=== PATIENT | female | born 1960 | race Caucasian/White ===

== ENCOUNTER 2019-05-03 18:49 | Emergency (ER) | payer MEDICAID ==
--- OUTSIDE RECORDS SUMMARY | 2019-05-03 18:52 | XMS REPORT ---
:1960 Author Organization eClinicalWorks Care Team Providers Name Role Phone Silva, Na Provider Role Unavailable Allergies No Known Allergies Problems Problem Type Condition Code Onset Dates Condition Status Problem Depression with anxiety F41.8 Active Problem Familial hypercholesterolemia E78.01 Active Problem Bipolar disorder F31.9 Active Problem Chronic GERD K21.9 Active Problem Basal cell carcinoma (BCC) of skin C44.319 Active of other part of face Problem Chronic obstructive pulmonary J44.9 Active disease Problem Acute bronchitis, unspecified J20.9 Active organism Problem Hypertension I10 Active Problem Low back pain M54.5 Active Problem Chronic viral hepatitis C B18.2 Active Problem Basal cell carcinoma of skin of C44.310 Active unspecified parts of face Problem Hypercholesterolemia E78.00 Active Problem Nicotine dependence F17.200 Active Problem Allergic rhinitis, seasonal J30.2 Active Problem Chronic hepatitis C B18.2 Active Problem Benign essential HTN I10 Active Problem Anxiety F41.9 Active Problem Cryoglobulinemia D89.1 Active Problem COPD (chronic obstructive pulmonary J44.9 Active disease) Problem GERD (gastroesophageal reflux K21.9 Active disease) Problem Chronic back pain M54.9 Active Medications No Known Medications Results No Known Results Summary Purpose eClinicalWorks Submission
--- OUTSIDE RECORDS SUMMARY | 2019-05-03 18:52 | XMS REPORT ---
:1960 Author Organization [facility] Address [address] [place] [address] [address] [place] [address] Care Team Providers Name Role Phone Unavailable Unavailable Unavailable Payers Payer Name Policy Type Policy Number Effective Date Expiration Date Problems This patient has no known problems. Allergies, Adverse Reactions, Alerts This patient has no known allergies or adverse reactions. Medications This patient has no known medications.
--- OUTSIDE RECORDS SUMMARY | 2019-05-03 18:52 | XMS REPORT | Clinical Summary ---
:1960 Author Organization [facility] Address [address] [place] [id number] Care Team Providers Name Role Phone Unavailable Primary Care Provider Unavailable Allergies Not on File Medications Not on file Active Problems Not on file Social History Tobacco Use Types Packs/Day Years Used Date Never Assessed Sex Assigned at Date Recorded Not on file Job Start Date Occupation Industry Not on file Not on file Not on file Travel History Travel Start Travel End No recent travel history available. Last Filed Vital Signs Not on file Plan of Treatment Date Type Specialty Care Team Description 05/08/2019 Office Visit Hepatology Antony Cho MD [address] [facility] [address] [place] [address] Results Not on fileafter 05/02/2018 Insurance Payer Benefit Plan / Group Subscriber ID Type Phone Address [place] [employer] [place] x[place]
--- OUTSIDE RECORDS SUMMARY | 2019-05-03 18:52 | XMS REPORT ---
:1960 Author Organization eClinicalWorks Care Team Providers Name Role Phone Silva, Na Provider Role Unavailable Allergies, Adverse Reactions, Alerts Substance Reaction Event Type Codeine Sulfate Info Not Available Drug Allergy Problems Problem Type Condition Code Onset Dates Condition Status Assessment Nicotine dependence F17.200 Active Assessment Anxiety F41.9 Active Problem COPD (chronic obstructive pulmonary J44.9 Active disease) Assessment Bipolar disorder F31.9 Active Problem Chronic back pain M54.9 Active Assessment Benign essential HTN I10 Active Problem Depression with anxiety F41.8 Active Problem Familial hypercholesterolemia E78.01 Active Problem Bipolar disorder F31.9 Active Problem Chronic GERD K21.9 Active Problem Chronic obstructive pulmonary J44.9 Active disease Problem Basal cell carcinoma (BCC) of skin C44.319 Active of other part of face Assessment Acute bronchitis, unspecified J20.9 Active organism Problem Acute bronchitis, unspecified J20.9 Active organism Assessment COPD (chronic obstructive pulmonary J44.9 Active disease) Problem Hypertension I10 Active Problem Low back [...] F41.9 Active Problem Cryoglobulinemia D89.1 Active Problem GERD (gastroesophageal reflux K21.9 Active disease) Medications Medication Code Code Instructions Start End Status Dosage System Date Date Nasonex [facility] 14374429796 50 MCG/ACT Active 2 sprays Nasally Once a in each day nostril ProAir HFA [facility] 33780358351 108 (90 Base) Active 2 puffs as MCG/ACT needed Inhalation every 6 hrs Lisinopril [facility] 47608442714 20 MG Orally Active 1 tablet Once a day Diflucan ND 40624174545 150 MG Orally Active 1 tablet Xanax ND 64219591430 1 MG Orally Active 1 tablet Twice a day Depakote [facility] 72257842355 250 MG Orally Active as TID directed Lisinopril [facility] 51311848139 20 MG Orally Active 1 tablet Once a day Brovana [facility] 88602627528 15 MCG/2ML Active 2 ml Inhalation Twice a day Promethazine [facility] 29011254275 25 MG Orally Active 1 tablet HCl every 12 hrs as needed Prozac [facility] 70046112752 40 MG Orally Active 1 capsule Once a day Prozac [facility] 09871918345 40 MG Orally Active 1 capsule Once a day Alprazolam [facility] 13656158592 0.5 MG Orally April 24, Active 1 tablet Twice a day 2017 Symbicort [facility] 33347138260 160-4.5 MCG/ACT Active 2 puffs Inhalation Twice a day ProAir HFA [facility] 70269639269 108 (90 Base) Active 2 puffs as MCG/ACT needed Inhalation every 6 hrs Lyrica [facility] 75162441179 100 MG Orally Active 1 capsule Three times a day [place] [facility] 73318812198 10-325 MG Active 1 tablet Orally every 6 as needed hrs Azithromycin [facility] 23685826303 250 MG Orally Active 2 tablets Once a day on the first day, then 1 tablet daily for 4 days [facility] 73142008482 10-325 MG Active 1 tablet Orally every 6 as needed hrs Xanax [facility] 70096077756 1 MG Orally Inactive 1 tablet Twice a day Protonix [facility] 32837096990 40 MG Orally Active 1 tablet Once a day Nasonex [facility] 32749976192 50 MCG/ACT Active 2 sprays Nasally Once a in each day nostril Promethazine [facility] 15129434810 25 MG/ML Active 1 ml as HCl Injection every needed 6 hrs Protonix [facility] 86325534829 40 MG Orally Active 1 tablet Lisinopril [facility] 08386527227 20 MG Orally Active 1 tablet Once a day Diflucan [facility] 12107285214 150 MG Orally Active 1 tablet Brovana [facility] 07234801270 15 MCG/2ML Active 2 ml Inhalation Twice a day Amitiza [facility] 24296851263 24 MCG Orally March Active 1 capsule Twice a day 2017 with food Lyrica [facility] 81467535888 100 MG Orally Active 1 capsule Three times a day ProAir HFA [facility] 41877673577 108 (90 Base) Active 2 puffs as MCG/ACT needed Inhalation every 6 hrs Flonase [facility] 88890826703 50 MCG/ACT Active 1 spray in Nasally Once a each day nostril Results No Known Results Summary Purpose eClinicalWorks Submission
--- OUTSIDE RECORDS SUMMARY | 2019-05-03 18:52 | XMS REPORT ---
[...] Problem Chronic obstructive pulmonary J44.9 Active disease Assessment Anxiety F41.9 Active Problem Acute bronchitis, unspecified J20.9 Active organism [...] Problem Chronic back pain M54.9 Active Medications Medication Code Code Instructions Start End Status Dosage System Date Date Xanax [facility] 25509072260 1 MG Orally Active 1 tablet Twice a day Promethazine HCl [facility] 71213617174 25 MG/ML Active 1 ml as Injection every needed 6 hrs Nasonex ND 54398796365 50 MCG/ACT Active 2 sprays Nasally Once a in each day nostril Diflucan [facility] 98314069264 150 MG Orally Active 1 tablet Brovana [facility] 81454768725 15 MCG/2ML Active 2 ml Inhalation Twice a day Lisinopril ND 61226066003 20 MG Orally Active 1 tablet Once a day Amitiza [facility] 00433858024 24 MCG Orally March Active 1 capsule Twice a day 05, 2018 with food Prozac [facility] 65473044952 40 MG Orally Active 1 capsule Once a day Lisinopril ND 47538525654 20 MG Orally Active 1 tablet Once a day Protonix ND 66172398404 40 MG Orally Active 1 tablet Once a day Flonase ND 16564251823 50 MCG/ACT Active 1 spray in Nasally Once a each day nostril Promethazine HCl ND 75747825673 25 MG Orally Active 1 tablet every 12 hrs as needed ProAir HFA [facility] 43812175252 108 (90 Base) Active 2 puffs as MCG/ACT needed Inhalation every 6 hrs Xanax [facility] 08809924003 1 MG Orally Active 1 tablet Twice a day [place] [facility] 34075087400 10-325 MG Active 1 tablet Orally every 6 as needed hrs Prozac [facility] 60255876425 40 MG Orally Active 1 capsule Once a day Lyrica [facility] 00784718483 100 MG Orally Active 1 capsule Three times a day [facility] 77802609949 10-325 MG Active 1 tablet Orally every 6 as needed hrs Lyrica ND 66080386015 100 MG Orally Active 1 capsule Three times a day Diflucan ND 00246992461 150 MG Orally Active 1 tablet ProAir HFA ND 39286147478 108 (90 Base) Active 2 puffs as MCG/ACT needed Inhalation every 6 hrs Brovana [facility] 47442409125 15 MCG/2ML Active 2 ml Inhalation Twice a day Nasonex ND 03916138022 50 MCG/ACT Active 2 sprays Nasally Once a in each day nostril Protonix ND 83782591882 40 MG Orally Active 1 tablet Results No Known Results Summary Purpose eClinicalWorks Submission
--- OUTSIDE RECORDS SUMMARY | 2019-05-03 18:52 | XMS REPORT ---
[...] back pain M54.9 Active Medications Medication Code System Code Instructions Start Date End Date Status Dosage Lyubov [facility] 86564722605 15 MCG/2ML Active 2 ml Inhalation Twice a day Results No Known Results Summary Purpose eClinicalWorks Submission
--- OUTSIDE RECORDS SUMMARY | 2019-05-03 18:53 | XMS REPORT ---
:1960 Author Organization eClinicalWorks Care Team Providers Name Role Phone Silva, Na Provider Role Unavailable Allergies, Adverse Reactions, Alerts Substance Reaction Event Type Codeine Sulfate Info Not Available Drug Allergy Problems Problem Type Condition Code Onset Dates Condition Status Assessment Chronic hepatitis C B18.2 Active Assessment Nicotine dependence F17.200 Active Problem Chronic back pain M54.9 Active Assessment Anxiety F41.9 Active Problem Depression with anxiety F41.8 Active Assessment Infection of finger L08.9 Active Problem Bipolar disorder F31.9 Active Problem Low back pain M54.5 Active Problem Familial hypercholesterolemia E78.01 Active Problem Acute bronchitis, unspecified J20.9 Active organism Problem Chronic GERD K21.9 Active Problem Allergic rhinitis, seasonal J30.2 Active Problem Basal cell carcinoma (BCC) of skin C44.319 Active of other part of face Problem Infection of finger L08.9 Active Problem Basal cell carcinoma of skin of C44.310 Active unspecified parts of face Problem Hypertension I10 Active Problem Chronic obstructive pulmonary J44.9 Active disease Problem Chronic viral hepatitis C B18.2 Active Problem Nicotine dependence F17.200 Active Problem Cryoglobulinemia D89.1 Active Problem Chronic hepatitis C B18.2 Active Problem Hypercholesterolemia E78.00 Active Problem Anxiety F41.9 Active Problem COPD (chronic obstructive pulmonary J44.9 Active disease) Problem GERD (gastroesophageal reflux K21.9 Active disease) Problem Benign essential HTN I10 Active Medications Medication Code Code Instructions Start End Status Dosage System Date Date Lisinopril [facility] 60939463497 20 MG Orally Active 1 tablet Once a day Lyrica ND 90856884050 100 MG Orally Active 1 capsule Three times a day Fluoxetine HCl [facility] 54524190284 40 MG Active 1 EACH ONCE A DAY ORALLY Amitiza [facility] 05834425978 24 MCG Orally January Active 1 capsule Twice a day 2017 with food ProAir HFA [facility] 65099783062 108 (90 Base) Active 2 puffs as MCG/ACT needed Inhalation every 6 hrs [place] [facility] 31147819086 10-325 MG Active 1 tablet as Orally every 6 needed hrs Brovana [facility] 07292506478 15 MCG/2ML Active 2 ml Inhalation Twice a day Protonix [facility] 58639893394 40 Active 1 TAB(S) ONCE A DAY ORALLY Flonase [facility] 66083982922 50 MCG/ACT Active 1 spray in Nasally Once a each day nostril Alprazolam [facility] 20257658193 0.5 MG Orally Active 1 tablet Twice a day Azithromycin [facility] 05977547511 250 MG Orally Active 2 tablets Once a day on the first day, then 1 tablet daily for 4 days Keflex [facility] 33375017900 500 MG Orally Jul 25, Active 1 capsule every 12 hrs 2017 Prozac [facility] 79980147475 40 MG Orally Active 1 capsule Once a day Depakote [facility] 15862977873 250 MG Orally Active as directed TID Lisinopril [facility] 71654240626 20 MG Orally Active 1 tablet Once a day Protonix [facility] 87505277804 40 MG Orally Active 1 tablet Once a day ProAir HFA [facility] 87069496247 108 (90 Base) Active 2 puffs as MCG/ACT needed Inhalation every 6 hrs Results No Known Results Summary Purpose eClinicalWorks Submission
--- OUTSIDE RECORDS SUMMARY | 2019-05-03 18:53 | XMS REPORT ---
:1960 Author Organization eClinicalWorks Care Team Providers Name Role Phone Silva, Na Provider Role Unavailable Allergies, Adverse Reactions, Alerts Substance Reaction Event Type Codeine Sulfate Info Not Available Drug Allergy Problems Problem Type Condition Code Onset Dates Condition Status Assessment Nicotine dependence F17.200 Active Problem COPD (chronic obstructive pulmonary J44.9 Active disease) Assessment Bipolar disorder F31.9 Active Problem Chronic back pain M54.9 Active Assessment COPD (chronic obstructive pulmonary J44.9 Active disease) Problem Depression with anxiety F41.8 Active Problem Familial hypercholesterolemia E78.01 Active Problem Bipolar disorder F31.9 Active Problem Chronic GERD K21.9 Active Problem Chronic obstructive pulmonary J44.9 Active disease Problem Basal cell carcinoma (BCC) of skin C44.319 Active of other part of face Problem Acute bronchitis, unspecified J20.9 Active organism Assessment Anxiety F41.9 Active Problem Hypertension I10 Active Problem Low back [...] End Status Dosage System Date Date Lisinopril [facility] 35616406403 20 MG Orally Active 1 tablet Once a day Lyrica [facility] 46616490018 100 MG Orally Active 1 capsule Three times a day Alprazolam [facility] 56552173091 0.5 MG Orally Active 1 tablet Twice a day Xanax [facility] 89193095220 1 MG Orally Inactive 1 tablet Twice a day Brovana [facility] 68822387094 15 MCG/2ML Active 2 ml Inhalation Twice a day Lisinopril [facility] 35422875925 20 MG Orally Active 1 tablet Once a day Amitiza [facility] 25564310707 24 MCG Orally January Active 1 capsule Twice a day 2017 with food Flonase [facility] 26416357169 50 MCG/ACT Active 1 spray in Nasally Once a each day nostril Symbicort [facility] 88877244373 160-4.5 MCG/ACT May Inactive 2 puffs Inhalation , Twice a day 2017 Depakote [facility] 36666515099 250 MG Orally Active as directed TID Azithromycin [facility] 82918798442 250 MG Orally Active 2 tablets Once a day on the first day, then 1 tablet daily for 4 days Protonix [facility] 34911661144 40 MG Orally Active 1 tablet Once a day Prozac [facility] 49311366964 40 MG Orally Active 1 capsule Once a day ProAir HFA [facility] 56583292452 108 (90 Base) Active 2 puffs as MCG/ACT needed Inhalation every 6 hrs [place] [facility] 94619060330 10-325 MG Active 1 tablet as Orally every 6 needed hrs ProAir HFA [facility] 94564826333 108 (90 Base) Active 2 puffs as MCG/ACT needed Inhalation every 6 hrs Results No Known Results Summary Purpose eClinicalWorks Submission
--- OUTSIDE RECORDS SUMMARY | 2019-05-03 18:53 | XMS REPORT ---
[...] Start End Status Dosage System Date Date Protonix [facility] 49518398174 40 Active 1 TAB(S) ONCE A DAY ORALLY ProAir HFA [facility] 34916035134 108 (90 Base) Active 2 puffs as MCG/ACT needed Inhalation every 6 hrs Lyrica ND 86340887516 100 MG Orally Active 1 capsule Three times a day [place] [facility] 90042610991 10-325 MG Orally Active 1 tablet as every 6 hrs needed Protonix ND 48274799158 40 MG Orally Active 1 tablet Once a day Flonase ND 71156664293 50 MCG/ACT Active 1 spray in Nasally Once a each day nostril ProAir HFA [facility] 80793744383 108 (90 Base) Active 2 puffs as MCG/ACT needed Inhalation every 6 hrs Prozac [facility] 23860130610 40 MG Orally Active 1 capsule Once a day Azithromycin [facility] 31462834068 250 MG Orally Active 2 tablets Once a day on the first day, then 1 tablet daily for 4 days Lisinopril [facility] 78033773001 20 MG Orally Active 1 tablet Once a day Lisinopril [facility] 28266626855 20 MG Orally Active 1 tablet Once a day Amitiza [facility] 72184481755 24 MCG Orally January 22, Active 1 capsule Twice a day 2017 with food Brovana [facility] 02404255820 15 MCG/2ML Active 2 ml Inhalation Twice a day Depakote [facility] 37679171680 250 MG Orally Active as directed TID Alprazolam [facility] 60514107871 0.5 MG Orally Active 1 tablet Twice a day Results No Known Results Summary Purpose eClinicalWorks Submission
--- OUTSIDE RECORDS SUMMARY | 2019-05-03 18:53 | XMS REPORT ---
[...] Start Date End Date Status Dosage Lyubov [facility] 16137541483 15 MCG/2ML Active 2 ml Inhalation Twice a day Results No Known Results Summary Purpose eClinicalWorks Submission
--- OUTSIDE RECORDS SUMMARY | 2019-05-03 18:53 | XMS REPORT ---
:1960 Author Organization eClinicalWorks Care Team Providers Name Role Phone Silva, Na Provider Role Unavailable Allergies No Known Allergies Problems Problem Type Condition Code Onset Dates Condition Status Problem Bipolar disorder F31.9 Active Problem Low back pain M54.5 Active Problem Familial hypercholesterolemia E78.01 Active Problem Acute bronchitis, unspecified J20.9 Active organism Problem Allergic rhinitis, seasonal J30.2 Active Problem Chronic GERD K21.9 Active Problem [...] disease) Problem Chronic back pain M54.9 Active Problem Benign essential HTN I10 Active Problem Depression with anxiety F41.8 Active Medications No Known Medications Results No Known Results Summary Purpose eClinicalWorks Submission
--- OUTSIDE RECORDS SUMMARY | 2019-05-03 18:53 | XMS REPORT ---
:1960 Author Organization eClinicalWorks Care Team Providers Name Role Phone Silva, Na Provider Role Unavailable Allergies, Adverse Reactions, Alerts Substance Reaction Event Type Codeine Sulfate Info Not Available Drug Allergy Problems Problem Type Condition Code Onset Dates Condition Status Assessment Chronic hepatitis C B18.2 Active Assessment Nicotine dependence F17.200 Active Problem COPD (chronic obstructive pulmonary J44.9 Active disease) Assessment COPD (chronic obstructive pulmonary J44.9 Active disease) Problem Chronic back pain M54.9 Active Assessment Anxiety F41.9 Active Problem Depression with anxiety F41.8 Active Problem Familial hypercholesterolemia E78.01 Active Problem Bipolar disorder F31.9 Active Problem Chronic GERD K21.9 Active Problem Chronic obstructive pulmonary J44.9 Active disease Problem Basal cell carcinoma (BCC) of skin C44.319 Active of other part of face Problem Acute bronchitis, unspecified J20.9 Active organism Assessment Cellulitis of skin L03.90 Active Problem Hypertension I10 Active Problem Low [...] End Status Dosage System Date Date Protonix ND 68056058487 40 MG Orally Active 1 tablet Once a day Prozac [facility] 82703642638 40 MG Orally Active 1 capsule Once a day Fluoxetine HCl ND 97366594277 40 MG Active 1 EACH ONCE A DAY ORALLY Protonix [facility] 47052368227 40 Active 1 TAB(S) ONCE A DAY ORALLY Alprazolam ND 76830701463 0.5 MG Orally Active 1 tablet Twice a day Keflex [facility] 06716171265 500 MG Orally Jul 06, Jul 13, Active 1 capsule every 8 hrs 2017 2017 Azithromycin [facility] 61258643964 250 MG Orally Active 2 tablets Once a day on the first day, then 1 tablet daily for 4 days Lisinopril [facility] 03775023515 20 MG Orally Active 1 tablet Once a day Amitiza [facility] 16258452580 24 MCG Orally January Active 1 capsule Twice a day 2017 with food Flonase [facility] 97136082659 50 MCG/ACT Active 1 spray in Nasally Once a each day nostril [place] [facility] 67458098323 10-325 MG Active 1 tablet as Orally every 6 needed hrs Lisinopril [facility] 73666490818 20 MG Orally Active 1 tablet Once a day Brovana [facility] 46201512596 15 MCG/2ML Active 2 ml Inhalation Twice a day ProAir HFA [facility] 26194867619 108 (90 Base) Active 2 puffs as MCG/ACT needed Inhalation every 6 hrs ProAir HFA [facility] 53205609879 108 (90 Base) Active 2 puffs as MCG/ACT needed Inhalation every 6 hrs Lyrica [facility] 44803305204 100 MG Orally Active 1 capsule Three times a day Depakote [facility] 50110249515 250 MG Orally Active as directed TID Results No Known Results Summary Purpose eClinicalWorks Submission
--- OUTSIDE RECORDS SUMMARY | 2019-05-03 18:54 | XMS REPORT ---
[...] M54.9 Active Assessment Anxiety F41.9 Active Problem Benign essential HTN I10 Active Problem Depression with anxiety F41.8 Active Medications Medication Code System Code Instructions Start End Date Status Dosage Date Lisinopril [facility] 05857103118 20 MG Orally Active 1 tablet Once a day ProAir HFA [facility] 78671190948 108 (90 Base) Active INHALE 2 MCG/ACT PUFFS 4 TIMES A DAY Prozac [facility] 70549891303 40 MG Orally Active 1 capsule Once a day Results No Known Results Summary Purpose eClinicalWorks Submission
--- OUTSIDE RECORDS SUMMARY | 2019-05-03 18:54 | XMS REPORT ---
:1960 Author Organization eClinicalWorks Care Team Providers Name Role Phone Silva, Na Provider Role Unavailable Allergies, Adverse Reactions, Alerts Substance Reaction Event Type Codeine Sulfate Info Not Available Drug Allergy Problems Problem Type Condition Code Onset Dates Condition Status Assessment COPD (chronic obstructive pulmonary J44.9 Active disease) Problem Chronic back pain M54.9 Active Assessment Chronic hepatitis C B18.2 Active Problem Depression with anxiety F41.8 Active Assessment Anxiety F41.9 Active Problem Bipolar disorder F31.9 Active Problem [...] Start End Status Dosage System Date Date Brovana [facility] 31787389260 15 MCG/2ML Active 2 ml Inhalation Twice a day ProAir HFA [facility] 74975511091 108 (90 Base) Active INHALE 2 MCG/ACT PUFFS 4 TIMES A DAY Protonix ND 78495788603 40 MG Orally Active 1 tablet Once a day Amitiza ND 79420017951 24 MCG Orally January Active 1 capsule Twice a day 2017 with food Protonix ND 40061753877 40 Active 1 TAB(S) ONCE A DAY ORALLY Alprazolam ND 17771801691 0.5 MG Orally Active 1 tablet Twice a day Fluoxetine HCl [facility] 01714399896 40 MG Active 1 EACH ONCE A DAY ORALLY Lisinopril [facility] 11490871883 20 MG Orally Active 1 tablet Once a day Prozac [facility] 03960480514 40 MG Orally Active 1 capsule Once a day Wheeler [facility] 81585980794 10-325 MG Active 1 tablet as Orally every 6 needed hrs Lyrica [facility] 40089642783 100 MG Orally Active 1 capsule Three times a day Depakote [facility] 91187536826 250 MG Orally Active as directed TID Flonase [facility] 40204658112 50 MCG/ACT Active 1 spray in Nasally Once a each day nostril Keflex [facility] 25529238934 500 MG Orally Active 1 capsule every 12 hrs [address]ymbicort [facility] 70160510167 160-4.5 MCG/ACT Active 2 puffs Inhalation Twice a day Lisinopril [facility] 68908055740 20 MG Orally Active 1 tablet Once a day Azithromycin [facility] 58443598558 250 MG Orally Active 2 tablets Once a day on the first day, then 1 tablet daily for 4 days Results No Known Results Summary Purpose eClinicalWorks Submission
--- OUTSIDE RECORDS SUMMARY | 2019-05-03 18:54 | XMS REPORT ---
[...] with anxiety F41.8 Active Medications Medication Code Code Instructions Start End Status Dosage System Date Bro [facility] 04512169386 15 MCG/2ML Active 2 ml Inhalation Twice a day Amitiza [facility] 53913187571 24 MCG Orally January Active 1 capsule Twice a day 2017 with food Symbicort [facility] 55605104817 160-4.5 MCG/ACT Active 2 puffs Inhalation Twice a day Keflex [facility] 89861538256 500 MG Orally Jul 25, Active 1 capsule every 12 hrs 2017 Azithromycin [facility] 21659734391 250 MG Orally Active 2 tablets Once a day on the first day, then 1 tablet daily for 4 days Prozac [facility] 51077572772 40 MG Orally Active 1 capsule Once a day [place] [facility] 75089276429 10-325 MG Active 1 tablet as Orally every 6 needed hrs Lyrica [facility] 31189421564 100 MG Orally Active 1 capsule Three times a day Lisinopril [facility] 06080792996 20 MG Orally Active 1 tablet Once a day Protonix [facility] 42600622230 40 Active 1 TAB(S) ONCE A DAY ORALLY Alprazolam [facility] 14092669348 0.5 MG Orally Active 1 tablet Twice a day Protonix [facility] 31415606012 40 MG Orally Active 1 tablet Once a day Fluoxetine HCl [facility] 00739302830 40 MG Active 1 EACH ONCE A DAY ORALLY Lisinopril [facility] 80861911655 20 MG Orally Active 1 tablet Once a day Depakote [facility] 30578211890 250 MG Orally Active as directed TID Flonase [facility] 08356380766 50 MCG/ACT Active 1 spray in Nasally Once a each day nostril ProAir HFA [facility] 10706730029 108 (90 Base) Active INHALE 2 MCG/ACT PUFFS 4 TIMES A DAY Results No Known Results Summary Purpose eClinicalWorks Submission
--- OUTSIDE RECORDS SUMMARY | 2019-05-03 18:54 | XMS REPORT ---
[...] Assessment Benign essential HTN I10 Active Problem Benign essential HTN I10 Active Problem Depression with anxiety F41.8 Active Medications Medication Code System Code Instructions Start Date End Date Status Dosage Lisinopril [facility] 55772984440 20 MG Orally Once Active 1 tablet a day Results No Known Results Summary Purpose eClinicalWorks Submission
[2019-05-03] MEDS ORDERED: NA CHLORIDE 0.9% 1,000 ML ONE (20:20)
[2019-05-03] MEDS ORDERED: FENTANYL CITR 100 MCG/2 ML ONE (20:20)
[2019-05-03] MEDS ORDERED: ONDANSETRON 4 MG/2 ML VIAL ONE (20:20)
[2019-05-03] MEDS ORDERED: FAMOTIDINE 20 MG/2 ML VIAL IV ONE (20:20)
[2019-05-03 20:38] LABS: Absolute Monocytes 0.6 K/uL (0.1-1.3); Absolute Neutrophil 3.6 K/uL (1.8-8.0); Basophils % 0.7 % (0-1.3); Eosinophils % 0.1 % (0-4.4); Hematocrit 39.5 % (36.0-45.0); Lymphocytes % 31.4 % (15.3-44.8); MPV 8.4 fL (7.6-11.3); Monocytes % 9.6 % (3.3-12.3); RBC Red Blood Cell Count 3.89 M/uL (3.86-4.86)
[2019-05-03 20:50] LABS: Albumin 3.3 g/dL (3.4-5.0); Bilirubin Direct 0.3 mg/dL (0-0.2); Bilirubin Total 0.8 mg/dL (0.2-1.0); Magnesium 1.9 mg/dL (1.8-2.4); Potassium 3.8 mmol/L (3.5-5.1); Protein, Total 7.5 g/dL (6.4-8.2)
[2019-05-03] MEDS ORDERED: KETOROLAC 30 MG/ML INJ ONE (21:41)
--- NOTE | 2019-05-03 23:03 | EDPHYS ---
Physician Documentation [facility] Name: Josseline Gallegos Age: 58 yrs Sex: Female : 1960 Arrival Date: 05/03/2019 Time: 18:55 Bed 2 Private MD: TIM Physician Chris Gallegos HPI: 05/03 19:55 This 58 yrs old Female presents to ER via EMS with complaints of cp Nausea/Vomiting. 19:55 The patient presents to the emergency department with nausea, with "dry heaves", cp vomiting, that is continuous, diarrhea, that is intermittent. Onset: The symptoms/episode began/occurred yesterday. 19:55 Possible causes: unknown. Associated signs and symptoms: Pertinent positives: abdominal cp pain, anorexia, Pertinent negatives: constipation, dysuria, fever, GI bleeding. Severity of symptoms: in the emergency department the symptoms are unchanged despite home interventions. Historical: - Allergies: 19:06 Codeine; ph - Home Meds: 19:06 Hydrocodone-Acetaminophen Oral [Active]; lisinopril Oral [Active]; morphine 20 mg Oral ph CERP 1 cap once daily [Active]; - PMHx: 19:06 Chronic pain; Hypertension; ph - PSHx: 19:06 foot surgery; ph - Immunization history:: Adult Immunizations unknown. - Social history:: Smoking status: Patient uses tobacco products, smokes one-half pack cigarettes per day. - Ebola Screening: : No symptoms or risks identified at this time. ROS: 20:05 Constitutional: Positive for poor PO intake, Negative for body aches, chills, fever. cp 20:05 Eyes: Negative for injury, pain, redness, and discharge. cp 20:05 ENT: Negative for drainage from ear(s), ear pain, sore throat, difficulty swallowing, difficulty handling secretions. 20:05 Cardiovascular: Negative for chest pain, edema, palpitations. 20:05 Respiratory: Negative for cough, shortness of breath, wheezing. 20:05 Abdomen/GI: Positive for abdominal pain, nausea, vomiting, and diarrhea, Negative for hematemesis, black/tarry stool, rectal bleeding. 20:05 Back: Negative for pain at rest, pain with movement, radiated pain. 20:05 : Negative for urinary symptoms. 20:05 Skin: Negative for rash. 20:05 Neuro: Negative for altered mental status, headache, weakness. 20:05 All other systems are negative. Exam: 20:10 Constitutional: The patient appears in no acute distress, alert, awake, cp non-diaphoretic, non-toxic, well developed, well nourished. 20:10 Head/Face: Normocephalic, atraumatic. cp 20:10 Eyes: Periorbital structures: appear normal, Conjunctiva: normal, no exudate, no injection, Sclera: no appreciated abnormality, Lids and lashes: appear normal, bilaterally. 20:10 ENT: External ear(s): are unremarkable, Nose: is normal, Mouth: Lips: dry, Oral mucosa: moist, Posterior pharynx: is normal, airway is patent, no erythema, no exudate. 20:10 Chest/axilla: Inspection: normal, Palpation: is normal, no crepitus, no tenderness. 20:10 Cardiovascular: Rate: normal, Rhythm: regular, Heart sounds: murmur, not appreciated, Edema: is not appreciated, JVD: is not appreciated. 20:10 Respiratory: the patient does not display signs of respiratory distress, Respirations: normal, no use of accessory muscles, no retractions, no splinting, no tachypnea, labored breathing, is not present, Breath sounds: are clear throughout, no decreased breath sounds, no stridor, no wheezing. 20:10 Abdomen/GI: Inspection: abdomen appears normal, Bowel sounds: active, all quadrants, Palpation: soft, in all quadrants, moderate abdominal tenderness, in the epigastric area and right upper quadrant, rebound tenderness, is not appreciated, voluntary guarding, is elicited in the epigastric area. 20:10 Back: pain, is absent, ROM is normal. 20:10 Skin: no rash present. Vital Signs: 19:04 BP 160 / 105; Pulse 76; Resp 18; Temp 98.0; Pulse Ox 98% on R/A; Weight 52.16 kg; ph Height 5 ft. 5 in. (165.10 cm); Pain 0/10; 19:35 BP 160 / 106; Pulse 63; Resp 18; Temp 98.4; Pulse Ox 98% on R/A; ak1 20:15 BP 138 / 93; Pulse 69; Resp 17; Temp 98; Pulse Ox 99% ; Pain 6/10; rr5 21:10 BP 140 / 98; Pulse 67; Resp 18; Pulse Ox 100% ; Pain 5/10; rr5 22:07 BP 125 / 85; Pulse 69; Resp 16; Temp 98.1; Pulse Ox 96% on R/A; ak1 23:14 BP 131 / 70; Pulse 66; Resp 17; Temp 98.5; Pulse Ox 99% on R/A; rr5 19:04 Body Mass Index 19.14 (52.16 kg, 165.10 cm) ph MDM: 19:48 Patient medically screened. cp 23:02 Data reviewed: vital signs, nurses notes, lab test result(s), radiologic studies, CT cp scan, ultrasound. 23:02 Counseling: I had a detailed discussion with the patient and/or guardian regarding: the cp historical points, exam findings, and any diagnostic results supporting the discharge/admit diagnosis, lab results, radiology results, to return to the emergency department if symptoms worsen or persist or if there are any questions or concerns that arise at home. Special discussion: Based on the patient's Hx, exam, and Dx evaluation, there is no indication for emergent surgery or inpatient Tx. It is understood by the patient/guardian that if the Sx's persist or worsen they need to return immediately for re-evaluation. ED course: VSS. Pain and nausea markedly improved. Vomiting resolved. Will discharge to home for continued monitoring. 05/03 19:47 Order name: Basic Metabolic Panel; Complete Time: 21:19 cp 05/03 19:47 Order name: CBC with Diff; Complete Time: 21:19 cp 05/03 19:47 Order name: Creatinine for Radiology; Complete Time: 21:19 cp 05/03 19:47 Order name: Hepatic Function; Complete Time: 21:19 cp 05/03 19:47 Order name: Lipase; Complete Time: 21:19 cp 05/03 19:48 Order name: Magnesium; Complete Time: 21:19 cp 05/03 19:47 Order name: IV Saline Lock; Complete Time: 20:03 cp 05/03 19:48 Order name: CT Abd/Pelvis - IV Contrast Only cp 05/03 21:58 Order name: US Abdomen Limited: RUQ/epigastric area; Complete Time: 21:13 cp 05/03 19:47 Order name: Labs collected and sent; Complete Time: 20:03 cp Administered Medications: 20:10 Drug: NS 0.9% 1000 ml Route: IV; Rate: 1 bolus; Site: left antecubital; rr5 21:15 Follow up: Response: No adverse reaction; IV Status: Completed infusion; IV Intake: rr5 1000ml 20:11 Drug: Zofran 4 mg Route: IVP; Site: left antecubital; rr5 21:10 Follow up: Response: No adverse reaction; Marked relief of symptoms rr5 20:13 Drug: Pepcid 20 mg Route: IVP; Site: left antecubital; rr5 21:15 Follow up: Response: No adverse reaction rr5 20:15 Drug: fentaNYL (PF) 25 mcg Route: IVP; Site: left antecubital; rr5 21:15 Follow up: Response: No adverse reaction rr5 21:33 Drug: TORadol 30 mg Route: IVP; Site: left antecubital; rr5 22:30 Follow up: Response: No adverse reaction rr5 Disposition: 05/03/19 23:03 Discharged to Home. Impression: Nausea and vomiting, Diarrhea, unspecified. - Condition is Stable. - Discharge Instructions: Diarrhea, Adult, Nausea and Vomiting, Adult. - Prescriptions for Protonix 40 mg Oral Tablet - take 1 tablet by ORAL route once daily; 30 tablet. Zofran 4 mg Oral Tablet - take 1 tablet by ORAL route every 12 hours As needed; 20 tablet. - Medication Reconciliation Form, Thank You Letter, Antibiotic Education, Prescription Opioid Use form. - Follow up: Private Physician; When: 1 - 2 days; Reason: Recheck today's complaints. - Problem is new. - Symptoms have improved. Addendum: 05/06/2019 07:43 Co-signature as Attending Physician, Chris Gallegos MD I agree with the assessment and c jones plan of care. Signatures: Dispatcher [employer] [facility] Chris Gallegos MD MD cha Hall, Patricia RN RN ph Chris Naidu PA PA cp Roque, Raymond, RN RN rr5 Corrections: (The following items were deleted from the chart) 05/03 21:58 21:56 Fluid Challenge ordered. cp cp 23:15 23:03 05/03/2019 23:03 Discharged to Home. Impression: Nausea and vomiting; Diarrhea, rr5 unspecified. Condition is Stable. Forms are Medication Reconciliation Form, Thank You Letter, Antibiotic Education, Prescription Opioid Use. Follow up: Private Physician; When: 1 - 2 days; Reason: Recheck today's complaints. Problem is new. Symptoms have improved. cp
--- NOTE | 2019-05-03 23:03 | ER ---
Nurse's Notes [facility] Name: Josseline Gallegos Age: 58 yrs Sex: Female : 1960 Arrival Date: 05/03/2019 Time: 18:55 Bed 2 Private MD: Diagnosis: Nausea and vomiting;Diarrhea, unspecified Presentation: 05/03 19:00 Presenting complaint: EMS states: Nausea, vomiting and diarrhea since yesterday, reports that vomit is bright yellow, denies pain, low grade fever for EMS of 100.0, hx of Hep C and "liver issues", took own [place] before leaving home. Transition of care: patient was not received from another setting of care. Onset of symptoms was May 03, 2019. Risk Assessment: Do you want to hurt yourself or someone else? Patient reports no desire to harm self or others. Initial Sepsis Screen: Does the patient meet any 2 criteria? No. Patient's initial sepsis screen is negative. Does the patient have a suspected source of infection? No. Patient's initial sepsis screen is negative. Care prior to arrival: Glucose check: 94. 19:00 Method Of Arrival: EMS: [facility] 19:00 Acuity: TIFFANY 3 ph Historical: - Allergies: 19:06 Codeine; ph - Home Meds: 19:06 Hydrocodone-Acetaminophen Oral [Active]; lisinopril Oral [Active]; morphine 20 mg Oral ph CERP 1 cap once daily [Active]; - PMHx: 19:06 Chronic pain; Hypertension; ph - PSHx: 19:06 foot surgery; ph - Immunization history:: Adult Immunizations unknown. - Social history:: Smoking status: Patient uses tobacco products, smokes one-half pack cigarettes per day. - Ebola Screening: : No symptoms or risks identified at this time. Screenin:34 Abuse screen: Denies threats or abuse. Denies injuries from another. Nutritional ak1 screening: No deficits noted. Tuberculosis screening: No symptoms or risk factors identified. Fall Risk Ambulatory Aid- Crutches/Cane/Walker (15 pts). Gait- Impaired (20 pts.). Assessment: 19:32 General: Appears in no apparent distress. comfortable, Behavior is calm, cooperative. ak1 Pain: Complains of pain in left lateral malleolus and left medial malleolus. Neuro: No deficits noted. Cardiovascular: No deficits noted. Respiratory: Airway is patent Trachea midline Respiratory effort is even, unlabored. GI: Abdomen is flat, non-distended, Bowel sounds present X 4 quads. Abd is soft and non tender X 4 quads. Reports diarrhea, nausea, vomiting. : No signs and/or symptoms were reported regarding the genitourinary system. EENT: No signs and/or symptoms were reported regarding the EENT system. Derm: No signs and/or symptoms reported regarding the dermatologic system. Musculoskeletal: Reports pain in left lateral malleolus and left medial malleolus. 20:40 Reassessment: Patient appears in no apparent distress at this time. Patient is alert, rr5 oriented x 3, equal unlabored respirations, skin warm/dry/pink. asleep on bed comfortably. 21:30 Reassessment: Patient appears in no apparent distress at this time. a little better but rr5 still having abdominal pain. toradol given as stat dose. awaiting for results. Patient states symptoms have improved. 22:20 Reassessment: Patient and/or family updated on plan of care and expected duration. Pain rr5 level reassessed. no complaints made awaiting for review. Patient states feeling better. Patient states symptoms have improved. 22:55 Reassessment: pt given a cup of water for PO challenge per verbal orders from Arias Naidu ak1 VLADISLAV. 22:56 Reassessment: pt has not had or reported any N/V/D. ak1 22:57 Reassessment: pt already drinking bottle water at bedside. ak1 23:13 Reassessment: Patient appears in no apparent distress at this time. Patient is alert, rr5 oriented x 3, equal unlabored respirations, skin warm/dry/pink. discharge instruction given and explained without complaints made. Patient states feeling better. Patient states symptoms have improved. Vital Signs: 19:04 BP 160 / 105; Pulse 76; Resp 18; Temp 98.0; Pulse Ox 98% on R/A; Weight 52.16 kg; ph Height 5 ft. 5 in. (165.10 cm); Pain 0/10; 19:35 BP 160 / 106; Pulse 63; Resp 18; Temp 98.4; Pulse Ox 98% on R/A; ak1 20:15 BP 138 / 93; Pulse 69; Resp 17; Temp 98; Pulse Ox 99% ; Pain 6/10; rr5 21:10 BP 140 / 98; Pulse 67; Resp 18; Pulse Ox 100% ; Pain 5/10; rr5 22:07 BP 125 / 85; Pulse 69; Resp 16; Temp 98.1; Pulse Ox 96% on R/A; ak1 23:14 BP 131 / 70; Pulse 66; Resp 17; Temp 98.5; Pulse Ox 99% on R/A; rr5 19:04 Body Mass Index 19.14 (52.16 kg, 165.10 cm) ph ED Course: 18:55 Patient arrived in ED. ph 19:04 Triage completed. ph 19:06 Arm band placed on Patient placed in an exam room, on a stretcher, on surveillance system monitor, ph on pulse oximetry. 19:22 Ankita Valentin, RN is Primary Nurse. ak1 19:34 Patient has correct armband on for positive identification. Bed in low position. Call ak1 light in reach. Side rails up X2. Pulse ox on. NIBP on. 19:34 Maintain EMS IV. Dressing intact. Site clean \\T\\ dry. Gauge \\T\\ site: 20g left AC. ak 1 19:48 Chris Naidu PA is PHCP. cp 19:48 Chris Gallegos MD is Attending Physician. cp 19:56 Radiology exam delayed due to lab results not completed at this time. (BUN/Creatinine). vm2 20:47 Radiology exam delayed due to lab results not completed at this time. (BUN/Creatinine). vm2 21:24 CT Abd/Pelvis - IV Contrast Only In Process Unspecified. EDMS 22:10 No provider procedures requiring assistance completed. ak1 22:45 Ultrasound completed. Patient tolerated well. Notified PROPERTY PRESERVATION SPECIALIST/VLADISLAV aquino. sg3 22:51 US Abdomen Limited: RUQ/epigastric area In Process Unspecified. EDMS 23:14 IV discontinued, intact, bleeding controlled, No redness/swelling at site. Pressure rr5 dressing applied. Administered Medications: 20:10 Drug: NS 0.9% 1000 ml Route: IV; Rate: 1 bolus; Site: left antecubital; rr5 21:15 Follow up: Response: No adverse reaction; IV Status: Completed infusion; IV Intake: rr5 1000ml 20:11 Drug: Zofran 4 mg Route: IVP; Site: left antecubital; rr5 21:10 Follow up: Response: No adverse reaction; Marked relief of symptoms rr5 20:13 Drug: Pepcid 20 mg Route: IVP; Site: left antecubital; rr5 21:15 Follow up: Response: No adverse reaction rr5 20:15 Drug: fentaNYL (PF) 25 mcg Route: IVP; Site: left antecubital; rr5 21:15 Follow up: Response: No adverse reaction rr5 21:33 Drug: TORadol 30 mg Route: IVP; Site: left antecubital; rr5 22:30 Follow up: Response: No adverse reaction rr5 Intake: 21:15 IV: 1000ml; Total: 1000ml. rr5 Outcome: 23:03 Discharge ordered by MD. cp 23:14 Discharged to home ambulatory, with family. rr5 23:14 Condition: stable 23:14 Discharge instructions given to patient, family, Instructed on discharge instructions, follow up and referral plans. medication usage, Demonstrated understanding of instructions, follow-up care, medications, Prescriptions given X 2. 23:15 Patient left the ED. rr5 Signatures: Dispatcher [employer] EDMS Ankita Valentin RN RN akMargot Benites RN RN Chris Jordan PA PA cp McGu[place], [facility] Ayaka Ospina Yuri Partida RN RN rr5
[2019-05-03 23:33] VITALS: BP 131/70; TEMP 98.5; O2SAT 99
--- NOTE | 2019-05-04 11:46 | RAD REPORT ---
EXAM DESCRIPTION: US - Abdomen Exam Limited - 05/03/2019 10:49 pm CLINICAL HISTORY: ABD PAIN COMPARISON: No comparisonsNo comparisonsAbdomen Pelvis W Contrast dated 05/03/2019 FINDINGS: The gallbladder demonstrates no gallstones. No pericholecystic fluid or gallbladder wall t hickening. The common bile duct is prominent in size measuring 9 mm. The liver demonstrates no findings of intrahepatic biliary dilatation. IMPRESSION: Negative gallbladder findings. Mild dilatation of the common bile duct measuring 9 mm. MRCP may be of value if there is concern for biliary obstruction clinically.
--- NOTE | 2019-05-06 11:58 | RAD REPORT ---
EXAM DESCRIPTION: Abdomen Pelvis W Contrast CLINICAL HISTORY: 58 years Female Abd pain;Nausea / vomiting COMPARISON: None TECHNIQUE: Images were obtained in axial, sagittal, and coronal planes. Intravenous contrast was adm inistered. Arterial and venous phase imaging was performed. This exam was performed according to our departmental dose-optimization program which includes use of Automated Exposure Control, adjustment of the mA and/or kV according to patient size and/or use of i terative reconstruction technique. FINDINGS: Appendix within normal limits. No bowel obstruction, perforation, or inflammation. No abnormality involving the liver, spleen, pancreas, or adrenal glands bilaterally. Mildly contracte d gallbladder. No obstructing renal calcifications bilaterally. No hydronephrosis bilaterally. Unremarkable bladder. Calcification abdominal aorta with no dilatation. Unremarkable portal vein. No adenopathy or abnormal fluid collections seen. No acute osseous abnormality. Marked degenerative change L5-S1. No abnormality lower lungs bilaterally. IMPRESSION: No acute intra-abdominal abnormality. Electronically signed by: Isidra Fernandes MD 05/03/2019 9:35 PM CDT Due to temporary technical issues with the PACS/Fluency reporting system, reports are being signed by the in house radiologist as a courtesy to ensure prompt reporting. The interpreting radiologist is f ully responsible for the content of the report.
== END 2019-05-03 23:15 | disposition home or self-care (01) ==
LOC: ER 18:49
DX: R19.7 Diarrhea, unspecified (principal); I10 Essential (primary) hypertension; F17.210 Nicotine dependence, cigarettes, uncomplicated; Z88.5 Allergy status to narcotic agent
CPT/HCPCS: 36415; 74177; 76705; 80048; 80076; 83690; 83735; 85025; 96361; 96374; 96375; 99284; J2405; J3010; J7030; Q9967

== ENCOUNTER 2019-09-23 09:17 | Emergency (ER) | payer MEDICAID ==
[2019-09-23] MEDS ORDERED: FAMOTIDINE 20 MG/2 ML VIAL IV ONE (09:55)
[2019-09-23] MEDS ORDERED: NA CHLORIDE 0.9% 1,000 ML ONE (09:55)
[2019-09-23] MEDS ORDERED: MORPHINE 2 MG/ML SYR ONE (09:55)
[2019-09-23] MEDS ORDERED: ONDANSETRON 4 MG/2 ML VIAL ONE (09:55)
[2019-09-23 10:13] LABS: Absolute Lymphocytes (CBC) 1.2 K/uL (0.7-4.9); Basophils % 0.7 % (0-1.3); Hematocrit 36.8 % (36.0-45.0); Lymphocytes % 20.3 % (15.3-44.8); MPV 7.8 fL (7.6-11.3); RBC Red Blood Cell Count 3.65 M/uL (3.86-4.86)
[2019-09-23 10:15] LABS: Protime INR 0.96
[2019-09-23 10:33] LABS: ALT/SGPT 54 U/L (12-78); AST/SGOT 60 U/L (15-37); Albumin 3.8 g/dL (3.4-5.0); Alkaline Phosphatase 91 U/L (45-117); BUN Blood Urea Nitrogen 12 mg/dL (7-18); Bicarbonate 27 mmol/L (21-32); Bilirubin Direct 0.3 mg/dL (0-0.2); Bilirubin Total 0.9 mg/dL (0.2-1.0); Glucose Level 102 mg/dL (74-106); Lipase 121 U/L (73-393); Magnesium 2.1 mg/dL (1.8-2.4); NT PRO-BNP 924 pg/mL (<125); Potassium 3.6 mmol/L (3.5-5.1); Protein, Total 7.8 g/dL (6.4-8.2); Sodium Level 137 mmol/L (136-145); Troponin (Emerg Dept Use Only) < 0.02 ng/mL (0.0-0.045)
--- NOTE | 2019-09-23 10:42 | RAD REPORT ---
EXAM DESCRIPTION: US - Abdomen Exam Limited - 09/23/2019 10:31 am CLINICAL HISTORY: ABD PAIN COMPARISON: Abdomen Exam Limited dated 05/03/2019; Abdomen Pelvis W Contrast dated 05/03/2019 FINDINGS: Gallbladder size is normal. No gallstones, wall thickening or pericholecystic fluid. Commo n bile duct is normal with no common duct stone identified. Liver is 16 cm. No focal liver lesion. No nodularity to the capsule. Doppler evaluation shows normal velocity and flow direction of the portal vein. No ascites in the right upper quadrant. IMPRESSION: No gallbladder abnormality seen. No biliary tree abnormality. No focal liver abnormality.
--- NOTE | 2019-09-23 10:56 | RAD REPORT ---
EXAM DESCRIPTION: RAD - Abdomen Acute Series - 09/23/2019 10:44 am CLINICAL HISTORY: Abdominal distention;Abd pain COMPARISON: Chest Pa And Lat (2 Views) dated 02/02/2017; CHEST SINGLE VIEW dated 05/07/2015; CHEST SIN GLE VIEW dated 04/23/2012; CHEST PA AND LAT 2 VIEW dated 01/06/2010 FINDINGS: Lungs are mildly emphysematous but clear. The heart is normal in size. No bowel obstruction is seen. No pathologic calcifications are evident. Lumbosacral degenerative onofre ges are present with a mild dextroscoliosis. IMPRESSION: No acute abnormality is detected.
--- NOTE | 2019-09-23 12:35 | ER ---
Nurse's Notes [facility] Name: Josseline Gallegos Age: 58 yrs Sex: Female : 1960 Arrival Date: 09/23/2019 Time: : Bed 5 Private MD: Diagnosis: Abdominal tenderness;Hepatomegaly, not elsewhere classified;Unspecified cirrhosis of liver-hepatitis c Presentation: 09/23 09:23 Presenting complaint: EMS states: Patient has had nausea and vomiting that started sg yesterday afternoon and worsening today, has not been able to take her home medications due to vomiting. Transition of care: patient was not received from another setting of care. Onset of symptoms was September 23, 2019. Risk Assessment: Do you want to hurt yourself or someone else? Patient reports no desire to harm self or others. Initial Sepsis Screen: Does the patient meet any 2 criteria? No. Patient's initial sepsis screen is negative. Does the patient have a suspected source of infection? No. Patient's initial sepsis screen is negative. Care prior to arrival: None. 09:23 Method Of Arrival: EMS: [facility] sg : Acuity: TIFFANY 3 sg Historical: - Allergies: 09:25 Codeine; sg - Home Meds: 09:26 morphine 20 mg Oral CERP 1 cap once daily [Active]; Hydrocodone-Acetaminophen Oral sg [Active]; lisinopril Oral [Active]; - PMHx: 09:25 Chronic pain; Hypertension; sg - PSHx: 09:25 foot surgery; sg - Immunization history:: Adult Immunizations up to date. - Social history:: Smoking status: Patient/guardian denies using tobacco. - Ebola Screening: : Patient negative for fever greater than or equal to 101.5 degrees Fahrenheit, and additional compatible Ebola Virus Disease symptoms Patient denies exposure to infectious person Patient denies travel to an Ebola-affected area in the 21 days before illness onset No symptoms or risks identified at this time. - Family history:: not pertinent. Screenin:02 Abuse screen: Denies threats or abuse. Denies injuries from another. Nutritional hb screening: No deficits noted. Tuberculosis screening: No symptoms or risk factors identified. Fall Risk None identified. Assessment: 10:02 General: Appears in no apparent distress. uncomfortable, Behavior is cooperative, hb agitated, crying. Pain: Pain currently is 8 out of 10 on a pain scale. Neuro: Level of Consciousness is awake, alert, obeys commands, Oriented to person, place, time, situation. Cardiovascular: Capillary refill < 3 seconds Patient's skin is warm and dry. Respiratory: Airway is patent Respiratory effort is even, unlabored, Respiratory pattern is regular, symmetrical, Breath sounds are clear bilaterally. GI: Abdomen is non-distended, Bowel sounds present X 4 quads. Abdomen is tender to palpation diffusely. : No signs and/or symptoms were reported regarding the genitourinary system. EENT: No signs and/or symptoms were reported regarding the EENT system. Derm: Skin is pink, warm \\T\\ dry. Musculoskeletal: No signs and/or symptoms reported regarding the musculoskeletal system. 11:05 Reassessment: Patient appears in no apparent distress at this time. Patient and/or hb family updated on plan of care and expected duration. Pain level reassessed. Patient is alert, oriented x 3, equal unlabored respirations, skin warm/dry/pink. 13:00 Reassessment: pt requesting to speak with prior to discharge to home. sg 13:14 Reassessment: Patient appears in no apparent distress at this time. pt reports, " im sg not real impressed with my nurses. I need a hydrocodone now, and my doctor says that the doctor here will write for medication to get me covered until my appointment . I take hydrocodones and morphine at home for pain control because of my banged up heel." pt education provided for pain control, notified of pt request, order received and the pt has been medicated, please refer to the EMAR. Vital Signs: 09:24 BP 151 / 89; Pulse 66; Resp 17; Temp 97.5; Pulse Ox 100% on R/A; Weight 49.9 kg (R); sg Height 5 ft. 5 in. (165.10 cm) (R); Pain 8/10; 09:24 Body Mass Index 18.30 (49.90 kg, 165.10 cm) sg ED Course: 09:22 Patient arrived in ED. am2 09:22 Chris Gallegos MD is Attending Physician. [facility] 09:24 Triage completed. sg 09:24 Arm band placed on. sg 09:52 Ciera Blas, RN is Primary Nurse. hb 10:01 Initial lab(s) drawn, by tx, sent to lab. Inserted saline lock: 20 gauge in left dh3 antecubital area, using aseptic technique. Blood collected. 10:02 Patient has correct armband on for positive identification. Bed in low position. Call hb light in reach. Side rails up X 1. 10:32 US Abdomen Limited In Process Unspecified. EDMS 10:46 Abdomen Acute Series XRAY In Process Unspecified. EDMS 11:11 EKG done, by plastics technician. reviewed by Chris Gallegos MD. at1 12:33 Kelly Aleman MD is Referral Physician. anne 13:44 No provider procedures requiring assistance completed. IV discontinued, intact, hb bleeding controlled, No redness/swelling at site. Pressure dressing applied. Administered Medications: 10:01 Drug: Pepcid 20 mg Route: IVP; Site: left antecubital; hb 10:40 Follow up: Response: No adverse reaction hb 10:01 Drug: morphine 2 mg Route: IVP; Site: left antecubital; hb 13:42 Follow up: Response: No adverse reaction hb 10:02 Drug: NS 0.9% 1000 ml Route: IV; Rate: 125 ml/hr; Site: left antecubital; hb 13:41 Follow up: Response: No adverse reaction; IV Status: Completed infusion; IV Intake: hb 475ml 10:02 Drug: Zofran 4 mg Route: IVP; Site: left antecubital; hb 10:40 Follow up: Response: No adverse reaction hb 13:11 Drug: [place] 10 mg-325 mg 1 tabs Route: PO; sg 13:42 Follow up: Response: Medication administered at discharge. hb Intake: 13:41 IV: 475ml; Total: 475ml. hb Outcome: 12:34 Discharge ordered by . anne 13:44 Discharged to home ambulatory. hb 13:44 Condition: stable 13:44 Discharge instructions given to patient, Instructed on discharge instructions, follow up and referral plans. medication usage, Demonstrated understanding of instructions, follow-up care, medications, Prescriptions given X 3. 13:44 Patient left the ED. hb Signatures: Dispatcher [employer] EDMS Eliezer Alfaro RN RN sg Anderson, Corey, MD MD cha Gonzales, Amanda, senior data warehouse developer EKG Tat1 Ciera Blas, RN RN Neema Bower 2 Sruthi Cabrera 3
--- NOTE | 2019-09-23 12:36 | EDPHYS ---
Physician Documentation [facility] Name: Josseline Gallegos Age: 58 yrs Sex: Female : 1960 Arrival Date: 09/23/2019 Time: : Bed 5 Private MD: Chris Pedroza HPI: 09/23 09:57 This 58 yrs old Female presents to ER via EMS with complaints of Nausea, anne Abdominal Pain. 09:57 The patient presents to the emergency department with nausea, vomiting. Onset: The anne symptoms/episode began/occurred 3 day(s) ago. Possible causes: unknown. The symptoms are aggravated by nothing. The symptoms are alleviated by nothing. Severity of symptoms: At their worst the symptoms were mild moderate in the emergency department the symptoms are unchanged. The patient has experienced similar episodes in the past, a few times. Historical: - Allergies: 09:25 Codeine; sg - Home Meds: 09:26 morphine 20 mg Oral CERP 1 cap once daily [Active]; Hydrocodone-Acetaminophen Oral sg [Active]; lisinopril Oral [Active]; - PMHx: 09:25 Chronic pain; Hypertension; sg - PSHx: 09:25 foot surgery; sg - Immunization history:: Adult Immunizations up to date. - Social history:: Smoking status: Patient/guardian denies using tobacco. - Ebola Screening: : Patient negative for fever greater than or equal to 101.5 degrees Fahrenheit, and additional compatible Ebola Virus Disease symptoms Patient denies exposure to infectious person Patient denies travel to an Ebola-affected area in the 21 days before illness onset No symptoms or risks identified at this time. - Family history:: not pertinent. ROS: 09:57 Constitutional: Negative for fever, chills, and weight loss, Eyes: Negative for injury, anne pain, redness, and discharge, ENT: Negative for injury, pain, and discharge, Neck: Negative for injury, pain, and swelling, Cardiovascular: Negative for chest pain, palpitations, and edema, Respiratory: Negative for shortness of breath, cough, wheezing, and pleuritic chest pain, Back: Negative for injury and pain, : Negative for injury, bleeding, discharge, and swelling, MS/Extremity: Negative for injury and deformity, Skin: Negative for injury, rash, and discoloration, Neuro: Negative for headache, weakness, numbness, tingling, and seizure, Psych: Negative for depression, anxiety, suicide ideation, homicidal ideation, and hallucinations, Allergy/Immunology: Negative for hives, rash, and allergies, Endocrine: Negative for neck swelling, polydipsia, polyuria, polyphagia, and marked weight changes, Hematologic/Lymphatic: Negative for swollen nodes, abnormal bleeding, and unusual bruising. 09:57 Abdomen/GI: Positive for nausea, vomiting. Exam: 09:58 Constitutional: This is a well developed, well nourished patient who is awake, alert, anne and in no acute distress. Head/Face: Normocephalic, atraumatic. Eyes: Pupils equal round and reactive to light, extra-ocular motions intact. Lids and lashes normal. Conjunctiva and sclera are non-icteric and not injected. Cornea within normal limits. Periorbital areas with no swelling, redness, or edema. ENT: Nares patent. No nasal discharge, no septal abnormalities noted. Tympanic membranes are normal and external auditory canals are clear. Oropharynx with no redness, swelling, or masses, exudates, or evidence of obstruction, uvula midline. Mucous membranes moist. Neck: Trachea midline, no thyromegaly or masses palpated, and no cervical lymphadenopathy. Supple, full range of motion without nuchal rigidity, or vertebral point tenderness. No Meningismus. Chest/axilla: Normal chest wall appearance and motion. Nontender with no deformity. No lesions are appreciated. Cardiovascular: Regular rate and rhythm with a normal S1 and S2. No gallops, murmurs, or rubs. Normal PMI, no JVD. No pulse deficits. Respiratory: Lungs have equal breath sounds bilaterally, clear to auscultation and percussion. No rales, rhonchi or wheezes noted. No increased work of breathing, no retractions or nasal flaring. Back: No spinal tenderness. No costovertebral tenderness. Full range of motion. Female : Normal external genitalia. Skin: Warm, dry with normal turgor. Normal color with no rashes, no lesions, and no evidence of cellulitis. MS/ Extremity: Pulses equal, no cyanosis. Neurovascular intact. Full, normal range of motion. Neuro: Awake and alert, GCS 15, oriented to person, place, time, and situation. Cranial nerves II-XII grossly intact. Motor strength 5/5 in all extremities. Sensory grossly intact. Cerebellar exam normal. Normal gait. Psych: Awake, alert, with orientation to person, place and time. Behavior, mood, and affect are within normal limits. 09:58 Abdomen/GI: Inspection: abdomen appears normal, Bowel sounds: normal, Palpation: mild abdominal tenderness, in the epigastric area, right upper quadrant and left upper quadrant, Liver: is enlarged, palpable 10 cm(s) below rib margin, Hernia: not appreciated. Vital Signs: 09:24 BP 151 / 89; Pulse 66; Resp 17; Temp 97.5; Pulse Ox 100% on R/A; Weight 49.9 kg (R); sg Height 5 ft. 5 in. (165.10 cm) (R); Pain 8/10; 09:24 Body Mass Index 18.30 (49.90 kg, 165.10 cm) sg MDM: 09:22 Patient medically screened. [facility] 09:58 Data reviewed: vital signs, nurses notes, lab test result(s), EKG, radiologic studies, [facility] plain films, ultrasound. 09/23 09:31 Order name: Basic Metabolic Panel [facility] 09/23 09:31 Order name: CBC with Diff [facility] 09/23 09:31 Order name: LFT's; Complete Time: 12:32 [facility] 09/23 09:31 Order name: Magnesium; Complete Time: 12:32 [facility] 09/23 09:31 Order name: NT PRO-BNP; Complete Time: 12:32 [facility] 09/23 09:31 Order name: PT-INR; Complete Time: 12:32 [facility] 09/23 09:31 Order name: Troponin (emerg Dept Use Only); Complete Time: 12:32 [facility] 09/23 09:31 Order name: Lipase; Complete Time: 12:32 [facility] 09/23 09:31 Order name: Urine Culture [facility] 09/23 09:32 Order name: Basic Metabolic Panel; Complete Time: 12:32 EDMS 09/23 09:45 Order name: AMMONIA; Complete Time: 12:32 [facility] 09/23 13:35 Order name: Urine Dipstick--Ancillary (enter results) 09/23 13:41 Order name: Urine Dipstick-Ancillary EDMS 09/23 09:31 Order name: EKG; Complete Time: 09:33 [facility] 09/23 09:31 Order name: Cardiac monitoring; Complete Time: 10:23 [facility] 09/23 09:31 Order name: EKG - Nurse/Tech; Complete Time: 12:54 [facility] 09/23 09:31 Order name: IV Saline Lock; Complete Time: 10:23 [facility] 09/23 09:31 Order name: Labs collected and sent; Complete Time: 10:23 [facility] 09/23 09:31 Order name: O2 Per Protocol; Complete Time: 10:23 [facility] 09/23 09:31 Order name: O2 Sat Monitoring; Complete Time: 10:23 [facility] 09/23 09:50 Order name: US Abdomen Limited; Complete Time: 12:32 [facility] 09/23 09:50 Order name: Abdomen Acute Series XRAY; Complete Time: 12:32 [facility] Administered Medications: 10:01 Drug: Pepcid 20 mg Route: IVP; Site: left antecubital; hb 10:40 Follow up: Response: No adverse reaction hb 10:01 Drug: morphine 2 mg Route: IVP; Site: left antecubital; hb 13:42 Follow up: Response: No adverse reaction hb 10:02 Drug: NS 0.9% 1000 ml Route: IV; Rate: 125 ml/hr; Site: left antecubital; hb 13:41 Follow up: Response: No adverse reaction; IV Status: Completed infusion; IV Intake: hb 475ml 10:02 Drug: Zofran 4 mg Route: IVP; Site: left antecubital; hb 10:40 Follow up: Response: No adverse reaction hb 13:11 Drug: [place] 10 mg-325 mg 1 tabs Route: PO; sg 13:42 Follow up: Response: Medication administered at discharge. hb Disposition: 09/23/19 12:34 Discharged to Home. Impression: Abdominal tenderness, Hepatomegaly, not elsewhere classified, Unspecified cirrhosis of liver - hepatitis c. - Condition is Stable. - Discharge Instructions: Abdominal Pain, Adult, Nausea and Vomiting, Adult, Abdominal Pain, Adult, [id number], Hepatomegaly, Hepatomegaly, [id number]. - Prescriptions for Bentyl 20 mg Oral Tablet - take 1 tablet by ORAL route every 6 hours As needed; 20 tablet. Pepcid 20 mg Oral Tablet - take 1 tablet by ORAL route every 12 hours for 10 days; 20 tablet. Zofran 4 mg Oral Tablet - take 1 tablet by ORAL route every 12 hours As needed; 20 tablet. - Medication Reconciliation Form, Thank You Letter, Antibiotic Education, Prescription Opioid Use form. - Follow up: Private Physician; When: 2 - 3 days; Reason: Recheck today's complaints, Continuance of care, Re-evaluation by your physician. Follow up: Kelly Aleman MD; When: 2 - 3 days; Reason: Recheck today's complaints, Re-evaluation by your physician. - Problem is new. - Symptoms have improved. Signatures: Dispatcher [employer] EDCT Eliezer Alfaro RN RN Chris Cortez MD MD cha Baxter, Heather, RN RN hb Corrections: (The following items were deleted from the chart) 10:00 09:33 Chest Single View+RAD.RAD.BRZ ordered. [facility] 13:44 12:34 09/23/2019 12:34 Discharged to Home. Impression: Abdominal tenderness; hb Hepatomegaly, not elsewhere classified; Unspecified cirrhosis of liver - hepatitis c. Condition is Stable. Forms are Medication Reconciliation Form, Thank You Letter, Antibiotic Education, Prescription Opioid Use. Follow up: Private Physician; When: 2 - 3 days; Reason: Recheck today's complaints, Continuance of care, Re-evaluation by your physician. Follow up: Kelly Aleman; When: 2 - 3 days; Reason: Recheck today's complaints, Re-evaluation by your physician. Problem is new. Symptoms have improved. anne
[2019-09-23] MEDS ORDERED: HYDROCODONE/APAP 10/325 TAB ONE (13:11)
[2019-09-23 13:40] LABS: Urine Blood TRACE (NEG); Urine Glucose NEGATIVE (NEG); Urine Protein NEGATIVE (NEG)
[2019-09-23 14:13] VITALS: BP 151/89; TEMP 97.5; O2SAT 100
--- NOTE | 2019-09-23 14:32 | EKG ---
Test Date: 2019-09-23 Test Time: 11:01:53 Model Technician: SHAMA MEASUREMENT RESULTS: Intervals: Rate: 61 MI: 98 QRSD: 80 QT: 460 QTc: 463 Taylor: P: 69 MI: 98 QRS: 82 T: 71 INTERPRETIVE STATEMENTS: Sinus rhythm with short MI Otherwise normal ECG Compared to ECG 02/02/2017 13:03:46 Short MI interval now present Electronically Signed On 09-23-19 14:31:42 SPRAY DYER by Krishna Hernandez
--- OUTSIDE RECORDS SUMMARY | 2019-09-29 20:51 | XMS REPORT ---
[...] End Status Dosage System Date Date Xanax [facility] 23221606721 1 MG Orally Active 1 tablet Twice a day Promethazine HCl [facility] 85494371338 25 MG/ML Active 1 ml as Injection every needed 6 hrs Nasonex ND 23564846495 50 MCG/ACT Active 2 sprays Nasally Once a in each day nostril Diflucan [facility] 88331160085 150 MG Orally Active 1 tablet Brovana [facility] 33107700172 15 MCG/2ML Active 2 ml Inhalation Twice a day Lisinopril ND 93779320949 20 MG Orally Active 1 tablet Once a day Amitiza [facility] 11625175190 24 MCG Orally March Active 1 capsule Twice a day 05, 2018 with food Prozac [facility] 74694298461 40 MG Orally Active 1 capsule Once a day Lisinopril ND 53328972084 20 MG Orally Active 1 tablet Once a day Protonix ND 39514542217 40 MG Orally Active 1 tablet Once a day Flonase ND 35530430523 50 MCG/ACT Active 1 spray in Nasally Once a each day nostril Promethazine HCl ND 10158317215 25 MG Orally Active 1 tablet every 12 hrs as needed ProAir HFA [facility] 09037250724 108 (90 Base) Active 2 puffs as MCG/ACT needed Inhalation every 6 hrs Xanax [facility] 37852813443 1 MG Orally Active 1 tablet Twice a day [place] [facility] 70461403841 10-325 MG Active 1 tablet Orally every 6 as needed hrs Prozac [facility] 64636908036 40 MG Orally Active 1 capsule Once a day Lyrica [facility] 34889712524 100 MG Orally Active 1 capsule Three times a day [facility] 99176243298 10-325 MG Active 1 tablet Orally every 6 as needed hrs Lyrica ND 86694227831 100 MG Orally Active 1 capsule Three times a day Diflucan ND 93433624869 150 MG Orally Active 1 tablet ProAir HFA ND 37586891752 108 (90 Base) Active 2 puffs as MCG/ACT needed Inhalation every 6 hrs Brovana [facility] 54135541222 15 MCG/2ML Active 2 ml Inhalation Twice a day Nasonex ND 03714740998 50 MCG/ACT Active 2 sprays Nasally Once a in each day nostril Protonix ND 00677715864 40 MG Orally Active 1 tablet Results No Known Results Summary Purpose eClinicalWorks Submission
--- OUTSIDE RECORDS SUMMARY | 2019-09-29 20:51 | XMS REPORT ---
[...] Start Date End Date Status Dosage Lyubov [facility] 75860487853 15 MCG/2ML Active 2 ml Inhalation Twice a day Results No Known Results Summary Purpose eClinicalWorks Submission
--- OUTSIDE RECORDS SUMMARY | 2019-09-29 20:51 | XMS REPORT ---
[...] End Status Dosage System Date Date Nasonex [facility] 73972042736 50 MCG/ACT Active 2 sprays Nasally Once a in each day nostril ProAir HFA [facility] 14527026810 108 (90 Base) Active 2 puffs as MCG/ACT needed Inhalation every 6 hrs Lisinopril [facility] 18615708558 20 MG Orally Active 1 tablet Once a day Diflucan ND 62115245319 150 MG Orally Active 1 tablet Xanax ND 24429498972 1 MG Orally Active 1 tablet Twice a day Depakote [facility] 81327851644 250 MG Orally Active as TID directed Lisinopril [facility] 75374388410 20 MG Orally Active 1 tablet Once a day Brovana [facility] 79631555711 15 MCG/2ML Active 2 ml Inhalation Twice a day Promethazine [facility] 82096090283 25 MG Orally Active 1 tablet HCl every 12 hrs as needed Prozac [facility] 08257170944 40 MG Orally Active 1 capsule Once a day Prozac [facility] 84975069090 40 MG Orally Active 1 capsule Once a day Alprazolam [facility] 10919528949 0.5 MG Orally April 24, Active 1 tablet Twice a day 2017 Symbicort [facility] 59240514643 160-4.5 MCG/ACT Active 2 puffs Inhalation Twice a day ProAir HFA [facility] 77035573183 108 (90 Base) Active 2 puffs as MCG/ACT needed Inhalation every 6 hrs Lyrica [facility] 35236772972 100 MG Orally Active 1 capsule Three times a day [place] [facility] 63299083684 10-325 MG Active 1 tablet Orally every 6 as needed hrs Azithromycin [facility] 35766965105 250 MG Orally Active 2 tablets Once a day on the first day, then 1 tablet daily for 4 days [facility] [place] 52110694270 10-325 MG Active 1 tablet Orally every 6 as needed hrs Xanax [facility] 59079041722 1 MG Orally Inactive 1 tablet Twice a day Protonix [facility] 19117653167 40 MG Orally Active 1 tablet Once a day Nasonex [facility] 86010640180 50 MCG/ACT Active 2 sprays Nasally Once a in each day nostril Promethazine [facility] 51768481834 25 MG/ML Active 1 ml as HCl Injection every needed 6 hrs Protonix [facility] 33216706531 40 MG Orally Active 1 tablet Lisinopril [facility] 88365850456 20 MG Orally Active 1 tablet Once a day Diflucan [facility] 49414644459 150 MG Orally Active 1 tablet Brovana [facility] 44363987005 15 MCG/2ML Active 2 ml Inhalation Twice a day Amitiza [facility] 10519372686 24 MCG Orally March Active 1 capsule Twice a day 2017 with food Lyrica [facility] 26056963293 100 MG Orally Active 1 capsule Three times a day ProAir HFA [facility] 56512792964 108 (90 Base) Active 2 puffs as MCG/ACT needed Inhalation every 6 hrs Flonase [facility] 24155386345 50 MCG/ACT Active 1 spray in Nasally Once a each day nostril Results No Known Results Summary Purpose eClinicalWorks Submission
--- OUTSIDE RECORDS SUMMARY | 2019-09-29 20:51 | XMS REPORT ---
:1960 [facility] Address [address] [place] [address] [address] [place] [address] Care Team Providers Name Role Phone Unavailable Unavailable Unavailable Payers Payer Name Policy Type Policy Number Effective Date Expiration Date Problems This patient has no known problems. Allergies, Adverse Reactions, Alerts This patient has no known allergies or adverse reactions. Medications This patient has no known medications. Results Test Description Test Time Test Comments Text Results Atomic Results Result Comments IONIZED CALCIUM WB ADULT 2019-08-26 14:08:00 Test Item Value Reference Range Comments CALCIUM, IONIZED WB ADULT (test code=ICAWB) 1.14 mmol/L 1.12-1.32
--- OUTSIDE RECORDS SUMMARY | 2019-09-29 20:52 | XMS REPORT ---
[...] Start End Status Dosage System Date Bro [facility] [id number] 15 MCG/2ML Active 2 ml Inhalation Twice a day Amitiza [facility] 34681930336 24 MCG Orally January Active 1 capsule Twice a day 2017 with food Symbicort [facility] 12817307275 160-4.5 MCG/ACT Active 2 puffs Inhalation Twice a day Keflex [facility] 69091596790 500 MG Orally Jul 25, Active 1 capsule every 12 hrs 2017 Azithromycin [facility] 77017609506 250 MG Orally Active 2 tablets Once a day on the first day, then 1 tablet daily for 4 days Prozac [facility] 97374942042 40 MG Orally Active 1 capsule Once a day [place] [facility] 28724058953 10-325 MG Active 1 tablet as Orally every 6 needed hrs Lyrica [facility] 43368760967 100 MG Orally Active 1 capsule Three times a day Lisinopril [facility] 13105074503 20 MG Orally Active 1 tablet Once a day Protonix [facility] 29459308805 40 Active 1 TAB(S) ONCE A DAY ORALLY Alprazolam [facility] 66317990881 0.5 MG Orally Active 1 tablet Twice a day Protonix [facility] 91697766865 40 MG Orally Active 1 tablet Once a day Fluoxetine HCl [facility] 25563439775 40 MG Active 1 EACH ONCE A DAY ORALLY Lisinopril [facility] 11068162671 20 MG Orally Active 1 tablet Once a day Depakote [facility] 88398587162 250 MG Orally Active as directed TID Flonase [facility] 76992306640 50 MCG/ACT Active 1 spray in Nasally Once a each day nostril ProAir HFA [facility] 26498989791 108 (90 Base) Active INHALE 2 MCG/ACT PUFFS 4 TIMES A DAY Results No Known Results Summary Purpose eClinicalWorks Submission
--- OUTSIDE RECORDS SUMMARY | 2019-09-29 20:52 | XMS REPORT ---
[...] System Date Date Lisinopril [facility] 41963438028 20 MG Orally Active 1 tablet Once a day Lyrica ND 95294347470 100 MG Orally Active 1 capsule Three times a day Fluoxetine HCl [facility] 15973849704 40 MG Active 1 EACH ONCE A DAY ORALLY Amitiza [facility] 83408795576 24 MCG Orally January Active 1 capsule Twice a day 2017 with food ProAir HFA [facility] 46575806126 108 (90 Base) Active 2 puffs as MCG/ACT needed Inhalation every 6 hrs [place] [facility] 93387964660 10-325 MG Active 1 tablet as Orally every 6 needed hrs Brovana [facility] 09023469878 15 MCG/2ML Active 2 ml Inhalation Twice a day Protonix [facility] 57057091916 40 Active 1 TAB(S) ONCE A DAY ORALLY Flonase [facility] 73681136583 50 MCG/ACT Active 1 spray in Nasally Once a each day nostril Alprazolam [facility] 67263491726 0.5 MG Orally Active 1 tablet Twice a day Azithromycin [facility] 97773362680 250 MG Orally Active 2 tablets Once a day on the first day, then 1 tablet daily for 4 days Keflex [facility] 44732863525 500 MG Orally Jul 25, Active 1 capsule every 12 hrs 2017 Prozac [facility] 17110847983 40 MG Orally Active 1 capsule Once a day Depakote [facility] 44438327670 250 MG Orally Active as directed TID Lisinopril [facility] 20939016902 20 MG Orally Active 1 tablet Once a day Protonix [facility] 13740375224 40 MG Orally Active 1 tablet Once a day ProAir HFA [facility] 43371534869 108 (90 Base) Active 2 puffs as MCG/ACT needed Inhalation every 6 hrs Results No Known Results Summary Purpose eClinicalWorks Submission
--- OUTSIDE RECORDS SUMMARY | 2019-09-29 20:52 | XMS REPORT ---
[...] Status Dosage System Date Date Protonix ND 23651244202 40 MG Orally Active 1 tablet Once a day Prozac [facility] 93772186103 40 MG Orally Active 1 capsule Once a day Fluoxetine HCl ND 02702510797 40 MG Active 1 EACH ONCE A DAY ORALLY Protonix [facility] 59126897392 40 Active 1 TAB(S) ONCE A DAY ORALLY Alprazolam ND 03597969133 0.5 MG Orally Active 1 tablet Twice a day Keflex [facility] 13109708569 500 MG Orally Jul 06, Jul 13, Active 1 capsule every 8 hrs 2017 2017 Azithromycin [facility] 06052974481 250 MG Orally Active 2 tablets Once a day on the first day, then 1 tablet daily for 4 days Lisinopril [facility] 41137564518 20 MG Orally Active 1 tablet Once a day Amitiza [facility] 36380713867 24 MCG Orally January Active 1 capsule Twice a day 2017 with food Flonase [facility] 49583968006 50 MCG/ACT Active 1 spray in Nasally Once a each day nostril [place] [facility] 37997800378 10-325 MG Active 1 tablet as Orally every 6 needed hrs Lisinopril [facility] 96238672562 20 MG Orally Active 1 tablet Once a day Brovana [facility] 77193582471 15 MCG/2ML Active 2 ml Inhalation Twice a day ProAir HFA [facility] 10089339038 108 (90 Base) Active 2 puffs as MCG/ACT needed Inhalation every 6 hrs ProAir HFA [facility] 30371515774 108 (90 Base) Active 2 puffs as MCG/ACT needed Inhalation every 6 hrs Lyrica [facility] 65288237690 100 MG Orally Active 1 capsule Three times a day Depakote [facility] 11146094239 250 MG Orally Active as directed TID Results No Known Results Summary Purpose eClinicalWorks Submission
--- OUTSIDE RECORDS SUMMARY | 2019-09-29 20:52 | XMS REPORT ---
[...] End Status Dosage System Date Date Protonix [facility] 47927045247 40 Active 1 TAB(S) ONCE A DAY ORALLY ProAir HFA [facility] 94750601181 108 (90 Base) Active 2 puffs as MCG/ACT needed Inhalation every 6 hrs Lyrica ND 92643416077 100 MG Orally Active 1 capsule Three times a day [place] [facility] 76014796811 10-325 MG Orally Active 1 tablet as every 6 hrs needed Protonix ND 54152754780 40 MG Orally Active 1 tablet Once a day Flonase ND 23899920987 50 MCG/ACT Active 1 spray in Nasally Once a each day nostril ProAir HFA [facility] 96377542134 108 (90 Base) Active 2 puffs as MCG/ACT needed Inhalation every 6 hrs Prozac [facility] 66671518103 40 MG Orally Active 1 capsule Once a day Azithromycin [facility] 77159008351 250 MG Orally Active 2 tablets Once a day on the first day, then 1 tablet daily for 4 days Lisinopril [facility] 01985821432 20 MG Orally Active 1 tablet Once a day Lisinopril [facility] 51932094778 20 MG Orally Active 1 tablet Once a day Amitiza [facility] 94001838887 24 MCG Orally January 22, Active 1 capsule Twice a day 2017 with food Brovana [facility] 77918582687 15 MCG/2ML Active 2 ml Inhalation Twice a day Depakote [facility] 61650044422 250 MG Orally Active as directed TID Alprazolam [facility] 28430285616 0.5 MG Orally Active 1 tablet Twice a day Results No Known Results Summary Purpose eClinicalWorks Submission
--- OUTSIDE RECORDS SUMMARY | 2019-09-29 20:52 | XMS REPORT ---
[...] Start Date End Date Status Dosage Lyubov [facility] 18002001820 15 MCG/2ML Active 2 ml Inhalation Twice a day Results No Known Results Summary Purpose eClinicalWorks Submission
--- OUTSIDE RECORDS SUMMARY | 2019-09-29 20:52 | XMS REPORT ---
[...] End Status Dosage System Date Date Lisinopril [facility] 73904016008 20 MG Orally Active 1 tablet Once a day Lyrica [facility] 59636138210 100 MG Orally Active 1 capsule Three times a day Alprazolam [facility] 46254252658 0.5 MG Orally Active 1 tablet Twice a day Xanax [facility] 59741752414 1 MG Orally Inactive 1 tablet Twice a day Brovana [facility] 44597154563 15 MCG/2ML Active 2 ml Inhalation Twice a day Lisinopril [facility] 78205444613 20 MG Orally Active 1 tablet Once a day Amitiza [facility] 33602378752 24 MCG Orally January Active 1 capsule Twice a day 2017 with food Flonase [facility] 41512104545 50 MCG/ACT Active 1 spray in Nasally Once a each day nostril Symbicort [facility] 87556966845 160-4.5 MCG/ACT May Inactive 2 puffs Inhalation , Twice a day [address] [facility] 38569768623 250 MG Orally Active as directed TID Azithromycin [facility] 46214657073 250 MG Orally Active 2 tablets Once a day on the first day, then 1 tablet daily for [address] [facility] 86029724920 40 MG Orally Active 1 tablet Once a day Prozac [facility] 31935782447 40 MG Orally Active 1 capsule Once a day ProAir HFA [facility] 53196959788 108 (90 Base) Active 2 puffs as MCG/ACT needed Inhalation every 6 hrs [place] [facility] 41239904823 10-325 MG Active 1 tablet as Orally every 6 needed hrs ProAir HFA [facility] 51325952676 108 (90 Base) Active 2 puffs as MCG/ACT needed Inhalation every 6 hrs Results No Known Results Summary Purpose eClinicalWorks Submission
--- OUTSIDE RECORDS SUMMARY | 2019-09-29 20:52 | XMS REPORT ---
[...] Start Date End Date Status Dosage Lisinopril [facility] 67323055600 20 MG Orally Once Active 1 tablet a day Results No Known Results Summary Purpose eClinicalWorks Submission
--- OUTSIDE RECORDS SUMMARY | 2019-09-29 20:53 | XMS REPORT | Summary of Care ---
:1960 Author Organization [facility] Address [address] [place] [address] Care Team Providers Name Role Phone Yaniv Stuart MD Unavailable Room, s Ortho Cast Unavailable Unavailable Adonis Bosch MD Primary Care Provider Reason for Visit Reason Comments Procedure Encounter Details Date Type Department Care Team Description 06/14/2019 Telephone [facility] Keisha Nielsen MD Procedure Specialties - [address], [address] [place], [place] [address] [place] [phone] Allergies Active Allergy Reactions Severity Noted Date Comments Codeine Nausea and/or Vomiting 11/19/2013 Budesonide-Formoterol Other - See comments 06/14/2019 "counter acts with other medications" Acetaminophen Other - See comments 11/19/2013 Due to hepatitis documented as of this encounter (statuses as of 06/14/2019) Medications Medication Sig Dispensed Refills Start Date End Date Status esomeprazole Take 1 Cap by 60 Cap 5 01/21/2014 Active (NEXIUM) 40 mg mouth daily with capsule breakfast. FLUoxetine (PROZAC) Take 20 mg by 0 05/28/2014 Active 20 mg capsule mouth daily. PROAIR HFA 90 Inhale 2 Puffs 4 3 12/05/2014 Active mcg/actuation (four) times inhaler daily. BROVANA 15 mcg/2 mL 2 mL 2 (two) 2 11/07/2014 Active nebulizer solution times daily. NASONEX 50 Use 1 [place] in 3 01/09/2015 Active mcg/actuation nasal each nostril spray daily. ALPRAZolam (XANAX) 1 0 09/13/2016 Active mg tablet mupirocin (BACTROBAN ROYCE AA Q 12 H 0 07/04/2016 Active OINT) 2 % ointment pantoprazole TK 1 T PO QD 3 06/29/2016 Active (PROTONIX) 40 mg EC tablet RIBASPHERE 200 mg 0 08/11/2016 Active tablet HYDROcodone-acetamin Take 1-2 tablets 50 tablet 0 02/07/2017 Active ophen 5-325 mg by mouth every 4 tablet (four) hours as needed for Pain unrelieved by non-narcotic analgesics. methocarbamol 500 mg Take 1 tablet by 60 tablet 0 02/07/2017 Active tablet mouth 4 (four) times daily. morpHINE E.R. 15 mg Take 1 tablet by 30 tablet 0 09/18/2017 Active SR tablet mouth every 12 (twelve) hours. HYDROcodone-acetamin 0 08/30/2017 Active ophen 10-325 mg tablet cephALEXin 500 mg Take 1 capsule by 40 capsule 0 10/16/2017 Active capsule mouth 4 (four) times daily. alendronate 70 mg Take 1 tablet by 12 tablet 28 05/01/2018 04/23/2025 Active tablet mouth weekly for 365 doses. gabapentin 600 mg Take 1 tablet by 60 tablet 0 06/14/2019 Active tabletIndications: mouth 3 (three) Chronic pain times daily. syndrome traMADol 50 mg Take 2 tablets by 50 tablet 0 06/14/2019 Active tabletIndications: mouth every 6 Chronic pain (six) hours as syndrome needed for Pain (scale 4-6) or Pain (scale 7-10). proMETHazine 25 mg TK 1 T PO Q 6 H 30 tablet 0 06/14/2019 Active tabletIndications: PRN Motion sickness, sequela lisinopril 10 mg Take 2 tablets by 90 tablet 1 06/14/2019 Active tabletIndications: mouth daily. HCV (hepatitis C virus), Essential hypertension albuterol (PROAIR Inhale 2 Puffs 8.5 g 3 06/14/2019 Active HFA) 90 every 6 (six) mcg/actuation hours as needed inhalerIndications: for Wheezing or Chronic obstructive Shortness of pulmonary disease, Breath. unspecified COPD type ipratropium 0.02 % Inhale 2.5 mL 1 Each 11 06/14/2019 Active nebulizer every 4 (four) solutionIndications: hours as needed Chronic obstructive for Wheezing or pulmonary disease, Shortness of unspecified COPD Breath. type albuterol 2.5 mg /3 Inhale 3 mL every 1 Box 06/14/2019 Active mL (0.083 %) 4 (four) hours as nebulizer needed for solutionIndications: Wheezing or Chronic obstructive Shortness of pulmonary disease, Breath. unspecified COPD type documented as of this encounter (statuses as of 06/14/2019) Active Problems Problem Noted Date Essential hypertension 06/14/2019 Cryoglobulinemia 01/21/2014 Esophageal reflux 01/21/2014 HCV (hepatitis C virus) 11/19/2013 documented as of this encounter (statuses as of 06/14/2019) Social History Tobacco Use Types Packs/Day Years Used Date Current Every Day Smoker Cigarettes 1 20 Smokeless Tobacco: Never Used Alcohol Use Drinks/Week oz/Week Comments Not Asked Sex Assigned at Date Recorded Not on file Job Start Date Occupation Industry Not on file Not on file Not on file Travel History Travel Start Travel End No recent travel history available. documented as of this encounter Last Filed Vital Signs Not on filedocumented in this encounter Plan of Treatment Date Type Specialty Care Team Description 06/18/2019 Office Visit Family Medicine Atif Cummings MD [address] [place] [address] [place] [phone] 07/23/2019 Office Visit Family Medicine Adonis Bosch MD [address] [place] [address] [address] [phone] Health Maintenance Due Date Last Done Comments HEPATITIS C (HCV) SCREEN 1960 PNEUMOCOCCAL 0-64 YEARS COMBINED SERIES (1 of 1 - 1964 PPSV23) DTaP,Tdap,and Td Vaccines (1 - Tdap) 1977 PAP SMEAR 1979 MAMMOGRAM 1998 COLONOSCOPY 2008 Zoster Recombinant Vaccine (SHINGRIX) (1 of 2) 2008 LUNG CANCER SCREEN: Recommended for age 55-80 with 30 + 2013 pack year history INFLUENZA VACCINE 07/21/2019 documented as of this encounter Implants Implanted Type Area [employer] Worker Device Shelf Model / Identifier Expiration Serial / Date Lot Screw, Fixos Headless Compression 7.0x80mm [place] #[id number] - S0 SCREW Left: [place] 02/07/2018 [id number] / Implanted: Qty: 1 on 02/07/2017 by Yaniv Stuart MD at [facility] [place] AT [facility] 0 / 2 20 17 6 JAN 17 Screw Fixos Headless Comp Short Thread 7.0x75mm [place] #[id number] - Sl2 S 3 SCREW Left: [place] 09/04/2018 [id number] / Implanted: Qty: 1 on 09/06/2017 by Yaniv Stuart MD at [facility] [place] AT [facility] L2 S 3 / NA Screw Fixos Headless Comp Short Thread 7.0x70mm [place] #[id number] - Sl2 S 3 SCREW Left: [place] 09/04/2018 [id number] / Implanted: Qty: 1 on 09/06/2017 by Yaniv Stuart MD at [facility] [place] AT [facility] L2 S 3 / NA Screw, Fixos Headless Compression 7.0x75mm [place] #[id number] - S0 Left: [place] 02/07/2018 [id number] / Implanted: Qty: 1 on 02/07/2017 by Yaniv Stuart MD at [facility] [place] AT [facility] 0 / 2 20 17 6 JAN 17 Tri-Cortial Block Left: Community Tissue 10/20/2020 N/A / Implanted: Qty: 1 on 02/07/2017 by Yaniv Stuart MD at [facility] [place] AT [facility] [phone] / [id number] Crushed Bone Chips Left: Community [employer] 03/24/2021 1233-12 / Implanted: Qty: 1 on 02/07/2017 by Yaniv Stuart MD at [facility] [place] AT [facility] [id number] / [id number] Bone Graft Substitute Foam 5ml Bioactive Compression Resistant Vitoss Bbtrauma [place] #7911-4845 - Sn/A Left: [place] 02/14/2019 [id number] / Implanted: Qty: 1 on 09/06/2017 by Yaniv Stuart MD at [facility] N/A / [id number] documented as of this encounter Results Not on filedocumented in this encounter Insurance Payer Benefit Plan / Subscriber ID Effective Phone Address Type Group Dates SHARMAINE SCHMID xxxxxxxxx 2011-[facility] [address] Medicaid [place] [id number] MANAGED MEDICAID [place] [facility] PAYOR [facility] PLAN Effective for [place], all dates [place] documented as of this encounter
--- OUTSIDE RECORDS SUMMARY | 2019-09-29 20:53 | XMS REPORT ---
[...] Start End Date Status Dosage Date Lisinopril [facility] 89661927091 20 MG Orally Active 1 tablet Once a day ProAir HFA [facility] 33589430520 108 (90 Base) Active INHALE 2 MCG/ACT PUFFS 4 TIMES A DAY Prozac [facility] 58471114059 40 MG Orally Active 1 capsule Once a day Results No Known Results Summary Purpose eClinicalWorks Submission
--- OUTSIDE RECORDS SUMMARY | 2019-09-29 20:53 | XMS REPORT | Summary of Care ---
:1960 Author Organization [facility] Address [address] [place] [address] Care Team Providers Name Role Phone Yaniv Stuart MD Unavailable Room, s Ortho Cast Unavailable Unavailable Adonis Bosch MD Primary Care Provider Encounter Details Date Type Department Care Team Description 06/14/2019 Orders Only [facility] Doctor Unassigned, No [address] [facility] [place] [address] [address] [place] [address] Allergies Active Allergy Reactions Severity Noted Date Comments Codeine Nausea and/or Vomiting 11/19/2013 Acetaminophen Other - See comments 11/19/2013 Due to hepatitis documented as of this encounter (statuses as of 06/14/2019) Medications Medication Sig Dispensed Refills Start Date End Date Status lisinopril Take 5 mg by 0 Active (PRINIVIL,ZESTRIL) mouth daily. 10 mg tabletIndications: HCV (hepatitis C virus) esomeprazole Take 1 Cap by 60 Cap [...] solution times daily. NASONEX 50 Use 1 [place] in 3 01/09/2015 Active mcg/actuation nasal each nostril spray daily. ALPRAZolam (XANAX) 1 0 09/13/2016 Active mg tablet lisinopril 0 09/12/2016 Active (PRINIVIL,ZESTRIL) 20 mg tablet mupirocin (BACTROBAN ROYCE AA Q 12 H 0 07/04/2016 Active OINT) 2 % ointment pantoprazole TK 1 T PO QD 3 06/29/2016 Active (PROTONIX) 40 mg EC tablet proMETHazine TK 1 T PO Q 6 H 0 07/08/2016 Active (PHENERGAN) 25 mg PRN tablet RIBASPHERE 200 mg 0 08/11/2016 Active tablet HYDROcodone-acetamin Take 1-2 tablets 50 tablet 0 02/07/2017 Active ophen 5-325 mg by mouth every 4 tablet (four) hours as needed for Pain unrelieved by non-narcotic analgesics. methocarbamol 500 mg Take 1 tablet by 60 tablet 0 02/07/2017 Active tablet mouth 4 (four) times daily. gabapentin 600 mg Take 1 tablet by 60 tablet 0 09/18/2017 Active tablet mouth 3 (three) times daily. traMADOL 50 mg Take 2 tablets by 50 tablet 0 09/18/2017 Active tablet mouth every 6 (six) hours as needed for Pain (scale 4-6) or Pain (scale 7-10). morpHINE E.R. 15 mg Take 1 tablet [...] Active tablet mouth weekly for 365 doses. documented as of this encounter (statuses as of 06/14/2019) Active Problems Problem Noted Date Cryoglobulinemia 01/21/2014 Esophageal reflux 01/21/2014 HCV (hepatitis [...] Team Description 06/18/2019 Office Visit Family Medicine Aitf Cummings MD [address] [place] [address] [place] [phone] Health Maintenance Due Date Last Done Comments [...] of this encounter Implants Implanted Type Area Records Management Associate Device Shelf Model / Identifier Expiration Serial / Date Lot Screw, Fixos Headless Compression 7.0x80mm [place] #[id number] - S0 SCREW Left: [place] 02/07/2018 [id number] / Implanted: Qty: 1 on 02/07/2017 by Yaniv Stuart MD at [facility] [place] AT [facility] 0 / 2 20 17 6 JAN 17 Screw Fixos Headless Comp Short Thread 7.0x75mm [place] #[id number] - Sl2 S 3 SCREW Left: [place] 09/04/2018 [id number] / Implanted: Qty: 1 on 09/06/2017 by Yaniv Stuart MD at [facility] [place] AT [facility] L2 S 3 / NA Screw Fixos Headless Comp Short Thread 7.0x70mm [place] #[id number] - Sl2 S 3 SCREW Left: [place] 09/04/2018 [id number] / Implanted: Qty: 1 on 09/06/2017 by Yaniv Stuart MD at [facility] [place] AT [facility] L2 S 3 / NA Screw, Fixos Headless Compression 7.0x75mm [place] #[id number] - S0 Left: [place] 02/07/2018 [id number] / Implanted: Qty: 1 on 02/07/2017 by Yaniv Stuart MD at [facility] [place] AT [facility] Foot 0 / 2 20 17 6 FEB 03 Tri-Cortial Block Left: Community Tissue 10/20/2020 N/A / Implanted: Qty: 1 on 02/07/2017 by Yaniv Stuart MD at [facility] [place] [facility] Foot [facility] [id number] / [id number] Crushed Bone Chips Left: [facility] Tissue 03/24/2021 1233-12 / Implanted: Qty: 1 on 02/07/2017 by Yaniv Stuart MD at [facility] SPECIAL[facility] [id number] / [id number] Bone Graft Substitute Foam 5ml Bioactive Compression Resistant Vitoss Bbtrauma [place] #0245-2673 - Sn/A Left: [place] 02/14/2019 [id number] / Implanted: Qty: 1 on 09/06/2017 by Yaniv Stuart MD at [facility] [place] AT [facility] Ankle N/A / [id number] documented as of this encounter Procedures Procedure Name Priority Date/Time Associated Diagnosis Comments ASSIGNMENT OF BENEFITS Routine 06/14/2019 11:15 AM CDT documented in this encounter Results Not on filedocumented in this encounter Insurance Payer Benefit Plan / Subscriber ID Effective Phone Address Type Group Dates SHARMANIE SCHMID xxxxxxxxx 2011-[place] [id number] [place] MED[place] [facility] PAY[place] [facility]-[place]J PLAN Effective for [place], all dates [place] documented as of this encounter
--- OUTSIDE RECORDS SUMMARY | 2019-09-29 20:53 | XMS REPORT | Summary of Care ---
:1960 Author Organization [facility] Address [address] [place] [address] Care Team Providers Name Role Phone Yaniv Stuart MD Unavailable Room, Vls Ortho Cast Unavailable Unavailable Adonis Bosch MD Primary Care Provider Reason for Visit Reason Comments Authorization Requesting PA Encounter Details Date Type Department Care Team Description 06/14/2019 Telephone [facility] Pediatric Adonis Bosch, Authorization and Adult Primary (Requesting PA) Care- [address] [facility] , [facility] [address] [place] [address] [place] [phone] [address] [phone] Allergies Active Allergy Reactions Severity Noted Date [...] solution times daily. NASONEX 50 Use 1 [place] in 3 01/09/2015 Active mcg/actuation nasal each [...] /3 Inhale 3 mL every 1 Box 11 06/14/2019 Active mL (0.083 %) 4 (four) [...] Office Visit Family Medicine Atif Cummings MD [address] [place] [address] [place] [address] [phone] 07/23/2019 Office Visit Family Medicine Adonis Bosch MD [address] [place] [address] [address] [phone] Health Maintenance Due Date Last Done Comments [...] of this encounter Implants Implanted Type Area Disaster Response Director Device Shelf Model / Identifier Expiration Serial / Date Lot Screw, Fixos Headless Compression 7.0x80mm Snehal #[id number] - S0 SCREW Left: Snehal 02/07/2018 [id number] / Implanted: Qty: 1 on 02/07/2017 by Yaniv Stuart MD at [facility] AT [facility] 0 / 2 20 17 6 FEB 03 Screw Fixos Headless Comp Short Thread 7.0x75mm Snehal #[id number] - Sl2 S 3 SCREW Left: Snehal 09/04/2018 [id number] / Implanted: Qty: 1 on 09/06/2017 by Yaniv Stuart MD at [facility] [place] AT [facility] L2 S 3 / NA Screw Fixos Headless Comp Short Thread 7.0x70mm Snehal #[id number] - Sl2 S 3 SCREW Left: [place] 09/04/2018 [id number] / Implanted: Qty: 1 on 09/06/2017 by Yaniv Stuart MD at [facility] [place] AT [facility] L2 S 3 / NA Screw, Fixos Headless Compression 7.0x75mm [place] #[id number] - S0 Left: Snehal 02/07/2018 [id number] / Implanted: Qty: 1 on 02/07/2017 by Yaniv Stuart MD at [facility] [place] AT [facility] 0 / 2 20 17 FEB 03 Tri-Cortial Block Left: Community Tissue 10/20/2020 N/A / Implanted: Qty: 1 on 02/07/2017 by Yaniv Stuart MD at [facility] [place] AT [facility] [id number] / [id number] Crushed Bone Chips Left: [facility] Tissue 03/24/2021 1233-12 / Implanted: Qty: 1 on 02/07/2017 by Yaniv Stuart MD at [facility] [place] AT [facility] [id number] / [id number] Bone Graft Substitute Foam 5ml Bioactive Compression Resistant Vitoss Bbtrauma [place] # - Sn/A Left: Snehal 02/14/2019 / Implanted: Qty: 1 on 09/06/2017 by Yaniv Stuart MD at [facility] AT [facility] N/A / [id number] documented as of this encounter Results Not on filedocumented in this encounter Insurance Payer Benefit Plan / Subscriber ID Effective Phone Address Type Group Dates SHARMAINE SCHMID xxxxxxxxx 2011-Prese [address] [place] [id number] [place] PA[place]OR [facility]-[place] PLAN Effective for [place], all dates [place] documented as of this encounter
--- OUTSIDE RECORDS SUMMARY | 2019-09-29 20:53 | XMS REPORT | Summary of Care ---
:1960 Author Organization [facility] Address [address] [place] [address] Care Team Providers Name Role Phone Yaniv Stuart MD Unavailable Room, Vls Ortho Cast Unavailable Unavailable Adonis Bosch MD Primary Care Provider Reason for Visit Reason Comments Authorization Rejected medication due to pt getting morphine from Dr. Ellis Encounter Details Date Type Department Care Team Description 06/14/2019 Telephone [facility] Pediatric Adonis Bosch, Authorization (Rejected and Adult Primary MD medication due to pt Care- [address] getting morphine from [address] [place] [address] , [place] [address] Dr[address] Ellis) [address] [place] [address] [place], [place] [phone] [address] [phone] Allergies Active Allergy Reactions Severity Noted Date [...] solution times daily. NASONEX 50 Use 1 [place] in 3 01/09/2015 Active mcg/actuation nasal each [...] 0.02 % Inhale 2.5 mL 1 Each 06/14/2019 Active nebulizer every 4 (four) solutionIndications: [...] Office Visit Family Medicine Atif Cummings MD [address] [place] [address] [place] [phone] 07/23/2019 Office Visit Family Medicine Adonis Bosch MD [address] [place] [address] [address] [place] [address] [phone] Health Maintenance Due Date Last Done Comments HEPATITIS C (HCV) SCREEN 1960 PNEUMOCOCCAL 0-64 YEARS COMBINED SERIES (1 of - 1964 PPSV23) DTaP,Tdap,and Td Vaccines (1 - Tdap) 1977 PAP SMEAR 1979 MAMMOGRAM 1998 COLONOSCOPY 2008 Zoster Recombinant Vaccine (SHINGRIX) (1 of 2) 2008 LUNG CANCER SCREEN: Recommended for age 55-80 with 30 + 2013 pack year history INFLUENZA VACCINE 07/21/2019 documented as of this encounter Implants Implanted Type Area Regulatory Services Consultant Device Shelf Model / Identifier Expiration Serial / Date Lot Screw, Fixos Headless Compression 7.0x80mm Snehal #[id number] - S0 SCREW Left: [place] 02/07/2018 [id number] / Implanted: Qty: 1 on 02/07/2017 by Yaniv Stuart MD at [facility] AT [facility] 0 / 2 20 17 6 FEB 03 Screw Fixos Headless Comp Short Thread 7.0x75mm [place] #400192 - Sl2 S 3 SCREW Left: [place] 09/04/2018 [id number] / Implanted: Qty: 1 on 09/06/2017 by Yaniv Stuart MD at [facility] [place] AT [facility] L2 S 3 / NA Screw Fixos Headless Comp Short Thread 7.0x70mm Snehal #921249 - Sl2 S 3 SCREW Left: Snehal 09/04/2018 [id number] / Implanted: Qty: 1 on 09/06/2017 by Yaniv Stuart MD at [facility] L2 S 3 / NA Screw, Fixos Headless Compression 7.0x75mm [place] #[id number] - S0 Left: Snehal 02/07/2018 [id number] / Implanted: Qty: 1 on 02/07/2017 by Yaniv Stuart MD at [facility] [place] AT [facility] / 20 17 FEB 03 Tri-Cortial Block Left: Community Tissue 10/20/2020 N/A / Implanted: Qty: 1 on 02/07/2017 by Yaniv Stuart MD at [facility] [place] AT [facility] [id number] / [id number] Crushed Bone Chips Left: [facility] Tissue 03/24/2021 1233-12 / Implanted: Qty: 1 on 02/07/2017 by Yaniv Stuart MD at [facility] [place] AT [facility] [place] [facility] [id number] / [id number] Bone Graft Substitute Foam 5ml Bioactive Compression Resistant Vitoss Bbtrauma Snehal #7604-3025 - Sn/A Left: Snehal 02/14/2019 / Implanted: Qty: 1 on 09/06/2017 by Yaniv Stuart MD at [facility] AT [facility] Ankle N/A / [id number] documented as of this encounter Results Not on filedocumented in this encounter Insurance Payer Benefit Plan / Subscriber ID Effective Phone Address Type Group Dates SHARMAINE SCHMID xxxxxxxxx 2011-Mariela [address] Medicaid [place] [id number] MANAGED MEDICAID [place] [facility] PAYOR [facility] PLAN Effective for [place], all dates [place] documented as of this encounter
--- OUTSIDE RECORDS SUMMARY | 2019-09-29 20:53 | XMS REPORT ---
[...] End Status Dosage System Date Date Brovana [facility] 19989359618 15 MCG/2ML Active 2 ml Inhalation Twice a day ProAir HFA [facility] 35618986593 108 (90 Base) Active INHALE 2 MCG/ACT PUFFS 4 TIMES A DAY Protonix ND 41272678709 40 MG Orally Active 1 tablet Once a day Amitiza ND 44954999278 24 MCG Orally January Active 1 capsule Twice a day 2017 with food Protonix ND 59362516952 40 Active 1 TAB(S) ONCE A DAY ORALLY Alprazolam ND 84954929223 0.5 MG Orally Active 1 tablet Twice a day Fluoxetine HCl [facility] 51692957717 40 MG Active 1 EACH ONCE A DAY ORALLY Lisinopril [facility] 55276131027 20 MG Orally Active 1 tablet Once a day Prozac [facility] 36589140836 40 MG Orally Active 1 capsule Once a day [place] [facility] 51248729043 10-325 MG Active 1 tablet as Orally every 6 needed hrs Lyrica [facility] 66259685840 100 MG Orally Active 1 capsule Three times a day Depakote [facility] 08845964044 250 MG Orally Active as directed TID Flonase [facility] 39276685582 50 MCG/ACT Active 1 spray in Nasally Once a each day nostril Keflex [facility] 49171060644 500 MG Orally Active 1 capsule every 12 hrs Symbicort [facility] 80350702805 160-4.5 MCG/ACT Active 2 puffs Inhalation Twice a day Lisinopril [facility] 13498362255 20 MG Orally Active 1 tablet Once a day Azithromycin [facility] 44150077291 250 MG Orally Active 2 tablets Once a day on the first day, then 1 tablet daily for 4 days Results No Known Results Summary Purpose eClinicalWorks Submission
--- OUTSIDE RECORDS SUMMARY | 2019-09-29 20:54 | XMS REPORT | Summary of Care ---
:1960 Author Organization [facility] Address [address] [place] [address] Care Team Providers Name Role Phone Yaniv Stuart MD Unavailable Room, Vls Ortho Cast Unavailable Unavailable Adonis Bosch MD Primary Care Provider Reason for Visit Reason Comments Authorization Requesting PA Encounter Details Date Type Department Care Team Description 06/14/2019 Telephone [facility] Pediatric Adonis Bosch, Authorization and Adult Primary (Requesting PA) Care- [address] 146 [facility] , [facility] [address] [place] [address] [place], [place] [phone] [address] [phone] Allergies Active Allergy Reactions Severity Noted Date [...] solution times daily. NASONEX 50 Use 1 [place] in 3 01/09/2015 Active mcg/actuation nasal each [...] Office Visit Family Medicine Atif Cummings MD [address] [place] [address] [place] [address] [phone] 07/23/2019 Office Visit Family Medicine Adonis Bosch MD [address] [place] [address] [address] [phone] Health Maintenance Due Date Last Done Comments [...] of this encounter Implants Implanted Type Area Retail Furniture Sales Device Shelf Model / Identifier Expiration Serial / Date Lot Screw, Fixos Headless Compression 7.0x80mm Snehal #[id number] - S0 SCREW Left: Snehal 02/07/2018 [id number] / Implanted: Qty: 1 on 02/07/2017 by Yaniv Stuart MD at [facility] AT [facility] 0 / 2 20 17 6 FEB 03 Screw Fixos Headless Comp Short Thread 7.0x75mm Snehal #488330 - Sl2 S 3 SCREW Left: [place] 09/04/2018 [id number] / Implanted: Qty: 1 on 09/06/2017 by Yaniv Stuart MD at [facility] [place] AT [facility] L2 S 3 / NA Screw Fixos Headless Comp Short Thread 7.0x70mm Snehal #[id number] - Sl2 S 3 SCREW Left: [place] 09/04/2018 [id number] / Implanted: Qty: 1 on 09/06/2017 by Yaniv Stuart MD at [facility] [place] AT [facility] L2 S 3 / NA Screw, Fixos Headless Compression 7.0x75mm [place] #[id number] - S0 Left: Snehal 02/07/2018 [id number] / Implanted: Qty: 1 on 02/07/2017 by Yaniv Stuart MD at [facility] [place] AT [facility] 0 / 2 20 17 FEB 03 Tri-Cortial Block Left: Community Tissue 10/20/2020 N/A / Implanted: Qty: 1 on 02/07/2017 by Yaniv Stuart MD at [facility] [place] AT [facility] [id number] / [id number] Crushed Bone Chips Left: [facility] Tissue 03/24/2021 1233-12 / Implanted: Qty: 1 on 02/07/2017 by Yaniv Stuart MD at [facility] [place] AT [facility] [id number] / [id number] Bone Graft Substitute Foam 5ml Bioactive Compression Resistant Vitoss Bbtrauma [place] # - Sn/A Left: Snehal 02/14/2019 / Implanted: Qty: 1 on 09/06/2017 by Yaniv Stuart MD at [facility] AT [facility] N/A / [id number] documented as of this encounter Results Not on filedocumented in this encounter Insurance Payer Benefit Plan / Subscriber ID Effective Phone Address Type Group Dates SHARMAINE SCHMID xxxxxxxxx 2011-Pre[place] [address] [place] [id number] [place]ID [place] PA[place] [facility] [place]-[place] PLAN Effective for [place], all dates [place] documented as of this encounter
--- OUTSIDE RECORDS SUMMARY | 2019-09-29 20:54 | XMS REPORT | Summary of Care ---
:1960 Author Organization [facility] Address [address] [place] [address] Care Team Providers Name Role Phone Yaniv Stuart MD Unavailable Room, Vls Ortho Cast Unavailable Unavailable Adonis Bosch MD Primary Care Provider Reason for Visit Reason Comments Authorization Approval Encounter Details Date Type Department Care Team Description 06/17/2019 Telephone [facility] Pediatric Adonis Bosch, Authorization (Approval) and Adult Primary MD Care- [address] [place] [address] , [facility] [address] [place], [place] [address] [place] [address] [phone] [address] [phone] Allergies Active Allergy Reactions Severity Noted Date Comments Codeine Nausea and/or Vomiting 11/19/2013 Budesonide-Formoterol Other - See comments 06/14/2019 "counter acts with other medications" Acetaminophen Other - See comments 11/19/2013 Due to hepatitis documented as of this encounter (statuses as of 06/17/2019) Medications Medication Sig Dispensed Refills Start Date [...] solution times daily. NASONEX 50 Use 1 [place] in 3 01/09/2015 Active mcg/actuation nasal each [...] 3 (three) Chronic pain times daily. syndrome proMETHazine 25 mg TK 1 T PO Q 6 H 30 tablet 0 06/14/2019 Active tabletIndications: PRN Motion sickness, sequela albuterol (PROAIR Inhale 2 Puffs 8.5 g [...] of pulmonary disease, Breath. unspecified COPD type lisinopril-hydrochlo Take 1 tablet by 90 tablet 1 06/15/2019 Active rothiazide mouth daily. 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 Esophageal reflux 01/21/2014 HCV (hepatitis C virus) 11/19/2013 documented as of this encounter (statuses as of 06/17/2019) Social History Tobacco Use Types Packs/Day Years [...] Treatment Date Type Specialty Care Team Description 06/24/2019 Appointment Radiology Adonis Bosch MD [address] [place] [address] Dr Gamez [address] [place] [address] [phone] 06/27/2019 Ancillary Visit Physical Therapy Zaid Yeager MD [address] [place] [phone] Ariana Mendosa, PT [address] [place] [address] 07/23/2019 Office Visit Family Medicine Adonis Bosch MD [address] [place] [address] Dr Gamez [address] [place] [address] Health Maintenance Due Date Last Done Comments HEPATITIS C (HCV) SCREEN 1960 PNEUMOCOCCAL 0-64 YEARS COMBINED 1964 SERIES (1 of 1 - PPSV23) DTaP,Tdap,and Td Vaccines (1 - 1977 Tdap) PAP SMEAR 1979 MAMMOGRAM 1998 COLONOSCOPY 2008 LUNG CANCER SCREEN: Recommended 2013 for age 55-80 with 30 + pack year history INFLUENZA VACCINE 07/21/2019 Zoster Recombinant Vaccine 06/15/2020 Postponed from 2008 (SHINGRIX) (1 of 2) (Insurance / Financial) documented as of this encounter Implants Implanted Type Area Flask Handler Device Shelf Model / Identifier Expiration Serial / Date Lot Screw, Fixos Headless Compression 7.0x80mm [place] #[id number] - S0 SCREW Left: [place] 02/07/2018 [id number] / Implanted: Qty: 1 on 02/07/2017 by Yaniv Stuart MD at [facility] 20 17 6 FEB 03 Screw Fixos Headless Comp Short Thread 7.0x75mm [place] #057744 - Sl2 S 3 SCREW Left: Snehal 09/04/2018 [id number] / Implanted: Qty: 1 on 09/06/2017 by Yaniv Stuart MD at [facility] L2 S 3 / NA Screw Fixos Headless Comp Short Thread 7.0x70mm Snehal #032699 - Sl2 S 3 SCREW Left: [place] 09/04/2018 [id number] / Implanted: Qty: 1 on 09/06/2017 by Yaniv Stuart MD at [facility] L2 S 3 / NA Screw, Fixos Headless Compression 7.0x75mm [place] #798384 - S0 Left: [place] 02/07/2018 [id number] / Implanted: Qty: 1 on 02/07/2017 by Yaniv Stuart MD at [facility] 20 17 6 MAR 17 Tri-Cortial Block Left: Community Tissue 10/20/2020 N/A / Implanted: Qty: 1 on 02/07/2017 by Yaniv Stuart MD at [facility] AT [facility] [employer] [id number] / [id number] Crushed Bone Chips Left: Community Tissue 03/24/2021 1233-12 / Implanted: Qty: 1 on 02/07/2017 by Yaniv Stuart MD at [facility] AT [facility] [employer] [id number] / [id number] Bone Graft Substitute Foam 5ml Bioactive Compression Resistant Vitoss Bbtrauma Snehal #7346-8032 - Sn/A Left: Snehal 02/14/2019 [id number] / Implanted: Qty: 1 on 09/06/2017 by Yaniv Stuart MD at [facility] AT [facility] Ankle N/A / [id number] documented as of this encounter Results Not on filedocumented in this encounter Insurance Payer Benefit Plan / Subscriber ID Effective Phone Address Type Group Dates SHARMAINE SCHMID xxxxxxxxx 2011-Mariela [address] Medicaid [facility] [id number] MANAGED MEDICAID [place], [place] [facility] PAY[place] [facility] PLAN Effective for [place], all dates [place] documented as of this encounter
--- OUTSIDE RECORDS SUMMARY | 2019-09-29 20:54 | XMS REPORT | Summary of Care ---
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 Adonis [address] [place] [address] Dr [address]z [address] [place] [address] (Routine) Status Reason Specialty Diagnoses / Procedures Referred By Contact Referred To Contact Closed Endoscopy Diagnoses Encounter for screening colonoscopy Adonis Bosch, Procedures COLONOSCOPY,SCREENING Preferred Location: Y[facility] LOVE [address] [place] [address] Dr [address] [place] [id number] MRI/CAT Scan (Routine) Status Reason Specialty Diagnoses / Referred By Referred To Procedures Contact Contact Pending Review Diagnostic Diagnoses Encounter for screening for lung cancer Hiro, Radiology Procedures CT LUNG CANCER SCREENING MD Adonis [address] [place] [address] Dr [address] [place] [phone] Radiology Services (Routine) Status Reason Specialty Diagnoses / Referred By Referred To Procedures Contact Contact New Request Diagnostic Diagnoses Breast cancer screening by mammogram Hiro Radiology Procedures BI SCREENING MAMMOGRAM BILATERAL MD Adonis [address] [place] [address] Dr [address] [place], [place] [phone] (Routine) Status Reason Specialty Diagnoses / Referred By Referred To Procedures Contact Contact Closed Physical Therapy Diagnoses Chronic pain syndrome Adonis Bosch Adc Physical Procedures CONSULT/REFERRAL PHYSICAL THERAPY MD Therapy [address] [place] [address] [place], [place] [address] [address] [place], [place] Phone: [phone] Phone: Reason for Visit Reason Comments Establish Care Forms Handicap sticker VACCINES requesting Tetanus vaccine Medication Problem wants refill for Xanax Ear Pain requesting Mupirocin ointment Encounter Details Date Type Department Care Team Description 06/14/2019 Office Visit [facility] Pediatric Adonis Bosch, HCV ( hepatitis C virus) (Primary Dx); and Adult Primary MD Chronic hepatitis C with hepatic coma; [facility]- [address] Encounter for medical examination to establish care; [address] [place] [address] , [address] Essential hypertension; [address] [place] [address] Chronic pain syndrome; [place], [place] [phone] Motion sickness, sequela; [phone] Need for pneumococcal vaccination; [phone] Need for Tdap vaccination; Pap smear for cervical cancer screening; Breast cancer screening by mammogram; Encounter for screening for lung cancer; Encounter for screening colonoscopy; Chronic obstructive pulmonary disease, unspecified COPD type Allergies Active Allergy Reactions Severity Noted Date Comments Codeine Nausea and/or Vomiting 11/19/2013 Budesonide-Formoterol Other - See comments 06/14/2019 "counter acts with other medications" Acetaminophen Other - See comments 11/19/2013 Due to hepatitis documented as of this encounter (statuses as of 06/19/2019) Medications Medication Sig Dispensed Refills Start Date End Date Status esomeprazole Take 1 Cap by 60 Cap 5 01/21/2014 Active (NEXIUM) 40 mg mouth daily capsule with breakfast. FLUoxetine (PROZAC) Take 20 mg by 0 05/28/2014 Active 20 mg capsule mouth daily. PROAIR HFA 90 Inhale 2 Puffs 3 12/05/2014 Active mcg/actuation 4 (four) times inhaler daily. BROVANA 15 mcg/2 mL 2 mL 2 (two) 2 11/07/2014 Active nebulizer solution times daily. NASONEX 50 Use 1 [place] in 3 01/09/2015 Active mcg/actuation nasal each nostril spray daily. ALPRAZolam (XANAX) 0 09/13/2016 Active 1 mg tablet mupirocin ROYCE AA Q 12 H 0 07/04/2016 Active (BACTROBAN OINT) 2 % ointment pantoprazole TK 1 T PO QD 3 06/29/2016 Active (PROTONIX) 40 mg EC tablet RIBASPHERE 200 mg 0 08/11/2016 Active tablet HYDROcodone-acetami Take 1-2 50 tablet 0 02/07/2017 Active nophen 5-325 mg tablets by tablet mouth every 4 (four) hours as needed for Pain unrelieved by non-narcotic analgesics. methocarbamol 500 Take 1 tablet 60 tablet 0 02/07/2017 Active mg tablet by mouth 4 (four) times daily. morpHINE E.R. 15 mg Take 1 tablet 30 tablet 0 09/18/2017 Active SR tablet by mouth every 12 (twelve) hours. HYDROcodone-acetami 0 08/30/2017 Active nophen 10-325 mg tablet cephALEXin 500 mg Take 1 capsule 40 capsule 0 10/16/2017 Active capsule by mouth 4 (four) times daily. alendronate 70 mg Take 1 tablet 12 tablet 28 05/01/2018 Active tablet by mouth weekly 5 for 365 doses. gabapentin 600 mg Take 1 tablet 60 tablet 0 06/14/2019 Active tabletIndications: by mouth 3 Chronic pain (three) times syndrome daily. proMETHazine 25 mg TK 1 T PO [...] 11 06/14/2019 Active nebulizer every 4 (four) solutionIndications hours as needed : Chronic for Wheezing or obstructive Shortness of pulmonary disease, Breath. unspecified COPD type albuterol 2.5 mg /3 Inhale 3 mL 1 Box 11 06/14/2019 Active mL (0.083 %) every 4 (four) nebulizer hours as needed solutionIndications for Wheezing or : Chronic Shortness of obstructive Breath. pulmonary disease, unspecified COPD type lisinopril-hydrochl Take 1 tablet 90 tablet 1 06/15/2019 Active orothiazide by mouth daily. (ZESTORETIC) 10-12.5 mg per tabletIndications: Essential hypertension lisinopril Take 20 mg by 0 Discontinued (PRINIVIL,ZESTRIL) mouth daily. 9 10 mg tabletIndications: HCV (hepatitis C virus) lisinopril 0 09/12/2016 Discontinued (PRINIVIL,ZESTRIL) 9 20 mg tablet proMETHazine TK 1 T PO Q 6 H 0 07/08/2016 Discontinued (PHENERGAN) 25 mg PRN 9 tablet gabapentin 600 mg Take 1 tablet 60 tablet 0 09/18/2017 Discontinued tablet by mouth 3 9 (three) times daily. traMADOL 50 mg Take 2 tablets 50 tablet 0 09/18/2017 Discontinued tablet by mouth every 9 6 (six) hours as needed for Pain (scale 4-6) or Pain (scale 7-10). traMADol 50 mg Take 2 tablets 50 tablet 0 06/14/2019 Discontinued tabletIndications: by mouth every 9 Chronic pain 6 (six) hours syndrome as needed for Pain (scale 4-6) or Pain (scale 7-10). lisinopril 10 mg Take 2 tablets 90 tablet 1 06/14/2019 Discontinued tabletIndications: by mouth daily. 9 Essential hypertension documented as of this encounter (statuses as of 06/19/2019) Active Problems Problem Noted Date Pap smear for cervical cancer screening 06/15/2019 Chronic pain syndrome 06/15/2019 Motion sickness, sequela 06/15/2019 Need for Tdap vaccination 06/15/2019 Encounter for screening colonoscopy 06/15/2019 Chronic obstructive pulmonary disease, unspecified COPD type 06/15/2019 Essential hypertension 06/14/2019 Cryoglobulinemia 01/21/2014 Esophageal reflux 01/21/2014 HCV (hepatitis C virus) 11/19/2013 documented as of this encounter (statuses as of 06/19/2019) Social History Tobacco Use Types Packs/Day Years [...] of this encounter Last Filed Vital Signs Vital Sign Reading Time Taken Comments Blood Pressure 151/96 06/14/2019 11:44 AM CDT Pulse 78 06/14/2019 11:35 AM CDT Temperature 36.4 C (97.5 F) 06/14/2019 11:35 AM CDT Respiratory Rate 18 06/14/2019 11:35 AM CDT Oxygen Saturation 98% 06/14/2019 11:35 AM CDT Inhaled Oxygen Concentration - - Weight 49 kg (108 lb) 06/14/2019 11:35 AM CDT Height - - Body Mass Index 17.97 06/18/2018 10:57 AM CDT documented in this encounter Progress Notes Adonis Bosch MD - 06/14/2019 11:00 AM CDT Family Medicine Pediatric and Adult Primary Care New Patient Office Visit Visit date: 06/14/2019 Chief complaint: Establish Care; Forms (Handicap sticker); VACCINES (requesting Tetanus vaccine ); Medication Problem (wants refill for Xanax); and Ear Pain ( requesting Mupirocin ointment ) HPI: Josseline Gallegos is a 58 year old female w/ PMHx Anxiety, COPD, Hepatitis C, Hypertension and Weight loss who presented to the clinic for establishment of care. Patient reports hx chronic pain syndrome due to low back and ankle pain. She wears a surgical boot and notes that the ankle surgerywas complicated by wound infection. Patient notes hx fractured left heel s/p fall in 2016 followed by 2 operations, followed by noted complications and delay wound healing. She has been on opiates since that surgery, prescribed by Dr. Sanford Hall at the time. She currently sees a private pain provider whom she will not share contact information at this time". Patient reports hx hepatitis C diagnosis in the early 1980s with source of infections determined to be probable IV drug abuse. Her Hep C Infection was confirmed around March 2019 (4.2 million IU/mL) at the time, though she has never been treated. Her other medical hx are as follows: - 04/09/2019: Albumin 3.7, bilirubin 0.7, direct 0.2, alkaline phosphatase 97, AST 51, ALT 31, HCV RNA 4,280,000 IU/mL, - 01/01/2019: Creatinine 0.57, alkaline phosphatase 142, AST 235, ALT 140, WBC 5.3, hemoglobin 12.2, platelets 219,000 - 06/18/2018 ([facility]): WBCs 6.5, hemoglobin 13.3, platelets 185,000, - 11/19/2013 ([facility]): HCV 3,500,000 IU/mL, genotype 1a, genotype 1a, ALVARO (-), AMA 3.9, anti-actin 9, Alpha I antitrypsin 149, ceruloplasmin 26, ferritin 224, HFE gene mutations (-), cryoglobulins (+), IgG 1,160 LIVER DISEASE COMPLICATIONS: -She does not have hx prior ascites, jaundice, encephalopathy, or varices. - Denies abdominal pain, rash, or pruritus. LIVER DISEASE RISK FACTORS: Alcohol: Heavy for 6 months in 1985, then less than one drink per day until 2015 when she quit. Injection dru to about 1985 Tattoos: Unregulated from age 14 No current alcohol, injection drugs use PRIOR INVESTIGATIONS: CT scan and MRI at [facility] on 03 May 2019 results not available EGD (about 2013): Report not available Colonoscopy (about 2013): Report not available VACCINATION STATUS (11/19/2013): Anti-HAV (+), anti-HBs (+), anti-HBc (?) CURRENT SYMPTOMS OF LIVER DISEASE: - Reports chronic left ankle swelling and joint pain - Denies F/C/N/V chest pain or SOB. PAST MEDICAL HISTORY: No past medical history on file. PAST SURGICAL HISTORY: Past Surgical History: Procedure Laterality Date ALLOGRAFT APPLICATION Left 02/07/2017 Surgeon: Yaniv Stuart MD; Location: [facility] ANKLE HARDWARE REMOVAL Left 09/06/2017 Surgeon: Yaniv Stuart MD; Location: [facility] EXOSTECTOMY Left 02/07/2017 Surgeon: Yaniv Stuart MD; Location: [facility] LOWER EXTREMITY TENDON EXPLORATION Left 02/07/2017 Surgeon: Yaniv Stuart MD; Location: [facility] SUBTALAR ARTHRODESIS Left 02/07/2017 Surgeon: Yaniv Stuart MD; Location: [facility] SUBTALAR ARTHRODESIS Left 09/06/2017 Surgeon: Yaniv Stuart MD; Location: [facility] FAMILY HISTORY: No family history on file. SOCIAL HISTORY: Social History Socioeconomic History Marital status: Single Spouse name: Not on file Number of children: Not on file Years of education: Not on file Highest education level: Not on file Occupational History Not on file Social Needs Financial resource strain: Not on file Food insecurity: Worry: Not on file Inability: Not on file Transportation needs: Medical: Not on file Non-medical: Not on file Tobacco Use Smoking status: Current Every Day Smoker Packs/day: 1.00 Years: 20.00 Pack years: 20.00 Types: Cigarettes Smokeless tobacco: Never Used Substance and Sexual Activity Alcohol use: Not on file Drug use: Not on file Sexual activity: Not on file Lifestyle Physical activity: Days per week: Not on file Minutes per session: Not on file Stress: Not on file Relationships Social connections: Talks on phone: Not on file Gets together: Not on file Attends scientology service: Not on file Active member of club or organization: Not on file Attends meetings of clubs or organizations: Not on file Relationship status: Not on file Intimate partner violence: Fear of current or ex partner: Not on file Emotionally abused: Not on file Physically abused: Not on file Forced sexual activity: Not on file Other Topics Concern Not on file Social History Narrative Not on file REVIEW OF SYSTEMS: Constitutional: weight loss Eyes: negative Ears: negative Nose/Sinuses: negative Mouth/Throat: negative Cardiovascular: negative Respiratory: Hx COPD Gastrointestinal: Per HPI Genitourinary: negative Musculoskeletal: Per HPI Integumentary: negative Neuro: negative Psych: negative Endocrine: negative Hem/Lymph: negative Allergy/Immunology: codeine MEDICATION HISTORY: Outpatient Medications Marked as Taking for the 06/14/19 encounter (Office Visit ) with Adonis Bosch MD Medication Sig Dispense Refill albuterol (PROAIR HFA) 90 mcg/actuation inhaler Inhale 2 Puffs every 6 (six ) hours as needed forWheezing or Shortness of Breath. 8.5 g 3 albuterol 2.5 mg /3 mL (0.083 %) nebulizer solution Inhale 3 mL every 4 ( four) hours as needed for Wheezing or Shortness of Breath. 1 Box 11 gabapentin 600 mg tablet Take 1 tablet by mouth 3 (three) times daily. 60 tablet 0 ipratropium 0.02 % nebulizer solution Inhale 2.5 mL every 4 (four) hours as needed for Wheezing or Shortness of Breath. 1 Each 11 lisinopril 10 mg tablet Take 2 tablets by mouth daily. 90 tablet 1 proMETHazine 25 mg tablet TK 1 T PO Q 6 H PRN 30 tablet 0 traMADol 50 mg tablet Take 2 tablets by mouth every 6 (six) hours as needed for Pain (scale 4-6)or Pain (scale 7-10). 50 tablet 0 HYDROcodone-acetaminophen 10-325 mg tablet morpHINE E.R. 15 mg SR tablet Take 1 tablet by mouth every 12 (twelve) hours. (Patient taking differently: Take 30 mg by mouth daily.) 30 tablet 0 methocarbamol 500 mg tablet Take 1 tablet by mouth 4 (four) times daily. 60 tablet 0 ALPRAZolam (XANAX) 1 mg tablet pantoprazole (PROTONIX) 40 mg EC tablet TK 1 T PO QD 3 BROVANA 15 mcg/2 mL nebulizer solution 2 mL 2 (two) times daily. 2 PROAIR HFA 90 mcg/actuation inhaler Inhale 2 Puffs 4 (four) times daily. 3 FLUoxetine (PROZAC) 20 mg capsule Take 20 mg by mouth daily. PHYSICAL EXAM: Blood pressure (!) 151/96, pulse 78, temperature 36.4 C (97.5 F), temperature source Temporal Artery, resp. rate 18, weight 108 lb (49 kg), SpO2 98 %. Appearance: comfortable, no distress Eye: normal external eye, corneas clear, conjunctiva and sclera normal and pupils equal, round, reactive to light Ear: normal TM's bilaterally, normal auditory canals and external ears non- tender Nose: nares normal, septum midline, mucosa pink and moist with no drainage or sinus tenderness Oropharynx: moist mucus membranes, no erythema or tonsillar enlargement Neck: neck supple with no rigidity Cardiovascular: regular rate and rhythm, no murmur Respiratory: clear to auscultation and percussion, bilaterally Abdomen: soft, non-tender, non-distended, no liver, spleen or abnormal masses palpated Musculoskeletal: no clubbing, cyanosis or edema, chronic LLE swelling s/p complicated surgery, peripheral pulses 2+ in all extremities Neurologic: normal gait and station Psychiatric: alert, oriented, with appropriate affect Skin: skin color, texture and turgor are normal; no bruising, rashes or lesions noted Labs: Reviewed and discussed with patient ASSESSMENT/PLAN: Josseline Gallegos is a 58 year old female who presents to clinic today for: establishment of care. Hx HCV (hepatitis C virus) - Viral load noted, discussed with patient. Need for initiation of therapy. Patient wants to feel ready and make sure she will not use any illegal substance /drugs, she wants to discuss treatment further here in [place], however, she was previously seen in [place] - Alkaline phosphatates & AST/ALT trending down - 04/09/2019: Albumin 3.7, bilirubin 0.7, direct 0.2, alkaline phosphatase 97, AST 51, ALT 31, HCV RNA 4,280,000 IU/mL, - 01/01/2019: Creatinine 0.57, alkaline phosphatase 142, AST 235, ALT 140, WBC 5.3, hemoglobin 12.2, platelets 219,000 - 06/18/2018 ([facility]): WBCs 6.5, hemoglobin 13.3, platelets 185,000, - 11/19/2013 ([facility]): HCV 3,500,000 IU/mL, genotype 1a, ALVARO (-), AMA 3.9, anti- actin 9, Alpha I antitrypsin 149, ceruloplasmin 26, ferritin 224, HFE gene mutations (-), cryoglobulins (+), IgG 1,160 - No hx prior ascites, jaundice, encephalopathy, or varices. - No abdominal pain, rash, or pruritus - Hx Alcohol: Heavy for 6 months in 1985, then less than one drink per day until 2016 when she quit. - Hx IV drug use: 1975 to about 1985 -Tattoos: Unregulated from age 14 - No current alcohol, IV drugs use - Drug screen panel ordered today - Hx Ribasphere therapy in 2016 - Need to sign treatment commitment & consent, should patient choose to initiated therapy here in [place] Essential hypertension - BP elevated, need for medication compliance and lifestyle modification - Need to keep home BP log discussed - Lisinopril D/C. Start Zestoretic 1 tap PO qDay, may adjust dosage while monitoring patient's home BP log - Labs: FREE T4, TSH, A1C, IRON, LIPID PANEL, MAGNESIUM, PHOSPHORUS, UA Chronic pain syndrome - F/U with pain management - On Hydrocodone/acetaminophengabapentin & morphine managed by private pain provider (patient deferred on sharing provider's information). - CONSULT/REFERRAL: PT & Pain Medicine with [facility] - Document for permanent disables sticker/ ID Placard/License Plate completed Chronic obstructive pulmonary disease, unspecified COPD type - Stale. Encouraged to quit smoking, patient defers on patch today - Continue PROAIR HFA - Started on home ipratropium 0.02 % nebulizer solution/albuterol 2.5 mg /3 mL ( 0.083 %) nebulizer treatment Motion sickness, sequela - Stable. Continue on proMETHazine Health Maintenance / Preventive Care - Vaccination ordered and administered today: vaccinations: Prevnar 13, TDAP - Screening tests ordered today: PAP SMEAR, CT lung, Colonoscopy, Bilateral Mammogram FaceToFace I [facility] patient Josseline [facility]leg[facility] for: Establishment of Care I certify, based on my findings, that the following services are medically necessary: Chcf: No Physical therapy: Yes Occupational therapy: Yes Speech language pathology: No Certified Home Health Aid: No Agency renal social worker: Yes My clinical findings support the need for the above services as follows: As noted above in HPI and Assessment/plan I certify my clinical findings/ diagnoses support that this patient is homebound per CMS guidelines due to: physical condition and examination I certify that this patient is under the care of the [facility] and that I had a [id number] encounter that meets the physician's [id number] requirements with this patient as noted above. Adonis Bosch MD 06/15/2019 Preventive Care: Medication reconciliation, patient education and anticipatory guidance completed. All questions and concerns addressed. >50% of visit was for counseling and coordination of care with patient as documented under plans above. Total visit time 30 Minutes. Patient instructed to call or return to clinic as needed if these symptoms worsen or fail to improveas anticipated. Plan of care discussed with patient and patient verbalized understanding. Side effects of medicationprescribed discussed and patient instructed to call clinic back if any should occur Follow-up: 1 week Future Appointments Provider Department Dept Phone Center 06/18/2019 2:30 PM Atif Cummings MD [facility] Family Medicine - [place] [phone] [facility] 07/23/2019 10:15 AM Adonis Bosch MD [facility] Pediatric and Adult Primary [facility]- [place] [phone] [facility] Adonis Bosch MD, MPH Clinical Accordion Makerchief hospital administrator [facility] Pediatric [facility] Adult Primary [facility] [address] [place] [address] [address] [place] [address] Office: documented in this encounter Plan of Treatment Date Type Specialty Care Team Description 06/24/2019 Appointment Radiology Adonis Bosch MD [address] [place] [address] Dr [address] [place] [address] [phone] 06/27/2019 Ancillary Visit Physical Therapy Zaid Yeager MD [address] [place] [address] [phone] Ariana Mendosa, PT [address] [place] [address] 07/23/2019 Office Visit Family Medicine Adonis Bosch MD [address] [place] [address] Dr [address] [place] [address] [phone] Name Type Priority Associated Diagnoses Order Schedule CONVENTIONAL PAP LAB Routine Pap smear for Ordered: SMEAR cervical cancer 06/14/2019 screening BI SCREENING IMAGING Routine Breast cancer Expected: MAMMOGRAM BILATERAL screening by 06/14/2019, mammogram Expires: 08/15/2020 CT LUNG CANCER IMAGING Routine Encounter for Expected: SCREENING screening for lung 06/14/2019, cancer Expires: 06/14/2020 COLONOSCOPY,SCREENING PROCEDURES Routine Encounter for Ordered: Preferred Location: screening 06/14/2019 [place] colonoscopy FREE T4 LAB Routine Essential Ordered: hypertension 06/14/2019 GLYCOSYLATED LAB Routine Essential Ordered: HEMOGLOBIN (A1C) hypertension 06/14/2019 IRON LAB Routine Essential Ordered: hypertension 06/14/2019 LIPID PANEL LAB Routine Essential Ordered: (14933)(TOTAL hypertension 06/14/2019 CHOLESTEROL, TRIGLYCERIDES, HDL) MAGNESIUM LAB Routine Essential Ordered: hypertension 06/14/2019 PHOSPHORUS LAB Routine Essential Ordered: hypertension 06/14/2019 THYROID STIMULATING LAB Routine Essential Ordered: HORMONE hypertension 06/14/2019 URINALYSIS LAB Routine Essential Ordered: hypertension 06/14/2019 ADC / LCC - DRUG LAB Routine HCV (hepatitis C Ordered: SCREEN TRIAGE virus) 06/14/2019 HCV BY PCR LAB Routine HCV (hepatitis C Ordered: virus) 06/15/2019 PNEUMOCOCCAL VACCINE, IMMUNIZATION/INJECT Routine Need for Expected: 23-VALENT (PNEUMOVAX) ION pneumococcal 06/19/2019, vaccination Expires: 12/19/2019 TDAP VACCINE, >11 IMMUNIZATION/INJECT Routine Need for Tdap Expected: YRS, IM ION vaccination 06/19/2019, Expires: 12/19/2019 Health Maintenance Due Date Last Done Comments [...] of this encounter Implants Implanted Type Area Warehouse Assistant Device Shelf Model / Identifier Expiration Serial / Date Lot Screw, Fixos Headless Compression 7.0x80mm [employer] #[id number] - S0 SCREW Left: Snehal 02/07/2018 [id number] / Implanted: Qty: 1 on 02/07/2017 by Yaniv Stuart MD at [facility] PRUE AT [facility] 0 / 2 20 17 6 JAN 17 Screw Fixos Headless Comp Short Thread 7.0x75mm [employer] #[id number] - Sl2 S 3 SCREW Left: Snehal 09/04/2018 [id number] / Implanted: Qty: 1 on 09/06/2017 by Yaniv Sutart MD at [facility]UE AT [facility] L2 S 3 / NA Screw Fixos Headless Comp Short Thread 7.0x70mm Snehal #[id number] - Sl2 S 3 SCREW Left: [employer] 09/04/2018 [id number] / Implanted: Qty: 1 on 09/06/2017 by Yaniv Stuart MD at [facility] AT [facility] L2 S 3 / NA Screw, Fixos Headless Compression 7.0x75mm [employer] #[id number] - S0 Left: [employer] 02/07/2018 [id number] / Implanted: Qty: 1 on 02/07/2017 by Yaniv Stuart MD at [facility] AT [facility] 0 / 2 20 17 6 JAN 17 Tri-Cortial Block Left: Community Tissue 10/20/2020 N/A / Implanted: Qty: 1 on 02/07/2017 by Yaniv Stuart MD at [facility] AT [facility] [id number] / [id number] Crushed Bone Chips Left: Community [employer] 03/24/2021 [id number] / Implanted: Qty: 1 on 02/07/2017 by Yaniv Stuart MD at [facility] AT [facility] [id number] / [id number] Bone Graft Substitute Foam 5ml Bioactive Compression Resistant Vitoss Bbtrauma Snehal #[id number] - Sn/A Left: [employer] 02/14/2019 [id number] / Implanted: Qty: 1 on 09/06/2017 by Yaniv Stuart MD at [facility] [place] AT [facility] Ankle N/A / [id number] documented as of this encounter Results Not on filedocumented in this encounter Visit Diagnoses Diagnosis HCV (hepatitis C virus) - Primary Unspecified viral hepatitis C without hepatic coma Chronic hepatitis C with hepatic coma Encounter for medical examination to establish care Essential hypertension Unspecified essential hypertension Chronic pain syndrome Motion sickness, sequela Need for pneumococcal vaccination Need for prophylactic vaccination against streptococcus pneumoniae ( pneumococcus) Need for Tdap vaccination Need for prophylactic vaccination with combined sbdzeextlk-jybqtby-mkxkomyuc ( DTP) vaccine Pap smear for cervical cancer screening Screening for malignant neoplasm of the cervix Breast cancer screening by mammogram Encounter for screening for lung cancer Encounter for screening colonoscopy Special screening for malignant neoplasms, colon Chronic obstructive pulmonary disease, unspecified COPD type documented in this encounter Insurance Payer Benefit Plan / Subscriber ID Effective Phone Address Type Group Dates SHARMAINE SCHMID xxxxxxxxx 2011-[address] [place] [id number] MANAGED MEDICAID [place], [place] [address] [facility] [address] (Home[address] [place] (Work) [id number] documented as of this encounter
--- OUTSIDE RECORDS SUMMARY | 2019-09-29 20:55 | XMS REPORT | Summary of Care ---
:1960 Author Organization [facility] Address [address] [place] [address] Care Team Providers Name Role Phone Yaniv Stuart MD Unavailable Room, Vls Ortho Cast Unavailable Unavailable Adonis Bosch MD Primary Care Provider Reason for Referral Radiology Services (Routine) Status Reason Specialty Diagnoses / Referred By Referred To Procedures Contact Contact New Request Diagnostic Diagnoses Breast cancer screening Hiro, Radiology Procedures BI ULTRASOUND BREAST COMPLETE BILATERAL MD Adonis [address] [place] [address] Dr Gamez [address] [place] [address] Reason for Visit Reason Comments Screening Encounter Details Date Type Department Care Team Description 06/20/2019 Telephone [facility] Pediatric and Adonis Bosch MD Screening Adult Primary Care- [address] [place] [address] Dr Crawford Franco [address] [place] [address] , [place] [address] [address] [place] [phone] Allergies Active Allergy Reactions Severity Noted Date Comments Codeine Nausea and/or Vomiting 11/19/2013 Budesonide-Formoterol Other - See comments 06/14/2019 "counter acts with other medications" Acetaminophen Other - See comments 11/19/2013 Due to hepatitis documented as of this encounter (statuses as of 06/24/2019) Medications Medication Sig Dispensed Refills Start Date [...] solution times daily. NASONEX 50 Use 1 [place] in 3 01/09/2015 Active mcg/actuation nasal each [...] as of this encounter (statuses as of 06/24/2019) Active Problems Problem Noted Date Pap smear for cervical cancer screening 06/15/2019 Chronic pain syndrome 06/15/2019 Motion sickness, sequela 06/15/2019 Need for Tdap vaccination 06/15/2019 Encounter for screening colonoscopy 06/15/2019 Chronic obstructive pulmonary disease, unspecified COPD type 06/15/2019 Essential hypertension 06/14/2019 Cryoglobulinemia 01/21/2014 Esophageal reflux 01/21/2014 HCV (hepatitis C virus) 11/19/2013 documented as of this encounter (statuses as of 06/24/2019) Social History Tobacco Use Types Packs/Day Years [...] Description 06/24/2019 Appointment Radiology Adonis Bosch MD [address] [place] [address] [phone] 06/27/2019 Ancillary Visit Physical Therapy Zaid Yeager MD [address] [place] [phone] Ariana Mendosa, PT [address] [place] [address] 07/23/2019 Office Visit Family Medicine Adonis Bosch MD [address] [place] [address] [place] [address] [phone] Name Type Priority Associated Diagnoses Order Schedule BI ULTRASOUND BREAST IMAGING Routine Breast cancer screening Expected: 03/2019, COMPLETE BILATERAL Expires: 08/24/2020 Health Maintenance Due Date Last Done Comments [...] of this encounter Implants Implanted Type Area Correspondence Review Clerk Device Shelf Model / Identifier Expiration Serial / Date Lot Screw, Fixos Headless Compression 7.0x80mm Snehal #[id number] - S0 SCREW Left: Snehal 02/07/2018 [id number] / Implanted: Qty: 1 on 02/07/2017 by Yaniv Stuart MD at [facility] [place] AT [facility] 0 / 2 20 17 6 MAR 17 Screw Fixos Headless Comp Short Thread 7.0x75mm Snehal #[id number] - Sl2 S 3 SCREW Left: Snehal 09/04/2018 [id number] / Implanted: Qty: 1 on 09/06/2017 by Yaniv Stuart MD at [facility] [place] AT [facility] L2 S 3 / NA Screw Fixos Headless Comp Short Thread 7.0x70mm Snehal #[id number] - Sl2 S 3 SCREW Left: [place] 09/04/2018 [id number] / Implanted: Qty: 1 on 09/06/2017 by Yaniv Stuart MD at [facility] [place] AT [facility] L2 S 3 / NA Screw, Fixos Headless Compression 7.0x75mm [place] #[id number] - S0 Left: Snehal 02/07/2018 [id number] / Implanted: Qty: 1 on 02/07/2017 by Yaniv Stuart MD at [facility] [place] AT [facility] 0 / 2 20 17 6 FEB 03 Tri-Cortial Block Left: Community Tissue 10/20/2020 N/A / Implanted: Qty: 1 on 02/07/2017 by Yaniv Stuart MD at [facility] AT [facility] [id number] / [id number] Crushed Bone Chips Left: [facility] Tissue 03/24/2021 1233-12 / Implanted: Qty: 1 on 02/07/2017 by Yaniv Stuart MD at [facility] SPECIALTY [facility] [id number] / [id number] Bone Graft Substitute Foam 5ml Bioactive Compression Resistant Vitoss Bbtrauma [place] #[id number] - Sn/A Left: Snehal 02/14/2019 [id number] / Implanted: Qty: 1 on 09/06/2017 by Yaniv Stuart MD at [facility] AT [facility] Ankle N/A / [id number] documented as of this encounter Results Not on filedocumented in this encounter Visit Diagnoses Diagnosis Breast cancer screening - Primary Breast screening, unspecified documented in this encounter Insurance Payer Benefit Plan / Subscriber ID Effective Phone Address Type Group Dates SHARMAINE SCHMID xxxxxxxxx 2013-e [address] Medicaid [place] [id number] MANAGED MEDICAID [place], [place] [facility] Effective for [place], all dates [place] documented as of this encounter
--- OUTSIDE RECORDS SUMMARY | 2019-09-29 20:55 | XMS REPORT | Summary of Care ---
:1960 Author Organization [facility] Address [address] [place] [address] Care Team Providers Name Role Phone Yaniv Stuart MD Unavailable Room, s Ortho Cast Unavailable Unavailable Adonis Bosch MD Primary Care Provider Reason for Referral (Routine) Status Reason Specialty Diagnoses / Referred By Referred To Procedures Contact Contact New Request Obstetrics & Diagnoses Pap smear for cervical cancer screening [facility] Gynecology Procedures CONSULT/REFERRAL DISABILITY INSURANCE HEARING OFFICER MD Adonis [address] [place] [address] Dr Gamez [address] [place] [address] (Routine) Status Reason Specialty Diagnoses / Procedures Referred By Contact Referred To Contact Closed Endoscopy Diagnoses Encounter for screening colonoscopy Adonis Bosch, Procedures COLONOSCOPY,SCREENING Preferred Location: [facility] [address] [place] [address] Dr Gamez [address] [place] [phone] MRI/CAT Scan (Routine) Status Reason Specialty Diagnoses / Referred By Referred To Procedures Contact Contact Pending Review Diagnostic Diagnoses Encounter for screening for lung cancer Hiro, Radiology Procedures CT LUNG CANCER SCREENING MD Adonis [address] [place] [address] Dr Gamez [address] [place] [address] Radiology Services (Routine) Status Reason Specialty Diagnoses / Referred By Referred To Procedures Contact Contact New Request Diagnostic Diagnoses Breast cancer screening by mammogram Hiro Radiology Procedures BI SCREENING MAMMOGRAM BILATERAL MD Adonis [address] [place] [address] Dr [address] [place], [place] 562875 (Routine) Status Reason Specialty Diagnoses / Referred By Referred To Procedures Contact Contact Closed Physical Therapy Diagnoses Chronic pain syndrome Adonis Bosch Adc Physical Procedures CONSULT/REFERRAL PHYSICAL THERAPY MD Therapy [address] [place] [address] Office Building Franco [address] [place] [address] [address] [place] Phone: [phone] Phone: Reason for Visit Reason Comments Establish Care Forms Handicap sticker VACCINES requesting Tetanus vaccine Medication Problem wants refill for Xanax Ear Pain requesting Mupirocin ointment Encounter Details Date Type Department Care Team Description 06/14/2019 Office Visit [facility] Pediatric Adonis Bosch, HCV ( hepatitis C virus) (Primary Dx); and Adult Primary MD Chronic hepatitis C with hepatic coma; [facility]- [address] Encounter for medical examination to establish care; [address] [place] [address] , Franco 205 Essential hypertension; [address] [place] [address] Chronic pain syndrome; [place], [place] [phone] Motion sickness, sequela; [phone] Need for pneumococcal vaccination; [phone] Need for Tdap vaccination; Pap smear for [...] solution times daily. NASONEX 50 Use 1 [place] in 3 01/09/2015 Active mcg/actuation nasal each [...] HCV 3,500,000 IU/mL, genotype 1a, genotype 1a, ALAVRO (-), AMA 3.9, anti-actin 9, Alpha I [...] PRIOR INVESTIGATIONS: CT scan and MRI at [facility] on 03 May 2019 results not available [...] Left 02/07/2017 Surgeon: Yaniv Stuart MD; Location: [place] Location ANKLE HARDWARE REMOVAL Left 09/06/2017 Surgeon: Yaniv Stuart MD; Location: [place] [facility] Location EXOSTECTOMY Left 02/07/2017 Surgeon: Yaniv Stuart MD; Location: [place] [facility] LOWER EXTREMITY TENDON EXPLORATION Left 02/07/2017 Surgeon: Yaniv Stuart MD; Location: [place] [facility] SUBTALAR ARTHRODESIS Left 02/07/2017 Surgeon: Yaniv Stuart MD; Location: [place] [facility] SUBTALAR ARTHRODESIS Left 09/06/2017 Surgeon: Yaniv Stuart MD; Location: [facility] FAMILY HISTORY: No family history on file. [...] file Gets together: Not on file Attends church service: Not on file Active member of [...] wants to discuss treatment further here in [place], however, she was previously seen in [place] - Alkaline phosphatates & AST/ALT trending down [...] patient choose to initiated therapy here in [place] Essential hypertension - BP elevated, need for [...] I saw patient Josseline Gallegos [facility] for: Establishment of Care I certify, based on my findings, that the following services are medically necessary: Senior Care: No Physical therapy: Yes Occupational therapy: Yes Speech language pathology: No Certified Home Health Aid: No Agency social research assistant: Yes My clinical findings support the need for the above services as follows: As noted above in HPI and Assessment/plan I certify my clinical findings/ diagnoses support that this patient is homebound per CMS guidelines due to: physical condition and examination I certify that this patient is under the care of the [facility] and that I had a cjhl-dy-bhps encounter that meets the physician's rvhd-ko-dtia requirements with this patient as noted above. [...] Center 06/18/2019 2:30 PM Atif Cummings MD [facility] Family Medicine - [place] [phone] [facility] 07/23/2019 10:15 AM Adonis Bosch MD [facility] Pediatric and Adult Primary Care- [place] [phone] [facility] Adonis Bosch MD, MPH Clinical Amortization Clerkcover operator [facility] Pediatric and Adult Primary Care [address] [place] [address] [address] [place] [address] Office: documented in this encounter Plan of Treatment Date Type Specialty Care Team Description 06/24/2019 Appointment Radiology Adonis Bosch MD [address] [place] [address] Dr Gamez [address] [place] [address] [phone] 06/27/2019 Ancillary Visit Physical Therapy Zaid Yeager MD [address] [place] [phone] Ariana Mendosa, PT [address] [place] [address] 07/23/2019 Office Visit Family Medicine Adonis Bosch MD [address] [place] [address] Dr Gamez [address] [place] [address] [phone] Name Type Priority Associated Diagnoses Order Schedule CONVENTIONAL PAP LAB Routine Pap smear for Ordered: SMEAR cervical cancer 06/14/2019 screening BI SCREENING IMAGING Routine Breast cancer Expected: MAMMOGRAM BILATERAL screening by 06/14/2019, mammogram Expires: 08/15/2020 CT LUNG CANCER IMAGING Routine Encounter for Expected: SCREENING screening for lung 06/14/2019, cancer Expires: 06/14/2020 COLONOSCOPY,SCREENING PROCEDURES Routine Encounter for Ordered: Preferred Location: screening 06/14/2019 [place] colonoscopy FREE T4 LAB Routine Essential Ordered: hypertension 06/14/2019 GLYCOSYLATED LAB Routine Essential Ordered: HEMOGLOBIN (A1C) hypertension 06/14/2019 IRON LAB Routine Essential Ordered: hypertension 06/14/2019 LIPID PANEL LAB Routine Essential Ordered: (21363)(TOTAL hypertension 06/14/2019 CHOLESTEROL, TRIGLYCERIDES, HDL) MAGNESIUM LAB [...] of this encounter Implants Implanted Type Area Paper Pattern Folder Device Shelf Model / Identifier Expiration Serial / Date Lot Screw, Fixos Headless Compression 7.0x80mm [place] #[id number] - S0 SCREW Left: Snehal 02/07/2018 [id number] / Implanted: Qty: 1 on 02/07/2017 by Yaniv Stuart MD at [facility] [place] AT [facility] 0 / 2 20 17 6 JAN 17 Screw Fixos Headless Comp Short Thread 7.0x75mm [place] #[id number] - Sl2 S 3 SCREW Left: Snehal 09/04/2018 [id number] / Implanted: Qty: 1 on 09/06/2017 by Yaniv Stuart MD at [facility] [place] AT [facility] L2 S 3 / NA Screw Fixos Headless Comp Short Thread 7.0x70mm Snehal #[id number] - Sl2 S 3 SCREW Left: [place] 09/04/2018 [id number] / Implanted: Qty: 1 on 09/06/2017 by Yaniv Stuart MD at [facility] [place] AT [facility] L2 S 3 / NA Screw, Fixos Headless Compression 7.0x75mm [place] #[id number] - S0 Left: [place] 02/07/2018 [id number] / Implanted: Qty: 1 on 02/07/2017 by Yaniv Stuart MD at [facility] [place] AT [facility] 0 / 2 20 17 6 JAN 17 Tri-Cortial Block Left: Community Tissue 10/20/2020 N/A / Implanted: Qty: 1 on 02/07/2017 by Yaniv Stuart MD at [facility] SPECIALTY [facility] AT [facility] [id number] / [id number] Crushed Bone Chips Left: Community Tissue 03/24/2021 1233-12 / Implanted: Qty: 1 on 02/07/2017 by Yaniv Stuart MD at [facility] [place] AT [facility] [id number] / [id number] Bone Graft Substitute Foam 5ml Bioactive Compression Resistant Vitoss Bbtrauma [place] #7175-5776 - Sn/A Left: [place] 02/14/2019 [id number] / Implanted: Qty: 1 on 09/06/2017 by Yaniv Stuart MD at [facility] [place] AT [facility] Ankle N/A / [id number] documented as of this encounter Results Not [...] vaccination Need for prophylactic vaccination with combined lkvcbdxnbr-zgfoybd-qmhwwqzrc ( DTP) vaccine Pap smear for cervical [...] [address] [place] [id number] MA[place]ED MEDICAID [place] [address] [facility] [address] [place] (Work) [id number] documented as of this encounter
--- OUTSIDE RECORDS SUMMARY | 2019-09-29 20:55 | XMS REPORT | Summary of Care ---
:1960 Author Organization [facility] Address [address] [place] [address] Care Team Providers Name Role Phone Yaniv Stuart MD Unavailable Room, Vls Ortho Cast Unavailable Unavailable Adonis Bosch MD Primary Care Provider Reason for Referral Radiology Services (Routine) Status Reason Specialty Diagnoses / Referred By Referred To Procedures Contact Contact New Request Diagnostic Diagnoses Breast cancer screening Hiro, Radiology Procedures BI ULTRASOUND BREAST COMPLETE BILATERAL MD Adonis [address] [place] [address] Dr Gamez [address] [place] [address] Reason for Visit Reason Comments Screening Encounter Details Date Type Department Care Team Description 06/20/2019 Telephone [facility] Pediatric and Adonis Bosch MD Screening Adult Primary Care- [address] [place] [address] Dr Crawford Franco [address] [place] [address] , [place] [address] 205 [place] [phone] Allergies Active Allergy Reactions Severity Noted Date [...] solution times daily. NASONEX 50 Use 1 [place] in 3 01/09/2015 Active mcg/actuation nasal each [...] 06/24/2019 Appointment Radiology Adonis Bosch MD [address] [place] [address] [phone] 06/27/2019 Ancillary Visit Physical Therapy Zaid Yeager MD [address] [place] [phone] Ariana Mendosa, PT [address] [place] [address] 07/23/2019 Office Visit Family Medicine Adonis Bosch MD [address] [place] [address] [place] [address] [phone] Name Type Priority Associated Diagnoses Order Schedule [...] of this encounter Implants Implanted Type Area Automatic Mounter Device Shelf Model / Identifier Expiration Serial / Date Lot Screw, Fixos Headless Compression 7.0x80mm Snehal #[id number] - S0 SCREW Left: Snehal 02/07/2018 [id number] / Implanted: Qty: 1 on 02/07/2017 by Yaniv Stuart MD at [facility] [place] AT [facility] 0 / 2 20 17 6 MAR 17 Screw Fixos Headless Comp Short Thread 7.0x75mm Snehal #[id number] - Sl2 S 3 SCREW Left: Snehal 09/04/2018 [id number] / Implanted: Qty: 1 on 09/06/2017 by Yaniv Stuart MD at [facility] [place] AT [facility] L2 S 3 / NA Screw Fixos Headless Comp Short Thread 7.0x70mm Snehal #[id number] - Sl2 S 3 SCREW Left: [place] 09/04/2018 [id number] / Implanted: Qty: 1 on 09/06/2017 by Yaniv Stuart MD at [facility] [place] AT [facility] L2 S 3 / NA Screw, Fixos Headless Compression 7.0x75mm [place] #078331 - S0 Left: Snehal 02/07/2018 [id number] / Implanted: Qty: 1 on 02/07/2017 by Yaniv Stuart MD at [facility] [place] AT [facility] 0 / 2 20 17 6 FEB 03 Tri-Cortial Block Left: Community Tissue 10/20/2020 N/A / Implanted: Qty: 1 on 02/07/2017 by Yaniv Stuart MD at [facility] AT [facility] [id number] / [id number] Crushed Bone Chips Left: [facility] Tissue 03/24/2021 1233-12 / Implanted: Qty: 1 on 02/07/2017 by Yaniv Stuart MD at [facility] [id number] / [id number] Bone Graft Substitute Foam 5ml Bioactive Compression Resistant Vitoss Bbtrauma [place] #5615-9301 - Sn/A Left: Snehal 02/14/2019 [id number] / Implanted: Qty: 1 on 09/06/2017 by Yaniv Stuart MD at [facility] AT [facility] Ankle N/A / [id number] documented as of this encounter Results Not on filedocumented in this encounter Visit Diagnoses Diagnosis Breast cancer screening - Primary Breast screening, unspecified documented in this encounter Insurance Payer Benefit Plan / Subscriber ID Effective Phone Address Type Group Dates SHARMAINE SCHMID xxxxxxxxx 2013-e [address] Medicaid HEALTHCARE [place] [facility] [id number] MANAGED MEDICAID [place], [place] [facility] Effective for [place], all dates [place] documented as of this encounter
--- OUTSIDE RECORDS SUMMARY | 2019-09-29 20:56 | XMS REPORT | Summary of Care ---
:1960 Author Organization [facility] Address [address] [place] [id number] Care Team Providers Name Role Phone Yaniv Stuart MD Unavailable Room, [facility] Unavailable Unavailable Adonis Bosch MD Primary Care Provider Reason for Referral (Routine) Status Reason Specialty Diagnoses / Referred By Referred To Procedures Contact Contact New Request Insurance Psychiatry Diagnoses Anxiety and depression Hiro, Romel Procedures CONSULT/REFERRAL PSYCHOLOGY MD Adonis [address] [place] [address] [address] (Routine) Status Reason Specialty Diagnoses / Referred By Referred To Procedures Contact Contact Authorized Physical Therapy Diagnoses Pain and swelling of ankle, left Karolina Bosch Physical Procedures CONSULT/REFERRAL PHYSICAL THERAPY [place] PHYSICAL THERAPY EVALUATION LOW COMPLEX 20 MINS [place] PHYSICAL THERAPY EVALUATION MOD COMPLEX 30 MINS [place] PHYSICAL THERAPY EVALUATION HIGH COMPLEX 45 MINS MD Adonis Therapy [address] [place] [address] [address] [address] Phone: [place], [place] [phone] Fax: Reason for Visit Reason Comments Follow-up Foot Pain Ankle Pain Encounter Details Date Type Department Care Team Description 07/31/2019 Office Visit [facility] Pediatric Adonis Bosch, Pain and swelling of ankle, left (Primary Dx); and Adult Primary MD Anxiety and depression; Care- [address] Gallego for hepatitis B vaccination; [address] [place] [address] , [address] Encounter for screening colonoscopy; [address] [place] [address] Need for Tdap vaccination; [place], [place] [phone] Need for pneumococcal vaccination [id number] [phone] Allergies Active Allergy Reactions Severity Noted Date Comments Codeine Nausea and/or Vomiting 11/19/2013 Budesonide-Formoterol Other - See comments 06/14/2019 "counter acts with other medications" Acetaminophen Other - See comments 11/19/2013 Due to hepatitis documented as of this encounter (statuses as of 08/04/2019) Medications Medication Sig Dispensed Refills Start Date [...] solution times daily. NASONEX 50 Use 1 [place] in 3 01/09/2015 Active mcg/actuation nasal each [...] as of this encounter (statuses as of 08/04/2019) Active Problems Problem Noted Date Pain and swelling of ankle, left 07/31/2019 Anxiety and depression 07/31/2019 Need for hepatitis B vaccination 07/31/2019 Pap smear for cervical cancer screening 06/15/2019 Chronic pain syndrome 06/15/2019 Motion sickness, sequela 06/15/2019 Need for Tdap vaccination 06/15/2019 Encounter for screening colonoscopy 06/15/2019 Chronic obstructive pulmonary disease, unspecified COPD type 06/15/2019 Essential hypertension 06/14/2019 Cryoglobulinemia 01/21/2014 Esophageal reflux 01/21/2014 HCV (hepatitis C virus) 11/19/2013 documented as of this encounter (statuses as of 08/04/2019) Immunizations Name Administration Dates Next Due HEP B, Adult Dosage 07/31/2019 Pneumococcal Polysaccharide, PPSV23 (PNEUMOVAX) 07/31/2019 Tdap 07/31/2019 documented as of this encounter Social History Tobacco Use Types Packs/Day Years [...] Sign Reading Time Taken Comments Blood Pressure 141/90 07/31/2019 10:19 AM CDT Pulse 64 07/31/2019 10:19 AM CDT Temperature 36.2 C (97.2 F) 07/31/2019 10:19 AM CDT Respiratory Rate 18 07/31/2019 10:19 AM CDT Oxygen Saturation 97% 07/31/2019 10:19 AM CDT Inhaled Oxygen Concentration - - Weight 50.4 kg (111 lb 1.6 oz) 07/31/2019 10:19 AM CDT Height - - Body Mass Index 18.49 06/18/2018 10:57 AM CDT documented in this encounter Patient Instructions Patient InstructionsAdonis Bosch MD - 07/31/2019 9:15 AM CDT Managing Chronic Pain Being in pain can be exhausting. You may find you have trouble working, sleeping , or just doing day-to-day tasks. But you can learn to manage pain, feel better , and regain control of your life. Understanding chronic pain Chronic pain is a serious medical problem. It is defined as pain that lasts longer than 3 months. Chronic pain includes pain that you feel regularly, even if it comes and goes. The pain may be from an ongoing injury or health problem. Or it may be because of a chronic pain syndrome, such as fibromyalgia. Sometimes pain persists when no cause can be found. Pain should be treated You have a right to have your pain treated. Untreated chronic pain can affect your overall health. It can lead to depression, anxiety, anger, and personality changes. It can also disrupt work, sleep, relationships, and other aspects of normal life. It may not be possible to relieve all of your pain. But it can be reduced to a level you can cope with. Your role in treatment Your healthcare provider will work closely with you on a plan to manage your pain. But its up to you to put this plan into action. Control of chronic pain is done mainly through self-management. This means that you take an active role in your care. Getting support from family and friends is important too. Planning your treatment Your healthcare provider will first look for a cause of your pain that can be treated. He or she will also assess your pain level. This may be done by asking you to rate your pain on a scale from 1 (low pain) to 10 (severe pain). Your provider will also ask you to describe the pain. For example, is your pain sharp or dull? Is it constant or does it come and go? You may be asked to keep a pain log. This is a diary in which you track your pain. It may help identify things that tend to make your pain worse. You and your healthcare provider can make a plan to help prevent and cope with pain on a daily basis. In some cases, you may be referred to a special pain program or clinic. Your treatment plan may include: Medicines Complementary therapies Mind and body therapies Other medical treatments Getting physical activity Medicines Medicine will most likely be a part of your treatment plan. Your provider will evaluate which are the best medicines for your pain. You may use over-the- counter or prescription medicines. You may need to take more than one medicine. It may take some time to find the best medicine or combination of medicines for your pain. Take all medicines as directed. Pain medicines can be used in many ways. You may take medicines: Every day to help stay ahead of the pain so that it doesnt flare up At times when pain is worse than usual Before activities that tend to trigger pain To decrease sensitivity to pain Medicines for chronic pain include: Nonsteroidal anti-inflammatory medicines (NSAIDs) for pain from swelling and inflammation. Your provider may prescribe a type of NSAID called a LAINEZ inhibitor. Acetaminophen Anticonvulsants to treat nerve pain called neuropathy Antidepressants to treat neuropathy Muscle relaxants for muscle spasms Topical medicines. These are put on the skin. Opioids, or narcotics, to treat severe pain. These very strong medicines can help ease certain kinds of pain. They most often are used for short periods of time. Your provider will monitor your carevery closely if you take opioids. Complementary therapies These are treatments that can be used along with medical care to help relieve pain. Look for a licensed practitioner with experience treating chronic pain. Talk with your healthcare provider about using complementary therapies such as: Massage Acupuncture and acupressure Chiropractic Vitamins or herbal supplements Mind/body therapies The brain and the body are both part of the pain response. The brain reads the pain signals from thebody. This means that your mind has some control over how pain signals are processed. Mind/body therapies may help change how your brain reads pain signals. They may be learned with the help of a trained therapist or in a class. They include: Deep breathing Distraction Visualization Meditation Biofeedback Other medical treatments If other treatments dont work for you, one of these procedures or devices may help: Nerve blocks to numb nerves in a painful area Trigger point injections for painful muscles Steroid injections for joint pain Transcutaneous electrical nerve stimulation (TENS) to block pain signals to the brain Spinal stimulation to block spinal pain Implanted spinal pump that contains pain medicine Ablation using heat, cold, or chemicals to destroy painful nerves Getting physical activity Being physically active has many benefits. It can improve your ability to cope with pain. It may also help improve your mood, sleep, and overall health. Your healthcare provider can help you plan an exercise program thats right for your needs. This may include: Stretching and fecvb-vf-zlfepe exercises Low-impact exercise such as walking, biking, swimming, and other water exercise Strength training using light weights Walking up the stairs instead of taking the elevator Riding a bike instead of driving Parking your car farther from your destination You may need to not do high-impact activities. These involve jumping, running, or sudden starts, stops, or changes of direction. If you havent exercised in a long time or you have physical limitations, your healthcare provider may refer you to a physical therapist. He or she can teach you stretchesand exercises that fit your condition and fitness level. Being active and healthy A healthier lifestyle makes it easier to cope with pain and function better. Follow these tips: Choose a balance of healthy foods and drinks. Limit alcohol and caffeine. Go to bed at about the same time each day. Dont let pain keep you from others. Spend time with friends and family. Keep your mind active. Read books or take classes. If youre not working, volunteer or join a club or social group. Getting support A support group lets you talk with others who also have chronic pain. Chronic pain support groups can help you feel less isolated. They can also give you tips for coping with pain. To find a local support group, contact your nearest hospital or pain clinic. You may also want to try counseling. Counseling can help you learn coping skills and methods such asvisualization. It can also help with mood problems. When choosing a counselor, look for someone who has worked with people who have chronic pain. See your provider for regular visits and let him or her know how well treatments are working for you. Also reach out to family and friends for help and support. For more support and information, contact these groups: [place] [employer], www.aapainmanage.org [place] [employer], www.painmed.org [place] [employer], www.theacpa.org National Pain Foundation, www.thenationalpainfoundation.org Date Last Reviewed: 10/20/201719995968-1364 [employer]. [address] [place] [address]. All rights reserved. This information is not intended as a substitute for professional medical care. Always follow your healthcare professional's instructions. documented in this encounter Progress Notes Adonis Bosch MD - 07/31/2019 9:15 AM CDT Family Medicine Pediatric and Adult Primary Care New Patient Office Visit Visit date: 07/31/2019 Chief complaint: Follow-up; Foot Pain; and Ankle Pain HPI: Josseline Gallegos is a 58 year old female w/ PMHx Anxiety, COPD, Hepatitis C, Hypertension and Weight loss who presents to clinic for follow-up. Today, patient is very over-whelmed. She reports left ankle/foot pain and swelling. Symptoms are chronic but flares up at sometimes. Patient reportspain 8/10 on the scale. She has chronic pain syndrome. She has hx low back and left ankle pain. Patient continues to wear her surgical boot on affected left ankle. Patient reports that she is restarting alendronate and will get another left ankle surgery to be performed by Dr. Taylor at [facility]. Patient reports that Dr. Aragon, also manages her bone density. Patient restarts that her previous surgery on the left ankle surgery complicated by wound infection.She fractured the left heel after fall in 2016, which needed 2 operations, with followed complications and delayed wound healing. She has hx hepatitis C diagnosed in the early with source of infections determined to be probable IV drug abuse. Her Hep C Infection was confirmed around March 2019 (4.2 million IU/mL) at the time,though she has never been treated. Patient reports she sees Jose De Jesus in [place] and have a follow-up appointment scheduled. Her other medical hx are as follows: - 04/09/2019: Albumin 3.7, bilirubin 0.7, direct 0.2, alkaline phosphatase 97, AST 51, ALT 31, HCV RNA 4,280,000 IU/mL, - 01/01/2019: Creatinine 0.57, alkaline phosphatase 142, AST 235, ALT 140, WBC 5.3, hemoglobin 12.2, platelets 219,000 - 06/18/2018 ([facility]): WBCs 6.5, hemoglobin 13.3, platelets 185,000, - 11/19/2013 ([facility]): HCV 3,500,000 IU/mL, genotype 1a, genotype 1a, ALVARO (-), AMA 3.9, anti-actin 9, Alpha I antitrypsin 149, ceruloplasmin 26, ferritin 224, HFE gene mutations (-), cryoglobulins (+), IgG 1,160 LIVER DISEASE COMPLICATIONS: - She does not have hx prior ascites, jaundice, encephalopathy, or varices. - Denies abdominal pain, rash, or pruritus. LIVER DISEASE RISK FACTORS: - Alcohol: Heavy for 6 months in 1985, then less than one drink per day until 2015 when she quit. - Injection dru to about 1985 - Tattoos: Unregulated from age 14 - No current alcohol, injection drugs use PRIOR INVESTIGATIONS: - CT scan and MRI at on 03 May 2019 results not available - EGD (about 2013): Report not available - Colonoscopy (about 2013): Report not available VACCINATION STATUS (11/19/2013): - Anti-HAV (+), anti-HBs (+), anti-HBc (?) CURRENT SYMPTOMS/ CONCERNS - Chronic left ankle swelling and joint pain - Denies F/C/N/V chest pain or SOB. PAST MEDICAL HISTORY: No past medical history on file. PAST SURGICAL HISTORY: Past Surgical History: Procedure Laterality Date ALLOGRAFT APPLICATION Left 02/07/2017 Surgeon: Yaniv Stuart MD; Location: [place] [facility] ANKLE HARDWARE REMOVAL Left 09/06/2017 Surgeon: Yaniv Stuart MD; Location: [place] OR Location EXOSTECTOMY Left 02/07/2017 Surgeon: Yaniv Stuart MD; Location: [place] [facility] LOWER EXTREMITY TENDON EXPLORATION Left 02/07/2017 Surgeon: Yaniv Stuart MD; Location: [place] [facility] Location SUBTALAR ARTHRODESIS Left 02/07/2017 Surgeon: Yaniv Stuart MD; Location: [place] [facility] SUBTALAR ARTHRODESIS Left 09/06/2017 Surgeon: Yaniv Stuart MD; Location: [place] [facility] FAMILY HISTORY: No family history on [...] file Gets together: Not on file Attends mu-ism service: Not on file Active member of [...] COPD Gastrointestinal: Per HPI Genitourinary: negative Musculoskeletal: Left ankle pain and swelling Integumentary: negative Neuro: negative Psych: negative Endocrine: negative Hem/Lymph: negative Allergy/Immunology: codeine MEDICATION HISTORY: Outpatient Medications Marked as Taking for the 07/31/19 encounter (Office Visit ) with Adonis Bosch [...] or Shortness of Breath. 1 Each 11 alendronate 70 mg tablet Take 1 tablet by mouth weekly for 365 doses. 12 tablet 28 cephALEXin 500 mg capsule Take 1 capsule by mouth 4 (four) times daily. 40 capsule 0 HYDROcodone-acetaminophen 5-325 mg tablet Take 1-2 tablets by mouth every 4 (four) hours as needed for Pain unrelieved by non-narcotic analgesics. 50 tablet 0 mupirocin (BACTROBAN OINT) 2 % ointment ROYCE AA Q 12 H 0 NASONEX 50 mcg/actuation nasal spray Use 1 [place] in each nostril daily. 3 PHYSICAL EXAM: Blood pressure (!) 141/90, pulse 64, temperature 36.2 C (97.2 F), temperature source Oral, resp.rate 18, weight 50.4 kg (111 lb 1.6 oz), SpO2 97 % . Appearance: comfortable, no distress Eye: normal external [...] liver, spleen or abnormal masses palpated Musculoskeletal: Chronic LLE swelling s/p complicated surgery, peripheral pulses 2+ in all extremities Neurologic: normal gait and station Psychiatric: alert, oriented, with appropriate affect Skin: skin color, texture and turgor are normal; no bruising, rashes or lesions noted Labs: Reviewed and discussed with patient ASSESSMENT/PLAN: Josseline Gallegos is a 58 year old female who presents to clinic today for: Chronic pain syndrome - Complicated by chronic low back pain; left ankle/foot paid, swelling and pain - F/U with pain management - On Hydrocodone/acetaminophengabapentin & morphine managed by private pain provider (patient deferred on sharing provider's information). - Patient to follow-up with private pain medicine provider (patient's preference ) - Referral: Physcical Therapy Anxiety and Depression - On Prozac and Xanax. Patient is non compliance with medication- - Referral: Psychology, external Hx HCV (hepatitis C virus) - Unchanged. Patient reports she will follow-up with Dr. Cho, External Provider - Patient wants to complete reconstructive foot surgery before considering Hep C treatment - Viral load noted, discussed with patient. Need for initiation of therapy. Patient wants to feel ready and make sure she will not use any illegal substance /drugs, she wants to discuss treatment further here in [place], however, she was previously seen in [place] - Alkaline phosphatates & AST/ALT trending down - 04/09/2019: Albumin 3.7, bilirubin 0.7, direct 0.2, alkaline phosphatase 97, AST 51, ALT 31, HCV RNA 4,280,000 IU/mL, - 01/01/2019: Creatinine 0.57, alkaline phosphatase 142, AST 235, ALT 140, WBC 5.3, hemoglobin 12.2, platelets 219,000 - 06/18/2018 ([facility]): WBCs 6.5, hemoglobin 13.3, platelets 185,000, - 11/19/2013 ([facility]): HCV 3,500,000 IU/mL, genotype [...] patient choose to initiated therapy here in [place] Essential hypertension - BP elevated, BP 141/90 - Encouraged need for lifestyle modification and medication compliance - Encouraged to keep home BP log discussed - Continue Zestoretic 1 tap PO qDay, may adjust dosage while monitoring patient' s home BP log - Labs pending: FREE T4, TSH, A1C, IRON, LIPID PANEL, MAGNESIUM, PHOSPHORUS, UA Health Maintenance / Preventive Care - Vaccination ordered and pending: vaccinations: Prevnar 13, TDAP, Hep B - Screening tests ordered today: Pap Smear, Low dose CT lung, Colonoscopy, Bilateral Mammogram Follow-up: 3 months Preventive Care: Medication reconciliation, patient education and anticipatory guidance completed. All questions and concerns addressed. >50% of visit was for counseling and coordination of care with patient as documented under plans above. Total visit time 50 Minutes. Adonis Bosch MD 07/31/2019 11:23 AM documented in this encounter Plan of Treatment Date Type Specialty Care Team Description 08/12/2019 Ancillary Visit Physical Therapy Zaid Yeager MD [facility] [place] [phone] Ariana Mendosa, PT [address] [place] [address] 10/30/2019 Office Visit Family Medicine Adonis Bosch MD [address] [place] [address] Dr Gamez [address] [place] [address] [id number] Health Maintenance Due Date Last Done Comments HEPATITIS C (HCV) SCREEN 1958 PAP SMEAR 1979 MAMMOGRAM 1998 COLONOSCOPY 2008 LUNG CANCER SCREEN: Recommended 2013 for age 55-80 with 30 + pack year history INFLUENZA VACCINE (#1) 2019 Zoster Recombinant Vaccine 06/15/2020 Postponed from 2008 (SHINGRIX) (1 of 2) (Insurance / Financial) DTaP,Tdap,and Td Vaccines (2 - 07/31/2029 07/31/2019 Td) PNEUMOCOCCAL 0-64 YEARS COMBINED Completed 07/31/2019 SERIES documented as of this encounter Implants Implanted Type Area Wastewater Treatment Plant Chemist Device Shelf Model / Identifier Expiration Serial / Date Lot Screw, Fixos Headless Compression 7.0x80mm Snehal #[id number] - S0 SCREW Left: [employer] 02/07/2018 [id number] / Implanted: Qty: 1 on 02/07/2017 by Yaniv Stuart MD at [facility] FEB 03 Screw Fixos Headless Comp Short Thread 7.0x75mm [employer] #[id number] - Sl2 S 3 SCREW Left: [employer] 09/04/2018 [id number] / Implanted: Qty: 1 on 09/06/2017 by Yaniv Stuart MD at [facility] L2 S 3 / NA Screw Fixos Headless Comp Short Thread 7.0x70mm [employer] #[id number] - Sl2 S 3 SCREW Left: [employer] 09/04/2018 [id number] / Implanted: Qty: 1 on 09/06/2017 by Yaniv Stuart MD at [facility] L2 S 3 / NA Screw, Fixos Headless Compression 7.0x75mm [employer] #[id number] - S0 Left: [employer] 02/07/2018 [id number] / Implanted: Qty: 1 on 02/07/2017 by Yaniv Stuart MD at [facility] 17 6 JAN 17 Tri-Cortial Block Left: [facility] Tissue 10/20/2020 N/A / Implanted: Qty: 1 on 02/07/2017 by Yaniv Stuart MD at [facility] Services [id number] / [id number] Crushed Bone Chips Left: [facility] Tissue 03/24/2021 1233-12 / Implanted: Qty: 1 on 02/07/2017 by Yaniv Stuart MD at [facility] Foot Services [id number] / [id number] Bone Graft Substitute Foam 5ml Bioactive Compression Resistant Vitoss Bbtrauma Snehal #[id number] - Sn/A Left: [employer] 02/14/[id number] / Implanted: Qty: 1 on 09/06/2017 by Yaniv Stuart MD at [facility] Ankle N/A / [id number] documented as of this encounter Procedures Procedure Name Priority Date/Time Associated Diagnosis Comments TDAP VACCINE, >11 YRS, Routine 07/31/2019 11:28 AM Need for Tdap IM CDT vaccination PNEUMOCOCCAL VACCINE, Routine 07/31/2019 11:28 AM Need for pneumococcal 23-VALENT (PNEUMOVAX) CDT vaccination HEPATITIS B Routine 07/31/2019 11:25 AM Need for hepatitis B VACCINE,ADULT,IM CDT vaccination documented in this encounter Results Not on filedocumented in this encounter Visit Diagnoses Diagnosis Pain and swelling of ankle, left - Primary Anxiety and depression Dysthymic disorder Need for hepatitis B vaccination Need for prophylactic vaccination and inoculation against viral hepatitis Encounter for screening colonoscopy Special screening for malignant neoplasms, colon Need for Tdap vaccination Need for prophylactic vaccination with combined dcrnyhgmmt-dviqasd-srusbxdzy ( DTP) vaccine Need for pneumococcal vaccination Need for prophylactic vaccination against streptococcus pneumoniae ( pneumococcus) documented in this encounter Insurance Payer Benefit Plan / Subscriber ID Effective Phone Address Type Group Dates SHARMAINE SCHMID xxxxxxxxx 2013-[address] [place] [address] MANAGED [place]ICA[place], [place] [phone] [address] [facility] [address] ([address] (Work) [id number] documented as of this encounter
--- OUTSIDE RECORDS SUMMARY | 2019-09-29 20:56 | XMS REPORT | Summary of Care ---
:1960 Author Organization [facility] Address [address] [place] [id number] Care Team Providers Name Role Phone Yaniv Stuart MD Unavailable Room, [facility] Unavailable Unavailable Adonis Bosch MD Primary Care Provider Reason for Referral (Routine) Status Reason Specialty Diagnoses / Referred By Referred To Procedures Contact Contact New Request Insurance Psychiatry Diagnoses Anxiety and depression Hiro, Romel Procedures CONSULT/REFERRAL PSYCHOLOGY MD Adonis [address] [place] [address] [address] (Routine) Status Reason Specialty Diagnoses / Referred By Referred To Procedures Contact Contact Authorized Physical Therapy Diagnoses Pain and swelling of ankle, left Karolina Bosch Physical Procedures CONSULT/REFERRAL PHYSICAL THERAPY MO PHYSICAL THERAPY EVALUATION LOW COMPLEX 20 MINS MO PHYSICAL THERAPY EVALUATION MOD COMPLEX 30 MINS MO PHYSICAL THERAPY EVALUATION HIGH COMPLEX 45 MINS MD Adonis Therapy [address] [place] [address] [address] [address] Phone: [place], [place] [phone] Fax: Reason for Visit Reason Comments Follow-up Foot Pain Ankle Pain Encounter Details Date Type Department Care Team Description 07/31/2019 Office Visit [facility] Adonis Bosch, Pain and swelling of ankle, left (Primary Dx); and Adult Primary MD Anxiety and depression; Care- [address] Gallego for hepatitis B vaccination; [address] [place] [address] , [address] Encounter for screening colonoscopy; [address] [place] [address] Need for Tdap vaccination; [place], [place] [phone] Need for pneumococcal vaccination [id number] [phone] Allergies Active Allergy Reactions Severity Noted Date [...] solution times daily. NASONEX 50 Use 1 [place] in 3 01/09/2015 Active mcg/actuation nasal each [...] your needs. This may include: Stretching and qkdyc-us-piwccy exercises Low-impact exercise such as walking, biking, [...] more support and information, contact these groups: [employer] [employer], www.aapainmanage.org [employer] [employer], www.painmed.org [employer] [employer], www.theacpa.org National Pain Foundation, www.thenationalpainfoundation.org Date Last Reviewed: 10/20/201719997899-1495 [employer]. [address] [place] [address]. All rights reserved. This information is not [...] reports she sees Jose De Jesus in [place] and have a follow-up appointment scheduled. Her other medical hx are as follows: - 04/09/2019: Albumin 3.7, bilirubin 0.7, direct 0.2, alkaline phosphatase 97, AST 51, ALT 31, HCV RNA 4,280,000 IU/mL, - 01/01/2019: Creatinine 0.57, alkaline phosphatase 142, AST 235, ALT 140, WBC 5.3, hemoglobin 12.2, platelets 219,000 - 06/18/2018 ([facility]): WBCs 6.5, hemoglobin 13.3, platelets 185,000, - 11/19/2013 ([facility]): HCV 3,500,000 IU/mL, genotype 1a, genotype 1a, [...] INVESTIGATIONS: - CT scan and MRI at [facility] on 03 May 2019 results not available [...] Left 02/07/2017 Surgeon: Yaniv Stuart MD; Location: [place] [facility] ANKLE HARDWARE REMOVAL Left 09/06/2017 Surgeon: Yaniv Stuart MD; Location: [place] Location EXOSTECTOMY Left 02/07/2017 Surgeon: Yaniv Stuart MD; Location: [place] [facility] LOWER EXTREMITY TENDON EXPLORATION Left 02/07/2017 Surgeon: Yaniv Stuart MD; Location: [place] Location SUBTALAR ARTHRODESIS Left 02/07/2017 Surgeon: Yaniv Stuart MD; Location: [place] [facility] SUBTALAR ARTHRODESIS Left 09/06/2017 Surgeon: Yaniv Stuart MD; Location: [place] [facility] FAMILY HISTORY: No family history [...] file Gets together: Not on file Attends congregation service: Not on file Active member of [...] NASONEX 50 mcg/actuation nasal spray Use 1 [place] in each nostril daily. 3 PHYSICAL EXAM: [...] wants to discuss treatment further here in [place], however, she was previously seen in [place] - Alkaline phosphatates & AST/ALT trending down - 04/09/2019: Albumin 3.7, bilirubin 0.7, direct 0.2, alkaline phosphatase 97, AST 51, ALT 31, HCV RNA 4,280,000 IU/mL, - 01/01/2019: Creatinine 0.57, alkaline phosphatase 142, AST 235, ALT 140, WBC 5.3, hemoglobin 12.2, platelets 219,000 - 06/18/2018 ([facility]): WBCs 6.5, hemoglobin 13.3, platelets 185,000, - 11/19/2013 ([facility]): HCV 3,500,000 IU/mL, genotype 1a, ALVARO (-), [...] patient choose to initiated therapy here in [place] Essential hypertension - BP elevated, BP 141/90 [...] Ancillary Visit Physical Therapy Zaid Yeager MD [facility] [place] [phone] Ariana Mendosa, PT [address] [place] [address] 10/30/2019 Office Visit Family Medicine Adonis Bosch MD [address] [place] [address] Dr Gamez [address] [place] [phone] Health Maintenance Due Date Last Done Comments [...] of this encounter Implants Implanted Type Area Coverer Device Shelf Model / Identifier Expiration Serial / Date Lot Screw, Fixos Headless Compression 7.0x80mm Snehal #[id number] - S0 SCREW Left: Snehal 02/07/2018 [id number] / Implanted: Qty: 1 on 02/07/2017 by Yaniv Stuart MD at [facility] FEB 03 Screw Fixos Headless Comp Short Thread 7.0x75mm Franklin #[id number] - Sl2 S 3 SCREW Left: Franklin 09/04/2018 [id number] / Implanted: Qty: 1 on 09/06/2017 by Yaniv Stuart MD at [facility] L2 S 3 / NA Screw Fixos Headless Comp Short Thread 7.0x70mm Snehal #[id number] - Sl2 S 3 SCREW Left: Franklin 09/04/2018 [id number] / Implanted: Qty: 1 on 09/06/2017 by Yaniv Stuart MD at [facility] L2 S 3 / NA Screw, Fixos Headless Compression 7.0x75mm Franklin #[id number] - S0 Left: Franklin 02/07/2018 [id number] / Implanted: Qty: 1 on 02/07/2017 by Yaniv Stuart MD at [facility] 17 6 JAN 17 Tri-Cortial Block Left: [facility] Tissue 10/20/2020 N/A / Implanted: Qty: 1 on 02/07/2017 by Yaniv Stuart MD at [facility] Services [id number] / [id number] Crushed Bone Chips Left: [facility] Tissue 03/24/2021 [id number] / Implanted: Qty: 1 on 02/07/2017 by Yaniv Stuart MD at [facility] [employer] [id number] / [id number] Bone Graft Substitute Foam 5ml Bioactive Compression Resistant Vitoss Bbtrauma Snehal #[id number] - Sn/A Left: Franklin 02/14/[id number] / Implanted: Qty: 1 on 09/06/2017 by Yaniv Stuart MD at [facility] Ankle N/A / [id number] documented as of this encounter Procedures Procedure [...] vaccination Need for prophylactic vaccination with combined kogvpkmzaw-kzmkocr-zvkrcswtt ( DTP) vaccine Need for pneumococcal vaccination Need for prophylactic vaccination against streptococcus pneumoniae ( pneumococcus) documented in this encounter Insurance Payer Benefit Plan / Subscriber ID Effective Phone Address Type Group Dates SHARMAINE SCHMID xxxxxxxxx 2013-[address] Medicaid [facility] [place] [facility] [place] [id number] MANAGED MEDICAID [place], [place] [phone] [address] [facility] [address] (Home) [address] (Work) [id number] documented as of this encounter
== END 2019-09-23 13:44 | disposition home or self-care (01) ==
LOC: ER 09:17
DX: K74.60 Unspecified cirrhosis of liver (principal); B19.20 Unspecified viral hepatitis C without hepatic coma; R16.0 Hepatomegaly, not elsewhere classified; R10.819 Abdominal tenderness, unspecified site; I10 Essential (primary) hypertension; G89.29 Other chronic pain; Z88.5 Allergy status to narcotic agent
CPT/HCPCS: 96361; 93005; 87088; 85025; 80048; 36415; 82140; 83735; 85610; 80076; 81003; 84484; 83690; 83880; 74022; 76705; 96375; 96374; 99284; J2270; J7030; J2405; 87086

== ENCOUNTER 2021-05-29 18:44 | Emergency (ER) | payer MEDICAID ==
--- OUTSIDE RECORDS SUMMARY | 2021-05-29 19:20 | XMS REPORT | Continuity of Care Document ---
:1960 Author Organization [facility] t Address 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 I have insuffici ent informati on to diagnosis cirrhosis low albumin and increased AST: ALT ratio may indicate cirrhosis . I requested her CT and MRI scans from [facility] and sent her for Fibroscan . Irrespect carlyn of her degree of fibrosis, cryoglobu linemia is a potential ly life-thre atening complicat ion of HCV infection , and an indicatio n for treatment . We will check the necessary tests for her insurance , and seek approval for antiviral therapy. Age Age Disease Active Last [facility] related related -19 [facility] - osteoporos osteoporos 00:00: t & Plan: Medical is is 00 She has Center osteoporo sis demonstra maikol on DEXA scan, thought to be a contribut ing factor to her nonhealin g fracture. Dr. Aragon wishes to use abalopara tide (Tymlos) to treat osteoporo sis I see no contraind ication to this medicatio n. Smoking Smoking Disease Active Last [facility] greater greater 05-08 Assessmen Donnajoe - than 40 than 40 00:00: t & Plan: Medic al pack years pack years She has C enter smoked for most of her life. She is currently using the nicotine patch to wean herself from cigarette s. I encourage d her to continue. Simple Simple Disease Active Last [facility] chronic chronic 05-08 Assessmen Donnajoe - bronchitis bronchitis 00:00: t & Plan: Medical 00 She has Center chronic bronchiti s with constant sputum productio n. I advised her to find a primary care provider who can monitor pulmonary function. I encourage d her to put smoking as stated above. Immunity Immunity Disease Active [facility] testing testing 00:00: t & Plan: Medic al 00 CDC Center recommend s that all patients with chronic liver disease, regardles s of etiology, should be immunized to prevent hepatitis A and hepatitis B if they are not already immune. This should be done in addition to other age-appro priate vaccines. Testing in 2012 olivia lassiter anti-HAV (+), anti-HBs (+). No further hepatitis vaccinati on is required. She should see a primary care provider for other age-appro priate vaccines. 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 I ordered rheumatoi d factor to confirm. Opiate use Opiate use Disease Active Last [facility] 05-08 [facility] - 00:00: t & Plan: Medical 00 She has Center taken opiates and opioids since a heel fracture in 2016 these are prescribe d by a pain medicatio n physician , and will be evident on her drug screen. 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 I gave her contact informati on for Dr. Jessica Malone. Allergic Allergic Problem Active [facility] rhinitis, rhinitis, [facility] - seasonal seasonal Memori a l Outpati ent Clinics Cryoglobul Cryoglobul Problem Active [facility] inemia inemia [facility] Infection Infection Problem Active [facility] of finger of finger [facility] - [facility] Nicotine Nicotine Problem Active [facility] dependence dependence Donna k[facility] - [facility] Anxiety Anxiety Problem Active [facility] COPD COPD Problem Active [facility] (chronic (chronic [facility] - obstructiv obstructiv Me moria e e l pulmonary pulmonary Outp ati disease) disease) ent Clinics Bipolar Bipolar Problem Active [facility] disorder disorder [facility] Chronic Chronic Problem Active [facility] back pain back pain [facility] - [facility] Benign Benign Problem Active [facility] essential essential [facility] - HTN HTN [facility] Depression Depression Problem Active [facility] with with [facility] - anxiety anxiety [facility] ent Clinics Familial Familial Problem Active [facility] hyperchole hyperchole Donna kes - sterolemia sterolemia Me moria l Outpati ent Clinics GERD GERD Problem Active [facility] (gastroeso (gastroeso Donna kes - phageal phageal Memoria reflux reflux l disease) disease) Outpat i ent Clinics Basal cell Basal cell Problem Active [facility] carcinoma carcinoma Luke s - (BCC) of (BCC) of Memori a skin of skin of l other part other part Ou tpati of face of face ent Clinics Acute Acute Problem Active [facility] bronchitis bronchitis Donna kes - , , Memoria unspecifie unspecifie l d organism d organism Ou tpati ent Clinics Low back Low back Problem Active [facility] pain pain [facility] Chronic Chronic Problem Active [facility] hepatitis hepatitis Luke [facility] - C C [facility] l Outpati ent Clinics Basal cell Basal cell Problem Active [facility] carcinoma carcinoma Luke s - of skin of of skin of Me moria unspecifie unspecifie l d parts of d parts of Ou tpati face face ent Clinics Hyperchole Hyperchole Problem Active [facility] sterolemia sterolemia [facility] Clin[facility] Allergies, Adverse Reactions, Alerts Allergy Allergy Status Severity Reaction(s) Onset Inactive Treating Comm ents Source Name Type Date Date Clinician Acetamin Propensi Active Other (See 2012-[address] [facility] ophen ty to Comments) hepatitis Luke s - adverse 00:00: Medical reaction 00 Center s Codeine Propensi Active Other (See 2012-[address] [facility] ty to Comments), [facility]ukes - adverse Nausea And 00:00: Medic al reaction Vomiting 00 Center s Codeine Adverse Active Info Not [facility] Sulfate Reaction Available [facility] Clin[facility] Social History Social Habit Start Date Stop Date Quantity Comments Source History of 1973-12-08 Current every day [facility] - tobacco use 00:00:00 smoker [facility] r Sex Assigned [facility] Tobacco use and 2019-05-08 2019-05-08 Never used [facility] - exposure 00:00:00 00:00:00 [facility] Alcohol intake 2019-05-08 2019-05-08 Current [facility] es - 00:00:00 00:00:00 non-drinker of [facility] nter alcohol (finding) Smoking Status Start Date Stop Date Source Current every day smoker 2019-05-08 00:00:00 [facility] Medications Ordered Filled Start Stop Current Ordering Indication Dosage Frequency Signature Comments Components Source Medication Medication Date Date Medication? Clinician (SIG) Name Name ALPRAZolam Yes .5mg [id number] Take 0.[address] [facility] (XANAX) 0.5 6-19 [id number] mg by L ukes - MG tablet 14:19: 3D mouth 3 Medic al 26 (three) Center times daily. esomeprazol Yes Take by [facility] e magnesium 6-19 mouth. [facility] - (NEXIUM 14:16: Medical ORAL) 20 Center HYDROcodone Yes 1{tbl} QD Take [address] -acetaminop 6-17 tablet by Vitaliy fang - hen (NORCO 00:00: mouth Medica l 10-325) 00 every Center 10-325 mg morning . per tablet lisinopril 2019-0 Yes 20mg QD Take [address] (PRINIVIL,Z 6-17 by mouth Luke s - ESTRIL) 20 00:00: daily . Medi juan josé MG tablet 00 [place] pantoprazol Yes TK [address] [facility] e 6-16 ONCE D [facility] - (PROTONIX) 00:00: Medical 40 MG 00 [place] tablet morphine Yes 30mg QD Take [address] [facility] (MSIR) 30 5-22 by mouth [facility]ukes - MG tablet 00:00: every Medical 00 morning . [place] Amitiza Amitiza Yes Na Silva [address] [facility] 3-05 with food [facility] - 00:00: Memoria 00 l [facility] ent Clinics methocarbam Yes 500mg Take [address] ol 3-21 mg by [facility] - (ROBAXIN) 00:00: mouth as Medi juan josé 500 MG 00 needed . [place] tablet promethazin Yes TK [address] [facility] e 8-19 Q 6 H PRN [facility]ukes - (PHENERGAN) 00:00: Medica l 25 MG [place] tablet albuterol Yes INHALE [address] [facility] HFA (PROAIR 1-16 PUFFS 4 [facility] - HFA) 90 00:00: TIMES A Medical mcg/actuati DAY [place] on inhaler arformotero 2013-11 Yes [address] [facility] l (BROVANA) 2-19 [facility]ukes - 15 mcg/2 mL 00:00: Medica l nebulizer 00 [place] solution Prozac Prozac Yes Na Silva [address] [facility] - [facility] l [facility] Clinics ProAir HFA ProAir HFA Yes Na Silva INHALE [address] [facility] PUFFS 4 [facility]ukes - TIMES A Memoria DAY l Outpati ent Clinics Lisinopril Lisinopril Yes Na Silva [address] Clin[facility] Brovana Brovana Yes Na Silva [address] [facility] Protonix Protonix Yes Na Silva [address] [facility] Protonix Protonix Yes Na Silva 1 TAB(S) [facility] ONCE A DAY [facility]ukes - ORALLY Memoria l [facility] ent Clinics Alprazolam Alprazolam Yes Na Silva [address] [facility] Fluoxetine Fluoxetine Yes Na Silva [address] [facility] HCl HCl ONCE A DAY [facility] - ORALLY Mem[facility] l Outpati ent Clinics [place] Yes Na Silva [address] [facility] as needed [facility] - [facility] ent [facility]ics Lyrica Lyrica Yes Na Silva [address] [facility] Depakote Depakote Yes Na Silva as [facility] directed [facility] Flonase Flonase Yes Na Silva [address] [facility] each [facility] - nostril Memoria l Outpati ent Clinics Keflex Keflex Yes Na Silva [address] [facility] Symbicort Symbicort Yes Na Silva [address] Clin[facility] Azithromyci Azithromyci Yes Na Silva [address] n n on the [facility]ukes - first day, Memoria then 1 l tablet Outpati daily for ent 4 days Clinics Procedures This patient has no known procedures. Plan of Care Planned Activity Planned Date Details Comments Source Future Scheduled 2020-07-21 INFLUENZA VACCINE (#1) [facility] - Test 00:00:00 [code = INFLUENZA Medical Ce nter VACCINE (#1)] Future Scheduled [address] [facility] s - Test 00:00:00 (procedure) [code = Medical Center 09887293] Future Scheduled [address] [facility] Vitaliy es - Test 00:00:00 malignant [facility] cervix (procedure) [code = 456984654] Future Scheduled [address] [facility] - Test 00:00:00 0-64 YRS (1 of 1 - Medical C enter PPSV23) [code = PNEUMOCOCCAL VACCINE 0-64 YRS (1 of 1 - PPSV23)] Future Scheduled [address] [facility] Vitaliy es - Test 00:00:00 malignant neoplasm of [facility] Center breast (procedure) [code = 080043139] Future Scheduled [address] [facility] Vitaliy es - Test 00:00:00 malignant neoplasm of [facility] Center colon (procedure) [code = 556308174] Encounters Start End Encounter Admission Attending Care Care Encounter Source Date/Time Date/Time Type Type Clinicians Facility Department ID 2021-05-28 2021-05-[address] [facility] [id number] 00:00:00 00:00:00 Adonis Crawford [id number] [place] [id number] Professio [id number] [address] 2021-05-25 2021-05-25 [facility] [id number] 16:24:03 23:59:00 Encounter Adonis Crawford [id number] [place] [id number] [place] [id number] [facility] 2021-05-21 2021-05-[address] [facility] [id number] 00:00:00 00:00:00 Adonis Crawford [id number] [place] [id number] Professio [id number] [address] 2021-05-19 2021-05-[address] [facility] [id number] 09:56:31 11:19:54 Visit Adonis Crawford [id number] [place] [id number] Professio [id number] [address] 2019-01-21 2019-01-21 [facility] [id number] [facility] 10:00:00 10:00:00 [facility] Medicine Medicine Outpati ent Clinics 2018-12-07 2018-12-07 [facility] [id number] 16:34:00 16:34:00 t [employer] [facility] Medicine Medicine Outpati ent Clinics 2018-11-07 2018-11-07 [facility] [id number] 14:42:00 14:42:00 [employer] [facility] Medicine l Medicine Outpati ent Clinics 2018-08-24 2018-08-24 [facility] [id number] [facility] 10:00:00 10:00:[address] Luke s - Drive [facility] Medicine l Medicine Outpati ent Clinics 2018-08-20 2018-08-20 [facility] [id number] 15:53:00 15:53:[address] Luke s - Drive [facility] Medicine l Medicine Outpati ent Clinics 2018-08-15 2018-08-15 [facility] [id number] [address] 11:06:00 11:06:[address] Luke s - Drive [facility] Medicine Outpati ent Clinics 2018-07-25 2018-07-25 [facility] [id number] 09:45:00 09:45:[address] Luke s - Drive [facility] Medicine Medicine Outpati ent Clinics 2018-07-06 2018-07-06 [facility] [id number] [address] 16:36:00 16:36:[address] Luke s - Drive [facility] Medicine Outpati ent Clinics 2018-07-06 2018-07-06 [facility] [id number] 09:15:00 09:15:[address] Luke s - Drive [facility] Medicine l Medicine Outpati ent Clinics 2018-06-26 2018-06-26 [facility] [id number] 10:00:00 10:00:[address] Luke s - Drive [facility] l Medicine Outpati ent Clinics 2018-06-20 2018-06-20 [facility] [id number] 16:35:00 16:35:[address] Luke s - Drive [facility] Medicine Medicine Outpati ent Clinics 2018-05-29 2018-05-29 [facility] [id number] 11:13:00 11:13:[address] Luke s - Drive [facility] l Medicine Outpati ent Clinics 2018-05-24 2018-05-24 [facility] [id number] 10:00:00 10:00:[address] Luke s - Drive [facility] l Medicine Outpati ent Clinics 2018-05-03 2018-05-03 [facility] [id number] 14:04:00 14:04:00 t [employer] [facility] Medicine Outpati ent Clinics 2018-04-30 2018-04-30 [facility] [id number] 08:37:00 08:37:00 t [employer] [facility] Medicine Outpati ent Clinics 2018-04-24 2018-04-24 [facility] [id number] 09:15:00 09:15:00 t [place] [employer] [facility] Medicine Outpati ent Clinics 2018-04-11 2018-04-11 [facility] [id number] 16:26:00 16:26:00 t [employer] [facility] Medicine Outpati ent Clinics 2018-03-26 2018-03-26 [facility] [id number] 10:30:00 10:30:00 [employer] [facility] ent Clinics Results Test Description Test Time Test Comments Results Result Comments Source IONIZED CALCIUM WB ADULT 2021-04-16 07:05:00 Test Item Value Reference Range Interpretation Comme nts CALCIUM, IONIZED WB ADULT 1.20 mmol/L 1.12-1.[address] DRAWN AND PERFORMED AT (test code = ICAWB) BEDSIDE 04/14/2021 AT 1452 BY SB/MC IONIZED CALCIUM WB [id number] 09:26:00 Test Item Value Reference Range Interpretation Comments CALCIUM, IONIZED WB 1.28 mmol/L 1.12-1.32 test lashell wn and ADULT (test code = performed at bedside ICAWB) 03/05/2020 at 1 3:17pm by pl/mc IONIZED CALCIUM WB [id number] 14:08:00 Test Item Value Reference Range Interpretation Comments CALCIUM, IONIZED WB ADULT (test 1.14 mmol/L 1.12-1.32 code = ICAWB)
[2021-05-29 19:26] LABS: Urine Blood Negative (Negative); Urine Glucose Negative (Negative); Urine Protein Negative (Negative); Urine Specific Gravity 1.015 (1.005-1.030)
[2021-05-29 19:50] LABS: Barbiturates NEGATIVE (NEGATIVE); Benzodiazepines NEGATIVE (NEGATIVE); Cocaine NEGATIVE (NEGATIVE); METHAMPHETAM NEGATIVE (NEGATIVE); Methadone NEGATIVE (NEGATIVE); Opiates POSITIVE (NEGATIVE); Phencyclidine NEGATIVE (NEGATIVE); THC Cannibis POSITIVE (NEGATIVE)
[2021-05-29 20:22] LABS: Absolute Lymphocytes (CBC) 2.2 K/uL (0.7-4.9); Basophils % 1.1 % (0-1.3); Hematocrit 27.9 % (36.0-45.0); Lymphocytes % 29.4 % (15.3-44.8); MPV 8.2 fL (7.6-11.3)
[2021-05-29] MEDS ORDERED: ONDANSETRON 4 MG/2 ML VIAL ONE (20:26)
[2021-05-29] MEDS ORDERED: FAMOTIDINE 20 MG/2 ML VIAL IV ONE (20:26)
[2021-05-29] MEDS ORDERED: NA CHLORIDE 0.9% 1,000 ML ONE (20:26)
[2021-05-29] MEDS ORDERED: MORPHINE 4 MG/ML SYR ONE (20:26)
[2021-05-29 20:29] LABS: Albumin 2.6 g/dL (3.4-5.0); Bilirubin Direct 0.4 mg/dL (0-0.2); Bilirubin Total 0.7 mg/dL (0.2-1.0); Protein, Total 7.4 g/dL (6.4-8.2)
--- NOTE | 2021-05-29 20:46 | RAD REPORT ---
EXAM DESCRIPTION: CT - Abdomen Pelvis W Contrast - 05/29/2021 8:27 pm CLINICAL HISTORY: ABD PAIN COMPARISON: Abdomen Pelvis W Contrast dated 05/03/2019 TECHNIQUE: Biphasic, helical CT imaging of the abdomen and pelvis was performed following 100 ml non -ionic IV contrast. No oral contrast administered. All CT scans are performed using dose optimization technique as appropriate and may include automated exposure control or mA/KV adjustment according to patient size. FINDINGS: No suspicious findings in the lung bases. The liver, spleen, and pancreas show no suspicious findings. Gallbladder size is normal. Gallstones c an be occult on CT imaging. Biliary tree is enlarged at 8 mm and increased compared to prior imaging. There is slight dilatation of the central intrahepatic biliary radicles. Duct stones can be occult. No pancreatic or duodenal mass identifiable. No hydronephrosis or obstructing calculus. There is heterogeneous renal parenchymal attenuation with numerous areas of diminished enhancement. No solid mass lesion. No bladder abnormalities. No adrenal abnormalities. No uterine or ovarian abnormality suspected. No dilated bowel loops or bowel wall thickening. Appendix is normal. Moderately large stool volume pr esent in the colon. No free air or pneumatosis. Minimal amount of free fluid is seen. No hernia, mas s or bulky lymphadenopathy. No suspicious bony findings. Advanced disc and bony degenerative changes are present at the lumbosacr al junction. IMPRESSION: Moderate severity bilateral pyelonephritis pattern. No abscess or other emergent complic ation. Intrahepatic and extrahepatic biliary tree dilatation compared to 2019 imaging. No underlying mass id entifiable. Duct stones can be occult. 6
--- NOTE | 2021-05-29 21:49 | ER ---
Nurse's Notes [facility] Name: Josseline Gallegos Age: 60 yrs Sex: Female : 1960 Arrival Date: 05/29/2021 Time: 18:51 Bed 6 Private MD: Diagnosis: Pyelonephritis;Upper abdominal pain, unspecified-Chronic Presentation: 05/29 18:52 Chief complaint: EMS states: Pain to the umbilical area x 1 month. Coronavirus screen: jl Client denies travel out of the [place] in the last 14 days. At this time, the client does not indicate any symptoms associated with coronavirus-19. Ebola Screen: No symptoms or risks identified at this time. Initial Sepsis Screen: Does the patient meet any 2 criteria? No. Patient's initial sepsis screen is negative. Does the patient have a suspected source of infection? No. Patient's initial sepsis screen is negative. Risk Assessment: Do you want to hurt yourself or someone else? Patient reports no desire to harm self or others. Onset of symptoms was April 29, 2021. Care prior to arrival: None. 18:52 Method Of Arrival: EMS: [facility] 18:52 Acuity: TIFFANY 3 jl7 Historical: - Allergies: 18:55 Codeine; jl7 - PMHx: 18:55 Chronic pain; Hypertension; jl7 - Immunization history:: Adult Immunizations unknown. - Social history:: Smoking status: Patient reports the use of cigarette tobacco products, smokes one-half pack cigarettes per day. Screenin:15 Abuse screen: Denies threats or abuse. Denies injuries from another. Nutritional lp1 screening: No deficits noted. Tuberculosis screening: No symptoms or risk factors identified. Fall Risk None identified. Assessment: 20:00 General: Appears uncomfortable, Behavior is appropriate for age. Pain: Complains of lp1 pain in abdomen Pain currently is 9 out of 10 on a pain scale. Quality of pain is described as pressure, sharp. Neuro: Level of Consciousness is awake, alert, obeys commands, Oriented to person, place, time, situation. Cardiovascular: Patient's skin is warm and dry. Respiratory: Respiratory effort is even, unlabored. GI: Abdomen is non-distended, Bowel sounds present X 4 quads. Abdomen is tender to palpation in umbilical area, right lower quadrant and left lower quadrant Reports lower abdominal pain, nausea, Patient currently denies vomiting. : No signs and/or symptoms were reported regarding the genitourinary system. EENT: No signs and/or symptoms were reported regarding the EENT system. Derm: Skin is intact, Skin is dry, Skin is normal, Bruising that is dark purple, on right bicep. Musculoskeletal: Circulation, motion, and sensation intact. 20:45 Reassessment: Patient appears in no apparent distress at this time. Patient and/or jb4 family updated on plan of care and expected duration. Pain level reassessed. Patient is alert, oriented x 3, equal unlabored respirations, skin warm/dry/pink. 22:06 Reassessment: Patient appears in no apparent distress at this time. Patient is alert, lp1 oriented x 3, equal unlabored respirations, skin warm/dry/pink. Patient reports readiness for discharge Patient states feeling better. Patient states symptoms have improved. Vital Signs: 18:52 BP 130 / 87; Pulse 83; Resp 17; Temp 98.5; Pulse Ox 98% on R/A; jl7 19:00 BP 112 / 71; Pulse 85; Resp 16; Pulse Ox 99% on R/A; jb4 20:45 BP 130 / 88; Pulse 70; Resp 16; Pulse Ox 99% on R/A; jb4 ED Course: 18:51 Patient arrived in ED. jl7 18:55 Triage completed. jl7 18:55 Arm band placed on right wrist. jl7 19:03 Benji Brunson MD is Attending Physician. 7 19:45 Ruthann Wise RN is Primary Nurse. lp1 20:00 Inserted saline lock: 22 gauge in left antecubital area, using aseptic technique. Blood lp1 collected. 20:15 Patient has correct armband on for positive identification. Bed in low position. Call lp1 light in reach. Pulse ox on. NIBP on. 20:27 CT Abd/Pelvis - IV Contrast Only In Process Unspecified. EDMS 20:40 Report given to CHUCKY Ramirez. lp1 21:47 Hossein Weiner MD is Referral Physician. 7 21:47 Jani Antunez MD is Referral Physician. 7 22:06 No provider procedures requiring assistance completed. IV discontinued, No lp1 redness/swelling at site. Pressure dressing applied. Administered Medications: 20:14 Drug: NS 0.9% 1000 ml Route: IV; Rate: 1000 ml; Site: left antecubital; lp1 22:07 Follow up: IV Status: IV converted to saline lock; IV Intake: 500ml lp1 20:14 Drug: morphine 4 mg Route: IVP; Site: left antecubital; lp1 22:04 Follow up: Response: No adverse reaction; Marked relief of symptoms; Pain is decreased; jb4 RASS: Alert and Calm (0) 20:14 Drug: Zofran (Ondansetron) 4 mg Route: IVP; Site: left antecubital; lp1 22:04 Follow up: Response: No adverse reaction jb4 20:14 Drug: Pepcid (famotidine) 20 mg Route: IVP; Site: left antecubital; lp1 22:04 Follow up: Response: No adverse reaction jb4 21:55 Drug: Rocephin (cefTRIAXone) 1 grams {Note: Administered by CHUCKY Beavers.} Route: IV; jb4 Rate: per protocol; Site: right antecubital; 21:58 Follow up: Response: No adverse reaction; IV Status: Completed infusion; IV Intake: [id number] Intake: 21:58 IV: 10ml; Total: 10ml. jb4 22:07 IV: 500ml; Total: 510ml. lp1 Outcome: 21:48 Discharge ordered by . 7 22:06 Discharged to home ambulatory, with friend. lp1 22:06 Condition: good 22:06 Discharge instructions given to patient, Instructed on discharge instructions, follow up and referral plans. medication usage, Demonstrated understanding of instructions, follow-up care, medications, Prescriptions given X 3. 22:11 Patient left the ED. jb4 Signatures: Dispatcher [employer] EDMS Ruthann Wise RN RN lp1 Yeison Bledsoe RN RN jb4 Renay Carrion RN RN jl7 Benji Brunson MD MD 7 Corrections: (The following items were deleted from the chart) 22:07 22:06 Reassessment: Patient appears in no apparent distress at this time. Patient is lp1 alert, oriented x 3, equal unlabored respirations, skin warm/dry/pink. Patient states feeling better. Patient states symptoms have improved. lp1
--- NOTE | 2021-05-29 21:49 | EDPHYS ---
Physician Documentation [facility] Name: Josseline Gallegos Age: 60 yrs Sex: Female : 1960 Arrival Date: 05/29/2021 Time: 18:51 Bed 6 Private MD: ED Physician Benji Brunson HPI: 05/29 20:14 This 60 yrs old Female presents to ER via EMS with complaints of Abdominal mh7 Pain. 20:14 The patient presents with abdominal pain in the upper abdomen. Onset: The mh7 symptoms/episode began/occurred 3 week(s) ago, and became worse 5 day(s) ago. The symptoms do not radiate. 20:15 Associated signs and symptoms: Pertinent positives: nausea and vomiting, Pertinent mh7 negatives: anorexia, blood in stools, chest pain, constipation, diarrhea, dysuria, fever, headache, hematuria, palpitations, shortness of breath, vaginal discharge, vomiting blood. The symptoms are described as intermittent, vague, waxing/waning. Modifying factors: The symptoms are alleviated by nothing, the symptoms are aggravated by food. Severity of pain: At its worst the pain was moderate 5 day(s) ago, in the emergency department the pain is unchanged. Historical: - Allergies: 18:55 Codeine; jl7 - PMHx: 18:55 Chronic pain; Hypertension; jl7 - Immunization history:: Adult Immunizations unknown. - Social history:: Smoking status: Patient reports the use of cigarette tobacco products, smokes one-half pack cigarettes per day. ROS: 20:15 Constitutional: Negative for fever, chills, and weight loss, Eyes: Negative for injury, mh7 pain, redness, and discharge, ENT: Negative for injury, pain, and discharge, Neck: Negative for injury, pain, and swelling, Cardiovascular: Negative for chest pain, palpitations, and edema, Respiratory: Negative for shortness of breath, cough, wheezing, and pleuritic chest pain, Back: Negative for injury and pain, : Negative for injury, bleeding, discharge, and swelling, MS/Extremity: Negative for injury and deformity, Skin: Negative for injury, rash, and discoloration, Neuro: Negative for headache, weakness, numbness, tingling, and seizure, Psych: Negative for depression, anxiety, suicide ideation, homicidal ideation, and hallucinations, Allergy/Immunology: Negative for hives, rash, and allergies, Endocrine: Negative for neck swelling, polydipsia, polyuria, polyphagia, and marked weight changes, Hematologic/Lymphatic: Negative for swollen nodes, abnormal bleeding, and unusual bruising. Exam: 20:15 Constitutional: This is a well developed, well nourished patient who is awake, alert, mh7 and in no acute distress. Head/Face: Normocephalic, atraumatic. Eyes: Pupils equal round and reactive to light, extra-ocular motions intact. Lids and lashes normal. Conjunctiva and sclera are non-icteric and not injected. Cornea within normal limits. Periorbital areas with no swelling, redness, or edema. Neck: Trachea midline, no thyromegaly or masses palpated, and no cervical lymphadenopathy. Supple, full range of motion without nuchal rigidity, or vertebral point tenderness. No Meningismus. Chest/axilla: Normal chest wall appearance and motion. Nontender with no deformity. No lesions are appreciated. Cardiovascular: Regular rate and rhythm with a normal S1 and S2. No gallops, murmurs, or rubs. Normal PMI, no JVD. No pulse deficits. Respiratory: Lungs have equal breath sounds bilaterally, clear to auscultation and percussion. No rales, rhonchi or wheezes noted. No increased work of breathing, no retractions or nasal flaring. 20:15 Back: No spinal tenderness. No costovertebral tenderness. Full range of motion. Skin: Warm, dry with normal turgor. Normal color with no rashes, no lesions, and no evidence of cellulitis. MS/ Extremity: Pulses equal, no cyanosis. Neurovascular intact. Full, normal range of motion. Neuro: Awake and alert, GCS 15, oriented to person, place, time, and situation. Cranial nerves II-XII grossly intact. Motor strength 5/5 in all extremities. Sensory grossly intact. Cerebellar exam normal. Normal gait. Psych: Awake, alert, with orientation to person, place and time. Behavior, mood, and affect are within normal limits. 20:15 Abdomen/GI: Inspection: scar(s), are noted in the umbilical area, Bowel sounds: normal, in all quadrants, Palpation: moderate abdominal tenderness, in the epigastric area and umbilical area, mass, is not appreciated, rebound tenderness, is not appreciated, voluntary guarding, is not appreciated, involuntary guarding, is not appreciated, no appreciated organomegaly, Rectal exam: the exam is deferred, because of patient request, Indicators: McBurney's point is not tender, Arroyo's sign is negative, Rovsing's sign is negative, Obturator sign is negative, Psoas sign is negative, Liver: no appreciated palpable abnormalities, Hernia: not appreciated. Vital Signs: 18:52 BP 130 / 87; Pulse 83; Resp 17; Temp 98.5; Pulse Ox 98% on R/A; jl7 19:00 BP 112 / 71; Pulse 85; Resp 16; Pulse Ox 99% on R/A; jb4 20:45 BP 130 / 88; Pulse 70; Resp 16; Pulse Ox 99% on R/A; jb4 MDM: 21:44 Differential diagnosis: bowel obstruction, Cholelithiasis, diverticulitis, gastritis, 7 gastroesophageal reflux disease, non-specific abd pain, pancreatitis, Peptic Ulcer Disease, Pyelonephritis, Ureterolithiasis, urinary tract infection. Data reviewed: vital signs, nurses notes, lab test result(s), CBC, electrolytes, urinalysis, radiologic studies, CT scan. Counseling: I had a detailed discussion with the patient and/or guardian regarding: the historical points, exam findings, and any diagnostic results supporting the discharge/admit diagnosis, lab results, radiology results. 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 Response to treatment: the patient's symptoms have resolved after treatment, the patient's blood pressure is in an acceptable range, mental status has returned to baseline, the patient no longer shows bradycardia, the patient is not short of breath, the patient is not tachycardic, the patient's pain is gone, the patient's temperature has normalized. ED course: Well appearing, NAD, VSS. Discussed test results with patient she is aware of chronic issues with liver and ducts. No flank pain or tenderness. She requests to be discharged from the ED at this time. She will follow up with her doctors.. 21:48 Patient medically screened. [facility] 05/29 19:25 Order name: Basic Metabolic Panel; Complete Time: 21:02 [facility] 05/29 19:25 Order name: CBC with Diff; Complete Time: 21:02 [facility] 05/29 19:25 Order name: Hepatic Function; Complete Time: 21:02 [facility] 05/29 19:25 Order name: Lipase; Complete Time: 21:02 [facility] 05/29 19:25 Order name: UDS; Complete Time: 21:02 [facility] 05/29 19:26 Order name: Urine Dipstick-Ancillary EDMT 05/29 19:25 Order name: IV Saline Lock; Complete Time: 20:14 [facility] 05/29 19:26 Order name: Urine Culture [facility] 05/29 19:26 Order name: CT Abd/Pelvis - IV Contrast Only; Complete Time: 21:02 [facility] 05/29 19:25 Order name: Labs collected and sent; Complete Time: 20:14 [facility] 05/29 19:25 Order name: Urine Dipstick-Ancillary (obtain specimen); Complete Time: 20:14 [facility] Administered Medications: 20:14 Drug: NS 0.9% 1000 ml Route: IV; Rate: 1000 ml; Site: left antecubital; lp1 22:07 Follow up: IV Status: IV converted to saline lock; IV Intake: 500ml lp1 20:14 Drug: morphine 4 mg Route: IVP; Site: left antecubital; lp1 22:04 Follow up: Response: No adverse reaction; Marked relief of symptoms; Pain is decreased; jb4 RASS: Alert and Calm (0) 20:14 Drug: Zofran (Ondansetron) 4 mg Route: IVP; Site: left antecubital; lp1 22:04 Follow up: Response: No adverse reaction jb4 20:14 Drug: Pepcid (famotidine) 20 mg Route: IVP; Site: left antecubital; lp1 22:04 Follow up: Response: No adverse reaction jb4 21:55 Drug: Rocephin (cefTRIAXone) 1 grams {Note: Administered by CHUCKY Beavers.} Route: IV; jb4 Rate: per protocol; Site: right antecubital; 21:58 Follow up: Response: No adverse reaction; IV Status: Completed infusion; IV Intake: [id number] Disposition Summary: 05/29/21 21:48 Discharge Ordered Location: Home [facility] Problem: an ongoing problem [facility] Symptoms: have improved [facility] Condition: Stable [facility] Diagnosis - Pyelonephritis [facility] - Upper abdominal pain, unspecified - Chronic(05/29/21 21:52) [facility] Followup: [facility] - With: Private Physician - When: 1 - 2 days - Reason: If symptoms return, Worsening of condition, Recheck today's complaints, Continuance of care, Re-evaluation by your physician Followup: [facility] - With: Hossein Weiner MD - When: 1 - 2 days - Reason: Worsening of condition, Recheck today's complaints Followup: [facility] - With: Jani Antunez MD - When: 1 - 2 days - Reason: Worsening of condition, Recheck today's complaints Discharge Instructions: - Discharge Summary Sheet [facility] - Cannabis Use Disorder [facility] - Pyelonephritis, Adult, [id number] [facility] - Abdominal Pain, Adult, [id number] [facility] Forms: - Medication Reconciliation Form [facility] - Thank You Letter [facility] - Antibiotic Education [facility] - Prescription Opioid Use [facility] Prescriptions: - dicyclomine 20 mg Oral tablet - take 1 tablet by ORAL route 4 times per day As needed; 20 tablet; Refills: 0, [facility] Product Selection Permitted - ondansetron 4 mg Oral tablet,disintegrating - place 1 tablet by TRANSLINGUAL route every 8 hours As needed; 6 tablet; [facility] Refills: 0, Product Selection Permitted - Cipro 500 mg Oral Tablet - take 1 tablet by ORAL route every 12 hours for 7 days; 14 tablet; Refills: 0, [facility] Product Selection Permitted Signatures: Dispatcher [employer] EDMT Ruthann Wise RN RN lp1 Yeison Bledsoe RN RN jb4 Renay Carrion RN RN jl7 Benji Brunson MD MD 7 Corrections: (The following items were deleted from the chart) 21:52 21:48 Upper abdominal pain, unspecified [place] [id number] 22:01 19:25 EKG - Nurse/Tech ordered. [facility] jb4
[2021-05-29] MEDS ORDERED: CEFTRIAXONE/SWI 1gm 0 GM/0 ML SYR ONE (22:16)
[2021-05-29] MEDS ORDERED: CEFTRIAXONE/SWI 1gm 1 GM/10 ML SYR ONE (22:17)
[2021-05-29 22:19] VITALS: TEMP 98.5
[2021-05-29 22:20] VITALS: O2SAT 99
[2021-05-29 22:21] VITALS: BP 130/88
== END 2021-05-29 22:11 | disposition home or self-care (01) ==
LOC: ER 18:44
DX: N12 Tubulo-interstitial nephritis, not specified as acute or chronic (principal); I10 Essential (primary) hypertension; F17.210 Nicotine dependence, cigarettes, uncomplicated; Z88.5 Allergy status to narcotic agent
CPT/HCPCS: 87088; 85025; 87086; 80048; 36415; 82565; 80076; 87077; 87186; 81003; 83690; 80307; 74177; 99284; Q9967; J0696; J7030; J2405

== ENCOUNTER 2022-12-08 13:41 | Emergency (ER) | payer OTHER ==
--- OUTSIDE RECORDS SUMMARY | 2022-12-08 13:49 | XMS REPORT | Continuity of Care Document ---
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 noon and 1 capsule in the evening. nicotine 2021-0 Yes [id number] 2mg Apply 1 [facility] nivers polacrilex - Each as ity of 2 mg gum 00:00: directed [place] 00 as needed Medical (Smoking Branch Cessation) . ipratropium 2021-0 Yes [id number] .5mg Inhale 2.5 [facility] 0.02 % 9- mL every 6 ity of nebulizer 00:00: (six) [place] solution 00 hours as Medical needed for Branch Wheezing or Shortness of Breath. doxepin 25 2021-0 Yes [id number] 25mg Take 1 [facility] nivers mg capsule - capsule by ity of 00:00: mouth at [place] 00 bedtime. Medical Branch FLUoxetine 2021-0 Yes [id number] 20mg Take 1 [facility] nivers 20 mg 9- capsule by ity of capsule 00:00: mouth in [place] 00 the Medical morning. Branch Diclofenac 2021-0 Yes [id number] Apply to [facility] Sodium 9- area(s) 4 ity of (VOLTAREN) 00:00: (four) [place] 1 % gel 00 times Medical daily. Branch Apply 4 g QID on affected areas Lidocaine 5 2021-0 Yes [id number] Apply to [facility] % cream 9- area(s) 2 ity of 00:00: (two) [place] 00 times Medical daily as Branch needed for Pain (scale 4-6). Apply 5g to affected areas BID PRN gabapentin 2021-0 Yes [id number] 100mg Take 1 [facility] 100 mg 9- capsule by ity of capsule 00:00: mouth in [place] 00 the Medical morning Branch and 1 capsule at noon and 1 capsule in the evening. nicotine 2021-0 Yes [id number] 2mg Apply 1 [facility] polacrilex 9- Each as ity of 2 mg gum 00:00: directed [place] 00 as needed Medical (Smoking Branch Cessation) . ipratropium Yes [id number] .5mg Inhale 2.5 [facility] 0.02 % 9-01 mL every 6 ity of nebulizer 00:00: (six) [place] solution 00 hours as Medical needed for Branch Wheezing or Shortness of Breath. doxepin 25 Yes [id number] 25mg Take 1 [facility] nivers mg capsule 07-21 capsule by ity of 00:00: mouth at [place] 00 bedtime. Medical Branch FLUoxetine Yes [id number] 20mg Take 1 [facility] nivers 20 mg 07-21 capsule by ity of capsule 00:00: mouth in [place] 00 the Medical morning. Branch Diclofenac Yes [id number] Apply to [facility] Sodium 07-21 area(s) 4 ity of (VOLTAREN) 00:00: (four) [place] 1 % gel 00 times Medical daily. Branch Apply 4 g QID on affected areas Lidocaine 5 Yes [id number] Apply to [facility] % cream 07-21 area(s) 2 ity of 00:00: (two) [place] 00 times Medical daily as Branch needed for Pain (scale 4-6). Apply 5g to affected areas BID PRN gabapentin Yes [id number] 100mg Take 1 [facility] 100 mg 07-21 capsule by ity of capsule 00:00: mouth in [place] 00 the Medical morning Branch and 1 capsule at noon and 1 capsule in the evening. nicotine Yes [id number] 2mg Apply 1 [facility] tete polacrilex 07-21 Each as ity of 2 mg gum 00:00: directed [place] 00 as needed Medical (Smoking Branch Cessation) . ipratropium Yes [id number] .5mg Inhale 2.5 [facility] 0.02 % 9- mL every 6 ity of nebulizer 00:00: (six) [place] solution 00 hours as Medical needed for Branch Wheezing or Shortness of Breath. doxepin 25 Yes [id number] 25mg Take 1 [facility] nivers mg capsule 07-21 capsule by ity of 00:00: mouth at [place] [address] bedtime. Medical Branch FLUoxetine Yes [id number] 20mg Take 1 [facility] nivers 20 mg 9- capsule by ity of capsule 00:00: mouth in [place] the Medical morning. Branch Diclofenac 2021-0 Yes [id number] Apply to [facility] Sodium 9-01 area(s) 4 ity of (VOLTAREN) 00:00: (four) [place] 1 % gel 00 times Medical daily. Branch Apply 4 g QID on affected areas Lidocaine 5 2021-0 Yes [id number] Apply to [facility] % cream 9- area(s) 2 ity of 00:00: (two) [place] 00 times Medical daily as Branch needed for Pain (scale 4-6). Apply 5g to affected areas BID PRN gabapentin 2021-0 Yes [id number] 100mg Take 1 [facility] 100 mg 9- capsule by ity of capsule 00:00: mouth in [place] 00 the Medical morning Branch and 1 capsule at noon and 1 capsule in the evening. nicotine 0 Yes [id number] 2mg Apply 1 [facility] tete polacrilex - Each as ity of 2 mg gum 00:00: directed [place] 00 as needed Medical (Smoking Branch Cessation) . ipratropium 0 Yes [id number] .5mg Inhale 2.5 [facility] 0.02 % 9- mL every 6 ity of nebulizer 00:00: (six) [place] solution 00 hours as Medical needed for Branch Wheezing or Shortness of Breath. doxepin 25 2021-0 Yes [id number] 25mg Take 1 [facility] nivers mg capsule 9- capsule by ity of 00:00: mouth at [place] [address] bedtime. Medical Branch FLUoxetine 2021-0 Yes [id number] 20mg Take 1 [facility] nivers 20 mg 9- capsule by ity of capsule 00:00: mouth in [place] the Medical morning. Branch Diclofenac 2021-0 Yes [id number] Apply to [facility] Sodium 9-01 area(s) 4 ity of (VOLTAREN) 00:00: (four) [place] 1 % gel 00 times Medical daily. Branch Apply 4 g QID on affected areas Lidocaine 5 2021-0 Yes [id number] Apply to [facility] % cream 9-01 area(s) 2 ity of 00:00: (two) [place] 00 times Medical daily as Branch needed for Pain (scale 4-6). Apply 5g to affected areas BID PRN gabapentin 2021-0 Yes [id number] 100mg Take 1 [facility] 100 mg 9- capsule by ity of capsule 00:00: mouth in [place] 00 the Medical morning Branch and 1 capsule at noon and 1 capsule in the evening. nicotine Yes [id number] 2mg Apply 1 [facility] tete polacrilex 9- Each as ity of 2 mg gum 00:00: directed [place] 00 as needed Medical (Smoking Branch Cessation) . ipratropium Yes [id number] .5mg Inhale 2.5 [facility] 0.02 % 9-01 mL every 6 ity of nebulizer 00:00: (six) [place] solution 00 hours as Medical needed for Branch Wheezing or Shortness of Breath. doxepin 25 Yes [id number] 25mg Take 1 [facility] nivers mg capsule 9- capsule by ity of 00:00: mouth at [place] 00 bedtime. Medical Branch FLUoxetine Yes [id number] 20mg Take 1 [facility] nivers 20 mg 9- capsule by ity of capsule 00:00: mouth in [place] 00 the Medical morning. Branch Lidocaine 5 Yes [id number] Apply to [facility] % cream 07-21 area(s) 2 ity of 00:00: (two) [place] 00 times Medical daily as Branch needed for Pain (scale 4-6). Apply 5g to affected areas BID PRN nicotine Yes [id number] 2mg Apply 1 [facility] tete polacrilex 07-21 Each as ity of 2 mg gum 00:00: directed [place] 00 as needed Medical (Smoking Branch Cessation) . ipratropium Yes [id number] .5mg Inhale 2.5 [facility] 0.02 % 9-01 mL every 6 ity of nebulizer 00:00: (six) [place] solution 00 hours as Medical needed for Branch Wheezing or Shortness of Breath. doxepin 25 0 Yes [id number] 25mg Take 1 [facility] n[facility] mg capsule 9- capsule by ity of 00:00: mouth at [place] 00 bedtime. Medical Branch FLUoxetine Yes [id number] 20mg Take 1 [facility] nivers 20 mg 9- capsule by ity of capsule 00:00: mouth in [place] 00 the Medical morning. Branch Lidocaine 5 Yes [id number] Apply to [facility] % cream 9 area(s) 2 ity of 00:00: (two) [place] 00 times Medical daily as Branch needed for Pain (scale 4-6). Apply 5g to affected areas BID PRN nicotine 2021-0 Yes [id number] 2mg Apply 1 [facility] tete polacrilex 9-01 Each as ity of 2 mg gum 00:00: directed [place] 00 as needed Medical (Smoking Branch Cessation) . ipratropium 0 Yes [id number] .5mg Inhale 2.5 [facility] 0.02 % 9-01 mL every 6 ity of nebulizer 00:00: (six) [place] solution 00 hours as Medical needed for Branch Wheezing or Shortness of Breath. doxepin 25 2021-0 Yes [id number] 25mg Take 1 [facility] nivers mg capsule - capsule by ity of 00:00: mouth at [place] 00 bedtime. Medical Branch FLUoxetine Yes [id number] 20mg Take 1 [facility] nivers 20 mg - capsule by ity of capsule 00:00: mouth in [place] 00 the Medical morning. Branch Lidocaine 5 Yes [id number] Apply to [facility] % cream 07-21 area(s) 2 ity of 00:00: (two) [place] 00 times Medical daily as Branch needed for Pain (scale 4-6). Apply 5g to affected areas BID PRN nicotine 0 Yes [id number] 2mg Apply 1 [facility] tete polacrilex 07-21 Each as ity of 2 mg gum 00:00: directed [place] 00 as needed Medical (Smoking Branch Cessation) . ipratropium 0 Yes [id number] .5mg Inhale 2.5 [facility] 0.02 % 9-01 mL every 6 ity of nebulizer 00:00: (six) [place] solution 00 hours as Medical needed for Branch Wheezing or Shortness of Breath. doxepin 25 2021-0 Yes [id number] 25mg Take 1 [facility] nivers mg capsule - capsule by ity of 00:00: mouth at [place] 00 bedtime. Medical Branch FLUoxetine 2021-0 Yes [id number] 20mg Take 1 [facility] nivers 20 mg 9- capsule by ity of capsule 00:00: mouth in [place] 00 the Medical morning. Branch Lidocaine 5 2021- Yes [id number] Apply to [facility] % cream 07-21 area(s) 2 ity of 00:00: (two) [place] 00 times Medical daily as Branch needed for Pain (scale 4-6). Apply 5g to affected areas BID PRN nicotine 0 Yes [id number] 2mg Apply 1 Un tete polacrilex 07-21 Each as ity of 2 mg gum 00:00: directed [place] 00 as needed Medical (Smoking Branch Cessation) . ipratropium Yes [id number] .5mg Inhale 2.5 [facility] 0.02 % 07-21 mL every 6 ity of nebulizer 00:00: (six) [place] solution 00 hours as Medical needed for Branch Wheezing or Shortness of Breath. doxepin 25 0 Yes [id number] 25mg Take 1 [facility] nivers mg capsule 07-21 capsule by ity of 00:00: mouth at [place] 00 bedtime. Medical Branch FLUoxetine Yes [id number] 20mg Take 1 [facility] nivers 20 mg 07-21 capsule by ity of capsule 00:00: mouth in [place] 00 the Medical morning. Branch Lidocaine 5 Yes [id number] Apply to [facility] % cream 07-21 area(s) 2 ity of 00:00: (two) [place] 00 times Medical daily as Branch needed for Pain (scale 4-6). Apply 5g to affected areas BID PRN nicotine Yes [id number] 2mg Apply 1 Un tete polacrilex 07-21 Each as ity of 2 mg gum 00:00: directed [place] 00 as needed Medical (Smoking Branch Cessation) . ipratropium Yes [id number] .5mg Inhale 2.5 [facility] 0.02 % 07-21 mL every 6 ity of nebulizer 00:00: (six) [place] solution 00 hours as Medical needed for Branch Wheezing or Shortness of Breath. doxepin 25 0 Yes [id number] 25mg Take 1 [facility] nivers mg capsule 07-21 capsule by ity of 00:00: mouth at [place] 00 bedtime. Medical Branch FLUoxetine 0 Yes [id number] 20mg Take 1 [facility] nivers 20 mg 07-21 capsule by ity of capsule 00:00: mouth in [place] 00 the Medical morning. Branch Diclofenac 2021-0 2021- No [id number] Apply to [facility] Sodium 07-21 10-13 area(s) 4 ity of (VOLTAREN) 00:00: 00:00 (four) [place] 1 % gel 00 :00 times Medical daily. Branch Apply 4 g QID on affected areas gabapentin 2021- No [id number] 100mg Take 1 [facility] 100 mg 07-21 capsule by ity of capsule 00:00: 00:00 mouth in [place] 00 :00 the Medical morning Branch and 1 capsule at noon and 1 capsule in the evening. Diclofenac 2021- No [id number] Apply to [facility] Sodium 07-21 area(s) 4 ity of (VOLTAREN) 00:00: 00:00 (four) [place] 1 % gel 00 :00 times Medical daily. Branch Apply 4 g QID on affected areas gabapentin 2021- No [id number] 100mg Take 1 [facility] 100 mg 07-21 capsule by ity of capsule 00:00: 00:00 mouth in [place] 00 :00 the Medical morning Branch and 1 capsule at noon and 1 capsule in the evening. Diclofenac 2021- No [id number] Apply to [facility] Sodium 07-21 area(s) 4 ity of (VOLTAREN) 00:00: 00:00 (four) [place] 1 % gel 00 :00 times Medical daily. Branch Apply 4 g QID on affected areas gabapentin 2021- No [id number] 100mg Take 1 [facility] 100 mg 07-21 capsule by ity of capsule 00:00: 00:00 mouth in [place] 00 :00 the Medical morning Branch and 1 capsule at noon and 1 capsule in the evening. albuterol Yes [id number] INHALE 2 [facility] (PROAIR 8-22 PUFFS BY ity of HFA) 90 00:00: MOUTH 4 [place] mcg/actuati 00 TIMES Medical on inhaler DAILY Branch albuterol 0 Yes [id number] INHALE 2 [facility] (PROAIR 8-22 PUFFS BY ity of HFA) 90 00:00: MOUTH 4 [place] mcg/actuati 00 TIMES Medical on inhaler DAILY Branch albuterol 0 Yes [id number] INHALE 2 [facility] (PROAIR 8-22 PUFFS BY ity of HFA) 90 00:00: MOUTH 4 [place] mcg/actuati 00 TIMES Medical on inhaler DAILY Branch albuterol Yes [id number] INHALE 2 [facility] (PROAIR 8-22 PUFFS BY ity of HFA) 90 00:00: MOUTH 4 [place] mcg/actuati 00 TIMES Medical on inhaler DAILY Branch albuterol Yes [id number] INHALE 2 [facility] (PROAIR 8-22 PUFFS BY ity of HFA) 90 00:00: MOUTH 4 [place] mcg/actuati 00 TIMES Medical on inhaler DAILY Branch albuterol Yes [id number] INHALE 2 [facility] (PROAIR 8-22 PUFFS BY ity of HFA) 90 00:00: MOUTH 4 [place] mcg/actuati 00 TIMES Medical on inhaler DAILY Branch albuterol Yes [id number] INHALE 2 [facility] (PROAIR 8-22 PUFFS BY ity of HFA) 90 00:00: MOUTH 4 [place] mcg/actuati 00 TIMES Medical on inhaler DAILY Branch albuterol 2021- No [id number] INHALE 2 [facility] (PROAIR 8-22 10-13 PUFFS BY ity of HFA) 90 00:00: 00:00 MOUTH 4 [place] mcg/actuati 00 :00 TIMES Medical on inhaler DAILY Branch albuterol 2021- No [id number] INHALE 2 [facility] (PROAIR 8-22 10-13 PUFFS BY ity of HFA) 90 00:00: 00:00 MOUTH 4 [place] mcg/actuati 00 :00 TIMES Medical on inhaler DAILY Branch albuterol 0 2021- No [id number] INHALE 2 [facility] (PROAIR 8-22 10-13 PUFFS BY ity of HFA) 90 00:00: 00:00 MOUTH 4 [place] mcg/actuati 00 :00 TIMES Medical on inhaler DAILY Branch arformotero Yes [id number] 2 mL 2 [facility] L (BROVANA) 4-19 (two) ity of 15 mcg/2 mL 00:00: times [place] nebulizer 00 daily. Medical solution Branch glecaprevir Yes [id number] 3{tbl} Take 3 [facility] -pibrentasv 4-19 tablets by it y of ir 00:00: mouth [place] (MAVYRET) 00 daily. Medical 100-40 mg Branch doxepin 25 2022-0 Yes [id number] 25mg Take 1 Un tete mg capsule 4-19 capsule by ity of 00:00: mouth at [place] 00 bedtime. Medical Branch levothyroxi 2021-0 Yes [id number] 50ug Take 1 [facility] ne 50 mcg 4-19 tablet by ity o f tablet 00:00: mouth [place] 00 every Medical morning. Branch arformotero 2021-0 Yes [id number] 2 mL 2 [facility] L (BROVANA) 4-19 (two) ity of 15 mcg/2 mL 00:00: times [place] nebulizer 00 daily. Medical solution Branch glecaprevir 0 Yes [id number] 3{tbl} Take 3 [facility] -pibrentasv 4-19 tablets by it y of ir 00:00: mouth [place] (MAVYRET) 00 daily. Medical 100-40 mg Branch doxepin 25 0 Yes [id number] 25mg Take 1 Un tete mg capsule 4-19 capsule by ity of 00:00: mouth at [place] 00 bedtime. Medical Branch levothyroxi 0 Yes [id number] 50ug Take 1 [facility] ne 50 mcg 4-19 tablet by ity o f tablet 00:00: mouth [place] 00 every Medical morning. Branch arformotero 2021-0 Yes [id number] 2 mL 2 [facility] L (BROVANA) 4-19 (two) ity of 15 mcg/2 mL 00:00: times [place] nebulizer 00 daily. Medical solution Branch glecaprevir 2021-0 Yes [id number] 3{tbl} Take 3 [facility] -pibrentasv 4-19 tablets by it y of ir 00:00: mouth [place] (MAVYRET) 00 daily. Medical 100-40 mg Branch levothyroxi 2021-0 Yes [id number] 50ug Take 1 [facility] ne 50 mcg 4-19 tablet by ity o f tablet 00:00: mouth [place] 00 every Medical morning. Branch arformotero 2021-0 Yes [id number] 2 mL 2 [facility] L (BROVANA) 4-19 (two) ity of 15 mcg/2 mL 00:00: times [place] nebulizer 00 daily. Medical solution Branch glecaprevir 2021-0 Yes [id number] 3{tbl} Take 3 [facility] -pibrentasv 4-19 tablets by it y of ir 00:00: mouth [place] (MAVYRET) 00 daily. Medical 100-40 mg Branch levothyroxi 2021-0 Yes [id number] 50ug Take 1 [facility] ne 50 mcg 4-19 tablet by ity o f tablet 00:00: mouth [place] 00 every Medical morning. Branch arformotero 2021-0 Yes [id number] 2 mL 2 [facility] L (BROVANA) 4-19 (two) ity of 15 mcg/2 mL 00:00: times [place] nebulizer 00 daily. Medical solution Branch glecaprevir 2021-0 Yes [id number] 3{tbl} Take 3 [facility] -pibrentasv 4-19 tablets by it y of ir 00:00: mouth [place] (MAVYRET) 00 daily. Medical 100-40 mg Branch levothyroxi 2021-0 Yes [id number] 50ug Take 1 [facility] ne 50 mcg 4-19 tablet by ity o f tablet 00:00: mouth [place] 00 every Medical morning. Branch arformotero 2021-0 Yes [id number] 2 mL 2 [facility] L (BROVANA) 4-19 (two) ity of 15 mcg/2 mL 00:00: times [place] nebulizer 00 daily. Medical solution Branch glecaprevir 2021-0 Yes [id number] 3{tbl} Take 3 [facility] -pibrentasv 4-19 tablets by it y of ir 00:00: mouth [place] (MAVYRET) 00 daily. Medical 100-40 mg Branch levothyroxi 2021-0 Yes [id number] 50ug Take 1 [facility] ne 50 mcg 4-19 tablet by ity o f tablet 00:00: mouth [place] 00 every Medical morning. Branch arformotero 2021-0 Yes [id number] 2 mL 2 [facility] L (BROVANA) 4-19 (two) ity of 15 mcg/2 mL 00:00: times [place] nebulizer 00 daily. Medical solution Branch glecaprevir 2-0 Yes [id number] 3{tbl} Take 3 [facility] -pibrentasv 4-19 tablets by it y of ir 00:00: mouth [place] (MAVYRET) 00 daily. Medical 100-40 mg Branch levothyroxi 2-0 Yes [id number] 50ug Take 1 [facility] ne 50 mcg 4-19 tablet by ity o f tablet 00:00: mouth [place] 00 every Medical morning. Branch arformotero 2021-0 Yes [id number] 2 mL 2 [facility] L (BROVANA) 4-19 (two) ity of 15 mcg/2 mL 00:00: times [place] nebulizer 00 daily. Medical solution Branch glecaprevir 2021-0 Yes [id number] 3{tbl} Take 3 [facility] -pibrentasv 4-19 tablets by it y of ir 00:00: mouth [place] (MAVYRET) 00 daily. Medical 100-40 mg Branch levothyroxi 2021-0 Yes [id number] 50ug Take 1 [facility] ne 50 mcg 4-19 tablet by ity o f tablet 00:00: mouth [place] 00 every Medical morning. Branch arformotero 2021-0 Yes [id number] 2 mL 2 [facility] L (BROVANA) 4-19 (two) ity of 15 mcg/2 mL 00:00: times [place] nebulizer 00 daily. Medical solution Branch glecaprevir 2021-0 Yes [id number] 3{tbl} Take 3 [facility] -pibrentasv 4-19 tablets by it y of ir 00:00: mouth [place] (MAVYRET) 00 daily. Medical 100-40 mg Branch levothyroxi 2021-0 Yes [id number] 50ug Take 1 [facility] ne 50 mcg 4-19 tablet by ity o f tablet 00:00: mouth [place] 00 every Medical morning. Branch arformotero 2021-0 Yes [id number] 2 mL 2 [facility] L (BROVANA) 4-19 (two) ity of 15 mcg/2 mL 00:00: times [place] nebulizer 00 daily. Medical solution Branch levothyroxi 2021-0 Yes [id number] 50ug Take 1 [facility] ne 50 mcg 4-19 tablet by ity o f tablet 00:00: mouth [place] 00 every Medical morning. Branch arformotero 2021-0 Yes [id number] 2 mL 2 [facility] L (BROVANA) 4-19 (two) ity of 15 mcg/2 mL 00:00: times [place] nebulizer 00 daily. Medical solution Branch levothyroxi 2021-0 Yes [id number] 50ug Take 1 [facility] ne 50 mcg 4-19 tablet by ity o f tablet 00:00: mouth [place] 00 every Medical morning. Branch arformotero Yes [id number] 2 mL 2 [facility] L (BROVANA) 4-19 (two) ity of 15 mcg/2 mL 00:00: times [place] nebulizer 00 daily. Medical solution Branch levothyroxi Yes [id number] 50ug Take 1 [facility] ne 50 mcg 4-19 tablet by ity o f tablet 00:00: mouth [place] 00 every Medical morning. Branch arformotero Yes [id number] 2 mL 2 [facility] L (BROVANA) 4-19 (two) ity of 15 mcg/2 mL 00:00: times [place] nebulizer 00 daily. Medical solution Branch levothyroxi Yes [id number] 50ug Take 1 [facility] ne 50 mcg 4-19 tablet by ity o f tablet 00:00: mouth [place] 00 every Medical morning. Branch arformotero Yes [id number] 2 mL 2 [facility] L (BROVANA) 4-19 (two) ity of 15 mcg/2 mL 00:00: times [place] nebulizer 00 daily. Medical solution Branch levothyroxi Yes [id number] 50ug Take 1 [facility] ne 50 mcg 4-19 tablet by ity o f tablet 00:00: mouth [place] 00 every Medical morning. Branch glecaprevir 2021- No [id number] 3{tbl} Take 3 [facility] -pibrentasv 4-19 10-13 tablets by i ty of ir 00:00: 00:00 mouth [place] (MAVYRET) 00 :00 daily. Medical 100-40 mg Branch glecaprevir 2021- No [id number] 3{tbl} Take 3 [facility] -pibrentasv 4-19 10-13 tablets by i ty of ir 00:00: 00:00 mouth [place] (MAVYRET) 00 :00 daily. Medical 100-40 mg Branch glecaprevir 2021- No [id number] 3{tbl} Take 3 [facility] -pibrentasv 4-19 10-13 tablets by i ty of ir 00:00: 00:00 mouth [place] (MAVYRET) 00 :00 daily. Medical 100-40 mg Branch pantoprazol Yes [id number] 40mg Take 1 [facility] e 40 mg EC 1-14 tablet by ity of tablet 00:00: mouth [place] 00 daily Medical before Branch breakfast. TK 1 T PO QD ferrous 2021-0 Yes [id number] 325mg Take 1 [facility] vers sulfate 1-14 tablet by ity of (IRON) 325 00:00: mouth 2 [place] mg (65 mg 00 (two) Medical iron) times Branch tablet daily. proMETHazin 2021-0 Yes [id number] 12.5mg Take 1 [facility] e 12.5 mg 1-14 tablet by ity o f tablet 00:00: mouth [place] 00 every 6 Medical (six) Branch hours as needed for Nausea and Vomiting (N/V). pantoprazol 2021-0 Yes [id number] 40mg Take 1 [facility] e 40 mg EC 1-14 tablet by ity of tablet 00:00: mouth [place] 00 daily Medical before Branch breakfast. TK 1 T PO QD ferrous 2021-0 Yes [id number] 325mg Take 1 [facility] vers sulfate 1-14 tablet by ity of (IRON) 325 00:00: mouth 2 [place] mg (65 mg 00 (two) Medical iron) times Branch tablet daily. proMETHazin 2021-0 Yes [id number] 12.5mg Take 1 [facility] e 12.5 mg 1-14 tablet by ity o f tablet 00:00: mouth [place] 00 every 6 Medical (six) Branch hours as needed for Nausea and Vomiting (N/V). pantoprazol 2021-0 Yes [id number] 40mg Take 1 [facility] e 40 mg EC 1-14 tablet by ity of tablet 00:00: mouth [place] 00 daily Medical before Branch breakfast. TK 1 T PO QD ferrous 2021-0 Yes [id number] 325mg Take 1 [facility] vers sulfate 1-14 tablet by ity of (IRON) 325 00:00: mouth 2 [place] mg (65 mg 00 (two) Medical iron) times Branch tablet daily. proMETHazin 2021-0 Yes [id number] 12.5mg Take 1 [facility] e 12.5 mg 1-14 tablet by ity o f tablet 00:00: mouth [place] 00 every 6 Medical (six) Branch hours as needed for Nausea and Vomiting (N/V). pantoprazol 2021-0 Yes [id number] 40mg Take 1 [facility] e 40 mg EC 1-14 tablet by ity of tablet 00:00: mouth [place] 00 daily Medical before Branch breakfast. TK 1 T PO QD ferrous 2021-0 Yes [id number] 325mg Take 1 [facility] vers sulfate 1-14 tablet by ity of (IRON) 325 00:00: mouth 2 [place] mg (65 mg 00 (two) Medical iron) times Branch tablet daily. proMETHazin 2021-0 Yes [id number] 12.5mg Take 1 [facility] e 12.5 mg 1-14 tablet by ity o f tablet 00:00: mouth [place] 00 every 6 Medical (six) Branch hours as needed for Nausea and Vomiting (N/V). pantoprazol 2021-0 Yes [id number] 40mg Take 1 [facility] e 40 mg EC 1-14 tablet by ity of tablet 00:00: mouth [place] 00 daily Medical before Branch breakfast. TK 1 T PO QD ferrous 2021-0 Yes [id number] 325mg Take 1 [facility] vers sulfate 1-14 tablet by ity of (IRON) 325 00:00: mouth 2 [place] mg (65 mg 00 (two) Medical iron) times Branch tablet daily. proMETHazin 2021-0 Yes [id number] 12.5mg Take 1 [facility] e 12.5 mg 1-14 tablet by ity o f tablet 00:00: mouth [place] 00 every 6 Medical (six) Branch hours as needed for Nausea and Vomiting (N/V). pantoprazol 2021-0 Yes [id number] 40mg Take 1 [facility] e 40 mg EC 1-14 tablet by ity of tablet 00:00: mouth [place] 00 daily Medical before Branch breakfast. TK 1 T PO QD ferrous 2021-0 Yes [id number] 325mg Take 1 [facility] vers sulfate 1-14 tablet by ity of (IRON) 325 00:00: mouth 2 [place] mg (65 mg 00 (two) Medical iron) times Branch tablet daily. proMETHazin 2021-0 Yes [id number] 12.5mg Take 1 [facility] e 12.5 mg 1-14 tablet by ity o f tablet 00:00: mouth [place] 00 every 6 Medical (six) Branch hours as needed for Nausea and Vomiting (N/V). pantoprazol 2021-0 Yes [id number] 40mg Take 1 [facility] e 40 mg EC 1-14 tablet by ity of tablet 00:00: mouth [place] 00 daily Medical before Branch breakfast. TK 1 T PO QD ferrous 2021-0 Yes [id number] 325mg Take 1 [facility] vers sulfate 1-14 tablet by ity of (IRON) 325 00:00: mouth 2 [place] mg (65 mg 00 (two) Medical iron) times Branch tablet daily. proMETHazin 2021-0 Yes [id number] 12.5mg Take 1 [facility] e 12.5 mg 1-14 tablet by ity o f tablet 00:00: mouth [place] 00 every 6 Medical (six) Branch hours as needed for Nausea and Vomiting (N/V). pantoprazol 2021-0 Yes [id number] 40mg Take 1 [facility] e 40 mg EC 1-14 tablet by ity of tablet 00:00: mouth [place] 00 daily Medical before Branch breakfast. TK 1 T PO QD ferrous 2021-0 Yes [id number] 325mg Take 1 [facility] vers sulfate 1-14 tablet by ity of (IRON) 325 00:00: mouth 2 [place] mg (65 mg 00 (two) Medical iron) times Branch tablet daily. proMETHazin 2021-0 Yes [id number] 12.5mg Take 1 [facility] e 12.5 mg 1-14 tablet by ity o f tablet 00:00: mouth [place] 00 every 6 Medical (six) Branch hours as needed for Nausea and Vomiting (N/V). pantoprazol 2021-0 Yes [id number] 40mg Take 1 [facility] e 40 mg EC 1-14 tablet by ity of tablet 00:00: mouth [place] 00 daily Medical before Branch breakfast. TK 1 T PO QD ferrous 2021-0 Yes [id number] 325mg Take 1 [facility] vers sulfate 1-14 tablet by ity of (IRON) 325 00:00: [place] mg (65 mg 00 (two) Medical iron) times Branch tablet daily. proMETHazin 2021-0 Yes [id number] 12.5mg Take 1 [facility] e 12.5 mg 1-14 tablet by ity o f tablet 00:00: mouth [place] 00 every 6 Medical (six) Branch hours as needed for Nausea and Vomiting (N/V). pantoprazol 2021-0 Yes [id number] 40mg Take 1 [facility] e 40 mg EC 1-14 tablet by ity of tablet 00:00: mouth [place] 00 daily Medical before Branch breakfast. TK 1 T PO QD ferrous 2021-0 Yes [id number] 325mg Take 1 [facility] vers sulfate 1-14 tablet by ity of (IRON) 325 00:00: mouth [place] mg (65 mg 00 (two) Medical iron) times Branch tablet daily. proMETHazin 2021-0 Yes [id number] 12.5mg Take 1 [facility] e 12.5 mg 1-14 tablet by ity o f tablet 00:00: mouth [place] 00 every 6 Medical (six) Branch hours as needed for Nausea and Vomiting (N/V). pantoprazol 2021-0 Yes [id number] 40mg Take 1 [facility] e 40 mg EC 1-14 tablet by ity of tablet 00:00: mouth [place] 00 daily Medical before Branch breakfast. TK 1 T PO QD ferrous 2021-0 Yes [id number] 325mg Take 1 [facility] vers sulfate 1-14 tablet by ity of (IRON) 325 00:00: mouth [place] mg (65 mg 00 (two) Medical iron) times Branch tablet daily. proMETHazin 2021-0 Yes [id number] 12.5mg Take 1 [facility] e 12.5 mg 1-14 tablet by ity o f tablet 00:00: mouth [place] 00 every 6 Medical (six) Branch hours as needed for Nausea and Vomiting (N/V). pantoprazol 2021-0 Yes [id number] 40mg Take 1 [facility] e 40 mg EC 1-14 tablet by ity of tablet 00:00: mouth [place] 00 daily Medical before Branch breakfast. TK 1 T PO QD ferrous 2021-0 Yes [id number] 325mg Take 1 [facility] vers sulfate 1-14 tablet by it[facility] of (IRON) 325 00:00: mouth [place] mg (65 mg 00 (two) Medical iron) times Branch tablet daily. proMETHazin 2021-0 Yes [id number] 12.5mg Take 1 [facility] e 12.5 mg 1-14 tablet by ity o f tablet 00:00: mouth [place] 00 every 6 Medical (six) Branch hours as needed for Nausea and Vomiting (N/V). pantoprazol 2021-0 Yes [id number] 40mg Take 1 [facility] e 40 mg EC 1-14 tablet by ity of tablet 00:00: mouth [place] 00 daily Medical before Branch breakfast. TK 1 T PO QD ferrous 2021-0 Yes [id number] 325mg Take 1 [facility] vers sulfate 1-14 tablet by [facility] of (IRON) 325 00:00: mouth [place] mg (65 mg 00 (two) Medical iron) times Branch tablet daily. proMETHazin Yes [id number] 12.5mg Take 1 [facility] e 12.5 mg 1-14 tablet by ity o f tablet 00:00: mouth [place] 00 every 6 Medical (six) Branch hours as needed for Nausea and Vomiting (N/V). pantoprazol Yes [id number] 40mg Take 1 [facility] e 40 mg EC 1-14 tablet by ity of tablet 00:00: mouth [place] 00 daily Medical before Branch breakfast. TK 1 T PO QD ferrous Yes [id number] 325mg Take 1 [facility] vers sulfate 1-14 tablet by it[facility] of (IRON) 325 00:00: mouth [place] mg (65 mg 00 (two) Medical iron) times Branch tablet daily. proMETHazin Yes [id number] 12.5mg Take 1 [facility] e 12.5 mg 1-14 tablet by ity o f tablet 00:00: mouth [place] 00 every 6 Medical (six) Branch hours as needed for Nausea and Vomiting (N/V). ondansetron Yes [id number] 4mg Take 1 [facility] 4 mg 8-24 tablet by ity of disintegrat 00:00: mouth [place] ing tablet 00 every 4 Medica l (four) Branch hours as needed for Nausea and Vomiting (N/V). Melatonin 5 Yes [id number] 5mg Take 1 [facility] mg tablet 8-24 tablet by ity o f 00:00: mouth at [place] 00 bedtime as Medical needed for Branch Insomnia. lisinopriL Yes [id number] 5mg Take 1 [facility] nivers 5 mg tablet 8-24 tablet by ity of 00:00: mouth [place] 00 daily. Medical Branch ondansetron Yes [id number] 4mg Take 1 [facility] 4 mg 8-24 tablet by ity of disintegrat 00:00: mouth [place] ing tablet 00 every 4 Medica l (four) Branch hours as needed for Nausea and Vomiting (N/V). Melatonin 5 Yes [id number] 5mg Take 1 [facility] nivers mg tablet 8-24 tablet by ity o f 00:00: mouth at [place] 00 bedtime as Medical needed for Branch Insomnia. lisinopriL Yes [id number] 5mg Take 1 [facility] nivers 5 mg tablet 8-24 tablet by ity of 00:00: mouth [place] 00 daily. Medical Branch ondansetron Yes [id number] 4mg Take 1 [facility] 4 mg 8-24 tablet by ity of disintegrat 00:00: mouth [place] ing tablet 00 every 4 Medica l (four) Branch hours as needed for Nausea and Vomiting (N/V). Melatonin 5 0 Yes [id number] 5mg Take 1 [facility] nivers mg tablet 8-24 tablet by ity o f 00:00: mouth at [place] 00 bedtime as Medical needed for Branch Insomnia. lisinopriL Yes [id number] 5mg Take 1 [facility] nivers 5 mg tablet 8-24 tablet by ity of 00:00: mouth [place] 00 daily. Medical Branch ondansetron Yes [id number] 4mg Take 1 [facility] 4 mg 8-24 tablet by ity of disintegrat 00:00: mouth [place] ing tablet 00 every 4 Medica l (four) Branch hours as needed for Nausea and Vomiting (N/V). Melatonin 5 0 Yes [id number] 5mg Take 1 [facility] nivers mg tablet 8-24 tablet by ity o f 00:00: mouth at [place] 00 bedtime as Medical needed for Branch Insomnia. lisinopriL Yes [id number] 5mg Take 1 [facility] nivers 5 mg tablet 8-24 tablet by ity of 00:00: mouth [place] 00 daily. Medical Branch ondansetron Yes [id number] 4mg Take 1 [facility] 4 mg 8-24 tablet by ity of disintegrat 00:00: mouth [place] ing tablet 00 every 4 Medica l (four) Branch hours as needed for Nausea and Vomiting (N/V). Melatonin 5 2020-0 Yes [id number] 5mg Take 1 [facility] n[facility] mg tablet 8-24 tablet by ity o f 00:00: mouth at [place] 00 bedtime as Medical needed for Branch Insomnia. lisinopriL Yes [id number] 5mg Take 1 [facility] nivers 5 mg tablet 8-24 tablet by ity of 00:00: mouth [place] 00 daily. Medical Branch ondansetron Yes [id number] 4mg Take 1 [facility] 4 mg 8-24 tablet by ity of disintegrat 00:00: mouth [place] ing tablet 00 every 4 Medica l (four) Branch hours as needed for Nausea and Vomiting (N/V). Melatonin 5 Yes [id number] 5mg Take 1 [facility] mg tablet 8-24 tablet by ity o f 00:00: mouth at [place] 00 bedtime as Medical needed for Branch Insomnia. lisinopriL Yes [id number] 5mg Take 1 [facility] n[facility] 5 mg tablet 8-24 tablet by ity of 00:00: mouth [place] 00 daily. Medical Branch ondansetron Yes [id number] 4mg Take 1 [facility] 4 mg 8-24 tablet by ity of disintegrat 00:00: mouth [place] ing tablet 00 every 4 Medica l (four) Branch hours as needed for Nausea and Vomiting (N/V). Melatonin 5 Yes [id number] 5mg Take 1 [facility] n[facility] mg tablet 8-24 tablet by ity o f 00:00: mouth at [place] 00 bedtime as Medical needed for Branch Insomnia. lisinopriL Yes [id number] 5mg Take 1 [facility] n[facility] 5 mg tablet 8-24 tablet by ity of 00:00: mouth [place] 00 daily. Medical Branch ondansetron Yes [id number] 4mg Take 1 [facility] 4 mg 8-24 tablet by ity of disintegrat 00:00: mouth [place] ing tablet 00 every 4 Medica l (four) Branch hours as needed for Nausea and Vomiting (N/V). Melatonin 5 Yes [id number] 5mg Take 1 [facility] n[facility] mg tablet 8-24 tablet by ity o f 00:00: mouth at [place] 00 bedtime as Medical needed for Branch Insomnia. lisinopriL Yes [id number] 5mg Take 1 [facility] n[facility] 5 mg tablet 8-24 tablet by ity of 00:00: mouth [place] 00 daily. Medical Branch ondansetron Yes [id number] 4mg Take 1 [facility] 4 mg 8-24 tablet by ity of disintegrat 00:00: mouth [place] ing tablet 00 every 4 Medica l (four) Branch hours as needed for Nausea and Vomiting (N/V). Melatonin 5 Yes [id number] 5mg Take 1 [facility] n[facility] mg tablet 8-24 tablet by ity o f 00:00: mouth at [place] 00 bedtime as Medical needed for Branch Insomnia. lisinopriL 2020-0 Yes [id number] 5mg Take 1 [facility] n[facility] 5 mg tablet 8-24 tablet by ity of 00:00: mouth [place] 00 daily. Medical Branch ondansetron 2020-0 Yes [id number] 4mg Take 1 [facility] 4 mg 8-24 tablet by ity of disintegrat 00:00: mouth [place] ing tablet 00 every 4 Medica l (four) Branch hours as needed for Nausea and Vomiting (N/V). Melatonin 5 2020-0 Yes [id number] 5mg Take 1 [facility] n[facility] mg tablet 8-24 tablet by ity o f 00:00: mouth at [place] 00 bedtime as Medical needed for Branch Insomnia. lisinopriL 0 Yes [id number] 5mg Take 1 [facility] n[facility] 5 mg tablet 8-24 tablet by ity of 00:00: mouth [place] 00 daily. Medical Branch ondansetron Yes [id number] 4mg Take 1 [facility] 4 mg 8-24 tablet by ity of disintegrat 00:00: mouth [place] ing tablet 00 every 4 Medica l (four) Branch hours as needed for Nausea and Vomiting (N/V). Melatonin 5 2020-0 Yes [id number] 5mg Take 1 [facility] mg tablet 8-24 tablet by ity o f 00:00: mouth at [place] 00 bedtime as Medical needed for Branch Insomnia. lisinopriL Yes [id number] 5mg Take 1 [facility] n[facility] 5 mg tablet 8-24 tablet by ity of 00:00: mouth [place] 00 daily. Medical Branch ondansetron Yes [id number] 4mg Take 1 [facility] 4 mg 8-24 tablet by ity of disintegrat 00:00: mouth [place] ing tablet 00 every 4 Medica l (four) Branch hours as needed for Nausea and Vomiting (N/V). Melatonin 5 2020-0 Yes [id number] 5mg Take 1 [facility] mg tablet 8-24 tablet by ity o f 00:00: mouth at [place] 00 bedtime as Medical needed for Branch Insomnia. lisinopriL 2020-0 Yes [id number] 5mg Take 1 [facility] 5 mg tablet 8-24 tablet by ity of 00:00: mouth [place] 00 daily. Medical Branch ondansetron Yes [id number] 4mg Take 1 [facility] 4 mg 8-24 tablet by ity of disintegrat 00:00: mouth [place] ing tablet 00 every 4 Medica l (four) Branch hours as needed for Nausea and Vomiting (N/V). Melatonin 5 2020-0 Yes [id number] 5mg Take 1 [facility] n[facility] mg tablet 8-24 tablet by ity o f 00:00: mouth at [place] 00 bedtime as Medical needed for Branch Insomnia. lisinopriL Yes [id number] 5mg Take 1 [facility] n[facility] 5 mg tablet 8-24 tablet by ity of 00:00: mouth [place] 00 daily. Medical Branch ondansetron Yes [id number] 4mg Take 1 [facility] 4 mg 8-24 tablet by ity of disintegrat 00:00: mouth [place] ing tablet 00 every 4 Medica l (four) Branch hours as needed for Nausea and Vomiting (N/V). Melatonin 5 Yes [id number] 5mg Take 1 [facility] n[facility] mg tablet 8-24 tablet by ity o f 00:00: mouth at [place] 00 bedtime as Medical needed for Branch Insomnia. lisinopriL 2020-0 Yes [id number] 5mg Take 1 [facility] n[facility] 5 mg tablet 8-24 tablet by ity of 00:00: mouth [place] 00 daily. Medical Branch docusate Yes [id number] 250mg Take 1 [facility] nivers sodium 250 6-30 capsule by ity of mg capsule 00:00: mouth [place] 00 daily. Medical Branch docusate 0 Yes [id number] 250mg Take 1 [facility] nivers sodium 250 6-30 capsule by ity of mg capsule 00:00: mouth [place] 00 daily. Medical Branch docusate 0 Yes [id number] 250mg Take 1 [facility] nivers sodium 250 6-30 capsule by ity of mg capsule 00:00: mouth [place] 00 daily. Medical Branch docusate 0 Yes [id number] 250mg Take 1 [facility] nivers sodium 250 6-30 capsule by ity of mg capsule 00:00: mouth [place] 00 daily. Medical Branch docusate Yes [id number] 250mg Take 1 [facility] nivers sodium 250 6-30 capsule by ity of mg capsule 00:00: mouth [place] 00 daily. Medical Branch docusate Yes [id number] 250mg Take 1 [facility] nivers sodium 250 6-30 capsule by ity of mg capsule 00:00: mouth [place] 00 daily. Medical Branch docusate 0 Yes [id number] 250mg Take 1 [facility] nivers sodium 250 6-30 capsule by ity of mg capsule 00:00: mouth [place] 00 daily. Medical Branch docusate 0 Yes [id number] 250mg Take 1 [facility] nivers sodium 250 6-30 capsule by ity of mg capsule 00:00: mouth [place] 00 daily. Medical Branch docusate Yes [id number] 250mg Take 1 [facility] nivers sodium 250 6-30 capsule by ity of mg capsule 00:00: mouth [place] 00 daily. Medical Branch docusate Yes [id number] 250mg Take 1 U nivers sodium 250 6-30 capsule by ity of mg capsule 00:00: mouth [place] 00 daily. Medical Branch docusate Yes [id number] 250mg Take 1 [facility] nivers sodium 250 6-30 capsule by ity of mg capsule 00:00: mouth [place] 00 daily. Medical Branch docusate Yes [id number] 250mg Take 1 [facility] nivers sodium 250 6-30 capsule by ity of mg capsule 00:00: mouth [place] 00 daily. Medical Branch docusate Yes [id number] 250mg Take 1 [facility] nivers sodium 250 6-30 capsule by ity of mg capsule 00:00: mouth [place] 00 daily. Medical Branch docusate Yes [id number] 250mg Take 1 [facility] nivers sodium 250 6-30 capsule by ity of mg capsule 00:00: mouth [place] 00 daily. Medical Branch albuterol Yes [id number] INHALE 2 [facility] (PROAIR 6-16 PUFFS BY ity of HFA) 90 00:00: MOUTH 4 [place] mcg/actuati 00 TIMES Medical on inhaler DAILY Branch FLUoxetine 2020-0 Yes [id number] 20mg Take 1 U nivers 20 mg 6-16 capsule by ity of capsule 00:00: mouth [place] 00 daily. Medical Branch Miscellaneo 2020-0 Yes [id number] J40: Un tete Medical 6-16 Brochitis ity of Supply Kit 00:00: - Dispense [place] 00 # 1 Medical Rafat Branch Respironic s (okay for alternativ e brand) for nebulizer treatment albuterol Yes [id number] INHALE 2 [facility] (PROAIR 6-16 PUFFS BY ity of HFA) 90 00:00: MOUTH 4 [place] mcg/actuati 00 TIMES Medical on inhaler DAILY Branch FLUoxetine Yes [id number] 20mg Take 1 U nivers 20 mg 6-16 capsule by ity of capsule 00:00: mouth [place] 00 daily. Medical Branch Miscellaneo Yes [id number] [facility] Kit 00:00: - Dispense [place] 00 # 1 Medical Rafat Branch Respironic s (okay for alternativ e brand) for nebulizer treatment Miscellaneo Yes [id number] J40: [facility] 6[facility]16 [place] ity of Supply Kit 00:00: - Dispense [place] 00 # 1 Medical Rafat Branch Respironic s (okay for alternativ e brand) for nebulizer treatment Miscellaneo Yes [id number] J40: [facility] 6-16 [place] ity of Supply Kit 00:00: - Dispense [place] 00 # 1 Medical Rafat Branch Respironic s (okay for alternativ e brand) for nebulizer treatment Miscellaneo Yes [id number] [facility] it[facility] Supply Kit 00:00: - Dispense [place] 00 # 1 Medical Rafat Branch Respironic s (okay for alternativ e brand) for nebulizer treatment Miscellaneo Yes [id number] J[facility] [place] Supply Kit 00:00: - Dispense [place] 00 # 1 Medical Rafat Branch Respironic s (okay for alternativ e brand) for nebulizer treatment Miscellaneo Yes [id number] J[facility] [place] [facility] Supply Kit 00:00: - Dispense [place] 00 # 1 Medical Rafat Branch Respironic s (okay for alternativ e brand) for nebulizer treatment Miscellaneo 2020-0 Yes [id number] J40: [facility] -16 [place] ity of Supply Kit 00:00: - Dispense [place] 00 # 1 Medical Rafat Branch Respironic s (okay for alternativ e brand) for nebulizer treatment Miscellaneo 2020-0 Yes [id number] [facility] it[facility] Supply Kit 00:00: - Dispense [place] 00 # 1 Medical Rafat Branch Respironic s (okay for alternativ e brand) for nebulizer treatment Miscellaneo 2020- Yes [id number] J40: [facility] Brochitis ity of Supply Kit 00:00: - Dispense [place] 00 # 1 Medical Rafat Branch Respironic s (okay for alternativ e brand) for nebulizer treatment Miscellaneo 2020- Yes [id number] J40: [facility] ity of Supply Kit 00:00: - Dispense [place] 00 # 1 Medical Rafat Branch Respironic s (okay for alternativ e brand) for nebulizer treatment Miscellaneo 2020- Yes [id number] J40: [facility] [place] ity of Supply Kit 00:00: - Dispense [place] 00 # 1 Medical Rafat Branch Respironic s (okay for alternativ e brand) for nebulizer treatment Miscellaneo 2020-0 Yes [id number] J40: [facility] 05-05 [place] ity of Supply Kit 00:00: - Dispense [place] 00 # 1 Medical Rafat Branch Respironic s (okay for alternativ e brand) for nebulizer treatment Miscellaneo 2020- Yes [id number] J40: [facility] 16 Bro[place]itis ity of Supply Kit 00:00: - Dispense [place] 00 # 1 Medical Rafat Branch Respironic s (okay for alternativ e brand) for nebulizer treatment nicotine 21 2020-0 Yes [id number] 1{patch Apply 1 [facility] mg/24 hr 1-09 } Patch to ity of patch 00:00: area(s) [place] 00 every 24 Medical ([facility] Branch ur) hours. Apply 21mg patch qDay x 6wks; then apply 14mg pacth qDay x 2wks; then apply 7mg patch qDay x 2 wks. Stop cigarette on set quit date. nicotine 14 2020-0 Yes [id number] 1{patch Apply 1 [facility] mg/24 hr 1-09 } Patch to ity of patch 00:00: area(s) [place] 00 every 24 Medical ([facility] Branch ur) hours. Apply 21mg patch qDay x 6wks; then apply 14mg pacth qDay x 2wks; then apply 7mg patch qDay x 2 wks. Stop cigarette on set quit date. nicotine 7 2019-0 Yes [id number] 1{patch Apply 1 [facility] mg/24 hr 1-09 } Patch to ity of patch 00:00: area(s) [place] 00 every 24 Medical ([facility] Branch ur) hours. Apply 21mg patch qDay x 6wks; then apply 14mg pacth qDay x 2wks; then apply 7mg patch qDay x 2 wks. Stop cigarette on set quit date. nicotine 21 2019-0 Yes [id number] 1{patch Apply 1 [facility] mg/24 hr 1-09 } Patch to ity of patch 00:00: area(s) [place] 00 every 24 Medical ([facility] Branch ur) hours. Apply 21mg patch qDay x 6wks; then apply 14mg pacth qDay x 2wks; then apply 7mg patch qDay x 2 wks. Stop cigarette on set quit date. nicotine 14 2019-0 Yes [id number] 1{patch Apply 1 [facility] mg/24 hr 1-09 } Patch to ity of patch 00:00: area(s) [place] 00 every 24 Medical ([facility] Branch ur) hours. Apply 21mg patch qDay x 6wks; then apply 14mg pacth qDay x 2wks; then apply 7mg patch qDay x 2 wks. Stop cigarette on set quit date. nicotine 7 2019-0 Yes [id number] 1{patch Apply 1 [facility] mg/24 hr 1-09 } Patch to ity of patch 00:00: area(s) [place] 00 every 24 Medical ([facility] Branch ur) hours. Apply 21mg patch qDay x 6wks; then apply 14mg pacth qDay x 2wks; then apply 7mg patch qDay x 2 wks. Stop cigarette on set quit date. nicotine 21 2020-0 Yes [id number] 1{patch Apply 1 [facility] mg/24 hr 1-09 } Patch to ity of patch 00:00: area(s) [place] 00 every 24 Medical ([facility] Branch ur) hours. Apply 21mg patch qDay x 6wks; then apply 14mg pacth qDay x 2wks; then apply 7mg patch qDay x 2 wks. Stop cigarette on set quit date. nicotine 14 2019-0 Yes [id number] 1{patch Apply 1 [facility] mg/24 hr 1-09 } Patch to ity of patch 00:00: area(s) [place] 00 every 24 Medical ([facility] Branch ur) hours. Apply 21mg patch qDay x 6wks; then apply 14mg pacth qDay x 2wks; then apply 7mg patch qDay x 2 wks. Stop cigarette on set quit date. nicotine 7 2019-0 Yes [id number] 1{patch Apply 1 [facility] mg/24 hr 1-09 } Patch to ity of patch 00:00: area(s) [place] 00 every 24 Medical ([facility] Branch ur) hours. Apply 21mg patch qDay x 6wks; then apply 14mg pacth qDay x 2wks; then apply 7mg patch qDay x 2 wks. Stop cigarette on set quit date. nicotine 21 2019-0 Yes [id number] 1{patch Apply 1 [facility] mg/24 hr 1-09 } Patch to ity of patch 00:00: area(s) [place] 00 every 24 Medical ([facility] Branch ur) hours. Apply 21mg patch qDay x 6wks; then apply 14mg pacth qDay x 2wks; then apply 7mg patch qDay x 2 wks. Stop cigarette on set quit date. nicotine 14 2019-0 Yes [id number] 1{patch Apply 1 [facility] mg/24 hr 1-09 } Patch to ity of patch 00:00: area(s) [place] 00 every 24 Medical ([facility] Branch ur) hours. Apply 21mg patch qDay x 6wks; then apply 14mg pacth qDay x 2wks; then apply 7mg patch qDay x 2 wks. Stop cigarette on set quit date. nicotine 7 2020-0 Yes [id number] 1{patch Apply 1 [facility] mg/24 hr 1-09 } Patch to ity of patch 00:00: area(s) [place] 00 every 24 Medical ([facility] ur) hours. Apply 21mg patch qDay x 6wks; then apply 14mg pacth qDay x 2wks; then apply 7mg patch qDay x 2 wks. Stop cigarette on set quit date. nicotine 21 2020-0 Yes [id number] 1{patch Apply 1 [facility] mg/24 hr 1-09 } Patch to ity of patch 00:00: area(s) [place] 00 every 24 Medical ([facility] ur) hours. Apply 21mg patch qDay x 6wks; then apply 14mg pacth qDay x 2wks; then apply 7mg patch qDay x 2 wks. Stop cigarette on set quit date. nicotine 14 2019-0 Yes [id number] 1{patch Apply 1 [facility] mg/24 hr 1-09 } Patch to ity of patch 00:00: area(s) [place] 00 every 24 Medical ([facility] ur) hours. Apply 21mg patch qDay x 6wks; then apply 14mg pacth qDay x 2wks; then apply 7mg patch qDay x 2 wks. Stop cigarette on set quit date. nicotine 7 2020-0 Yes [id number] 1{patch Apply 1 [facility] mg/24 hr 1-09 } Patch to ity of patch 00:00: area(s) [place] 00 every 24 Medical ([facility] ur) hours. Apply 21mg patch qDay x 6wks; then apply 14mg pacth qDay x 2wks; then apply 7mg patch qDay x 2 wks. Stop cigarette on set quit date. nicotine 21 2020-0 Yes [id number] 1{patch Apply 1 [facility] mg/24 hr 1-09 } Patch to ity of patch 00:00: area(s) [place] 00 every 24 Medical ([facility] ur) hours. Apply 21mg patch qDay x 6wks; then apply 14mg pacth qDay x 2wks; then apply 7mg patch qDay x 2 wks. Stop cigarette on set quit date. nicotine 14 2020-0 Yes [id number] 1{patch Apply 1 [facility] mg/24 hr 1-09 } Patch to ity of patch 00:00: area(s) [place] 00 every 24 Medical ([facility] ur) hours. Apply 21mg patch qDay x 6wks; then apply 14mg pacth qDay x 2wks; then apply 7mg patch qDay x 2 wks. Stop cigarette on set quit date. nicotine 7 2020-0 Yes [id number] 1{patch Apply 1 [facility] mg/24 hr 1-09 } Patch to ity of patch 00:00: area(s) [place] 00 every 24 Medical ([facility]) hours. Apply 21mg patch qDay x 6wks; then apply 14mg pacth qDay x 2wks; then apply 7mg patch qDay x 2 wks. Stop cigarette on set quit date. nicotine 21 2020-0 Yes [id number] 1{patch Apply 1 [facility] mg/24 hr 1-09 } Patch to ity of patch 00:00: area(s) [place] 00 every 24 Medical ([facility]) hours. Apply 21mg patch qDay x 6wks; then apply 14mg pacth qDay x 2wks; then apply 7mg patch qDay x 2 wks. Stop cigarette on set quit date. nicotine 14 2019-0 Yes [id number] 1{patch Apply 1 [facility] mg/24 hr 1-09 } Patch to ity of patch 00:00: area(s) [place] 00 every 24 Medical ([facility]) hours. Apply 21mg patch qDay x 6wks; then apply 14mg pacth qDay x 2wks; then apply 7mg patch qDay x 2 wks. Stop cigarette on set quit date. nicotine 7 2020-0 Yes [id number] 1{patch Apply 1 [facility] mg/24 hr 1-09 } Patch to ity of patch 00:00: area(s) [place] 00 every 24 Medical ([facility] ur) hours. Apply 21mg patch qDay x 6wks; then apply 14mg pacth qDay x 2wks; then apply 7mg patch qDay x 2 wks. Stop cigarette on set quit date. nicotine 21 2020-0 Yes [id number] 1{patch Apply 1 [facility] mg/24 hr 1-09 } Patch to ity of patch 00:00: area(s) [place] 00 every 24 Medical ([facility] Branch ur) hours. Apply 21mg patch qDay x 6wks; then apply 14mg pacth qDay x 2wks; then apply 7mg patch qDay x 2 wks. Stop cigarette on set quit date. nicotine 14 2019-0 Yes [id number] 1{patch Apply 1 [facility] mg/24 hr 1-09 } Patch to ity of patch 00:00: area(s) [place] 00 every 24 Medical ([facility] Branch ur) hours. Apply 21mg patch qDay x 6wks; then apply 14mg pacth qDay x 2wks; then apply 7mg patch qDay x 2 wks. Stop cigarette on set quit date. nicotine 7 2019-0 Yes [id number] 1{patch Apply 1 [facility] mg/24 hr 1-09 } Patch to ity of patch 00:00: area() [place] 00 every 24 Medical ([facility] Branch ur) hours. Apply 21mg patch qDay x 6wks; then apply 14mg pacth qDay x 2wks; then apply 7mg patch qDay x 2 wks. Stop cigarette on set quit date. nicotine 21 2019-0 Yes [id number] 1{patch Apply 1 [facility] mg/24 hr 1-09 } Patch to ity of patch 00:00: area(s) [place] 00 every 24 Medical ([facility] Branch ur) hours. Apply 21mg patch qDay x 6wks; then apply 14mg pacth qDay x 2wks; then apply 7mg patch qDay x 2 wks. Stop cigarette on set quit date. nicotine 14 2019-0 Yes [id number] 1{patch Apply 1 [facility] mg/24 hr 1-09 } Patch to ity of patch 00:00: area(s) [place] 00 every 24 Medical ([facility] Branch ur) hours. Apply 21mg patch qDay x 6wks; then apply 14mg pacth qDay x 2wks; then apply 7mg patch qDay x 2 wks. Stop cigarette on set quit date. nicotine 7 2019-0 Yes [id number] 1{patch Apply 1 [facility] mg/24 hr 1-09 } Patch to ity of patch 00:00: area(s) [place] 00 every 24 Medical ([facility] Branch ur) hours. Apply 21mg patch qDay x 6wks; then apply 14mg pacth qDay x 2wks; then apply 7mg patch qDay x 2 wks. Stop cigarette on set quit date. nicotine 21 2019-0 Yes [id number] 1{patch Apply 1 [facility] mg/24 hr 1-09 } Patch to ity of patch 00:00: area(s) [place] 00 every 24 Medical ([facility] Branch ur) hours. Apply 21mg patch qDay x 6wks; then apply 14mg pacth qDay x 2wks; then apply 7mg patch qDay x 2 wks. Stop cigarette on set quit date. nicotine 14 2019-0 Yes [id number] 1{patch Apply 1 [facility] mg/24 hr 1-09 } Patch to ity of patch 00:00: area() [place] 00 every 24 Medical ([facility] ur) hours. Apply 21mg patch qDay x 6wks; then apply 14mg pacth qDay x 2wks; then apply 7mg patch qDay x 2 wks. Stop cigarette on set quit date. nicotine 7 2019- Yes [id number] 1{patch Apply 1 [facility] mg/24 hr 1-09 } Patch to ity of patch 00:00: area() [place] 00 every 24 Medical ([facility] ur) hours. Apply 21mg patch qDay x 6wks; then apply 14mg pacth qDay x 2wks; then apply 7mg patch qDay x 2 wks. Stop cigarette on set quit date. nicotine 21 2019- Yes [id number] 1{patch Apply 1 [facility] mg/24 hr 1-09 } Patch to ity of patch 00:00: area(s) [place] 00 every 24 Medical ([facility] ur) hours. Apply 21mg patch qDay x 6wks; then apply 14mg pacth qDay x 2wks; then apply 7mg patch qDay x 2 wks. Stop cigarette on set quit date. nicotine 14 2019- Yes [id number] 1{patch Apply 1 [facility] mg/24 hr 1-09 } Patch to ity of patch 00:00: area() [place] 00 every 24 Medical ([facility] ur) hours. Apply 21mg patch qDay x 6wks; then apply 14mg pacth qDay x 2wks; then apply 7mg patch qDay x 2 wks. Stop cigarette on set quit date. nicotine 7 2020-0 Yes [id number] 1{patch Apply 1 [facility] mg/24 hr 1-09 } Patch to ity of patch 00:00: area(s) [place] 00 every 24 Medical ([facility] ur) hours. Apply 21mg patch qDay x 6wks; then apply 14mg pacth qDay x 2wks; then apply 7mg patch qDay x 2 wks. Stop cigarette on set quit date. nicotine 21 2019-0 Yes [id number] 1{patch Apply 1 [facility] mg/24 hr 1-09 } Patch to ity of patch 00:00: area(s) [place] 00 every 24 Medical ([facility] ur) hours. Apply 21mg patch qDay x 6wks; then apply 14mg pacth qDay x 2wks; then apply 7mg patch qDay x 2 wks. Stop cigarette on set quit date. nicotine 14 2019-0 Yes [id number] 1{patch Apply 1 [facility] mg/24 hr 1-09 } Patch to ity of patch 00:00: area(s) [place] 00 every 24 Medical ([facility] ur) hours. Apply 21mg patch qDay x 6wks; then apply 14mg pacth qDay x 2wks; then apply 7mg patch qDay x 2 wks. Stop cigarette on set quit date. nicotine 7 2019-0 Yes [id number] 1{patch Apply 1 [facility] mg/24 hr 1-09 } Patch to ity of patch 00:00: area(s) [place] 00 every 24 Medical ([facility] ur) hours. Apply 21mg patch qDay x 6wks; then apply 14mg pacth qDay x 2wks; then apply 7mg patch qDay x 2 wks. Stop cigarette on set quit date. nicotine 21 2020-0 Yes [id number] 1{patch Apply 1 [facility] mg/24 hr 1-09 } Patch to ity of patch 00:00: area(s) [place] 00 every 24 Medical ([facility] ur) hours. Apply 21mg patch qDay x 6wks; then apply 14mg pacth qDay x 2wks; then apply 7mg patch qDay x 2 wks. Stop cigarette on set quit date. nicotine 14 2019-0 Yes [id number] 1{patch Apply 1 [facility] mg/24 hr 1-09 } Patch to ity of patch 00:00: area(s) [place] 00 every 24 Medical ([facility] ur) hours. Apply 21mg patch qDay x 6wks; then apply 14mg pacth qDay x 2wks; then apply 7mg patch qDay x 2 wks. Stop cigarette on set quit date. nicotine 7 2019-0 Yes [id number] 1{patch Apply 1 [facility] mg/24 hr 1-09 } Patch to ity of patch 00:00: area(s) [place] 00 every 24 Medical ([facility] ur) hours. Apply 21mg patch qDay x 6wks; then apply 14mg pacth qDay x 2wks; then apply 7mg patch qDay x 2 wks. Stop cigarette on set quit date. nicotine 21 2019- Yes [id number] 1{patch Apply 1 [facility] mg/24 hr 1-09 } Patch to ity of patch 00:00: area(s) [place] 00 every 24 Medical ([facility] ur) hours. Apply 21mg patch qDay x 6wks; then apply 14mg pacth qDay x 2wks; then apply 7mg patch qDay x 2 wks. Stop cigarette on set quit date. nicotine 14 2019- Yes [id number] 1{patch Apply 1 [facility] mg/24 hr 1-09 } Patch to ity of patch 00:00: area(s) [place] 00 every 24 Medical ([facility] ur) hours. Apply 21mg patch qDay x 6wks; then apply 14mg pacth qDay x 2wks; then apply 7mg patch qDay x 2 wks. Stop cigarette on set quit date. nicotine 7 2019-0 Yes [id number] 1{patch Apply 1 [facility] mg/24 hr 1-09 } Patch to ity of patch 00:00: area(s) [place] 00 every 24 Medical ([facility] ur) hours. Apply 21mg patch qDay x 6wks; then apply 14mg pacth qDay x 2wks; then apply 7mg patch qDay x 2 wks. Stop cigarette on set quit date. ALPRAZolam 2019-0 Yes .5mg [id number] Take 0.[address] [facility] (XANAX) 0.5 6-19 [id number] mg by L ukes MG tablet 14:19: 3D mouth 3 Medic al 26 (three) Center times daily. esomeprazol Yes Take by [facility] magnesium 6-19 [facility] (NEXIUM 14:16: Medical ORAL) 20 Center HYDROcodone Yes 1{tbl} QD Take [address] -acetaminop 6-17 tablet by Vitaliy annalisa hen (NORCO 00:00: mouth Medica l 10-325) 00 every Center 10-325 mg morning . per tablet lisinopril Yes 20mg QD Take [address] (PRINIVIL,Z 6-17 by mouth [facility] ESTRIL) 20 00:00: daily . Medi juan josé MG tablet 00 Center pantoprazol Yes TK [address] [facility] e 6-16 ONCE D [facility] (PROTONIX) 00:00: Medical 40 MG 00 Center tablet morphine Yes 30mg QD Take [address] [facility] (MSIR) 30 5-22 by mouth [facility] MG tablet 00:00: every Medical 00 morning . Felch Amitiza Amitiza Yes Na Silva 1 capsule Common 3-05 with food [facility] 00:00: - [facility] 00 [facility] morpHINE 2016-11 Yes 15mg Take 1 Univers E.R. 15 mg 0-30 tablet by ity of SR tablet 00:00: mouth [place] 00 every 12 Medical (twelve) Branch hours. morpHINE 2016-11 Yes 15mg Take 1 Univers E.R. 15 mg 0-30 tablet by ity of SR tablet 00:00: mouth [place] 00 every 12 Medical (twelve) Branch hours. morpHINE 2016-11 Yes 15mg Take 1 Univers E.R. 15 mg 0-30 tablet by ity of SR tablet 00:00: mouth [place] 00 every 12 Medical (twelve) Branch hours. morpHINE 2016-11 Yes 15mg Take 1 [facility] E.R. 15 mg 0-30 tablet by ity of SR tablet 00:00: mouth [place] 00 every 12 Medical (twelve) Branch hours. morpHINE 2016-11 Yes 15mg Take 1 Univers E.R. 15 mg 0-30 tablet by ity of SR tablet 00:00: mouth [place] 00 every 12 Medical (twelve) Branch hours. morpHINE 2016-11 Yes 15mg Take 1 [facility] E.R. 15 mg 0-30 tablet by ity of SR tablet 00:00: mouth [place] 00 every 12 Medical (twelve) Branch hours. morpHINE 2016- Yes 15mg Take 1 [facility] E.R. 15 mg 0-30 tablet by ity of SR tablet 00:00: mouth [place] 00 every 12 Medical (twelve) Branch hours. morpHINE 2016- Yes 15mg Take 1 Univers E.R. 15 mg 0-30 tablet by ity of SR tablet 00:00: mouth [place] 00 every 12 Medical (twelve) Branch hours. morpHINE 2016- Yes 15mg Take 1 Univers E.R. 15 mg 0-30 tablet by ity of SR tablet 00:00: mouth [place] 00 every 12 Medical (twelve) Branch hours. morpHINE 2016- Yes 15mg Take 1 Univers E.R. 15 mg 0-30 tablet by ity of SR tablet 00:00: mouth [place] 00 every 12 Medical (twelve) Branch hours. morpHINE 2016-11 Yes 15mg Take 1 Univers E.R. 15 mg 0-30 tablet by ity of SR tablet 00:00: mouth [place] 00 every 12 Medical (twelve) Branch hours. morpHINE 2016-11 Yes 15mg Take 1 Univers E.R. 15 mg 0-30 tablet by ity of SR tablet 00:00: mouth [place] 00 every 12 Medical (twelve) Branch hours. morpHINE 2016-11 Yes 15mg Take 1 [facility] E.R. 15 mg 0-30 tablet by ity of SR tablet 00:00: mouth [place] 00 every 12 Medical (twelve) Branch hours. morpHINE 2016-11 Yes 15mg Take 1 [facility] E.R. 15 mg 0-30 tablet by ity of SR tablet 00:00: mouth [place] 00 every 12 Medical (twelve) Branch hours. HYDROcodone 2016-11 Yes Univer s -acetaminop 0-11 ity of hen 10-325 00:00: [place] mg tablet 00 Medical Branch HYDROcodone 2016-11 Yes Univer s -acetaminop 0-11 ity of hen 10-325 00:00: [place] mg tablet 00 Medical Branch HYDROcodone 2016- Yes Univer s -acetaminop 0-11 ity of hen 10-325 00:00: [place] mg tablet 00 Medical Branch HYDROcodone 2016- Yes Univer s -acetaminop 0-11 ity of hen 10-325 00:00: [place] mg tablet 00 Medical Branch HYDROcodone 2016- Yes Univer s -acetaminop 0-11 ity of hen 10-325 00:00: [place] mg tablet 00 [facility] HYDROcodone 2016- Yes Univer s -acetaminop 0-11 ity of hen 10-325 00:00: [place] mg tablet 00 [facility] HYDROcodone 2016-11 Yes Univer s -acetaminop 0-11 ity of hen 10-325 00:00: [place] mg tablet 00 [facility] HYDROcodone 2016-11 Yes Univer s -acetaminop 0-11 ity of hen 10-325 00:00: [place] mg tablet [facility] HYDROcodone 2016-11 Yes Univer s -acetaminop 0-11 ity of hen 10-325 00:00: [place] mg tablet 00 [facility] HYDROcodone 2016-11 Yes Univer s -acetaminop 0-11 ity of hen 10-325 00:00: [place] mg tablet [facility] HYDROcodone 2016-11 Yes Univer s -acetaminop 0-11 ity of hen 10-325 00:00: [place] mg tablet [facility] HYDROcodone 2016-11 Yes Univer s -acetaminop 0-11 ity of hen 10-325 00:00: [place] mg tablet [facility] HYDROcodone 2016-11 Yes Univer s -acetaminop 0-11 ity of hen 10-325 00:00: [place] mg tablet 00 [facility] HYDROcodone 2016-11 Yes Univer s -acetaminop 0-11 ity of hen 10-325 00:00: [place] mg tablet [facility] methocarbam Yes 500mg Take 1 Uni vers ol 500 mg 3-21 tablet by ity o f tablet 00:00: mouth 4 () Medical times Branch daily. methocarbam 2016-0 Yes 500mg Take 1 Uni vers ol 500 mg 3-21 tablet by ity o f tablet 00:00: mouth 4 () Medical times Branch daily. methocarbam 2016-0 Yes 500mg Take 1 Uni vers ol 500 mg 3-21 tablet by ity o f tablet 00:00: mouth 4 () Medical times Branch daily. methocarbam 2017-0 Yes 500mg Take 1 Uni vers ol 500 mg 3-21 tablet by ity o f tablet 00:00: mouth 4 () Medical times Branch daily. methocarbam 2016-0 Yes 500mg Take 1 Uni vers ol 500 mg 3-21 tablet by ity o f tablet 00:00: mouth ([facility]) Medical times Branch daily. methocarbam 2017-0 Yes 500mg Take 1 Uni vers ol 500 mg 3-21 tablet by ity o f tablet 00:00: mouth ([facility]) Medical times Branch daily. methocarbam 2017-0 Yes 500mg Take 1 Uni vers ol 500 mg 3-21 tablet by ity o f tablet 00:00: mouth ([facility]) Medical times Branch daily. methocarbam 2016-0 Yes 500mg Take 1 Uni vers ol 500 mg 3-21 tablet by ity o f tablet 00:00: mouth ([facility]) Medical times Branch daily. methocarbam 2016-0 Yes 500mg Take 1 Uni vers ol 500 mg 3-21 tablet by ity o f tablet 00:00: mouth ([facility]) Medical times Branch daily. methocarbam 2016-0 Yes 500mg Take 1 Uni vers ol 500 mg 3-21 tablet by ity o f tablet 00:00: mouth ([facility]) Medical times Branch daily. methocarbam 2016-0 Yes 500mg Take 1 Uni vers ol 500 mg 3-21 tablet by ity o f tablet 00:00: mouth ([facility]) Medical times Branch daily. methocarbam 2016-0 Yes 500mg Take 1 Uni vers ol 500 mg 3-21 tablet by ity o f tablet 00:00: mouth ([facility]) Medical times Branch daily. methocarbam 2016-0 Yes 500mg Take 1 Uni vers ol 500 mg 3-21 tablet by ity o f tablet 00:00: mouth ([facility]) Medical times Branch daily. methocarbam 2016-0 Yes 500mg Take 1 Uni vers ol 500 mg 3-21 tablet by ity o f tablet 00:00: mouth ([facility]) Medical times Branch daily. methocarbam 2016-0 Yes 500mg Take [address] ol 3-21 mg by [facility] (ROBAXIN) 00:00: mouth as Medi juan josé 500 MG 00 needed . Center tablet promethazin Yes TK [address] [facility] e 8-19 Q 6 H PRN [facility] (PHENERGAN) 00:00: Medica l 25 MG 00 Center tablet albuterol Yes INHALE [address] [facility] HFA (PROAIR 1-16 PUFFS 4 [facility] HFA) 90 00:00: TIMES A Medical mcg/actuati 00 DAY Center on inhaler arformotero 2014 Yes [address] [facility] (BROVANA) 2-19 [facility] 15 mcg/2 mL 00:00: Medica l nebulizer 00 Center solution Protonix Protonix Yes Na Silva 1 tablet Common [facility] Protonix Protonix Yes Na Silva 1 TAB(S) Common ONCE A DAY [facility] OR[facility] Alprazolam Alprazolam Yes Na Silva 1 tablet Common [facility] Fluoxetine Fluoxetine Yes Na Silva 1 EACH Common HCl HCl ONCE A DAY [facility] ORALLY [facility] [place] Yes Na Silva 1 tablet Common as needed [facility] Lyrica Lyrica Yes Na Silva 1 capsule Com [facility] Depakote Depakote Yes Na Silva as Comm on directed [facility] Flonase Flonase Yes Na Islva 1 spray in Common each [facility] nostril [facility] Keflex Keflex Yes Na Silva 1 capsule Com [facility] Symbicort Symbicort Yes Na Silva 2 puffs [facility] Azithromyci Azithromyci Yes Na Silva 2 tablets Common n n on [facility] first day, - [facility] daily for Medical 4 days Center Prozac Prozac Yes Na Silva 1 capsule Com [facility] ProAir HFA ProAir HFA Yes Na Silva INHALE 2 Common PUFFS 4 Spirit TIMES A - CHI DAY [facility] Lisinopril Lisinopril Yes Na Silva 1 tablet Common [facility] Brovana Brovana Yes Na Silva 2 ml Common [facility] Immunizations Ordered Filled Immunization Date Status Comments Sour e Immunization Name Name SARS-COV-2 COVID-19 2021-02-26 Completed Unive rsity of PFIZER VACCINE 00:00:00 [facility] SARS-COV-2 COVID-19 2021-02-26 Completed Unive rsity of PFIZER VACCINE 00:00:00 [facility] SARS-COV-2 COVID-19 2021-02-26 Completed Unive rsity of PFIZER VACCINE 00:00:00 [facility] SARS-COV-2 COVID-19 2021-02-26 Completed Unive rsity of PFIZER VACCINE 00:00:00 [facility] SARS-COV-2 COVID-19 2021-02-26 Completed Unive rsity of PFIZER VACCINE 00:00:00 [facility] SARS-COV-2 COVID-19 2021-02-26 Completed Unive rsity of PFIZER VACCINE 00:00:00 [facility] SARS-COV-2 COVID-19 2021-02-26 Completed Unive rsity of PFIZER VACCINE 00:00:00 [facility] SARS-COV-2 COVID-19 2021-02-26 Completed Unive rsity of PFIZER VACCINE 00:00:00 [facility] SARS-COV-2 COVID-19 2021-02-26 Completed Unive rsity of PFIZER VACCINE 00:00:00 [facility] SARS-COV-2 COVID-19 2021-02-26 Completed Unive rsity of PFIZER VACCINE 00:00:00 [facility] SARS-COV-2 COVID-19 2021-02-26 Completed Unive rsity of PFIZER VACCINE 00:00:00 [facility] SARS-COV-2 COVID-19 2021-02-26 Completed Unive rsity of PFIZER VACCINE 00:00:00 [facility] SARS-COV-2 COVID-19 2021-02-26 Completed Unive rsity of PFIZER VACCINE 00:00:00 [facility] SARS-COV-2 COVID-19 2021-02-26 Completed Unive rsity of PFIZER VACCINE 00:00:00 [facility] SARS-COV-2 COVID-19 2021-02-05 Completed Unive rsity of PFIZER VACCINE 00:00:00 [facility] SARS-COV-2 COVID-19 2021-02-05 Completed Unive rsity of PFIZER VACCINE 00:00:00 [facility] SARS-COV-2 COVID-19 2021-02-05 Completed Unive rsity of PFIZER VACCINE 00:00:00 [facility] SARS-COV-2 COVID-19 2021-02-05 Completed Unive rsity of PFIZER VACCINE 00:00:00 [facility] SARS-COV-2 COVID-19 2021-02-05 Completed Unive rsity of PFIZER VACCINE 00:00:00 [facility] SARS-COV-2 COVID-19 2021-02-05 Completed Unive rsity of PFIZER VACCINE 00:00:00 [facility] SARS-COV-2 COVID-19 2021-02-05 Completed Unive rsity of PFIZER VACCINE 00:00:00 [facility] SARS-COV-2 COVID-19 2021-02-05 Completed Unive rsity of PFIZER VACCINE 00:00:00 [facility] SARS-COV-2 COVID-19 2021-02-05 Completed Unive rsity of PFIZER VACCINE 00:00:00 [facility] SARS-COV-2 COVID-19 2021-02-05 Completed Unive rsity of PFIZER VACCINE 00:00:00 [facility] SARS-COV-2 COVID-19 2021-02-05 Completed Unive rsity of PFIZER VACCINE 00:00:00 [facility] SARS-COV-2 COVID-19 2021-02-05 Completed Unive rsity of PFIZER VACCINE 00:00:00 [facility] SARS-COV-2 COVID-19 2021-02-05 Completed Unive rsity of PFIZER VACCINE 00:00:00 [facility] SARS-COV-2 COVID-19 2021-02-05 Completed Unive rsity of PFIZER VACCINE 00:00:00 [facility] Influenza Virus 2019-12-20 Completed Universit y of Vaccine Quad .5 mL 00:00:00 [place] [facility] IM 6+ MO Branch Influenza Virus 2019-12-20 Completed Universit y of Vaccine Quad .5 mL 00:00:00 [place] [facility] IM 6+ MO Branch Influenza Virus 2019-12-20 Completed Universit y of Vaccine Quad .5 mL 00:00:00 [place] [facility] IM 6+ MO Branch Influenza Virus 2019-12-20 Completed Universit y of Vaccine Quad .5 mL 00:00:00 [place] [facility] IM 6+ MO Branch Influenza Virus 2019-12-20 Completed Universit y of Vaccine Quad .5 mL 00:00:00 [place] [facility] IM 6+ MO Branch Influenza Virus 2019-12-20 Completed Universit y of Vaccine Quad .5 mL 00:00:00 [place] [facility] IM 6+ MO Branch Influenza Virus 2019-12-20 Completed Universit y of Vaccine Quad .5 mL 00:00:00 [place] [facility] IM 6+ MO Branch Influenza Virus 2019-12-20 Completed Universit y of Vaccine Quad .5 mL 00:00:00 [place] [facility] IM 6+ MO Branch Influenza Virus 2019-12-20 Completed Universit y of Vaccine Quad .5 mL 00:00:00 [place] [facility] IM 6+ MO Branch Influenza Virus 2019-12-20 Completed Universit y of Vaccine Quad .5 mL 00:00:00 [place] [facility] IM 6+ MO Branch Influenza Virus 2019-12-20 Completed Universit y of Vaccine Quad .5 mL 00:00:00 [place] [facility] IM 6+ MO Branch Influenza Virus 2019-12-20 Completed Universit y of Vaccine Quad .5 mL 00:00:00 [place] [facility] IM 6+ MO Branch Influenza Virus 2019-12-20 Completed Universit y of Vaccine Quad .5 mL 00:00:00 [place] [facility] IM 6+ MO Branch Influenza Virus 2019-12-20 Completed Universit y of Vaccine Quad .5 mL 00:00:00 [place] [facility] 6+ MO Branch HEP B, Adult Dosage 2019-07-31 Completed Unive rsity of 00:00:00 [facility] TDAP 2019-07-31 Completed University of 00:00:00 [facility] Pneumococcal 2019-07-31 Completed University o f Polysaccharide, 00:00:00 [place] Med ical PPSV23 (PNEUMOVAX) Branch HEP B, Adult Dosage 2019-07-31 Completed Unive rsity of 00:00:00 [facility] TDAP 2019-07-31 Completed University of 00:00:00 [facility] Pneumococcal 2019-07-31 Completed University o f Polysaccharide, 00:00:00 [place] Med ical PPSV23 (PNEUMOVAX) Branch HEP B, Adult Dosage 2019-07-31 Completed Unive rsity of 00:00:00 [facility] TDAP 2019-07-31 Completed University of 00:00:00 [facility] Pneumococcal 2019-07-31 Completed University o f Polysaccharide, 00:00:00 [place] Med ical PPSV23 (PNEUMOVAX) Branch HEP B, Adult Dosage 2019-07-31 Completed Unive rsity of 00:00:00 [facility] TDAP 2019-07-31 Completed University of 00:00:00 [facility] Pneumococcal 2019-07-31 Completed University o f Polysaccharide, 00:00:00 [place] Med ical PPSV23 (PNEUMOVAX) Branch HEP B, Adult Dosage 2019-07-31 Completed Unive rsity of 00:00:00 [facility] TDAP 2019-07-31 Completed University of 00:00:00 [facility] Pneumococcal 2019-07-31 Completed University o f Polysaccharide, 00:00:00 [place] Med ical PPSV23 (PNEUMOVAX) Branch HEP B, Adult Dosage 2019-07-31 Completed Unive rsity of 00:00:00 [facility] TDAP 2019-07-31 Completed University of 00:00:00 [facility] Pneumococcal 2019-07-31 Completed University o f Polysaccharide, 00:00:00 [place] Med ical PPSV23 (PNEUMOVAX) Branch HEP B, Adult Dosage 2019-07-31 Completed Unive rsity of 00:00:00 [facility] TDAP 2019-07-31 Completed University of 00:00:00 [facility] Pneumococcal 2019-07-31 Completed University o f Polysaccharide, 00:00:00 [place] Med ical PPSV23 (PNEUMOVAX) Branch HEP B, Adult Dosage 2019-07-31 Completed Unive rsity of 00:00:00 [facility] TDAP 2019-07-31 Completed University of 00:00:00 [facility] Pneumococcal 2019-07-31 Completed University o f Polysaccharide, 00:00:00 [place] Med ical PPSV23 (PNEUMOVAX) Branch HEP B, Adult Dosage 2019-07-31 Completed Unive rsity of 00:00:00 [facility] TDAP 2019-07-31 Completed University of 00:00:00 [facility] Pneumococcal 2019-07-31 Completed University o f Polysaccharide, 00:00:00 [place] Med ical PPSV23 (PNEUMOVAX) Branch HEP B, Adult Dosage 2019-07-31 Completed Unive rsity of 00:00:00 [facility] TDAP 2019-07-31 Completed University of 00:00:00 [facility] Pneumococcal 2019-07-31 Completed University o f Polysaccharide, 00:00:00 [place] Med ical PPSV23 (PNEUMOVAX) Branch HEP B, Adult Dosage 2019-07-31 Completed Unive rsity of 00:00:00 [facility] TDAP 2019-07-31 Completed University of 00:00:00 [facility] Pneumococcal 2019-07-31 Completed University o f Polysaccharide, 00:00:00 [place] Med ical PPSV23 (PNEUMOVAX) Branch HEP B, Adult Dosage 2019-07-31 Completed Unive rsity of 00:00:00 [facility] Branch TDAP 2019-07-31 Completed University of 00:00:00 [facility] Pneumococcal 2019-07-31 Completed University o f Polysaccharide, 00:00:00 [place] Med ical PPSV23 (PNEUMOVAX) Branch HEP B, Adult Dosage 2019-07-31 Completed Unive rsity of 00:00:00 [facility] TDAP 2019-07-31 Completed University of 00:00:00 [facility] Pneumococcal 2019-07-31 Completed University o f Polysaccharide, 00:00:00 [place] Med ical PPSV23 (PNEUMOVAX) Branch HEP B, Adult Dosage 2019-07-31 Completed [facility] [place] [facility] University [facility] 00:00:00 [facility] Pneumococcal 2019-07-31 Completed University o f Polysaccharide, 00:00:00 [place] Med ical PPSV23 (PNEUMOVAX) Branch Vital Signs Vital Name Observation Time Observation Value Comments Source Systolic blood 2022-09-01 18:30:00 130 mm[Hg] Univer sity of pressure [facility] Diastolic blood 2022-09-01 18:30:00 79 mm[Hg] Unive rsity of pressure [facility] Heart rate 2022-09-01 18:30:00 65 /min General acute hospital Body temperature 2022-09-01 18:30:00 36.44 Jodi [facility] 2022-09-01 18:30:00 18 /min [facility] Body height 2022-09-01 18:30:00 165.1 cm General acute hospital Body weight 2022-09-01 18:30:00 50.259 kg General acute hospital BMI 2022-09-01 18:30:00 18.44 kg/m2 General acute hospital Oxygen saturation in 2022-09-01 18:30:00 98 /min [facility] Arterial blood by [facility] Pulse oximetry Branch Procedures Procedure Date / Time Performed Performing Clinician Sourc e DEXA AXIAL (HIP AND 2022-09-14 17:06:20 Erika Bosch [facility] SPINE) [facility] XR LUMBAR SPINE 3 VW 2022-08-16 21:00:05 Erika Bosch [facility] Encounters Start End Encounter Admission Attending Care Care Encounter Source Date/Time Date/Time Type Type Clinicians Facility Department ID 2021-09-20 Emergency [facility] [id number] Univers 04:59:14 yan [facility] 2022-12-20 2022-12-20 [id number] Univers 13:20:00 13:20:00 ERIKA heredia [facility] 2022-11-30 2022-11-30 [facility] [id number] Univers 00:00:00 00:00:00 Erika GARCIA [id number] i [facility] [id number] [facility] [id number] Tn dical NAL [address] [place] [address] 2022-09-14 2022-09-14 Outpatient R [facility] [id number] [id number] Univers 11:45:39 23:59:00 ERIKA heredia [facility] 2022-09-14 2022-09-14 [facility] 1.2.840.114 [id number] Univers 11:30:00 23:59:00 Encounter Erika GARCIA 350.1.13.10 yan [facility] 4.2.7.2.686 [facility] [place] [phone] [address] 2022-09-08 2022-09-08 Outpatient R [facility] [id number] Univers 00:00:00 00:00:00 ERIKA heredia [facility] 2022-09-01 2022-09-01 Outpatient R [facility] 1042 [id number] Univers 13:00:00 14:29:02 ERIKA heredia [facility] 2022-09-01 2022-09-01 [facility] 1.2.840.114 [id number] Univers 13:00:00 14:29:02 Visit Erika TEERYAN 350.1.13.10 i ty [place] [phone] Tn dical NAL 044 [facility] 2022-08-30 2022-08-30 Telemedici [facility] 1.2.840.114 [id number] Univers 13:00:00 13:20:00 ne Visit Erika GARCIA 350.1.13.10 it[place] [id number] Tn dical NAL 044 [facility] 2022-08-30 2022-08-30 Outpatient R [facility] 1042 [id number] Univers 13:00:00 13:00:00 ERIKA yan [facility] 2022-08-23 2022-08-23 Outpatient R [facility] [id number] Univers 13:45:00 13:45:00 NATALIE heredia [facility] 2022-08-18 2022-08-18 Outpatient R [facility] 1041 [id number] Univers 14:00:00 14:00:00 ERIKA alec [facility] 2022-08-18 2022-08-18 [facility] 1.2.840.114 [id number] Univers 00:00:00 00:00:00 Erika TEERYAN 350.1.13.10 i ty [place] [id number] Tn dical NAL 231 [facility] 2022-08-16 2022-08-16 Outpatient R [facility] [id number] [id number] Univers 15:45:44 23:59:00 ERIKA yan [facility] 2022-08-16 2022-08-16 [facility] 1.2.840.114 [id number] Univers 15:45:44 23:59:00 Encounter Erika GARCIA 350.1.13.10 [place] [id number] [facility] [address] 2022-08-16 2022-08-16 Outpatient R [facility] [id number] Univers 14:30:00 15:38:22 NATALIE heredia [facility] 2022-08-16 2022-08-16 Ancillary Ariana Mendosa [facility] 1 .2.840.114 [id number] Univers 14:30:00 15:38:22 Visit Natalie Peacock Sukh GARCIA 350.1.13.10 ity [place] [phone] [facility] 179 [facility] 2022-08-05 2022-08-05 Telephone [facility] 1.2.840.114 [id number] Univers 00:00:00 00:00:00 Erika GARCIA 350.1.13.10 i ty [place] [id number] [facility] 044 [facility] 2022-08-04 2022-08-04 Outpatient R [facility] [id number] Univers 13:00:00 13:00:00 NATALIEANNEL heredia [facility] 2022-08-04 2022-08-04 Outpatient R [facility] [id number] Univers 13:00:00 13:00:00 NATALIE alec [facility] 2022-07-28 2022-07-28 Outpatient R [facility] 1041 [id number] Univers 00:00:00 00:00:00 ERIKA yan [facility] 2022-07-28 2022-07-28 Telephone [facility] 1.2.840.114 [id number] Univers 00:00:00 00:00:00 Erika GARCIA 350.1.13.10 i ty [place] [id number] [facility] 231 [facility] 2022-07-27 2022-07-27 Outpatient R [facility] 1041 [id number] Univers 14:40:00 14:40:00 ERIKA smithalec [facility] 2022-07-27 2022-07-27 [facility] 1041 [id number] Univers 14:40:00 14:40:00 ERIKA heredia [facility] 2022-07-21 2022-07-21 Office [facility] 1.2.840.114 [id number] Univers 16:00:00 17:30:54 Visit Erika GARCIA 350.1.13.10 i ty [place] [id number] Tn dical NAL 044 [facility] 2022-07-21 2022-07-21 Outpatient R [facility] [id number] Univers 16:00:00 17:30:54 ERIKA heredia [facility] 2022-07-21 2022-07-21 Outpatient R [facility] 104 [id number] Univers 16:00:00 16:00:00 ERIKA heredia [facility] 2022-07-21 2022-07-21 Orders Doctor WOOD 1.2.840.114 [id number] Univers 00:00:00 00:00:00 Only Unassigned, DANN 350.1.13.10 ity of [place] [facility] 4.2.7.2.686 Navid [place] [id number] [address] 2022-07-19 2022-07-19 Outpatient R [facility] [id number] [id number] Univers 09:00:00 09:00:00 ERIKA heredia [facility] 2022-07-11 2022-07-11 Refill [facility] 1.2.840.114 [id number] Univers 00:00:00 00:00:00 Erika GARCIA 350.1.13.10 i ty [place] [id number] Tn dical NAL [address] [place] [address] 2022-07-07 2022-07-07 Outpatient R [facility] 1040 [id number] Univers 10:40:00 10:40:00 ERIKA heredia [facility] 2022-06-06 2022-06-17 Outpatient SAMARITAN 2.16.840.1. 483 [id number] 13:00:00 22:00:00 Encounter SARAH [id number] [facility] [id number] 2022-06-06 2022-06-17 Outpatient 3 ISMAEL HOBBS O [id number] 56- Taoism 08:00:00 17:00:00 YOMNA [id number] Hospi leanne celaya ([facility]) 2022-05-25 2022-05-25 Outpatient R [facility] 1040 [id number] Univers 08:20:00 08:20:00 [facility] 2022-04-20 2022-04-20 Office [facility] 1.2.840.114 [id number] Univers 10:40:00 12:03:20 Visit Erika GARCIA 350.1.13.10 i ty [place] [id number] Tn dical NAL 044 [facility] 2022-04-20 2022-04-20 Outpatient R [facility] [id number] [id number] Univers 10:40:00 12:03:20 [facility] 2022-04-20 2022-04-20 Outpatient R [facility] [id number] Univers 10:40:00 10:40:00 [facility] 2022-04-11 2022-04-11 Telephone [facility] 1.2.840.114 [id number] Univers 00:00:00 00:00:00 Erika GARCIA 350.1.13.10 i ty [place] [id number] Tn dical NAL 231 [facility] 2022-04-05 2022-04-05 Outpatient R [facility] 1039 [id number] Univers 09:20:00 09:20:00 [facility] 2022-04-05 2022-04-05 Outpatient R [facility] 1039 [id number] Univers 09:20:00 09:20:00 ERIKA [facility] 2022-03-28 2022-03-28 Outpatient FOG_Monla_Y AOSM AOSM 582 [id number] Maegan 00:00:00 00:00:00 Joey [id number] Orthop e dic Sports Medicin e 2022-03-18 2022-03-18 Telephone Richard [facility] 1.2.840.114 [id number] Univers 00:00:00 00:00:00 CipherApps 350.1.13.10 it y of [place] [id number] [address] ([facility]) 2022-03-17 2022-03-17 Telephone [facility] 1.2.840.114 [id number] Univers 00:00:00 00:00:00 Erika GARCIA 350.1.13.10 i ty of [place] [id number] Tn dical NAL 231 [facility] 2022-03-10 2022-03-10 [facility] 1.2.840.114 [id number] Univers 00:00:00 00:00:00 CipherApps 350.1.13.10 it y of [place] [phone] [address] ([facility]) 2022-03-08 2022-03-08 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 Administrator 2, Adc Lab [facility] 1.2.840.114 [id number] Univers 15:45:00 16:00:00 Visit Erika Bosch 350.1.13.10 ity of [place] [id number] Tn dical NAL 353 [facility] 2022-03-08 2022-03-08 Outpatient R GORAN [facility] [id number] [id number] Univers 15:45:00 15:45:00 ERIKA heredia [facility] 2022-03-08 2022-03-08 Office Goran [facility] 1.2.840.114 [id number] Univers 13:40:00 15:34:28 Visit Erika GARCIA 350.1.13.10 i ty of [place] [id number] Tn dical NAL 044 [facility] 2022-03-08 2022-03-08 Outpatient R GORAN, [facility] 1039 [id number] Univers 13:40:00 15:34:28 ERIKA ity [facility] 2022-03-08 2022-03-08 Outpatient R GORAN, [facility] [id number] [id number] Univers 13:40:00 15:34:28 ERIKA ity [facility] 2022-03-02 2022-03-02 Outpatient R RADIOLOGY [facility] [id number] Univers 14:59:25 23:59:00 ity of [facility] 2022-03-02 2022-03-02 Outpatient R RADIOLOGY [facility] [id number] Univers 14:59:25 23:59:00 ity [facility] 2022-03-02 2022-03-02 Hospital Radiology [facility] 1..840.114 [id number] Univers 14:59:25 23:59:00 Encounter JOSE 350.1.13.10 ity mar[place] [facility] 4.2.7.2.686 [facility] [place] [id number] [facility] [address] 2022-02-16 2022-02-16 Emergency X [facility] [id number] Univers 19:41:00 20:18:00 LUDMILA ity [facility] 2022-02-16 2022-02-16 Emergency X [facility] [id number] Univers 19:41:00 20:18:00 LUDMILA ity [facility] 2022-02-16 2022-02-16 Emergency [facility] 1.2.085.019 [id number] Univers 19:41:00 20:18:00 Ludmila R JOSE 350.1.13.10 i ty of [place] 4.2.7.2.686 [facility] [place] [phone] [facility] [address] 2022-02-09 2022-02-09 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 Administrator 2, Adc Lab [facility] 1.2.840.114 [id number] Univers 10:45:00 11:00:00 Visit Erika Bosch 350.1.13.10 it[place] of [place] [id number] Tn dical NAL 353 [facility] 2022-02-09 2022-02-09 Outpatient R [facility] [id number] [id number] Univers 10:45:00 10:45:00 ERIKA italec [facility] 2022-02-08 2022-02-08 Outpatient R [facility] [id number] [id number] Univers 15:00:00 15:00:00 ERIKA alec [facility] 2022-02-08 2022-02-08 Outpatient R [facility] [id number] Univers 13:15:00 13:15:00 ity [facility] 2022-01-28 2022-01-28 Telephone [facility] 1.2.840.114 [id number] Univers 00:00:00 00:00:00 Erika GARCIA 350.1.13.10 i ty of [place] [id number] Tn dical [facility] 044 [facility] 2021-12-23 2021-12-23 Telephone [facility] 1.2.840.114 [id number] Univers 00:00:00 00:00:00 Erika GARCIA 350.1.13.10 i ty [place] [id number] Tn dical [facility] 044 [facility] 2021-12-23 2021-12-23 Telephone [facility] 1.2.840.114 [id number] Univers 00:00:00 00:00:00 Erika GARCIA 350.1.13.10 i ty [place] [id number] [facility] 044 [facility] 2021-12-23 2021-12-23 Orders Doctor WOOD 1.2.840.114 [id number] Univers 00:00:00 00:00:00 Only Unassigned, DANN 350.1.13.10 ity of [place] [facility] 4.2.7.2.686 [place] [id number] [address] 2021-12-21 2021-12-21 [facility] 1.2.840.114 9 [id number] Univers 00:00:00 00:00:00 Erika GARCIA 350.1.13.10 i ty of [place] [id number] Tn dical NAL 044 [facility] 2021-12-06 2021-12-20 Outpatient 3 ISMAEL HOBBS [facility] [id number] 56- Taoism 08:00:00 08:53:00 YOMNA [id number] Hospi ta l ([facility] nt) 2021-12-15 2021-12-15 Telephone [facility] 1.2.840.114 [id number] Univers 00:00:00 00:00:00 Erika GARCIA 350.1.13.10 i ty of [place] [id number] Tn dical NAL 231 [facility] 2021-12-03 2021-12-03 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 Administrator Bill, Adc Lab Main [facility] 1.2.8 40.114 [id number] Univers 17:00:00 17:15:00 Visit Erika Bsoch 350.1.13.10 ity [facility] [place].2.[place] [id number] Tn dical NAL 353 [facility] 2021-12-03 2021-12-03 Outpatient R GORAN [facility] [id number] [id number] Univers 17:00:00 17:00:00 ERIKA heredia [facility] 2021-12-03 2021-12-03 Office [facility] 1.2.840.114 [id number] Univers 15:20:00 16:40:07 Visit Erika GARCIA 350.1.13.10 i ty [place] [id number] Tn dical NAL 044 [facility] 2021-12-03 2021-12-03 [facility] 1037 [id number] Univers 15:20:00 16:40:07 ERIKA heredia [facility] 2021-12-03 2021-12-03 Outpatient [facility] 1037 [id number] Univers 15:20:00 16:40:07 ERIKA yan [facility] 2021-12-03 2021-12-03 Laboratory Only, Adc Pob2 Test [facility] 1.2 .840.114 [id number] Univers 15:45:00 15:47:10 Only Lee Bruce 350.1.13 .10 ity of [place] [id number] Tn dical NAL 225 [facility] 2021-12-03 2021-12-03 Outpatient [facility] 1037 [id number] Univers 15:20:00 15:20:00 ERIKA heredia [facility] 2021-12-03 2021-12-03 Orders Doctor WOOD 1.2.840.114 [id number] Univers 00:00:00 00:00:00 Only Unassigned, DANN 350.1.13.10 ity of [place] [facility] 4.2.7.2.686 [place] [id number] [address] 2021-10-13 2021-10-13 Orders Doctor NINA 1.2.840.114 [id number] Univers 00:00:00 00:00:00 Only Unassigned, DANN 350.1.13.10 ity of [place] [facility]OSP[facility] 4.2.7.2.686 [place] [id number] [address] 2021-08-26 2021-08-26 Outpatient R GORAN [facility] 1035 [id number] Univers 14:00:00 14:00:00 ERIKA heredia [facility] 2021-08-26 2021-08-26 [facility] 1.2.840.114 [id number] Univers 00:00:00 00:00:00 Erika Garcia 350.1.13.10 i ty of [place] [id number] Tn dical nal 044 [facility] 2021-08-19 2021-08-19 Outpatient [facility] 1033 [id number] Univers 14:40:00 14:40:00 ERIKA heredia [facility] 2021-08-13 2021-08-13 Telephone [facility] 1.2.840.114 [id number] Univers 00:00:00 00:00:00 Erika Garcia 350.1.13.10 i ty of [place] [phone] [address] 2021-08-12 2021-08-12 Outpatient R [facility] [id number] [facility] 10:20:00 10:20:00 ERIKA heredia [facility] 2021-08-10 2021-08-10 Orders Doctor NINA 1.2.840.[id number] [place] [address] 00:00:00 00:00:00 Only Unassigned, DANN 350.1.13.10 ity of [place] [facility] 4.2.7.2.686 [place] [id number] [address] 2021-07-15 2021-07-15 [facility] 1.2.840.114 [id number] Univers 00:00:00 00:00:00 , Lisa L Menjivar 350.1.13.10 ity of [place] [phone] [address] 2021-07-15 2021-07-15 Telephone [facility] 1.2.840.114 [id number] Univers 00:00:00 00:00:00 , Lisa L Menjivar 350.1.13.10 ity of [place]2.[place] [id number] [address] 2021-07-13 2021-07-13 Office [facility] 1.2.840.114 [id number] [facility] 09:25:54 11:28:58 Visit Erika Garcia 350.1.13.10 i ty of [place] 4[place].2.[place] [phone] [address] 2021-07-13 2021-07-13 Outpatient [facility] 1034 [id number] Univers 09:00:00 09:00:00 ERIKA luisalec [facility] 2021-07-13 2021-07-13 Orders Doctor NINA 1.2.840.114 [id number] Univers 00:00:00 00:00:00 Only Unassigned, DANN 350.1.13.10 ity of [place] [facility]OSPITAL 4.2.7.2.686 [place] [id number] [address] 2021-07-13 2021-07-13 Orders Doctor NINA 1.2.840.114 [id number] Univers 00:00:00 00:00:00 Only Unassigned, DANN 350.1.13.10 ity of [place] [facility]OSP[facility] 4.2.7.2.686 [place] [id number] [address] 2021-06-29 2021-06-29 Outpatient R [facility] 1034 [id number] Univers 08:40:00 08:40:00 ERIKA yan [facility] 2021-06-25 2021-06-25 Telephone [facility] 1.2.840.114 [id number] Univers 00:00:00 00:00:00 Erika Garcia 350.1.13.10 i ty of [place] [phone] [address] 2021-06-24 2021-06-24 Outpatient R [facility] 1034 [id number] Univers 13:20:00 13:20:00 ERIKA yan [facility] 2021-06-24 2021-06-24 Refill [facility] 1.2.840.114 [id number] Univers 00:00:00 00:00:00 Erika Garcia 350.1.13.10 i ty of [place] 4[place].2.[place] [phone] [address] 2021-06-09 2021-06-09 Telephone [facility] 1.2.840.114 8 [id number] Univers 00:00:00 00:00:00 Erika Garcia 350.1.13.10 i ty [place].2.[place] [phone] Tn dical nal 044 [facility] 2021-06-07 2021-06-07 [facility] 1.2.840.114 [id number] Univers 00:00:00 00:00:00 Erika Garcia 350.1.13.10 i ty of [place].2.[place] [phone] Tn dical nal 231 [facility] 2021-05-28 2021-05-28 [facility] 1.2.840.114 8 [id number] 00:00:00 00:00:00 Erika Garcia 350.1.13.10 [place] 4.2.7.2.686 Professio [id number] [address] 2021-05-28 2021-05-28 [facility] 1.2.840.114 8 [id number] Univers 00:00:00 00:00:00 Erika Garcia 350.1.13.10 i ty of [place].2.[place] [id number] Tn dical [facility] 044 [facility] 2021-05-25 2021-05-25 [facility] 1.2.840.114 [id number] 16:24:03 23:59:00 Encounter Erika Garcia 350.1.13.10 [place] 4.2.7.2.686 [place] [phone] [facility] 2021-05-25 2021-05-25 [facility] 1.2.840.114 [id number] [facility] 16:24:03 23:59:00 Encounter Erika Garcia 350.1.13.10 ity of [place].2.[place] [phone] [address] 2021-05-25 2021-05-25 Outpatient [facility] 1033 [id number] [facility] 00:00:00 00:00:00 ERIKA heredia of [facility] 2021-05-21 2021-05-21 [facility] 1.2.840.114 [id number] 00:00:00 00:00:00 Erika Garcia 350.1.13.10 [place] 4.2.7.2.686 Professio [id number] [address] 2021-05-21 2021-05-21 [facility] 1.2.840.114 [id number] Univers 00:00:00 00:00:00 Erika Garcia 350.1.13.10 i ty [place] [id number] [address] 2021-05-19 2021-05-19 Emergency [facility] 1.2.902.636 [id number] Univers 11:51:00 13:44:00 Marcellus Garcia 350.1.13.10 i ty of [place] 4[place].2.[place] [id number] [address] 2021-05-19 2021-05-19 Office [facility] 1.2.840.114 [id number] 09:56:31 11:19:54 Visit Erika Garcia 350.1.13.10 [place] 4.2.7.2.686 Professio [id number] [address] 2021-05-19 2021-05-19 Office [facility] 1.2.840.114 [id number] [facility] 09:56:31 11:19:54 Visit Erika Garcia 350.1.13.10 i ty of [place] 4[place].2.[place] [phone] [address] 2021-05-19 2021-05-19 Outpatient [facility] 1033 [id number] Univers 09:40:00 09:40:00 ERIKA heredia of [facility] 2021-05-19 2021-05-19 Orders Doctor NINA 1.2.840.114 [id number] Univers 00:00:00 00:00:00 Only Unassigned, DANN 350.1.13.10 ity of [place] [facility] 4.2.7.2.686 [place] [phone] [address] 2021-05-12 2021-05-12 Telephone [facility] 1.2.840.114 [id number] Univers 00:00:00 00:00:00 Erika Garcia 350.1.13.10 [place] [phone] [address] 2021-05-05 2021-05-05 Telemedici [facility] 1.2.840.114 [id number] Univers 08:19:37 08:53:37 ne Visit Erika Garcia 350.1.13.10 it[place] of [place] [id number] [address] 2021-05-05 2021-05-05 Outpatient R [facility] 1033 [id number] Univers 08:00:00 08:00:00 ERIKA ity [facility] 2021-05-05 2021-05-05 Telephone [facility] 1.2.840.114 [id number] Univers 00:00:00 00:00:00 Erika Garcia 350.1.13.10 i ty of [place] [id number] [address] 2021-05-05 2021-05-05 Orders Doctor NINA 1.2.840.114 [id number] Univers 00:00:00 00:00:00 Only Unassigned, DANN 350.1.13.10 ity of [place] [facility] 4.2.7.2.686 Navid [place] [id number] [address] 2021-05-05 2021-05-05 Telephone [facility] 1.2.840.114 [id number] Univers 00:00:00 00:00:00 Erika Garcia 350.1.13.10 i [place] [phone] [address] 2021-05-05 2021-05-05 Telephone [facility] 1.2.840.114 [id number] Univers 00:00:00 00:00:00 Erika Garcia 350.1.13.10 [place] 4[place] [phone] [address] 2021-05-04 2021-05-04 Refill [facility] 1.2.840.114 [id number] Univers 00:00:00 00:00:00 Erika Garcia 350.1.13.10 [place] 4[place] [phone] [address] 2021-04-28 2021-04-28 Telephone [facility] 1.2.840.114 [id number] Univers 00:00:00 00:00:00 Erika Garcia 350.1.13.10 [place] 4[place]2.[place] [phone] [address] 2021-04-26 2021-04-26 [facility] 1.2.840.114 [id number] Univers 00:00:00 00:00:00 Outreach Ruthann Garcia 350.1.13.10 [place] [phone] [address] 2021-04-15 2021-04-15 Outpatient 3 MAHESH NADIR [facility] [id number] 56- Taoism 08:00:00 08:00:00 YOMNA [id number] Hospi ta l ([facility]) 2021-04-15 2021-04-15 [facility] 1.2.840.114 [id number] Univers 00:00:00 00:00:00 Outreach Ruthann Celaya [facility] 350.1.13.10 i ty of [place] 4.2.7.2.686 [place] Profess[place] [phone] [address] One 2021-04-13 2021-04-13 [facility] 1033 [id number] Univers 16:20:00 16:20:00 ERIKA heredia [facility] 2021-04-13 2021-04-13 [facility]ici [facility] 1.2.840.114 [id number] [facility] 08:42:48 09:57:03 ne Visit Erika [place] 350.1.13.10 it[place] 4[place]2.[place] [phone] [address] 2021-04-13 2021-04-13 [facility] 1033 [id number] [facility] 09:40:00 09:40:00 ERIKA heredia [facility] 2021-04-09 2021-04-09 [facility] 1.2.840.114 [id number] [facility] 00:00:00 00:00:00 Erika Garcia 350.1.13.10 [place] 4[place]2.[place] [phone] [facility] [address] [facility] 2021-04-02 2021-04-02 [facility] 1032 [id number] Univers 15:20:00 15:20:00 ERIKA heredia [facility] 2021-03-05 2021-03-05 [facility] 1.2.840.114 8 [id number] Univers 00:00:00 00:00:00 Erika Garcia 350.1.13.10 [place] 4[place]2.[place] [phone] [address] [address] 2021-02-26 2021-02-26 Outpatient R [facility] [id number] Univers 10:30:00 10:30:00 MANJINDER smithalec [facility] 2021-02-25 2021-02-25 [facility] 1.2.840.114 [id number] Univers 00:00:00 00:00:00 Outreach Ruthann Garcia 350.1.13.10 [place] [phone] [address] 2021-02-25 2021-02-25 Orders Doctor NINA 1.2.840.114 [id number] Univers 00:00:00 00:00:00 Only Unassigned, DANN 350.1.13.10 ity of [place] [facility] 4.2.7.2.686 Navid as [phone] [address] 2021-02-22 2021-02-22 Telephone [facility] 1.2.840.114 [id number] Univers 00:00:00 00:00:00 Erika Garcia 350.1.13.10 [place] [phone] [address] 2021-02-10 2021-02-10 [facility] [id number] Univers 16:20:00 16:20:00 ERIKA [facility] 2021-02-10 2021-02-10 Telephone [facility] 1.2.840.114 [id number] Univers 00:00:00 00:00:00 Erika Garcia 350.1.13.10 i [place] [phone] [address] 2021-02-10 2021-02-10 Telephone [facility] 1.2.840.114 [id number] Univers 00:00:00 00:00:00 Erika Garcia 350.1.13.10 [place] [phone] [address] 2021-02-05 2021-02-05 Outpatient R [facility] [id number] Univers 10:30:00 10:30:00 MANJINDER [facility] 2021-02-02 2021-02-02 Refill [facility] 1.2.840.114 [id number] Univers 00:00:00 00:00:00 Erika Garcia 350.1.13.10 [place] [phone] [address] 2021-01-29 2021-01-29 Patient [facility] 1.2.840.114 [id number] Univers 00:00:00 00:00:00 Outreach Ruthann Celaya Jose 350.1.13.10 [place] [phone] [address] 2021-01-25 2021-01-25 Refill [facility] 1.2.840.114 [id number] Univers 00:00:00 00:00:00 Erika Garcia 350.1.13.10 i [place] [phone] [address] 2021-01-06 2021-01-06 Refill [facility] 1.2.840.114 [id number] Univers 00:00:00 00:00:00 Erika Garcia 350.1.13.10 [place] [phone] [address] 2021-01-01 2021-01-01 [facility] 1.2.840.114 [id number] Univers 08:52:36 12:07:33 ne Visit Erika Garcia 350.1.13.10 it[place] [phone] [address] 2021-01-01 2021-01-01 Outpatient R [facility] [id number] Univers 10:40:00 10:40:00 ERIKA heredia of [facility] 2021-01-01 2021-01-01 Telephone [facility] 1.2.840.114 [id number] Univers 00:00:00 00:00:00 Erika Garcia 350.1.13.10 [place] [phone] [address] 2020-12-09 2020-12-09 [facility] 1.2.840.114 8 [id number] Univers 00:00:00 00:00:00 Erika Garcia 350.1.13.10 [place] [phone] [address] 2020-12-04 2020-12-04 [facility] 1.2.840.114 8 [id number] Univers 00:00:00 00:00:00 Erika Garcia 350.1.13.10 [place] [phone] [address] 2020-12-02 2020-12-02 Telephone [facility] 1.2.840.114 [id number] Univers 00:00:00 00:00:00 Erika Garcia 350.1.13.10 i [place] [phone] [address] 2020-11-18 2020-11-18 [facility]phone [facility] 1.2.840.114 8 [id number] Univers 00:00:00 00:00:00 Erika Garcia 350.1.13.10 i [place] [phone] [address] 2020-11-17 2020-11-17 Orders Doctor NINA 1.2.840.114 [id number] Univers 00:00:00 00:00:00 Only Unassigned, DANN 350.1.13.10 ity of [place] [facility] 4.2.7.2.686 Navid as [phone] [address] 2020-11-04 2020-11-04 Telephone [facility] 1.2.235.565 [id number] Univers 00:00:00 00:00:00 Ruthann Garcia 350.1.13.10 i [place] [phone] [address] 2020-10-23 2020-10-23 [facility] 1.2.840.114 [id number] Univers 00:00:00 00:00:00 Outreach Ruthann Sukh Garcia 350.1.13.10 it[place] of [place] [phone] [address] 2020-10-23 2020-10-23 [facility]phone [facility] 1.2.996.109 [id number] Univers 00:00:00 00:00:00 Ruthann Celaya [place] 350.1.13.10 i ty [place] [phone] [address] 2020-10-07 2020-10-07 [facility]phone [facility] 1.2.840.114 [id number] Univers 00:00:00 00:00:00 Erika Garcia 350.1.13.10 i [place] [phone] [address] 2020-10-06 2020-10-06 Orders Doctor NINA 1.2.840.114 [id number] Univers 00:00:00 00:00:00 Only Unassigned, DANN 350.1.13.10 ity of [place] [facility] 4.2.7.2.686 Navid as [phone] [address] 2020-10-05 2020-10-05 [facility]ill [facility] 1.2.840.114 [id number] Univers 00:00:00 00:00:00 Erika Garcia 350.1.13.10 i [place] [phone] [address] 2020-10-01 2020-10-01 Outpatient R [facility] [id number] Univers 13:20:00 13:20:00 ERIKA heredia of [facility] 2020-10-01 2020-10-01 Telemedici [facility] 1.2.840.114 [id number] Univers 12:59:33 13:19:33 ne Visit Erika Garcia 350.1.13.10 it[place] of [place] [phone] Tn dicil nal [address] [place] [address] 2020-09-22 2020-09-22 Outpatient [facility] [id number] Univers 13:40:00 13:40:00 ERIKA heredia [facility] 2020-09-18 2020-09-18 Patient [facility] 1.2.840.114 [id number] Univers 00:00:00 00:00:00 Outreach Ruthann [facility] 350.1.13.10 i ty of [place] 4.2.7.2.686 Navid as Professio [phone] [address] Office [address] 2020-09-16 2020-09-16 Telephone [facility] 1..840.114 7 [id number] Univers 00:00:00 00:00:00 Erika Garcia 350.1.13.10 [place] [phone] Tn dicil nal [address] [place] [address] 2020-09-07 2020-09-07 Outpatient 3 ISMAEL HOBBS [facility] [id number] 56- Taoism 09:00:00 09:00:00 YOMNA [id number] Hospi ta l ([facility] nt) 2020-09-03 2020-09-03 Outpatient 3 MAHESH NADIR [facility] [id number] 56- Taoism 09:00:00 09:00:00 YOMNA [id number] Hospi ta l ([facility] nt) 2020-09-03 2020-09-03 Refill [facility] 1..840.114 [id number] Univers 00:00:00 00:00:00 Erika Garcia 350.1.13.10 [place] [phone] Tn dic[address] 2020-08-04 2020-08-04 Refill [facility] 1..840.114 [id number] Univers 00:00:00 00:00:00 Erika Garcia 350.1.13.10 i [place] [phone] Tn maddie[address] 2020-07-16 2020-07-16 [facility] [id number] Univers 11:20:00 11:20:00 ERIKA heredia [facility] 2020-07-06 2020-07-06 Outpatient R [facility] [id number] Univers 11:15:00 11:15:00 ERIKA heredia [facility] 2020-07-06 2020-07-06 Telephone [facility] 1.2.840.114 [id number] Univers 00:00:00 00:00:00 Erika Garcia 350.1.13.10 i [place] [phone] [address] 2020-07-02 2020-07-02 Outpatient R [facility] [id number] Univers 11:20:00 11:20:00 ERIKA alec [facility] 2020-07-01 2020-07-01 Refill [facility] 1.2.840.114 [id number] Univers 00:00:00 00:00:00 Erika Garcia 350.1.13.10 [place] ty [place] [phone] [address] 2020-06-26 2020-06-26 Telephone [facility] 1.2.840.114 [id number] Univers 00:00:00 00:00:00 Erika Garcia 350.1.13.10 [place] [phone] [address] 2020-06-26 2020-06-26 [facility] 1.2.840.114 [id number] Univers 00:00:00 00:00:00 Outreach [facility] 350.1.13.10 i ty of [place] 4.2.7.2.686 [place]id [place] Professio [phone] [address] 2020-06-23 2020-06-23 Patient Abel [facility] 1.2.840.114 [id number] Univers 00:00:00 00:00:00 Outreach [facility] 350.1.13.10 i ty of [place] 4.2.7.2.686 Navid [place] Professio [phone] [address] 2020-06-22 2020-06-22 Outpatient R [facility] [id number] Univers 10:00:00 10:00:00 ERIKA yan [facility] 2020-06-22 2020-06-22 Telemedici [facility] 1.2.840.114 [id number] Univers 08:27:32 08:42:32 ne Visit Erika Jose 350.1.13.10 it[place] [phone] [address] 2020-06-09 2020-06-09 Outpatient R [facility] [id number] Univers 14:20:00 14:20:00 ERIKA alec [facility] 2020-05-27 2020-05-27 Telephone [facility] 1.2.840.114 [id number] Univers 00:00:00 00:00:00 Erika Jose 350.1.13.10 [place] [phone] [address] 2020-03-31 2020-03-31 Office [facility] 1.2.840.114 [id number] Univers 13:08:07 14:07:31 Visit Erika Garcia 350.1.13.10 [place] [phone] [address] 2020-03-31 2020-03-31 Outpatient R [facility] [id number] Univers 12:40:00 12:40:00 ERIKA heredia [facility] 2020-03-10 2020-03-26 Telemedici [facility] 1.2.840.114 [id number] [facility] 07:20:18 09:38:55 ne Visit Erika Garcia 350.1.13.10 it[place] [phone] [address] 2020-02-14 2020-03-[facility] 1.2.840.114 [id number] [facility] 07:23:59 09:37:34 ne Visit Erika Garcia 350.1.13.10 [place] [phone] [address] 2020-03-24 2020-03-24 Outpatient R [facility] [id number] Univers 13:40:00 13:40:00 ERIKA heredia [facility] 2020-03-24 2020-03-24 [facility] 1.2.840.114 [id number] [facility] 12:49:47 13:09:47 ne Visit Erika Garcia 350.1.13.10 it[place] [phone] [address] 2020-03-19 2020-03-19 Telephone [facility] 1.2.840.114 [id number] Univers 00:00:00 00:00:00 Erika Garcia 350.1.13.10 i [place] [phone] [address] 2020-03-10 2020-03-10 Outpatient R [facility] [id number] Univers 10:00:00 10:00:00 ERIKA heredia [facility] 2020-03-05 2020-03-05 Outpatient 3 ISMAEL HOBBS SEAO [id number] 56- Taoism 08:00:00 08:00:00 YOMNA [id number] Hospi ta l ([facility] nt) 2020-02-14 2020-02-14 Outpatient R [facility] [id number] Univers 10:00:00 10:00:00 ERIKA smithalec [facility] 2020-01-28 2020-01-28 Telephone [facility] 1.2.840.114 [id number] Univers 00:00:00 00:00:00 Erika Garica 350.1.13.10 [place] [phone] [address] 2020-01-23 2020-01-23 [facility]phone [facility] 1.2.840.114 [id number] Univers 00:00:00 00:00:00 Erika Garcia 350.1.13.10 i [place] [phone] [address] 2020-01-20 2020-01-20 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 Administrator 2, Adc Lab [facility] 1.2.840.114 [id number] Univers 16:03:52 16:18:52 Visit Erika Bosch 350.1.13.10 [place]y [place] [phone] [address] 2020-01-20 2020-01-20 Outpatient R [facility] [id number] Univers 16:00:00 16:00:00 ERIKA heredia [facility] 2020-01-17 2020-01-17 Office [facility] 1..840.114 [id number] Univers 10:10:24 10:30:24 Visit Erika Garcia 350.1.13.10 i [place] [phone] [address] 2020-01-17 2020-01-17 [facility] 1025 [id number] Univers 09:40:00 09:40:00 ERIKA heredia [facility] 2020-01-17 2020-01-17 Orders Doctor WOOD 1.2.840.114 [id number] Univers 00:00:00 00:00:00 Only Unassigned, DANN 350.1.13.[address] [facility] 4.2.7.2.686 Navid as [phone] [address] 2020-01-10 2020-01-10 Telephone [facility] 1.2.840.114 7 [id number] Univers 00:00:00 00:00:00 Erika Garcia 350.1.13.10 [place] [phone] Tn dic[address] 2019-12-20 2020-01-07 Office [facility] 1.2.840.114 [id number] Univers 09:37:57 11:01:20 Visit Erika Garcia 350.1.13.10 i [place] [phone] [address] 2020-01-03 2020-01-03 Refill [facility] 1.2.840.114 [id number] Univers 00:00:00 00:00:00 Erika Garcia 350.1.13.10 i [place] [phone] [address] 2019-12-31 2019-12-31 Telephone [facility] 1.2.840.114 [id number] Univers 00:00:00 00:00:00 Erika Osborne 350.1.13.10 it y of [place] 4.2.7.2.686 Navid as Professio [phone] [address] One 2019-12-27 2019-12-27 Refill [facility] 1.2.840.114 [id number] Univers 00:00:00 00:00:00 Erika Garcia 350.1.13.10 i [place] [phone] [address] 2019-12-26 2019-12-26 Telephone [facility] 1.2.840.114 [id number] Univers 00:00:00 00:00:00 Erika Garcia 350.1.13.10 [place] [phone] Tn dical nal [address] [place] [address] 2019-12-25 2019-12-25 [facility] 1.2.840.114 7 [id number] Univers 00:00:00 00:00:00 Erika Garcia 350.1.13.10 i [place] [phone] Tn dicil nal [address] [place] [address] 2019-12-21 2019-12-21 Refill [facility] 1.2.840.114 [id number] Univers 00:00:00 00:00:00 Erika Garcia 350.1.13.10 i [place] [phone] [facility] nal [address] [place] [address] 2019-12-18 2019-12-18 [facility] 1.2.840.114 [id number] Univers 00:00:00 00:00:00 Erika Garcia 350.1.13.10 i [place] [phone] [facility] nal [address] [place] [address] 2019-12-17 2019-12-17 [facility] 12.840.114 7 [id number] Univers 00:00:00 00:00:00 Erika Garcia 350.1.13.10 i ty [place] [phone] Tn dicil nal [address] [place] [address] 2019-12-16 2019-12-16 [facility] 1.2.840.114 7 [id number] Univers 00:00:00 00:00:00 Erika Garcia 350.1.13.10 i ty [place] [phone] Tn dicil nal [address] [place] [address] 2019-11-29 2019-11-29 [facility] 12.840.114 7 [id number] Univers 00:00:00 00:00:00 Erika Garcia 350.1.13.10 i ty [place] [phone] [address] 2019-11-29 2019-11-29 Telephone [facility] 1.2.840.114 [id number] Univers 00:00:00 00:00:00 Erika Garcia 350.1.13.10 i ty [place] [phone] [address] 2019-11-29 2019-11-29 Orders Doctor NINA 1.2.840.114 [id number] Univers 00:00:00 00:00:00 Only Unassigned, DANN 350.1.13.10 ity of [place] [facility] 4.2.7.2.686 Navid as [phone] [address] 2019-11-28 2019-11-28 [facility] 1.2.840.114 [id number] [facility] 14:01:54 16:51:11 Visit Erika Garcia 350.1.13.10 i [place] [phone] [address] 2019-11-07 2019-11-07 [facility] [id number] [facility] 11:12:21 23:59:00 ERIKA heredia [facility] 2019-07-31 2019-07-31 Office [facility] 1.2.840.114 [id number] [facility] 09:27:26 11:42:48 Visit Erika Garcia 350.1.13.10 i ty [place] [phone] [address] 2019-06-20 2019-06-20 [facility] 1.2.840.114 7 [id number] [facility] 00:00:00 00:00:00 Erika Garcia 350.1.13.10 i [place] [phone] [address] 2019-06-17 2019-06-17 [facility] 1.2.840.114 7 [id number] Univers 00:00:00 00:00:00 Erika Garcia 350.1.13.10 i ty [place] [phone] [address] 2019-06-14 2019-06-14 Office [facility] 1.2.840.114 [id number] [facility] 11:18:32 12:44:37 Visit Erika Garcia 350.1.13.10 i ty [place] [phone] [address] 2019-06-14 2019-06-14 Orders Doctor NINA 1.2.840.114 [id number] Univers 00:00:00 00:00:00 Only Unassigned, DANN 350.1.13.10 ity of [place] [facility] 4.2.7.2.686 Navid as [phone] [address] 2019-06-14 2019-06-14 [facility] 1.2.840.114 7 [id number] Univers 00:00:00 00:00:00 Erika Garcia 350.1.13.10 [place] [phone] [address] 2019-06-14 2019-06-14 Telephone [facility] 1.2.840.114 7 [id number] Univers 00:00:00 00:00:00 Erika Garcia 350.1.13.10 i [place] [phone] [address] 2019-06-14 2019-06-14 [facility] 1.2.840.114 [id number] Univers 00:00:00 00:00:00 Keisha Garcia 350.1.13.10 [place] [phone] [facility] [address] [place] [address] 2019-01-21 2019-01-21 Outpatient [facility] [id number] Common 10:00:00 10:00:[address] [facility] 2018-12-07 2018-12-07 [facility] [id number] Common 16:34:00 16:34:[address] [facility] 2018-11-07 2018-11-07 [facility] [id number] Common 14:42:00 14:42:[address] [facility] 2018-08-24 2018-08-24 Outpatient [facility] [id number] Common 10:00:00 10:00:[address] [facility] 2018-08-20 2018-08-20 Outpatient [facility] [id number] Common 15:53:00 15:53:[address] [facility] 2018-08-15 2018-08-15 Outpatient [facility] [id number] Common 11:06:00 11:06:[address] [facility] 2018-07-25 2018-07-25 Outpatient [facility] [id number] Common 09:45:00 09:45:[address] [facility] 2018-07-06 2018-07-06 Outpatient [facility] [id number] Common 16:36:00 16:36:[address] [facility] 2018-07-06 2018-07-06 Outpatient [facility] [id number] Common 09:15:00 09:15:[address] [facility] 2018-06-26 2018-06-26 Outpatient [facility] [id number] Common 10:00:00 10:00:[address] [facility] 2018-06-20 2018-06-20 Outpatient [facility] [id number] Common 16:35:00 16:35:[address] [facility] 2018-05-29 2018-05-29 Outpatient [facility] [id number] Common 11:13:00 11:13:[address] [facility] 2018-05-24 2018-05-24 Outpatient [facility] [id number] Common 10:00:00 10:00:[address] [facility] 2018-05-03 2018-05-03 Outpatient [facility] 14 [id number] Common 14:04:00 14:04:[address] [facility] 2018-04-30 2018-04-30 [facility] [id number] Common 08:37:00 08:37:[address] [facility] 2018-04-24 2018-04-24 Outpatient [facility] [id number] Common 09:15:00 09:15:[address] [facility] 2018-04-11 2018-04-11 Outpatient [facility] 14 [id number] Common 16:26:00 16:26:[address] [facility] 2018-03-26 2018-03-26 Outpatient [facility] 13 [id number] Common 10:30:00 10:30:[address] [facility] 2017-09-06 2017-09-06 Outpatient Ike SMITH [facility] VLS [id number] Univers 10:36:00 15:53:00 [facility] 2017-02-07 2017-02-07 Outpatient Ike SMITH [facility] [id number] [facility] 07:05:00 13:00:00 [facility] Results Test Description Test Time Test Comments Results Result Comments Source IONIZED CALCIUM WB ADULT 2022-06-09 06:42:00 Test Item Value Reference Range Interpretation Comme nts CALCIUM, IONIZED WB ADULT 1.35 mmol/L 1.12-1.[address] DRAWN AND PERFORMED AT (test code = ICAWB) BEDSIDE 06/08/2022 AT 1509 BY FINAL VERIFY . IONIZED CALCIUM WB [id number] 17:17:00 Test Item Value Reference Range Interpretation Comments CALCIUM, IONIZED WB 1.38 mmol/L 1.12-1.32 H TEST CHELLE WN AND ADULT (test code = PERFORMED AT BEDSIDE ICAWB) 12/06/2021 AT 1 441 BY FINAL VERIFY 12/07/2021. IONIZED CALCIUM WB [id number] 07:05:00 Test Item Value Reference Range Interpretation Comments CALCIUM, IONIZED WB 1.20 mmol/L 1.12-1.32 TEST CHELLE WN AND ADULT (test code = PERFORMED AT BEDSIDE ICAWB) 04/14/2021 AT 1 452 BY SB/ IONIZED CALCIUM WB [id number] 09:26:00 Test Item Value Reference Range Interpretation Comments CALCIUM, IONIZED WB 1.28 mmol/L 1.12-1.32 test chelle wn and ADULT (test code = performed at bedside ICAWB) 03/05/2020 at 1 3:17pm by pl/ IONIZED CALCIUM WB [id number] 14:08:00 Test Item Value Reference Range Interpretation Comments CALCIUM, IONIZED WB ADULT (test 1.14 mmol/L 1.12-1.32 code = ICAWB)
[2022-12-08 14:23] LABS: Absolute Lymphocytes (CBC) 1.3 K/uL (0.7-4.9); Hematocrit 41.6 % (36.0-45.0); MCV 101.3 fL (80-100); MPV 8.1 fL (7.6-11.3); RBC Red Blood Cell Count 4.11 M/uL (3.86-4.86)
--- NOTE | 2022-12-08 14:30 | RAD REPORT ---
EXAM DESCRIPTION: RAD - Chest Single View - 12/08/2022 2:24 pm CLINICAL HISTORY: CHEST PAIN Chest pain. COMPARISON: Abdomen Acute Series dated 09/23/2019; Chest Pa And Lat (2 Views) dated 02/02/2017; CHEST SINGLE VIEW dated 05/07/2015; CHEST SINGLE VIEW dated 04/23/2012 FINDINGS: Portable technique limits examination quality. The lungs are emphysematous but grossly clear. The heart is normal in size. No displaced fractures. IMPRESSION: No acute intrathoracic process suspected.
[2022-12-08 14:46] LABS: Albumin 4.2 g/dL (3.4-5.0); Bilirubin Direct 0.3 mg/dL (0-0.2); Potassium 3.5 mmol/L (3.5-5.1); Protein, Total 8.3 g/dL (6.4-8.2); Troponin High Sensitivity 8.6 pg/mL (<58.9)
[2022-12-08] MEDS ORDERED: NA CHLORIDE 0.9% 2,000 ML ONE (14:56)
[2022-12-08] MEDS ORDERED: ONDANSETRON 4 MG/2 ML VIAL ONE (14:56)
[2022-12-08] MEDS ORDERED: FAMOTIDINE 20 MG/2 ML VIAL IV ONE (15:15)
[2022-12-08 16:35] LABS: Urine Blood Trace-intact (Negative); Urine Glucose Negative (Negative); Urine Protein Negative (Negative)
[2022-12-08 16:55] LABS: Barbiturates NEGATIVE (NEGATIVE); Benzodiazepines POSITIVE (NEGATIVE); Cocaine NEGATIVE (NEGATIVE); METHAMPHETAM NEGATIVE (NEGATIVE); Methadone NEGATIVE (NEGATIVE); Opiates POSITIVE (NEGATIVE); Phencyclidine NEGATIVE (NEGATIVE); THC Cannibis POSITIVE (NEGATIVE)
--- NOTE | 2022-12-08 17:56 | EDPHYS ---
Physician Documentation [facility] Name: Josseline Gallegos Age: 62 yrs Sex: Female : 1960 Arrival Date: 12/08/2022 Time: 13:47 Bed 4 Private MD: ED Physician Dylan Gore HPI: 12/08 16:18 This 62 yrs old Female presents to ER via EMS with complaints of n/v. kdr 16:18 NauseaEMS brought the patient to the ED vomiting and diarrhea for the last 4 days. kdr Patient states that she is trying to quit her hydrocodone and morphine for the last 4 days but states she cannot keep any food or liquid down at this time. She complains of abdominal pain and states that she fell and hit her head on her trailer a few days ago. She is requesting IV morphine. Patient looks mildly uncomfortable but vital signs appear to be stable and she does not require emergent interventions does not appear toxic. Onset: The symptoms/episode began/occurred gradually, 4 day(s) ago. Severity of symptoms: At their worst the symptoms were mild moderate in the emergency department the symptoms are unchanged. The patient has not experienced similar symptoms in the past, The patient has experienced a previous episode. The patient has not recently seen a physician. Historical: - Allergies: 13:51 Codeine; mb9 - Home Meds: 13:51 lisinopril Oral [Active]; Hydrocodone-Acetaminophen Oral [Active]; morphine 20 mg Oral mb9 CERP 1 cap once daily [Active]; - PMHx: 13:51 Chronic pain; Hypertension; mb9 - Immunization history:: Adult Immunizations up to date. - Social history:: Smoking status: Patient reports the use of cigarette tobacco products, denies chronic smoking, but will smoke occasionally, Patient uses alcohol, occasionally. ROS: 16:18 Constitutional: Negative for fever, chills, and weight loss, Eyes: Negative for injury, kdr pain, redness, and discharge, ENT: Negative for injury, pain, and discharge, Neck: Negative for injury, pain, and swelling, Cardiovascular: Negative for chest pain, palpitations, and edema, Respiratory: Negative for shortness of breath, cough, wheezing, and pleuritic chest pain, Back: Negative for injury and pain, : Negative for injury, bleeding, discharge, and swelling, MS/Extremity: Negative for injury and deformity, Skin: Negative for injury, rash, and discoloration, Psych: Negative for depression, anxiety, suicide ideation, homicidal ideation, and hallucinations, Allergy/Immunology: Negative for hives, rash, and allergies, Endocrine: Negative for neck swelling, polydipsia, polyuria, polyphagia, and marked weight changes, Hematologic/Lymphatic: Negative for swollen nodes, abnormal bleeding, and unusual bruising. 16:18 Abdomen/GI: Positive for abdominal pain, nausea and vomiting, Negative for abdominal cramps, abdominal distension, black/tarry stool, rectal pain, rectal bleeding, bowel incontinence. 16:18 Neuro: Positive for dizziness, weakness. Exam: 16:18 Constitutional: This is a well developed, well nourished patient who is awake, alert, kdr and in mild distress. Head/Face: Normocephalic, atraumatic. Eyes: Pupils equal round and reactive to light, extra-ocular motions intact. Lids and lashes normal. Conjunctiva and sclera are non-icteric and not injected. Cornea within normal limits. Periorbital areas with no swelling, redness, or edema. Neck: Trachea midline, no thyromegaly or masses palpated, and no cervical lymphadenopathy. Supple, full range of motion without nuchal rigidity, or vertebral point tenderness. No Meningismus. Chest/axilla: Normal chest wall appearance and motion. Nontender with no deformity. No lesions are appreciated. Cardiovascular: Regular rate and rhythm with a normal S1 and S2. No gallops, murmurs, or rubs. Normal PMI, no JVD. No pulse deficits. Respiratory: Lungs have equal breath sounds bilaterally, clear to auscultation and percussion. No rales, rhonchi or wheezes noted. No increased work of breathing, no retractions or nasal flaring. Abdomen/GI: Soft, non-tender, with normal bowel sounds. No distension or tympany. No guarding or rebound. No evidence of tenderness throughout. Back: No spinal tenderness. No costovertebral tenderness. Full range of motion. Skin: Warm, dry with normal turgor. Normal color with no rashes, no lesions, and no evidence of cellulitis. MS/ Extremity: Pulses equal, no cyanosis. Neurovascular intact. Full, normal range of motion. Neuro: Awake and alert, GCS 15, oriented to person, place, time, and situation. Cranial nerves II-XII grossly intact. Motor strength 5/5 in all extremities. Sensory grossly intact. Cerebellar exam normal. Normal gait. 16:18 Psych: Behavior/mood is cooperative, anxious, suicidal, depressed, angry, Affect is flat, Oriented to person, place, time, Patient has no thoughts/intents to harm self or others. Judgement / Insight is impaired. Delusions/hallucinations are not present. Vital Signs: 13:47 BP 169 / 98; Pulse 80; Resp 22; Temp 97.5; Pulse Ox 100% on R/A; Weight 48.08 kg; mb9 Height 5 ft. 5 in. (165.10 cm); Pain 10/10; 14:35 BP 165 / 101; Pulse 75; Resp 18; Pulse Ox 97% on R/A; ph 15:44 BP 145 / 92; Pulse 75; Resp 22; Pulse Ox 97% on R/A; mb9 16:36 BP 137 / 83; Pulse 83; Resp 24; Pulse Ox 97% ; mb9 17:57 BP 135 / 84; Pulse 88; Resp 22; Pulse Ox 100% on R/A; mb9 13:47 Body Mass Index 17.64 (48.08 kg, 165.10 cm) mb9 MDM: 16:18 Data reviewed: vital signs, nurses notes, lab test result(s), radiologic studies. kdr 17:55 Patient medically screened. [facility] 12/08 13:49 Order name: Basic Metabolic Panel; Complete Time: 14:53 [facility] 12/08 13:49 Order name: CBC with Diff; Complete Time: 14:53 [facility] 12/08 13:49 Order name: LFT's; Complete Time: 14:53 [facility] 12/08 13:49 Order name: NT PRO-BNP; Complete Time: 14:53 [facility] 12/08 13:49 Order name: Troponin HS; Complete Time: 14:53 [facility] 12/08 13:49 Order name: UDS; Complete Time: 17:28 [facility] 12/08 13:49 Order name: XRAY Chest (1 view); Complete Time: 14:53 [facility] 12/08 13:49 Order name: EKG; Complete Time: 13:49 [facility] 12/08 13:49 Order name: ETOH Level; Complete Time: 14:53 [facility] 12/08 16:35 Order name: Urine Dipstick-Ancillary; Complete Time: 17:28 [facility] 12/08 13:49 Order name: Cardiac monitoring; Complete Time: 13:52 [facility] 12/08 13:49 Order name: EKG - Nurse/Tech; Complete Time: 14:04 [facility] 12/08 13:49 Order name: IV Saline Lock; Complete Time: 14:13 [facility] 12/08 13:49 Order name: Labs collected and sent; Complete Time: 14:13 [facility] 12/08 13:49 Order name: O2 Per Protocol; Complete Time: 13:52 [facility] 12/08 13:49 Order name: O2 Sat Monitoring; Complete Time: 13:52 [facility] 12/08 13:49 Order name: Urine Dipstick-Ancillary (obtain specimen); Complete Time: 16:36 kdr Administered Medications: 14:55 Drug: Zofran (Ondansetron) 4 mg Route: IVP; Site: left antecubital; mb9 15:44 Follow up: Response: No adverse reaction mb9 15:11 Drug: NS 0.9% 1000 ml Route: IV; Rate: 1 bolus; Site: left antecubital; mb9 15:59 Follow up: Response: No adverse reaction; IV Status: Completed infusion mb9 15:15 Drug: Pepcid (famotidine) 20 mg Route: IVP; Site: left antecubital; mb9 15:44 Follow up: Response: No adverse reaction mb9 15:59 Drug: NS 0.9% 1000 ml Route: IV; Rate: 1 bolus; Site: left antecubital; mb9 17:57 Follow up: Response: No adverse reaction; IV Status: Completed infusion mb9 Disposition Summary: 12/08/22 17:55 Discharge Ordered Location: Home kdr Condition: Stable kdr Diagnosis - Opioid dependence with withdrawal kdr - Weakness kdr Followup: kdr - With: Private Physician - When: 2 - 3 days - Reason: If symptoms return, Further diagnostic work-up, Recheck today's complaints, Continuance of care, Re-evaluation by your physician Discharge Instructions: - Discharge Summary Sheet kdr - Opioid Withdrawal kdr - Fatigue kdr - Weakness, Olat-or-Jdtf kdr - Opioid Withdrawal Treatment kdr Forms: - Medication Reconciliation Form kdr - Thank You Letter kdr Signatures: Dispatcher [employer] EDyDlan Maradiaga MD MD kdr Breneman, Kendra, RN RN mb9
--- NOTE | 2022-12-08 17:56 | ER ---
Nurse's Notes [facility] Name: Josseline Gallegos Age: 62 yrs Sex: Female : 1960 Arrival Date: 12/08/2022 Time: 13:47 Bed 4 Private MD: Diagnosis: Opioid dependence with withdrawal;Weakness Presentation: 12/08 13:47 Chief complaint: EMS states: pt has N/V/D the past 4 days. Pt states "I tried to quit mb9 my hydrocodone and morphine 4 days ago and I can't keep any food or liquid down. My stomach hurts and I fell and hit my head on my trailer a few days ago. What I need is an IV and liquid morphine". Coronavirus screen: Vaccine status: Patient reports receiving the 2nd dose of the covid vaccine. Ebola Screen: No symptoms or risks identified at this time. Initial Sepsis Screen: Does the patient meet any 2 criteria? No. Patient's initial sepsis screen is negative. Does the patient have a suspected source of infection? No. Patient's initial sepsis screen is negative. Risk Assessment: Do you want to hurt yourself or someone else? Patient reports no desire to harm self or others. Onset of symptoms was December 04, 2021. 13:47 Method Of Arrival: EMS: [facility] mb9 13:47 Acuity: TIFFANY 3 mb9 Historical: - Allergies: 13:51 Codeine; mb9 - Home Meds: 13:51 lisinopril Oral [Active]; Hydrocodone-Acetaminophen Oral [Active]; morphine 20 mg Oral mb9 CERP 1 cap once daily [Active]; - PMHx: 13:51 Chronic pain; Hypertension; mb9 - Immunization history:: Adult Immunizations up to date. - Social history:: Smoking status: Patient reports the use of cigarette tobacco products, denies chronic smoking, but will smoke occasionally, Patient uses alcohol, occasionally. Screenin:52 [facility] ED Fall Risk Assessment (Adult) History of falling in the last 3 months, mb9 including since admission Yes- physiologic fall (2 pts) Confusion or Disorientation No (0 pts) Intoxicated or Sedated No (0 pts) Impaired Gait Yes (1 pt) Mobility Assist Device Used Yes (1 pt) Altered Elimination No (0 pt) Score/Fall Risk Level 3 or more points = High Risk Oriented to surroundings, Maintained a safe environment, Educated pt \\T\\ family on fall prevention, incl call for assistance when getting out of bed. Abuse screen: Denies threats or abuse. Nutritional screening: Has had N/V for 3 or more days. Tuberculosis screening: No symptoms or risk factors identified. Assessment: 14:00 General: Appears uncomfortable, Behavior is anxious, crying. Pain: Complains of pain in mb9 abdomen and head Pain does not radiate. Pain currently is 10 out of 10 on a pain scale. Quality of pain is described as aching, Pain began 2-3 days ago. Alleviated by medications. 14:00 Neuro:. Cardiovascular: Heart tones S1 S2 present Capillary refill is > 3 seconds is mb9 sluggish Patient's skin is warm and dry. Rhythm is regular. Respiratory: Airway is patent Respiratory effort is even, unlabored, Respiratory pattern is regular, symmetrical. GI: Abdomen is flat, non-distended, Bowel sounds present X 4 quads. Abdomen is tender to palpation X 4 quads. Reports diarrhea, nausea, vomiting. : No signs and/or symptoms were reported regarding the genitourinary system. EENT: No signs and/or symptoms were reported regarding the EENT system. Derm: Skin is pink, warm \\T\\ dry. Musculoskeletal: Range of motion: intact in all extremities. 15:00 Reassessment: pt states "tell the doctor I need IV pain medication right now. He needs mb9 to come in here and give it to me." MD notified. 15:38 Reassessment: No changes from previously documented assessment. Patient and/or family mb9 updated on plan of care and expected duration. Pain level reassessed. Patient is alert, oriented x 3, equal unlabored respirations, skin warm/dry/pink. 16:36 Reassessment: No changes from previously documented assessment. Patient and/or family mb9 updated on plan of care and expected duration. Pain level reassessed. Patient is alert, oriented x 3, equal unlabored respirations, skin warm/dry/pink. 17:34 Reassessment: No changes from previously documented assessment. Patient and/or family mb9 updated on plan of care and expected duration. Pain level reassessed. Patient is alert, oriented x 3, equal unlabored respirations, skin warm/dry/pink. 17:57 Reassessment: No changes from previously documented assessment. Patient and/or family mb9 updated on plan of care and expected duration. Pain level reassessed. Patient is alert, oriented x 3, equal unlabored respirations, skin warm/dry/pink. Vital Signs: 13:47 BP 169 / 98; Pulse 80; Resp 22; Temp 97.5; Pulse Ox 100% on R/A; Weight 48.08 kg; mb9 Height 5 ft. 5 in. (165.10 cm); Pain 10/10; 14:35 BP 165 / 101; Pulse 75; Resp 18; Pulse Ox 97% on R/A; ph 15:44 BP 145 / 92; Pulse 75; Resp 22; Pulse Ox 97% on R/A; mb9 16:36 BP 137 / 83; Pulse 83; Resp 24; Pulse Ox 97% ; mb9 17:57 BP 135 / 84; Pulse 88; Resp 22; Pulse Ox 100% on R/A; mb9 13:47 Body Mass Index 17.64 (48.08 kg, 165.10 cm) mb9 ED Course: 13:47 Patient arrived in ED. mb9 13:48 Dylan Gore MD is Attending Physician. kdr 13:51 Triage completed. mb9 13:51 Arm band placed on. mb9 13:53 Placed in gown. Bed in low position. Call light in reach. Side rails up X 1. Client mb9 placed on continuous cardiac and pulse oximetry monitoring. NIBP monitoring applied. outpatient clerk on. Door closed. Noise minimized. Warm blanket given. 14:04 Lo Dinh, RN is Primary Nurse. mb9 14:04 EKG done, by ED staff, reviewed by Lo Dinh RN. mb9 14:05 Inserted saline lock: 20 gauge in left antecubital area, using aseptic technique. Blood mb9 collected. 14:13 Basic Metabolic Panel Sent. mb9 14:13 CBC with Diff Sent. mb9 14:13 LFT's Sent. mb9 14:13 NT PRO-BNP Sent. mb9 14:13 Troponin HS Sent. mb9 14:26 XRAY Chest (1 view) In Process Unspecified. EDMS 16:36 UDS Sent. mb9 17:21 No provider procedures requiring assistance completed. IV discontinued, intact, mb9 bleeding controlled, No redness/swelling at site. Pressure dressing applied. Administered Medications: 14:55 Drug: Zofran (Ondansetron) 4 mg Route: IVP; Site: left antecubital; mb9 15:44 Follow up: Response: No adverse reaction mb9 15:11 Drug: NS 0.9% 1000 ml Route: IV; Rate: 1 bolus; Site: left antecubital; mb9 15:59 Follow up: Response: No adverse reaction; IV Status: Completed infusion mb9 15:15 Drug: Pepcid (famotidine) 20 mg Route: IVP; Site: left antecubital; mb9 15:44 Follow up: Response: No adverse reaction mb9 15:59 Drug: NS 0.9% 1000 ml Route: IV; Rate: 1 bolus; Site: left antecubital; mb9 17:57 Follow up: Response: No adverse reaction; IV Status: Completed infusion mb9 Medication: 13:53 VIS not applicable for this client. mb9 Outcome: 17:55 Discharge ordered by . kdr 17:56 Discharged to home ambulatory. mb9 17:56 Condition: stable 17:56 Discharge instructions given to patient, Instructed on discharge instructions, follow up and referral plans. Demonstrated understanding of instructions, follow-up care. 18:00 Patient left the ED. ss Signatures: Dispatcher [employer] EDMS Dylan Gore MD MD kdr Smirch, Shelby RN RN Margot Jeffrey RN RN Lo Dinh RN RN mb9
[2022-12-08 18:54] VITALS: TEMP 97.5
[2022-12-08 18:59] VITALS: BP 135/84; O2SAT 100
--- NOTE | 2022-12-09 17:34 | EKG ---
Test Date: 2022-12-08 Test Time: 14:01:26 Staffing Manager: MB MEASUREMENT RESULTS: Intervals: Rate: 74 AK: 128 QRSD: 80 QT: 406 QTc: 450 [place]: P: 82 AK: 128 QRS: 82 T: 74 INTERPRETIVE STATEMENTS: Normal sinus rhythm Normal ECG Compared to ECG 09/23/2019 11:01:53 Short AK interval no longer present Electronically Signed On 12-09-22 17:31:07 BLOOD BANK TECHNOLOGIST by Rubin Zuniga
== END 2022-12-08 18:00 | disposition home or self-care (01) ==
LOC: ER 13:41
DX: R11.2 Nausea with vomiting, unspecified (principal); R53.1 Weakness; F11.20 Opioid dependence, uncomplicated; I10 Essential (primary) hypertension; F17.210 Nicotine dependence, cigarettes, uncomplicated; Z88.6 Allergy status to analgesic agent
CPT/HCPCS: 85025; 80048; 36415; 80076; 81003; 84484; 83880; 80307; 71045; J7030; J2405; G0480; 93005

== ENCOUNTER 2024-02-18 18:13 | Emergency (ER) | payer OTHER ==
[2024-02-18] MEDS ORDERED: FAMOTIDINE 20 MG TAB ONE (19:16)
[2024-02-18] MEDS ORDERED: METHYLPREDNISOLONE 40 MG INJ ONE (19:17)
[2024-02-18] MEDS ORDERED: CETIRIZINE HCL 5 MG TABLET ONE (19:17)
--- NOTE | 2024-02-18 20:16 | ER ---
Nurse's Notes [facility] Name: Josseline Gallegos Age: 63 yrs Sex: Female : 1960 Arrival Date: 02/18/2024 Time: 18:13 Bed 5 Private MD: Diagnosis: Allergy, unspecified;Dermatitis, unspecified Presentation: 02/17 18:28 Chief complaint: Patient states: "I think I got into poison [place] or poison [place]". as6 Coronavirus screen: At this time, the client does not indicate any symptoms associated with coronavirus-19. Ebola Screen: No symptoms or risks identified at this time. Initial Sepsis Screen: Does the patient meet any 2 criteria? No. Patient's initial sepsis screen is negative. Does the patient have a suspected source of infection? No. Patient's initial sepsis screen is negative. Risk Assessment: Do you want to hurt yourself or someone else? Patient reports no desire to harm self or others. Onset of symptoms was February 15, 2024. 18:28 Method Of Arrival: Ambulatory as6 18:28 Acuity: TIFFANY 4 as6 20:39 Onset: The symptoms/episode began/occurred last week. Anaphylaxis evaluation, no signs cm10 or symptoms of anaphylaxis were noted. Historical: - Allergies: 18:30 Codeine; as6 - PMHx: 18:30 Chronic pain; Hypertension; Chronic obstructive lung disease; as6 - PSHx: 18:30 wrist; foot; breat; as6 - Immunization history:: Adult Immunizations not up to date. - Social history:: Smoking status: Patient reports the use of cigarette tobacco products. Screenin:53 [facility] ED Fall Risk Assessment (Adult) History of falling in the last 3 months, ld1 including since admission No falls in past 3 months (0 pts). Abuse screen: Denies threats or abuse. Denies injuries from another. Nutritional screening: No deficits noted. Tuberculosis screening: No symptoms or risk factors identified. Assessment: 18:53 General: Appears in no apparent distress. comfortable, Behavior is calm, cooperative, ld1 appropriate for age. Pain: Denies pain. Neuro: Level of Consciousness is awake, alert, obeys commands, Oriented to person, place, time, situation. Cardiovascular: Capillary refill < 3 seconds Patient's skin is warm and dry. Respiratory: Airway is patent Respiratory effort is even, unlabored, Breath sounds are clear bilaterally. GI: Abdomen is flat, non-distended. : No signs and/or symptoms were reported regarding the genitourinary system. EENT: No signs and/or symptoms were reported regarding the EENT system. EENT:. EENT: No signs and/or symptoms were reported regarding the EENT system. Derm: No signs and/or symptoms reported regarding the dermatologic system. Musculoskeletal: No signs and/or symptoms reported regarding the musculoskeletal system. 19:30 Reassessment: Pt refused labs and IV, provider made aware. cm10 20:39 Reassessment: Patient appears in no apparent distress at this time. Patient is alert, cm10 oriented x 3, equal unlabored respirations, skin warm/dry/pink. Patient states feeling better. Patient states symptoms have improved. Vital Signs: 18:28 BP 102 / 73; Pulse 86; Resp 18 S; Temp 97.5(TE); Pulse Ox 94% on R/A; Weight 47.63 kg as6 (R); Height 5 ft. 5 in. (R); Pain 8/10; 20:39 BP 130 / 102; Pulse 68; Resp 18; Pulse Ox 98% ; cm10 18:28 Body Mass Index 17.47 (47.63 kg, 165.1 cm) as6 18:28 Pain Scale: Adult as6 ED Course: 18:21 Patient arrived in ED. ra3 18:30 Triage completed. as6 18:32 Kameron Henao, RN is Primary Nurse. bp 18:32 Arm band placed on. as6 18:39 Chris Naidu PA is PHCP. cp 18:39 Yusra Fenton MD is Attending Physician. cp 18:53 Patient has correct armband on for positive identification. Placed in gown. Bed in low ld1 position. Call light in reach. Side rails up X2. Pulse ox on. NIBP on. Door closed. Noise minimized. 18:53 No provider procedures requiring assistance completed. ld1 19:22 Maxwell Gonzalez MD is Attending Physician. cp 20:39 Provided Education on: Follow-up instructions. cm10 20:39 Patient did not have IV access during this emergency room visit. cm10 Administered Medications: 19:29 Drug: ZyrTEC - Cetirizine PO 10 mg PO once Route: PO; cm10 20:40 Follow up: Response: No adverse reaction cm10 19:30 Drug: MethylPREDNISolone Sodium Succinate IM 80 mg IM once Route: IM; Site: right cm10 gluteus; 20:40 Follow up: Response: No adverse reaction; Marked relief of symptoms cm10 19:30 Drug: Famotidine PO 20 mg PO once Route: PO; cm10 20:40 Follow up: Response: No adverse reaction; Marked relief of symptoms cm10 Medication: 20:39 VIS not applicable for this client. cm10 Outcome: 20:15 Discharge ordered by MD. cp 20:39 Discharged to home ambulatory, cm10 20:39 Condition: good 20:39 Discharge instructions given to patient, Instructed on discharge instructions, follow up and referral plans. medication usage, Demonstrated understanding of instructions, follow-up care, medications, Prescriptions given X 3, 20:40 Patient left the ED. cm10 Signatures: Chris Naidu PA PA cp Peltier, Brian RN RN bp Brit Copeland RN RN ld1 Ankit Mark RN RN as6 Kaila Leal RN RN cm10 Amaris Reese ra3
--- NOTE | 2024-02-18 20:16 | EDPHYS ---
Physician Documentation [facility] Name: Josseline Gallegos Age: 63 yrs Sex: Female : 1960 Arrival Date: 02/18/2024 Time: 18:13 Bed 5 Private MD: ED Physician Maxwell Gonzalez HPI: 02/17 19:10 This 63 yrs old Female presents to ER via Ambulatory with complaints of Itching - all cp over. 19:10 The patient's rash thought to be caused by working outside concerned exposed to poison cp mary and/or sumac. 19:10 The rash is located on the body diffusely. The rash can be described as itching. Onset: cp The symptoms/episode began/occurred 3 day(s) ago. Severity of symptoms: in the emergency department the symptoms are worse moderately. Treatment given at home: OTC lotion/cream. 19:10 patient denies shortness of breath and/or difficulty breathing. patient refuses IV, cp blood work and requests oral and/or IM medications at this time. patient reports recently taking prescribed pain medications to include morphine and hydrocodone. Historical: - Allergies: 18:30 Codeine; as6 - PMHx: 18:30 Chronic pain; Hypertension; Chronic obstructive lung disease; as6 - PSHx: 18:30 wrist; foot; breat; as6 - Immunization history:: Adult Immunizations not up to date. - Social history:: Smoking status: Patient reports the use of cigarette tobacco products. ROS: 19:15 Constitutional: Negative for body aches, chills, fever, poor PO intake, cp 19:15 Eyes: Negative for injury, pain, redness, and discharge, cp 19:15 ENT: Negative for drainage from ear(s), ear pain, difficulty swallowing, difficulty handling secretions, 19:15 Cardiovascular: Negative for chest pain, palpitations, 19:15 Respiratory: Negative for cough, shortness of breath, wheezing, 19:15 Abdomen/GI: Negative for abdominal pain, vomiting, diarrhea, constipation, 19:15 Skin: Positive for rash, diffusely, facial swelling, 19:15 Neuro: Negative for altered mental status, headache, syncope, 19:15 All other systems are negative, Exam: 19:25 Constitutional: The patient appears in no acute distress, alert, awake, cp non-diaphoretic, non-toxic, well developed, well nourished, 19:25 Head/face: Noted is swelling, that is mild, of the below right and left eyes, cp 19:25 Eyes: Pupils: equal, round, and reactive to light and accomodation, Extraocular movements: intact throughout, Conjunctiva: normal, no exudate, no injection, Sclera: no appreciated abnormality, 19:25 ENT: External ear(s): are unremarkable, Nose: is normal, Mouth: Lips: moist, Oral mucosa: pink and intact, moist, Posterior pharynx: Airway: no evidence of obstruction, patent, Voice: is normal, 19:25 Neck: ROM/movement: is normal, is supple, without pain, no range of motions limitations, no meningismus, 19:25 Cardiovascular: Rate: normal, Rhythm: regular, Edema: is not appreciated, JVD: is not appreciated, 19:25 Respiratory: the patient does not display signs of respiratory distress, Respirations: labored breathing, is not present, intercostal retractions, are absent, Breath sounds: decreased breath sounds, that are mild, diffuse, stridor, is not appreciated, wheezing: is not appreciated, 19:25 Abdomen/GI: Exam negative for discomfort, distension, guarding, 19:25 Skin: cellulitis, is not appreciated, rash can be described as plaque-like, hives, excoriated lesions, and is diffusely located, 19:25 Neuro: Orientation: to person, place \T\ time. Mentation: able to follow commands, slow to respond, Motor: moves all fours, no focal deficits, Vital Signs: 18:28 BP 102 / 73; Pulse 86; Resp 18 S; Temp 97.5(TE); Pulse Ox 94% on R/A; Weight 47.63 kg as6 (R); Height 5 ft. 5 in. (R); Pain 8/10; 20:39 BP 130 / 102; Pulse 68; Resp 18; Pulse Ox 98% ; cm10 18:28 Body Mass Index 17.47 (47.63 kg, 165.1 cm) as6 18:28 Pain Scale: Adult as6 MDM: 18:39 Patient medically screened. cp 19:15 Differential diagnosis: anaphylaxis, angioedema, contact dermatitis. cp 20:13 Data reviewed: vital signs, nurses notes. Refusal of service: The patient/guardian cp displays adequate decision making capability and despite a detailed discussion of alternatives, benefits, risks, and consequences refuses: all lab tests, all X-rays, ekg. 02/17 19:04 Order name: EKG; Complete Time: 19:05 cp 02/17 19:04 Order name: Cardiac monitoring; Complete Time: 19:26 cp 02/17 19:04 Order name: EKG - Nurse/Tech; Complete Time: 19:30 cp 02/17 19:04 Order name: O2 Per Protocol; Complete Time: 20:30 cp 02/17 19:04 Order name: O2 Sat Monitoring; Complete Time: 20:30 cp Administered Medications: 19:29 Drug: ZyrTEC - Cetirizine PO 10 mg PO once Route: PO; cm10 20:40 Follow up: Response: No adverse reaction cm10 19:30 Drug: MethylPREDNISolone Sodium Succinate IM 80 mg IM once Route: IM; Site: right cm10 gluteus; 20:40 Follow up: Response: No adverse reaction; Marked relief of symptoms cm10 19:30 Drug: Famotidine PO 20 mg PO once Route: PO; cm10 20:40 Follow up: Response: No adverse reaction; Marked relief of symptoms cm10 Disposition: 21:02 Co-signature as Attending Physician, Maxwell Gonzalez MD I reviewed the patient's care rn provided by the Advanced Practice Provider and agree with the diagnosis and treatment plan. Disposition Summary: 02/18/24 20:15 Discharge Ordered Problem: new cp Symptoms: have improved cp Condition: Stable cp Diagnosis - Allergy, unspecified cp - Dermatitis, unspecified cp Followup: cp - With: Private Physician - When: 2 - 3 days - Reason: Recheck today's complaints Discharge Instructions: - Discharge Summary Sheet cp - Allergies, Adult cp - Contact Dermatitis cp Forms: - Medication Reconciliation Form cp - Thank You Letter cp - Antibiotic Education cp - Prescription Opioid Use cp - Patient Portal Instructions cp - Leadership Thank You Letter cp Prescriptions: - Pepcid 20 mg Oral Tablet - take 1 tablet ORAL route every 12 hours for 10 days; 20 tablet; Refills: 0, cp Product Selection Permitted - Zyrtec 10 mg Oral tablet - take 1 tablet ORAL route every 12 hours for 10 days; 20 tablet; Refills: 0, cp Product Selection Permitted - Prednisone 20 mg Oral tablet - take 2 tablets ORAL route once daily for 5 days then take 1 tablet daily for 3 cp days and then 1 half tablet daily for 2 days; 14 tablet; Refills: 0, Product Selection Permitted Signatures: Dispatcher [employer] EDMS Maxwell Gonzalez MD MD rn Chris Naidu PA PA cp Ankit Mark RN RN as6 Kaila Leal RN RN cm10 Corrections: (The following items were deleted from the chart) 20:21 19:05 Chest Single View+RAD.RAD.BRZ ordered. EDOR EDMS 20:30 19:04 Labs collected and sent ordered. cp pf1 02/18 14:30 02/17 19:10 patient denies shortness of breath and/or difficulty breathing. cp cp 02/18 14:32 02/17 19:10 patient denies shortness of breath and/or difficulty breathing. patient cp refuses IV, blood work and requests oral and/or IM medications at this time. cp
[2024-02-19 03:42] VITALS: BP 130/102; TEMP 97.5; O2SAT 98
--- NOTE | 2024-02-19 13:39 | EKG ---
Test Date: 2024-02-18 Test Time: 19:14:05 Well Surveying Engineer: MEME MEASUREMENT RESULTS: Intervals: Rate: 64 WY: 104 QRSD: 82 QT: 422 QTc: 435 [place]: P: 69 WY: 104 QRS: 84 T: 73 INTERPRETIVE STATEMENTS: Sinus rhythm with short [place] Otherwise normal ECG Compared to ECG 12/08/2022 14:01:26 Short [place] interval now present Electronically Signed On 02-19-24 13:36:24 CDT by Rubin Zuniga
== END 2024-02-18 20:40 | disposition home or self-care (01) ==
LOC: ER 18:13
DX: L30.9 Dermatitis, unspecified (principal); T78.40XA Allergy, unspecified, initial encounter; I10 Essential (primary) hypertension; Z88.5 Allergy status to narcotic agent
CPT/HCPCS: 93005; 96372; 99284; J2920

== ENCOUNTER 2024-04-26 10:15 | Emergency (ER) | payer OTHER ==
[2024-04-26] MEDS ORDERED: CEFTRIAXONE 1000 MG/VIAL ONE (10:44)
[2024-04-26] MEDS ORDERED: MORPHINE 4 MG/ML SYR ONE ×2 (10:44→12:00)
[2024-04-26] MEDS ORDERED: ONDANSETRON 4 MG/2 ML VIAL ONE (10:44)
[2024-04-26] MEDS ORDERED: NA CHLORIDE 0.9% 1,000 ML ONE (10:45)
[2024-04-26] MEDS ORDERED: CLINDAMYCIN 900MG/D5W 900 MG/50 ML IVPB IV ONE (10:45)
[2024-04-26] MEDS ORDERED: NA CHLORIDE 0.9% 100 ML ONE (10:46)
[2024-04-26 11:02] LABS: Absolute Lymphocytes (CBC) 2.7 K/uL (0.7-4.9); Absolute Monocytes 1.6 K/uL (0.1-1.3); Basophils % 0.3 % (0-1.3); Eosinophils % 0.2 % (0-4.4); Hematocrit 39.3 % (36.0-45.0); Lymphocytes % 17.6 % (15.3-44.8); MCH 33.3 pg (27.0-35.0); MCHC 33.1 g/dL (32.0-36.0); MCV 100.7 fL (80-100); MPV 8.2 fL (7.6-11.3); Monocytes % 10.3 % (3.3-12.3); Neutrophils % 71.6 % (41.7-73.7); Platelets 265 thou/uL (152-406)
[2024-04-26 11:14] LABS: Albumin 3.8 g/dL (3.4-5.0); Anion Gap 8.5 mEq/L (5.0-15.0); Bilirubin Total 1.7 mg/dL (0.2-1.0); Globulin 3.9 g/dL (2.3-3.5); Potassium 3.5 mEq/L (3.5-5.1); Protein, Total 7.7 g/dL (6.4-8.2)
--- NOTE | 2024-04-26 12:08 | RAD REPORT ---
EXAM DESCRIPTION: CT - Soft Tissue Neck W/Contr - 04/26/2024 11:37 am CLINICAL HISTORY: Neck pain and swelling COMPARISON: None. TECHNIQUE: Computed axial tomography of the neck was obtained. 50 cc Isovue 300 was administered in travenously. Coronal and sagittal reconstruction was performed. All CT scans are performed using dose optimization technique as appropriate and may include automated exposure control or mA/KV adjustment according to patient size. FINDINGS: Lucency surrounds a left posterior maxillary tooth. Edema is present within the adjacent superficial tissues left mandible/ left upper neck. . The edema extends into the left submandibular space. No soft tissue abscess seen. No air noted within tissues. The pharynx, tongue base, larynx and subglottic trachea appear unremarkable The parotid, submandibular and thyroid glands appear unremarkable. No lymphadenopathy is seen Fluid sphenoid sinus IMPRESSION: Left maxillary tooth abscess with surrounding cellulitis Fluid sphenoid sinus may indicate acute sinusitis
--- NOTE | 2024-04-26 12:10 | EDPHYS ---
Physician Documentation [facility] Name: Josseline Gallegos Age: 63 yrs Sex: Female : 1960 Arrival Date: 04/26/2024 Time: 10:15 Bed 8 Private MD: Chris Pedroza HPI: 04/26 11:20 This 63 yrs old Female presents to ER via Ambulatory with complaints of anne Facial Swelling, Facial pain, Neck Swelling. 11:20 The patient or guardian complains of pain, swelling, tenderness. The symptoms are anne located on the face and left jaw and left cheek. Onset: The symptoms/episode began/occurred 3 day(s) ago. Context: The problem was sustained at an unknown location, The neck injury/problem resulted from dental inf. Associated signs and symptoms: The patient has no apparent associated signs or symptoms. The pain does not radiate. Modifying factors: The symptoms are alleviated by nothing. the symptoms are aggravated by movement, pressure. Severity of symptoms: At their worst the symptoms were mild, moderate, in the emergency department the symptoms are unchanged. The patient has not experienced similar symptoms in the past. Historical: - Allergies: 10:23 Codeine; hb - Home Meds: 10:23 lisinopril Oral [Active]; Fluoxetine Oral [Active]; hydrocodone-acetaminophen 10-325 mg hb oral tablet [Active]; morphine 30 mg oral Capsule, ER Pellets daily [Active]; - PMHx: 10:23 Chronic obstructive lung disease; Chronic pain; Hypertension; hb - PSHx: 10:23 breat; foot; wrist; hb - Immunization history:: Adult Immunizations up to date. - Infectious Disease History:: Denies. - Social history:: Smoking status: Patient reports the use of cigarette tobacco products, smokes one-half pack cigarettes per day. - Family history:: not pertinent. ROS: 11:20 Constitutional: Negative for fever, chills, and weight loss, Eyes: Negative for injury, anne pain, redness, and discharge, Neck: Negative for injury, pain, and swelling, Cardiovascular: Negative for chest pain, palpitations, and edema, Respiratory: Negative for shortness of breath, cough, wheezing, and pleuritic chest pain, Abdomen/GI: Negative for abdominal pain, nausea, vomiting, diarrhea, and constipation, Back: Negative for injury and pain, : Negative for injury, bleeding, discharge, and swelling, MS/Extremity: Negative for injury and deformity, Skin: Negative for injury, rash, and discoloration, Neuro: Negative for headache, weakness, numbness, tingling, and seizure, Psych: Negative for depression, anxiety, suicide ideation, homicidal ideation, and hallucinations, Allergy/Immunology: Negative for hives, rash, and allergies, Endocrine: Negative for neck swelling, polydipsia, polyuria, polyphagia, and marked weight changes, Hematologic/Lymphatic: Negative for swollen nodes, abnormal bleeding, and unusual bruising, 11:20 ENT: Positive for dental pain, Teeth pain left mandible swelling, left submental area, Exam: 11:20 Constitutional: This is a well developed, well nourished patient who is awake, alert, anne and in no acute distress. Eyes: Pupils equal round and reactive to light, extra-ocular motions intact. Lids and lashes normal. Conjunctiva and sclera are non-icteric and not injected. Cornea within normal limits. Periorbital areas with no swelling, redness, or edema. ENT: Nares patent. No nasal discharge, no septal abnormalities noted. Tympanic membranes are normal and external auditory canals are clear. Oropharynx with no redness, swelling, or masses, exudates, or evidence of obstruction, uvula midline. Mucous membranes moist. Neck: Trachea midline, no thyromegaly or masses palpated, and no cervical lymphadenopathy. Supple, full range of motion without nuchal rigidity, or vertebral point tenderness. No Meningismus. Chest/axilla: Normal chest wall appearance and motion. Nontender with no deformity. No lesions are appreciated. Cardiovascular: Regular rate and rhythm with a normal S1 and S2. No gallops, murmurs, or rubs. Normal PMI, no JVD. No pulse deficits. Respiratory: Lungs have equal breath sounds bilaterally, clear to auscultation and percussion. No rales, rhonchi or wheezes noted. No increased work of breathing, no retractions or nasal flaring. Abdomen/GI: Soft, non-tender, with normal bowel sounds. No distension or tympany. No guarding or rebound. No evidence of tenderness throughout. Back: No spinal tenderness. No costovertebral tenderness. Full range of motion. Female : Normal external genitalia. Skin: Warm, dry with normal turgor. Normal color with no rashes, no lesions, and no evidence of cellulitis. MS/ Extremity: Pulses equal, no cyanosis. Neurovascular intact. Full, normal range of motion. Neuro: Awake and alert, GCS 15, oriented to person, place, time, and situation. Cranial nerves II-XII grossly intact. Motor strength 5/5 in all extremities. Sensory grossly intact. Cerebellar exam normal. Normal gait. Psych: Awake, alert, with orientation to person, place and time. Behavior, mood, and affect are within normal limits. 11:20 Head/face: Noted is erythema, that is mild, of the chin, left jaw, left cheek and left mandible, swelling, that is mild, tenderness, that is moderate, of the chin and left jaw, Vital Signs: 10:22 BP 138 / 102; Pulse 107; Resp 16; Temp 99(O); Pulse Ox 96% on R/A; Weight 49.9 kg; hb Height 5 ft. 5 in. ; Pain 10/10; 12:23 BP 181 / 105; Pulse 87; Resp 16; Pulse Ox 97% on R/A; iw 10:22 Body Mass Index 18.31 (49.90 kg, 165.1 cm) hb 10:22 Pain Scale: Adult hb MDM: 10:22 Patient medically screened. anne 11:27 Differential diagnosis: Neck Contusion. Data reviewed: vital signs, nurses notes, lab anne test result(s), radiologic studies, CT scan. Consideration of Admission/Observation Escalation of care including admission/observation considered. I considered the following discharge prescriptions or medication management in the emergency department Medications were administered in the Emergency Department. See MAR. Independent interpretation of the following test(s) in the Emergency Department CT Scan: My interpretation is ct soft neck. Test considered but Not performed: Ultrasound no usg. Historians other than the Patient: Parent: dad well informed. Care significantly affected by the following chronic conditions: Hypertension, Chronic Obstructive Pulmonary Disease, chronic pain. Counseling: I had a detailed discussion with the patient and/or guardian regarding the historical points, exam findings, and any diagnostic results supporting the discharge/admit diagnosis, the presence of at least one elevated blood pressure reading (>120/80) during this emergency department visit, lab results, radiology results, the need for outpatient follow up, for definitive care, an oral maxilofacial specialist. 04/26 10:41 Order name: CBC with Diff; Complete Time: 11:40 anne 04/26 10:41 Order name: Comprehensive Metabolic Panel; Complete Time: 11:40 anne 04/26 10:41 Order name: CT Soft Tissue Neck W/contr; Complete Time: 12:09 anne 04/26 10:41 Order name: NPO; Complete Time: 11:06 anne Administered Medications: 11:04 Drug: morphine IVP or IV 4 mg IVP once over 4 mins Route: IVP; Infused Over: 4 mins; iw Site: left antecubital; 12:25 Follow up: Response: No adverse reaction; Pain is decreased iw 11:04 Drug: Ondansetron IVP 4 mg IVP once; over 2 minutes Route: IVP; Site: left antecubital; iw 12:00 Follow up: Response: No adverse reaction iw 11:04 Drug: Rocephin IV 2 grams IV at per protocol once; Given slow IV push per pharmarcy iw instructions Route: IV; Rate: per protocol; Site: left antecubital; 11:15 Follow up: IV Status: Completed infusion iw 11:04 Drug: NS 0.9% IV 1000 ml IV at 1 bolus Per protocol; 1000 mL bolus Route: IV; Rate: 1 iw bolus; Site: left antecubital; 12:00 Follow up: IV Status: Completed infusion iw 11:56 Drug: Clindamycin IVPB 900 mg IVPB once over 30 mins; (mix in 50 mL) Route: IVPB; iw Infused Over: 30 mins; Site: left antecubital; 12:30 Follow up: IV Status: Completed infusion iw 12:23 Drug: morphine IVP or IV 4 mg IVP once over 4 mins Route: IVP; Infused Over: 4 mins; iw Site: left antecubital; 12:34 Follow up: Response: No adverse reaction iw Disposition Summary: 04/26/24 12:10 Discharge Ordered Notes: Location: Home anne Problem: new anne Symptoms: have improved anne Condition: Stable anne Diagnosis - Dental root caries - left mandibular abscess anne - Elevated white blood cell count anne Followup: anne - With: Private Physician - When: 2 - 3 days - Reason: Recheck today's complaints, Continuance of care, Re-evaluation by your physician Followup: anne - With: Dewey Ortiz DDS - When: Upon discharge from the Emergency Department - Reason: Recheck today's complaints, Re-evaluation by your physician Discharge Instructions: - Discharge Summary Sheet anne - Dental Abscess anne - Dental Caries, Adult anne - Dental Pain anne - Dental Pain, [id number] anne - Diet and Dental Disease anne - Dental Abscess, [id number] [facility] Forms: - Medication Reconciliation Form anne - Antibiotic Education anne - Prescription Opioid Use anne - Patient Portal Instructions [facility] - Leadership Thank You Letter [facility] Prescriptions: - Clindamycin HCl 300 mg Oral Capsule - take 1 capsule ORAL route every 6 hours for 10 days; 40 capsule; Refills: 0, anne Product Selection Permitted Signatures: Dispatcher [employer] EDMS Chris Gallegos MD MD cha Williams, Irene RN RN Ciera Blas RN RN Corrections: (The following items were deleted from the chart) 10:42 10:42 Soft Tissue Neck W/Contr+CT.RAD.BRZ ordered. EDMS EDMS
--- NOTE | 2024-04-26 12:10 | ER ---
Nurse's Notes [facility] Name: Josseline Gallegos Age: 63 yrs Sex: Female : 1960 Arrival Date: 04/26/2024 Time: 10:15 Bed 8 Private MD: Diagnosis: Dental root caries-left mandibular abscess;Elevated white blood cell count Presentation: 04/26 10:22 Chief complaint: Left sided facial and neck swelling x 2-3 days. Coronavirus screen: At this time, the client does not indicate any symptoms associated with coronavirus-19. Ebola Screen: No symptoms or risks identified at this time. Initial Sepsis Screen: Does the patient meet any 2 criteria? No. Patient's initial sepsis screen is negative. Does the patient have a suspected source of infection? No. Patient's initial sepsis screen is negative. Risk Assessment: Do you want to hurt yourself or someone else? Patient reports no desire to harm self or others. Onset of symptoms was April 24, 2024. 10:22 Method Of Arrival: Ambulatory 10:22 Acuity: TIFFANY 3 hb Triage Assessment: 10:23 General: Appears in no apparent distress. uncomfortable, Behavior is calm, cooperative. hb Pain: Pain currently is 10 out of 10 on a pain scale. EENT: left sided facial swelling and redness that extends to left neck. Neuro: Level of Consciousness is awake, alert, obeys commands, Oriented to person, place, time, situation. Cardiovascular: Patient's skin is warm and dry. Rhythm is tachy. Respiratory: Respiratory effort is even, unlabored, Respiratory pattern is regular, symmetrical. Historical: - Allergies: 10:23 Codeine; hb - Home Meds: 10:23 lisinopril Oral [Active]; Fluoxetine Oral [Active]; hydrocodone-acetaminophen 10-325 mg hb oral tablet [Active]; morphine 30 mg oral Capsule, ER Pellets daily [Active]; - PMHx: 10:23 Chronic obstructive lung disease; Chronic pain; Hypertension; hb - PSHx: 10:23 breat; foot; wrist; hb - Immunization history:: Adult Immunizations up to date. - Infectious Disease History:: Denies. - Social history:: Smoking status: Patient reports the use of cigarette tobacco products, smokes one-half pack cigarettes per day. - Family history:: not pertinent. Screenin:05 [facility] ED Fall Risk Assessment (Adult) History of falling in the last 3 months, iw including since admission No falls in past 3 months (0 pts). Abuse screen: Denies threats or abuse. Denies injuries from another. Nutritional screening: No deficits noted. Tuberculosis screening: No symptoms or risk factors identified. Assessment: 11:04 General: Appears uncomfortable, Behavior is appropriate for age. Pain: Complains of iw pain in left cheek and left jaw. Neuro: Level of Consciousness is awake, alert, obeys commands, Oriented to person, place, time, situation, Moves all extremities. Cardiovascular: Patient's skin is warm and dry. Respiratory: Respiratory effort is even, unlabored, Respiratory pattern is regular. GI: Abdomen is flat, non-distended. Derm: Skin is. Musculoskeletal: Swelling present in left cheek and left jaw. Vital Signs: 10:22 BP 138 / 102; Pulse 107; Resp 16; Temp 99(O); Pulse Ox 96% on R/A; Weight 49.9 kg; hb Height 5 ft. 5 in. ; Pain 10/10; 12:23 BP 181 / 105; Pulse 87; Resp 16; Pulse Ox 97% on R/A; iw 10:22 Body Mass Index 18.31 (49.90 kg, 165.1 cm) hb 10:22 Pain Scale: Adult hb ED Course: 10:18 Patient arrived in ED. im 10:22 Chris Gallegos MD is Attending Physician. anne 10:23 Triage completed. hb 10:26 Arm band placed on. hb 10:42 Anny Chowdhury, RN is Primary Nurse. iw 10:42 Initial lab(s) drawn, by md, sent to lab. Inserted saline lock: 22 gauge in right iw antecubital area, using aseptic technique. Blood collected. 11:04 Patient has correct armband on for positive identification. Provided Education on: . iw 11:38 CT Soft Tissue Neck W/contr In Process Unspecified. EDMS 12:10 Dewey Ortiz DDS is Referral Physician. anne 12:24 No provider procedures requiring assistance completed. iw 12:34 IV discontinued, intact, bleeding controlled, No redness/swelling at site. Pressure iw dressing applied. Administered Medications: 11:04 Drug: morphine IVP or IV 4 mg IVP once over 4 mins Route: IVP; Infused Over: 4 mins; iw Site: left antecubital; 12:25 Follow up: Response: No adverse reaction; Pain is decreased iw 11:04 Drug: Ondansetron IVP 4 mg IVP once; over 2 minutes Route: IVP; Site: left antecubital; iw 12:00 Follow up: Response: No adverse reaction iw 11:04 Drug: Rocephin IV 2 grams IV at per protocol once; Given slow IV push per pharmarcy iw instructions Route: IV; Rate: per protocol; Site: left antecubital; 11:15 Follow up: IV Status: Completed infusion iw 11:04 Drug: NS 0.9% IV 1000 ml IV at 1 bolus Per protocol; 1000 mL bolus Route: IV; Rate: 1 iw bolus; Site: left antecubital; 12:00 Follow up: IV Status: Completed infusion iw 11:56 Drug: Clindamycin IVPB 900 mg IVPB once over 30 mins; (mix in 50 mL) Route: IVPB; iw Infused Over: 30 mins; Site: left antecubital; 12:30 Follow up: IV Status: Completed infusion iw 12:23 Drug: morphine IVP or IV 4 mg IVP once over 4 mins Route: IVP; Infused Over: 4 mins; iw Site: left antecubital; 12:34 Follow up: Response: No adverse reaction iw Medication: 11:04 VIS not applicable for this client. iw Outcome: 12:10 Discharge ordered by MD. rodríguez 12:34 Discharged to home ambulatory, iw 12:34 Condition: good 12:34 Discharge instructions given to patient, family, Instructed on discharge instructions, follow up and referral plans. medication usage, Demonstrated understanding of instructions, follow-up care, medications, Prescriptions given X 1, 12:35 Patient left the ED. iw Signatures: Dispatcher [employer] Chris Alvarado MD MD cha Williams, Irene, RN RN Ciera Blas RN RN Kary Holland Corrections: (The following items were deleted from the chart) 10:27 10:22 BP 138 / 102; Pulse 107bpm; Resp 16bpm; Pulse Ox 96% RA; Temp 98.2F Temporal; hb 49.9 kg; Height 5 ft. 5 in.; BMI: 18.3; Pain 08/29, Adult; hb
[2024-04-26 12:44] VITALS: BP 181/105; TEMP 99; O2SAT 97
== END 2024-04-26 12:35 | disposition home or self-care (01) ==
LOC: ER 10:15
DX: M27.2 Inflammatory conditions of jaws (principal); K02.9 Dental caries, unspecified; D72.829 Elevated white blood cell count, unspecified; I10 Essential (primary) hypertension; J44.9 Chronic obstructive pulmonary disease, unspecified; F17.210 Nicotine dependence, cigarettes, uncomplicated; Z79.899 Other long term (current) drug therapy
CPT/HCPCS: 96365; 96361; 85025; 36415; 80053; 70491; 96375; 99284; Q9967; J2405; J7030; J0696

== ENCOUNTER 2024-09-22 15:12 | Emergency (ER) | payer OTHER ==
[2024-09-22] MEDS ORDERED: MEPERIDINE HCL 25 MG/ML SYR ONE (15:58)
--- NOTE | 2024-09-22 16:32 | RAD REPORT ---
EXAMINATION: LUMBAR SPINE 3 VIEWS CLINICAL INDICATION: Female, 63 years old. PAIN TECHNIQUE: AP, lateral, focused lateral lumbosacral views of the lumbar spine were obtained. [id number]. COMPARISON: 01/21/2020 FINDINGS: For purposes of this dictation, it is assumed that there are 5 lumbar type vertebral bodies. ALIGNMENT: There is a sclerotic curvature centered at L2. BONES: Vertebral bodies are normal in height. No aggressive osseous lesions. DISCS: Severe disc height loss at L5-S1. Moderate disc height loss at L2-3 but with severe degenerati ve changes including vaccuum disc and endplate sclerosis. SOFT TISSUE: Atherosclerotic changes. IMPRESSION: No acute lumbar spine abnormality.
--- NOTE | 2024-09-22 16:33 | RAD REPORT ---
EXAMINATION: XR PELVIS CLINICAL INDICATION: Female, 63 years old. fall TECHNIQUE: Frontal view of the pelvis [id number]. COMPARISON: 11/26/2015 FINDINGS: No evidence of fracture or dislocation. Normal alignment. Bilateral mild acetabular and low er spine degenerative changes. Soft tissues are unremarkable. IMPRESSION: No acute osseous abnormalities.
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
--- NOTE | 2024-09-22 16:45 | ER ---
Nurse's Notes [facility] Name: Josseline Gallegos Age: 63 yrs Sex: Female : 1960 Arrival Date: 09/22/2024 Time: 15:12 Bed 15 Private MD: Diagnosis: Low back pain;Contusion of lower back and pelvis Presentation: 09/22 15:24 Chief complaint: Patient states: Fell 4 days ago and still has back pain although she ll1 is taking pain and nausea medications. Coronavirus screen: Client denies travel out of the [place] in the last 14 days. At this time, the client does not indicate any symptoms associated with coronavirus-19. Ebola Screen: Patient denies travel to an Ebola-affected area in the 21 days before illness onset. Initial Sepsis Screen: Does the patient meet any 2 criteria? No. Patient's initial sepsis screen is negative. Does the patient have a suspected source of infection? No. Patient's initial sepsis screen is negative. Risk Assessment: Do you want to hurt yourself or someone else? Patient reports no desire to harm self or others. Onset of symptoms was September 20, 2024. 15:24 Method Of Arrival: Ambulatory ll1 15:24 Acuity: TIFFANY 4 ll1 Triage Assessment: 15:24 General: Appears uncomfortable, Behavior is calm, cooperative, appropriate for age. ll1 Pain: Complains of pain in back Quality of pain is described as aching. Musculoskeletal: Reports pain in back. Historical: - Allergies: 15:18 Codeine; ll1 - Home Meds: 15:35 hydrocodone-acetaminophen 10-325 mg Oral tablet [Active]; morphine 30 mg Oral CERP mb9 daily [Active]; lisinopril Oral [Active]; Fluoxetine Oral [Active]; - PMHx: 15:18 Chronic obstructive lung disease; Chronic pain; Hypertension; ll1 - PSHx: 15:18 breat; foot; wrist; ll1 - Immunization history:: Adult Immunizations up to date. - Infectious Disease History:: Denies. - Social history:: Smoking status: Patient reports the use of cigarette tobacco products, smokes one-half pack cigarettes per day. Screenin:34 [facility] ED Fall Risk Assessment (Adult) History of falling in the last 3 months, mb9 including since admission Yes- single mechanical fall (1 pt) Confusion or Disorientation No (0 pts) Intoxicated or Sedated No (0 pts) Impaired Gait No (0 pts) Mobility Assist Device Used No (0 pt) Altered Elimination No (0 pt) Score/Fall Risk Level 3 or more points = High Risk Oriented to surroundings, Maintained a safe environment, Educated pt \T\ family on fall prevention, incl call for assistance when getting out of bed, Assessed \T\ reinforced patient's understanding of fall precautions. Abuse screen: Denies threats or abuse. Nutritional screening: No deficits noted. Tuberculosis screening: No symptoms or risk factors identified. Assessment: 15:34 General: Appears in no apparent distress. Behavior is calm, cooperative. Pain: mb9 Complains of pain in back Pain does not radiate. Pain currently is 10 out of 10 on a pain scale. Quality of pain is described as throbbing, Pain began gradually. Neuro: Martinez Agitation-Sedation Scale (RASS): 0 - Alert and Calm Level of Consciousness is awake, alert, obeys commands, Oriented to person, place, time, situation, Appropriate for age. Cardiovascular: Patient's skin is warm and dry. Respiratory: Airway is patent Respiratory effort is even, unlabored, Respiratory pattern is regular, symmetrical. GI: No signs and/or symptoms were reported involving the gastrointestinal system. : No signs and/or symptoms were reported regarding the genitourinary system. EENT: No signs and/or symptoms were reported regarding the EENT system. Derm: Skin is pink, warm \T\ dry. Musculoskeletal: Range of motion: intact in all extremities. 15:48 Reassessment: Pharmacy bringing Meperidine to ER. mb9 15:53 Reassessment: PT updated about ER process and waiting for medication when pharmacy mb9 brings it. 17:01 Reassessment: Patient and/or family updated on plan of care and expected duration. Pain mb9 level reassessed. Patient is alert, oriented x 3, equal unlabored respirations, skin warm/dry/pink. Patient states feeling better. Patient states symptoms have improved. Vital Signs: 15:24 BP 122 / 85; Pulse 88; Resp 17; Temp 98; Pulse Ox 94% on R/A; Weight 45.36 kg; Height 5 ll1 ft. 5 in. ; Pain 10/10; 17:01 BP 117 / 68; Pulse 74; Resp 18; Pulse Ox 100% on R/A; mb9 15:24 Body Mass Index 16.64 (45.36 kg, 165.1 cm) ll1 15:24 Pain Scale: Adult ll1 ED Course: 15:18 Patient arrived in ED. ra3 15:19 Arm band placed on Patient placed in an exam room, on a stretcher. ll1 15:25 Yusra Fenton MD is Attending Physician. sp3 15:25 Triage completed. ll1 15:25 Angel Walker PA is PHCP. jr8 15:26 Lo Taylor, CHUCKY is Primary Nurse. mb9 15:33 Bed in low position. Call light in reach. Side rails up X 1. Provided Education on: mb9 press call light if needing anything. Client placed on continuous cardiac and pulse oximetry monitoring. NIBP monitoring applied. 15:34 No provider procedures requiring assistance completed. mb9 15:34 Patient did not have IV access during this emergency room visit. mb9 16:20 Lumbar Spine (3 Views) XRAY In Process Unspecified. EDMS 16:21 Pelvis XRAY In Process Unspecified. EDMS Administered Medications: 16:06 Drug: Meperidine IM 50 mg IM once Route: IM; Site: left gluteus; mb9 17:00 Follow up: Response: No adverse reaction mb9 Medication: 15:34 VIS not applicable for this client. mb9 Outcome: 16:45 Discharge ordered by . jr8 17:01 Discharged to home ambulatory, with family, mb9 17:01 Condition: stable 17:01 Discharge instructions given to patient, Instructed on discharge instructions, follow up and referral plans. Demonstrated understanding of instructions, follow-up care, medications, Prescriptions given X 2, 17:02 Patient left the ED. mb9 Signatures: Dispatcher [employer] EDMS Angel Walker PA PA jr8 Evelina Lopez RN RN 1 Yusra Fenton MD MD 3 Lo Taylor, CHUCKY RN mb9 Amaris Reese 3
[2024-09-22 17:24] VITALS: TEMP 98
[2024-09-22 17:26] VITALS: BP 117/68; O2SAT 100
== END 2024-09-22 17:02 | disposition home or self-care (01) ==
LOC: ER 15:12
DX: S30.0XXA Contusion of lower back and pelvis, initial encounter (principal); W17.89XA Other fall from one level to another, initial encounter; I10 Essential (primary) hypertension; J44.9 Chronic obstructive pulmonary disease, unspecified; F17.210 Nicotine dependence, cigarettes, uncomplicated
CPT/HCPCS: 72100; 72170; 96372; 99284; J2175

== ENCOUNTER 2025-01-29 19:42 | Emergency (ER) | payer OTHER ==
--- NOTE | 2025-01-29 20:44 | EDPHYS ---
Physician Documentation [facility] Name: Josseline Gallegos Age: 64 yrs Sex: Female : 1960 Arrival Date: 01/29/2025 Time: 19:42 Bed 12 Private MD: ED Physician Aleksey Simms HPI: 01/29 20:52 This 64 yrs old Female presents to ER via EMS with complaints of chronic pain. kb 20:52 Pt is a 64 year old female who presents for pain all over body and muscle cramps in kb legs. States her pain specialist cut her off cold turkey so she needs morphine 30mg and norco 10/325mg. States she just needs the medication in her system, she knows she is not dehydrated or anything. . Historical: - Allergies: 20:04 Codeine; ha1 20:04 Ibuprofen; ha1 - Home Meds: 20:04 hydrocodone-acetaminophen 10-325 mg Oral tablet [Active]; morphine 30 mg Oral CERP ha1 daily [Active]; - PMHx: 20:04 Chronic obstructive lung disease; Chronic pain; Hypertension; ha1 - PSHx: 20:04 breat; foot; wrist; ha1 - Immunization history:: Adult Immunizations up to date. - Infectious Disease History:: Denies. - Social history:: Smoking status: unknown. ROS: 20:54 Constitutional: As per HPI kb Exam: 20:54 Constitutional: This is a well developed, well nourished patient who is awake, alert, kb and in no acute distress. Head/Face: Normocephalic, atraumatic. ENT: Moist Mucous membranes Cardiovascular: Regular rate Respiratory: Respirations even and unlabored. No increased work of breathing. Talking in full sentences Skin: Warm, dry with normal turgor. Normal color. MS/ Extremity: Pulses equal, no cyanosis. Neurovascular intact. Full, normal range of motion. Neuro: Awake and alert, GCS 15, oriented to person, place, time, and situation. Vital Signs: 19:45 BP 136 / 95; Pulse 91; Resp 16 S; Temp 97.6(T); Pulse Ox 98% on R/A; Weight 68.95 kg; ha1 Height 5 ft. 4 in. ; 20:55 BP 135 / 84; Pulse 92; Resp 16 S; Pulse Ox 98% on R/A; ha1 19:45 Body Mass Index 26.09 (68.95 kg, 162.56 cm) ha1 MDM: 19:56 Medical Screening Exam initiated kb 20:54 Differential Diagnosis chronic pain, opioid withdrawal. Data reviewed: vital signs, kb nurses notes. Historians other than the Patient: EMS: [facility]. Counseling: I had a detailed discussion with the patient and/or guardian regarding the historical points, exam findings, and any diagnostic results supporting the discharge/admit diagnosis, the need for outpatient follow up, a family practitioner, to return to the emergency department if symptoms worsen or persist or if there are any questions or concerns that arise at home. ED course: Discussed nonnarcotic pain management with pt. Agrees to flexeril for muscle spasms and toradol IM. . Administered Medications: 21:15 Drug: Ketorolac IM 30 mg IM once Route: IM; Site: right deltoid; ha1 21:25 Follow up: Response: No adverse reaction; Pain is decreased ha1 21:15 Drug: Cyclobenzaprine PO 10 mg PO once Route: PO; ha1 21:25 Follow up: Response: No adverse reaction; Marked relief of symptoms ha1 Disposition: 20:58 Co-signature as Attending Physician, Aleksey Simms MD I reviewed the patient's care rt provided by the Advanced Practice Provider and agree with the diagnosis and treatment plan. Disposition Summary: 01/29/25 20:43 Discharge Ordered Notes: Location: Home kb Condition: Stable kb Diagnosis - Chronic pain syndrome kb Followup: kb - With: Emergency Department - When: As needed - Reason: Worsening of condition Followup: kb - With: Private Physician - When: 2 - 3 days - Reason: Recheck today's complaints, Continuance of care, Re-evaluation by your physician Discharge Instructions: - Discharge Summary Sheet kb - Chronic Pain, Adult kb Forms: - Medication Reconciliation Form kb - Antibiotic Education kb - Prescription Opioid Use kb - Patient Portal Instructions kb - Leadership Thank You Letter kb Signatures: Jeane Nur FNP-C FNP-Ckb Ayala, Heidy, RN RN ha1 Aleksey Simms MD MD rt Corrections: (The following items were deleted from the chart) 20:54 20:52 Pt is a 64 year old female who presents for pain all over body and muscle cramps kb in legs. States her pain specialist cut her off so she needs morphine 30mg and norco 10/325mg. States she just needs the medication, she knows she is not dehydrated or anything. . kb 20:54 20:52 Pt is a 64 year old female who presents for pain all over body and muscle cramps kb in legs. States her pain specialist cut her off cold turkey so she needs morphine 30mg and norco 10/325mg. States she just needs the medication, she knows she is not dehydrated or anything. . kb
--- NOTE | 2025-01-29 20:44 | ER ---
Nurse's Notes [facility] Name: Josseline Gallegos Age: 64 yrs Sex: Female : 1960 Arrival Date: 01/29/2025 Time: 19:42 Bed 12 Private MD: Diagnosis: Chronic pain syndrome Presentation: 01/29 19:45 Chief complaint: Patient states: history of osteoporosis reports body pain. requesting ha1 pain medications. 19:45 Coronavirus screen: Client denies travel out of the [place] in the last 14 days. Ebola ha1 Screen: No symptoms or risks identified at this time. Initial Sepsis Screen: Does the patient meet any 2 criteria? No. Patient's initial sepsis screen is negative. Does the patient have a suspected source of infection? No. Patient's initial sepsis screen is negative. Risk Assessment: Do you want to hurt yourself or someone else? Patient reports no desire to harm self or others. Onset of symptoms was January 29, 2025. 19:45 Method Of Arrival: EMS: [facility] ha1 19:45 Acuity: TIFFANY 5 ha1 Triage Assessment: 19:45 General: Appears comfortable, Behavior is calm, cooperative. Pain: Complains of pain in ha1 all over body. Neuro: Level of Consciousness is awake, alert, obeys commands, Oriented to person, place, time, situation. Cardiovascular: Patient's skin is warm and dry. Respiratory: Airway is patent Respiratory effort is even, unlabored, Respiratory pattern is regular, symmetrical. Musculoskeletal: Reports since all over body . 19:45 GI: No signs and/or symptoms were reported involving the gastrointestinal system. : ha1 No signs and/or symptoms were reported regarding the genitourinary system. Historical: - Allergies: 20:04 Codeine; ha1 20:04 Ibuprofen; ha1 - Home Meds: 20:04 hydrocodone-acetaminophen 10-325 mg Oral tablet [Active]; morphine 30 mg Oral CERP ha1 daily [Active]; - PMHx: 20:04 Chronic obstructive lung disease; Chronic pain; Hypertension; ha1 - PSHx: 20:04 breat; foot; wrist; ha1 - Immunization history:: Adult Immunizations up to date. - Infectious Disease History:: Denies. - Social history:: Smoking status: unknown. Screenin:50 [facility] ED Fall Risk Assessment (Adult) History of falling in the last 3 months, ha1 including since admission Yes- single mechanical fall (1 pt) Confusion or Disorientation No (0 pts) Intoxicated or Sedated Yes (3 pts) Impaired Gait Yes (1 pt) Mobility Assist Device Used Yes (1 pt) Altered Elimination Yes (1 pt) Score/Fall Risk Level 3 or more points = High Risk Oriented to surroundings, Maintained a safe environment, Educated pt \T\ family on fall prevention, incl call for assistance when getting out of bed, Hourly rounding (assess needs \T\ fall precautionary measures) done. Abuse screen: Denies threats or abuse. Denies injuries from another. Nutritional screening: No deficits noted. Tuberculosis screening: No symptoms or risk factors identified. Assessment: 19:45 Reassessment: see triage assessment. ha1 20:45 Reassessment: Patient and/or family updated on plan of care and expected duration. Pain ha1 level reassessed. Patient is alert, oriented x 3, equal unlabored respirations, skin warm/dry/pink. 20:45 Reassessment: patient requesting ketamine . Provided education on need to follow up ha1 with pain doctor. Vital Signs: 19:45 BP 136 / 95; Pulse 91; Resp 16 S; Temp 97.6(T); Pulse Ox 98% on R/A; Weight 68.95 kg; ha1 Height 5 ft. 4 in. ; 20:55 BP 135 / 84; Pulse 92; Resp 16 S; Pulse Ox 98% on R/A; ha1 19:45 Body Mass Index 26.09 (68.95 kg, 162.56 cm) ha1 ED Course: 19:45 Patient arrived in ED. kmf 19:45 Patient has correct armband on for positive identification. Placed in gown. Bed in low ha1 position. Call light in reach. Side rails up X2. 19:45 Provided Education on: plan of care . ha1 19:56 Jeane Nur F[facility]-C [facility]. kb 19:56 Aleksey Simms MD is Attending Physician. kb 20:04 Triage completed. ha1 21:29 Arm band placed on right wrist. ha1 21:29 No provider procedures requiring assistance completed. Patient did not have IV access ha1 during this emergency room visit. Administered Medications: 21:15 Drug: Ketorolac IM 30 mg IM once Route: IM; Site: right deltoid; ha1 21:25 Follow up: Response: No adverse reaction; Pain is decreased ha1 21:15 Drug: Cyclobenzaprine PO 10 mg PO once Route: PO; ha1 21:25 Follow up: Response: No adverse reaction; Marked relief of symptoms ha1 Medication: 21:29 VIS not applicable for this client. ha1 Outcome: 20:43 Discharge ordered by MD. alexis 21: Discharged to home via wheelchair, with family, ha1 21: Condition: stable 21:29 Discharge instructions given to patient, family, Instructed on discharge instructions, follow up and referral plans. Demonstrated understanding of instructions, follow-up care, 21:30 Patient left the ED. ha1 Signatures: Jeane Nur FNP-C FNP-Calista Mott RN RN ha1 Kirti Spring
[2025-01-29] MEDS ORDERED: CYCLOBENZAPRINE 10 MG TAB ONE (21:12)
[2025-01-29] MEDS ORDERED: KETOROLAC 30 MG/ML INJ ONE (21:12)
[2025-01-29 21:42] VITALS: TEMP 97.6; O2SAT 98
[2025-01-29 21:43] VITALS: BP 135/84
== END 2025-01-29 21:30 | disposition home or self-care (01) ==
LOC: ER 19:42
DX: G89.4 Chronic pain syndrome (principal)
CPT/HCPCS: 96372; 99284

== ENCOUNTER 2025-02-01 17:18 | Emergency (ER) | payer OTHER ==
[2025-02-01] MEDS ORDERED: CYCLOBENZAPRINE 10 MG TAB ONE (18:04)
[2025-02-01] MEDS ORDERED: KETOROLAC 30 MG/ML INJ ONE (18:04)
--- NOTE | 2025-02-01 18:13 | EDPHYS ---
Physician Documentation [facility] Name: Josseline Gallegos Age: 64 yrs Sex: Female : 1960 Arrival Date: 02/01/2025 Time: 17:18 Bed 14 Private MD: ED Physician Aleksey Simms HPI: 02/01 18:33 This 64 yrs old Female presents to ER via EMS with complaints of Pain All Over. rt 18:33 Patient with history of chronic pain presents to the ED after abruptly stopping her rt medications about a month ago. Patient was taking morphine, hydrocodone's daily. Reports generalized pain to her body. Denies other specific symptoms at this time, symptoms are moderate in severity, no other aggravating or alleviating factors.. Historical: - Allergies: 17:27 Codeine; ph 17:27 Ibuprofen; ph - PMHx: 17:27 Chronic obstructive lung disease; Chronic pain; Hypertension; ph - PSHx: 17:27 foot; wrist; breast (wrist); ph - Immunization history:: Adult Immunizations unknown. - Infectious Disease History:: Denies. - Social history:: Smoking status: unknown. - Family history:: not pertinent. ROS: 18:33 Cardiovascular: Negative for chest pain, palpitations, and edema, Respiratory: Negative rt for shortness of breath, cough, wheezing, and pleuritic chest pain, Abdomen/GI: Negative for abdominal pain, nausea, vomiting, diarrhea, and constipation, MS/Extremity: Negative for injury and deformity, Skin: Negative for injury, rash, and discoloration, 18:33 Constitutional: Positive for body aches, Negative for fever, Exam: 18:33 Constitutional: This is a well developed, well nourished patient who is awake, alert, rt and in no acute distress. Head/Face: Normocephalic, atraumatic. Chest/axilla: Normal chest wall appearance and motion. Nontender with no deformity. No lesions are appreciated. Cardiovascular: Regular rate and rhythm with a normal S1 and S2. No gallops, murmurs, or rubs. Normal PMI, no JVD. No pulse deficits. Respiratory: Lungs have equal breath sounds bilaterally, clear to auscultation and percussion. No rales, rhonchi or wheezes noted. No increased work of breathing, no retractions or nasal flaring. Abdomen/GI: Soft, non-tender, with normal bowel sounds. No distension or tympany. No guarding or rebound. No evidence of tenderness throughout. Skin: Warm, dry with normal turgor. Normal color with no rashes, no lesions, and no evidence of cellulitis. Neuro: Awake and alert, GCS 15, oriented to person, place, time, and situation. Cranial nerves II-XII grossly intact. Motor strength 5/5 in all extremities. Sensory grossly intact. Cerebellar exam normal. Normal gait. Vital Signs: 17:24 BP 141 / 94; Pulse 118; Resp 18; Temp 97.8; Pulse Ox 98% on R/A; Weight 47.63 kg; ph Height 5 ft. 5 in. ; 17:24 Body Mass Index 17.47 (47.63 kg, 165.1 cm) ph MDM: 17:34 Medical Screening Exam initiated rt 18:33 Differential Diagnosis Opioid withdrawal, chronic pain. Data reviewed: vital signs, rt nurses notes, old medical records. I considered the following discharge prescriptions or medication management in the emergency department Medications were administered in the Emergency Department. See MAR I do not believe that opioid medications, ketamine are indicated in this patient. Care significantly affected by the following chronic conditions: Chronic pain. Counseling: I had a detailed discussion with the patient and/or guardian regarding the historical points, exam findings, and any diagnostic results supporting the discharge/admit diagnosis, the need for outpatient follow up. Administered Medications: 18:33 Drug: Ketorolac IM 30 mg IM once Route: IM; Site: right gluteus; ph 18:33 Follow up: Response: No adverse reaction; Medication administered at discharge. ph 18:33 Drug: Cyclobenzaprine PO 10 mg PO once Route: PO; ph 18:33 Follow up: Response: No adverse reaction; Medication administered at discharge. ph Disposition Summary: 02/01/25 18:13 Discharge Ordered Notes: Location: Home rt Problem: an ongoing problem rt Symptoms: are unchanged rt Condition: Stable rt Diagnosis - Chronic pain syndrome rt Followup: rt - With: Private Physician - When: 2 - 3 days - Reason: Discharge Instructions: - Discharge Summary Sheet rt - Chronic Pain, Adult rt Forms: - Medication Reconciliation Form rt - Antibiotic Education rt - Prescription Opioid Use rt - Patient Portal Instructions rt - Leadership Thank You Letter rt Prescriptions: - cyclobenzaprine 10 mg Oral tablet - take 1 tablet ORAL route 3 times per day as needed for muscle spasm; 15 tablet; rt Refills: 0, Product Selection Permitted Signatures: Margot Jeffrey RN RN ph Aleksey Simms MD MD rt Corrections: (The following items were deleted from the chart) 17:27 17:27 PSHx: breat; ph ph
--- NOTE | 2025-02-01 18:13 | ER ---
Nurse's Notes [facility] Name: Josseline Gallegos Age: 64 yrs Sex: Female : 1960 Arrival Date: 02/01/2025 Time: 17:18 Bed 14 Private MD: Diagnosis: Chronic pain syndrome Presentation: 02/01 17:24 Chief complaint: EMS states: Pt reports that she quit taking chronic pain medications ph 31 days ago, was taking morphine and hydrocodone, is c/o pain all over. Coronavirus screen: Vaccine status: Patient reports being unvaccinated. Ebola Screen: No symptoms or risks identified at this time. Initial Sepsis Screen: Does the patient meet any 2 criteria? No. Patient's initial sepsis screen is negative. Does the patient have a suspected source of infection? No. Patient's initial sepsis screen is negative. Risk Assessment: Do you want to hurt yourself or someone else? Patient reports no desire to harm self or others. Onset of symptoms was February 01, 2025. 17:24 Method Of Arrival: EMS: [facility] 17:24 Acuity: TIFFANY 3 ph Triage Assessment: 17:27 General: Appears in no apparent distress. uncomfortable, Behavior is cooperative, ph appropriate for age, anxious. Pain: Complains of pain in all over. Neuro: Level of Consciousness is awake, alert, obeys commands, Oriented to person, place, time, situation. Cardiovascular: Capillary refill < 3 seconds in bilateral fingers Patient's skin is warm and dry. Respiratory: Airway is patent Respiratory effort is even, unlabored, Respiratory pattern is regular, symmetrical. GI: No signs and/or symptoms were reported involving the gastrointestinal system. Derm: Skin is pink, warm \T\ dry. Historical: - Allergies: 17:27 Codeine; ph 17:27 Ibuprofen; ph - PMHx: 17:27 Chronic obstructive lung disease; Chronic pain; Hypertension; ph - PSHx: 17:27 foot; wrist; breast (wrist); ph - Immunization history:: Adult Immunizations unknown. - Infectious Disease History:: Denies. - Social history:: Smoking status: unknown. - Family history:: not pertinent. Screenin:33 [facility] ED Fall Risk Assessment (Adult) History of falling in the last 3 months, ph including since admission No falls in past 3 months (0 pts) Confusion or Disorientation No (0 pts) Intoxicated or Sedated No (0 pts) Impaired Gait No (0 pts) Mobility Assist Device Used No (0 pt) Altered Elimination No (0 pt) Score/Fall Risk Level 0 - 2 = Low Risk Oriented to surroundings, Maintained a safe environment, Hourly rounding (assess needs \T\ fall precautionary measures) done. Abuse screen: Denies threats or abuse. Denies injuries from another. Nutritional screening: No deficits noted. Tuberculosis screening: No symptoms or risk factors identified. Assessment: 18:32 General: SEE TRIAGE ASSESSMENT. ph Vital Signs: 17:24 BP 141 / 94; Pulse 118; Resp 18; Temp 97.8; Pulse Ox 98% on R/A; Weight 47.63 kg; ph Height 5 ft. 5 in. ; 17:24 Body Mass Index 17.47 (47.63 kg, 165.1 cm) ph ED Course: 17:23 Patient arrived in ED. ph 17:27 Triage completed. ph 17:28 Arm band placed on Patient placed in an exam room, on a stretcher, on pulse oximetry. ph 17:32 Aleskey Simms MD is Attending Physician. rt 17:57 Margot Jeffrey, RN is Primary Nurse. ph 18:33 Patient has correct armband on for positive identification. Bed in low position. Call ph light in reach. Side rails up X 1. Pulse ox on. NIBP on. 18:33 No provider procedures requiring assistance completed. Patient did not have IV access ph during this emergency room visit. Administered Medications: 18:33 Drug: Ketorolac IM 30 mg IM once Route: IM; Site: right gluteus; ph 18:33 Follow up: Response: No adverse reaction; Medication administered at discharge. ph 18:33 Drug: Cyclobenzaprine PO 10 mg PO once Route: PO; ph 18:33 Follow up: Response: No adverse reaction; Medication administered at discharge. ph Medication: 18:33 VIS not applicable for this client. ph Outcome: 18:13 Discharge ordered by . rt 18:34 Discharged to home ambulatory, with family, ph 18:34 Condition: good 18:34 Discharge instructions given to patient, Instructed on discharge instructions, follow up and referral plans. medication usage, Demonstrated understanding of instructions, follow-up care, medications, Prescriptions given X 1, 18:34 Patient left the ED. ph Signatures: Margot Jeffrey RN RN ph Aleksey Simms MD MD rt Corrections: (The following items were deleted from the chart) 17:27 17:27 PSHx: breat; ph ph
[2025-02-01 18:40] VITALS: BP 141/94; TEMP 97.8; O2SAT 98
== END 2025-02-01 18:34 | disposition home or self-care (01) ==
LOC: ER 17:18
DX: G89.4 Chronic pain syndrome (principal)
CPT/HCPCS: 96372; 99284

== ENCOUNTER 2025-02-06 17:11 | Emergency (ER) | payer OTHER ==
[2012-04-23 13:33] VITALS: BP 158/68
--- NOTE | 2025-02-06 17:56 | ER ---
Nurse's Notes [facility] Name: Josseline Gallegos Age: 64 yrs Sex: Female : 1960 Arrival Date: 02/06/2025 Time: 17:11 Bed IW9 Private MD: Diagnosis: Presentation: 02/06 17:15 Chief complaint: EMS states: pain all over , chronic pain, anxiety. Coronavirus screen: iw At this time, the client does not indicate any symptoms associated with coronavirus-19. Initial Sepsis Screen: Does the patient meet any 2 criteria? No. Patient's initial sepsis screen is negative. Does the patient have a suspected source of infection? No. Patient's initial sepsis screen is negative. Risk Assessment: Do you want to hurt yourself or someone else? Patient reports no desire to harm self or others. 17:15 Method Of Arrival: EMS: [facility] iw Assessment: 17:42 Reassessment: registration reports pt stated "thank your for your patience but i am iw calling someone to pick me up ". ED Course: 17:14 Patient arrived in ED. iw Administered Medications: No medications were administered Outcome: 17:56 Patient left the ED. iw Signatures: Anny Chowdhury, RN RN iw
== END 2025-02-06 17:56 | disposition left against medical advice (07) ==
LOC: ER 17:11
DX: Z53.21 Procedure and treatment not carried out due to patient leaving prior to being seen by health care provider (principal)
CPT/HCPCS: 99282

== ENCOUNTER 2025-02-08 23:17 | Emergency (ER) | payer OTHER ==
[2025-02-08] MEDS ORDERED: predniSONE 20 MG TAB ONE (23:33)
[2025-02-08] MEDS ORDERED: ALBUTEROL 2.5 MG/3 ML NEB SOL ONE (23:33)
[2025-02-08] MEDS ORDERED: IPRATROPIUM BROM 0.5MG/2.5ML ONE (23:33)
[2025-02-08] MEDS ORDERED: KETOROLAC 30 MG/ML INJ ONE (23:34)
[2025-02-08] MEDS ORDERED: DIPHENHYDRAMINE 25 MG TAB/CAP ONE (23:34)
--- NOTE | 2025-02-09 00:06 | EDPHYS ---
Physician Documentation [facility] Name: Josseline Gallegos Age: 64 yrs Sex: Female : 1960 Arrival Date: 02/08/2025 Time: 23:17 Bed 3 Private MD: ED Physician Wilman Harkins HPI: 02/08 23:26 This 64 yrs old Female presents to ER via Unassigned with complaints of sp4 INSOMNIA. 02/09 01:28 Patient is a very pleasant 64-year-old female with a history of chronic pain. Patient sp4 was managed with [place] tablets for her chronic pain, which she had to discontinue 32 days ago. Ever since then patient has been feeling unwell and had persistent insomnia . Patient no longer has access to hydrocodone tablets. Patient underwent rehab in [facility]. At this time she complains of persistent cough secondary to tobacco smoking and also insomnia. Historical: - Allergies: 00:00 Codeine; jj7 00:00 Ibuprofen; jj7 - PMHx: 00:00 Chronic obstructive lung disease; Chronic pain; Hypertension; jj7 - PSHx: 00:00 breast (wris); foot; wrist; jj7 - Immunization history:: Adult Immunizations up to date. - Infectious Disease History:: Denies. - Social history:: Smoking status: Patient reports the use of cigarette tobacco products, smokes one-half pack cigarettes per day, Patient uses alcohol, occasionally. Patient/guardian denies using street drugs, IV drugs. - Family history:: not pertinent. ROS: 01:28 Constitutional: Negative for fever, chills, and weight loss, positive insomnia positive sp4 cough, positive generalized discomfort secondary to opiate withdrawals 01:28 All other systems are negative, Exam: 01:28 Constitutional: This is a well developed, well nourished patient who is awake, alert, sp4 and in no acute distress. Head/Face: Normocephalic, atraumatic. Eyes: Pupils equal round and reactive to light, extra-ocular motions intact. Lids and lashes normal. Conjunctiva and sclera are not injected. Cornea within normal limits. Periorbital areas with no swelling, redness, or edema. ENT: Nares patent. No nasal discharge, no septal abnormalities noted. Tympanic membranes are normal and external auditory canals are clear. Oropharynx with no redness, swelling, or masses, exudates, or evidence of obstruction, uvula midline. Mucous membranes moist. Neck: Trachea midline, no thyromegaly or masses palpated, and no cervical lymphadenopathy. Supple, full range of motion without nuchal rigidity, or vertebral point tenderness. Chest/axilla: Normal chest wall appearance and motion. Nontender with no deformity. No lesions are appreciated. Cardiovascular: Regular rate and rhythm with a normal S1 and S2. No gallops, murmurs, or rubs. Normal PMI, no JVD. No pulse deficits. Respiratory: Lungs have equal breath sounds bilaterally, clear to auscultation and percussion. No rales, rhonchi or wheezes noted. No increased work of breathing, no retractions or nasal flaring. Abdomen/GI: Soft, with normal bowel sounds. No distension or tympany. No guarding or rebound. No evidence of tenderness throughout. Back: No spinal tenderness. No costovertebral tenderness. Skin: Warm, dry with normal turgor. Normal color with no rashes, no lesions, and no evidence of cellulitis. MS/ Extremity: Pulses equal, no cyanosis. Neurovascular intact. Full, normal range of motion. Neuro: Awake and alert, GCS 15, oriented to person, place, time, and situation. Cranial nerves II-XII grossly intact. Motor strength 5/5 in all extremities. Sensory grossly intact. Psych: Awake, alert, with orientation to person, place and time. Behavior, mood, and affect are within normal limits Vital Signs: 02/08 23:21 BP 144 / 102; Pulse 84; Resp 22; Temp 97.9; Pulse Ox 98% ; Weight 43.09 kg; Height 5 hw ft. 5 in. ; 02/09 00:20 BP 147 / 101; Pulse 80; Resp 20; Temp 97.3; Pulse Ox 99% ; jj7 02/08 23:21 Body Mass Index 15.81 (43.09 kg, 165.1 cm) hw [place] Coma Score: 01:28 Eye Response: spontaneous(4). Motor Response: obeys commands(6). Verbal Response: sp4 oriented(5). Total: 15. MDM: 00:05 Medical Screening Exam initiated sp4 01:30 Differential Diagnosis altered mental status, sepsis, flu, Opiate withdrawals. Data sp4 reviewed: vital signs, nurses notes, EMS record, old medical records. Consideration of Admission/Observation Escalation of care including admission/observation considered. ED course: Patient has improved. She was prescribed trazodone as needed insomnia.. Administered Medications: 02/08 23:43 Drug: Ketorolac IM 60 mg IM once Route: IM; Site: left gluteus; jj7 02/09 00:21 Follow up: Response: Marked relief of symptoms jj7 02/08 23:43 Drug: diphenhydrAMINE PO 25 mg PO once Route: PO; jj7 02/09 00:21 Follow up: Response: Marked relief of symptoms jj7 02/08 23:43 Drug: Albuterol Inhalation 2.5 mg Inhalation once Route: Inhalation; 7 :43 Drug: Ipratropium Inhalation Aerosol 0.5 mg Inhalation once Route: Inhalation; jj7 02/09 00:21 Follow up: Response: Marked relief of symptoms jj7 02/08 23:43 Drug: predniSONE PO 60 mg PO once Route: PO; jj7 02/09 00:21 Follow up: Response: Marked relief of symptoms jj7 Disposition Summary: 02/09/25 00:05 Discharge Ordered Notes: Location: Home sp4 Problem: new sp4 Symptoms: have improved sp4 Condition: Stable sp4 Diagnosis - Opiate withdrawal, generalized pain, acute insomnia , tobacco use disorder sp4 - Adjustment insomnia sp4 Followup: sp4 - With: Private Physician - When: 7 - 10 days - Reason: Recheck today's complaints Discharge Instructions: - Discharge Summary Sheet sp4 - Opioid Withdrawal Treatment sp4 Forms: - Patient Portal Instructions sp4 Prescriptions: - trazodone 50 mg Oral tablet - take 1 tablet ORAL route every day at bedtime PRN insomnia; 30 tablet; Refills: sp4 0, Product Selection Permitted Signatures: Jong Phillip RN RN jj7 Wilman Harkins MD MD sp4
--- NOTE | 2025-02-09 00:06 | ER ---
Nurse's Notes [facility] Name: Josseline Gallegos Age: 64 yrs Sex: Female : 1960 Arrival Date: 02/08/2025 Time: 23:17 Bed 3 Private MD: Diagnosis: Opiate withdrawal, generalized pain, acute insomnia , tobacco use disorder;Adjustment insomnia Presentation: 02/08 23:20 Chief complaint: Patient states: INSOMNIA. CAN'T SLEEP. STATES SHE WAS ON PAIN MEDS FOR jj7 14 YRS AND HER DOC TOOK HER OFF OF IT 30 DAYS AGO COLD [place]. Coronavirus screen: At this time, the client does not indicate any symptoms associated with coronavirus-19. Ebola Screen: No symptoms or risks identified at this time. Initial Sepsis Screen: Does the patient meet any 2 criteria? No. Patient's initial sepsis screen is negative. Does the patient have a suspected source of infection? No. Patient's initial sepsis screen is negative. Risk Assessment: Do you want to hurt yourself or someone else? Patient reports no desire to harm self or others. Onset of symptoms was February 09, 2025. 23:20 Method Of Arrival: EMS: [facility] jj7 23:20 Acuity: TIFFANY 4 jj7 Triage Assessment: 23:30 General: Appears in no apparent distress. uncomfortable, Behavior is agitated, anxious, jj7 restless. Pain: Denies pain. Neuro: Reports INSOMNIA. Historical: - Allergies: 02/09 00:00 Codeine; jj7 00:00 Ibuprofen; jj7 - PMHx: 00:00 Chronic obstructive lung disease; Chronic pain; Hypertension; jj7 - PSHx: 00:00 breast (wris); foot; wrist; jj7 - Immunization history:: Adult Immunizations up to date. - Infectious Disease History:: Denies. - Social history:: Smoking status: Patient reports the use of cigarette tobacco products, smokes one-half pack cigarettes per day, Patient uses alcohol, occasionally. Patient/guardian denies using street drugs, IV drugs. - Family history:: not pertinent. Screenin/22 23:30 [facility] ED Fall Risk Assessment (Adult) History of falling in the last 3 months, jj7 including since admission No falls in past 3 months (0 pts) Confusion or Disorientation No (0 pts) Intoxicated or Sedated No (0 pts) Impaired Gait No (0 pts) Mobility Assist Device Used No (0 pt) Altered Elimination No (0 pt) Score/Fall Risk Level 0 - 2 = Low Risk Oriented to surroundings, Maintained a safe environment, Educated pt \T\ family on fall prevention, incl call for assistance when getting out of bed, Assessed \T\ reinforced patient's understanding of fall precautions. Abuse screen: Denies threats or abuse. Nutritional screening: No deficits noted. Tuberculosis screening: No symptoms or risk factors identified. Assessment: 23:30 Reassessment: SEE TRIAGE ASSESSMENT. jj7 Vital Signs: 23:21 BP 144 / 102; Pulse 84; Resp 22; Temp 97.9; Pulse Ox 98% ; Weight 43.09 kg; Height 5 hw ft. 5 in. ; 02/09 00:20 BP 147 / 101; Pulse 80; Resp 20; Temp 97.3; Pulse Ox 99% ; jj7 02/08 23:21 Body Mass Index 15.81 (43.09 kg, 165.1 cm) hw [place] Coma Score: 01:28 Eye Response: spontaneous(4). Motor Response: obeys commands(6). Verbal Response: sp4 oriented(5). Total: 15. ED Course: 02/08 23:18 Patient arrived in ED. jj6 23:19 Wilman Harkins MD is Attending Physician. sp4 23:30 Arm band placed on right wrist. Patient placed in an exam room, on a stretcher. jj7 23:30 Patient has correct armband on for positive identification. Bed in low position. Call jj7 light in reach. Side rails up X 1. Provided Education on: USE OF CALL BARRIOS. 23:30 No provider procedures requiring assistance completed. Patient did not have IV access jj7 during this emergency room visit. 02/09 00:00 Triage completed. jj7 Administered Medications: 02/08 23:43 Drug: Ketorolac IM 60 mg IM once Route: IM; Site: left gluteus; jj7 02/09 00:21 Follow up: Response: Marked relief of symptoms jj7 02/08 23:43 Drug: diphenhydrAMINE PO 25 mg PO once Route: PO; jj7 02/09 00:21 Follow up: Response: Marked relief of symptoms jj7 02/08 23:43 Drug: Albuterol Inhalation 2.5 mg Inhalation once Route: Inhalation; j7 23:43 Drug: Ipratropium Inhalation Aerosol 0.5 mg Inhalation once Route: Inhalation; jj7 02/09 00:21 Follow up: Response: Marked relief of symptoms jj7 02/08 23:43 Drug: predniSONE PO 60 mg PO once Route: PO; jj7 02/09 00:21 Follow up: Response: Marked relief of symptoms j7 Medication: 02/08 23:30 VIS not applicable for this client. jj7 Outcome: 02/09 00:05 Discharge ordered by . immanuel 00:20 Discharged to home ambulatory, with friend, teagan 00:20 Condition: improved 00:20 Discharge instructions given to patient, Instructed on discharge instructions, medication usage, Demonstrated understanding of instructions, medications, Prescriptions given X 1, 00:22 Patient left the ED. jj7 Signatures: Jessica Husain jj6 Jong Phillip RN RN jj7 Wilman Harkins MD MD sp4 Carina Diggs
[2025-02-09 00:29] VITALS: BP 147/101; TEMP 97.3; O2SAT 99
== END 2025-02-09 00:22 | disposition home or self-care (01) ==
LOC: ER 23:17
DX: F51.02 Adjustment insomnia (principal); F11.23 Opioid dependence with withdrawal; G89.29 Other chronic pain; Z72.0 Tobacco use
CPT/HCPCS: 96372; 99285; J7512; J7613; J7644

== ENCOUNTER 2025-02-13 15:26 | Emergency (ER) | payer OTHER ==
[2025-02-13] MEDS ORDERED: dexAMETHasone 4 MG/ML VIAL ONE (16:06)
[2025-02-13] MEDS ORDERED: KETOROLAC 30 MG/ML INJ ONE (16:06)
--- NOTE | 2025-02-13 16:41 | ER ---
Nurse's Notes [facility] Name: Josseline Gallegos Age: 64 yrs Sex: Female : 1960 Arrival Date: 02/13/2025 Time: 15:26 Bed 8 Private MD: Diagnosis: Chronic pain syndrome Presentation: 02/13 15:34 Chief complaint: EMS states: Pt called EMS for chills and body aches, reports ph withdrawing off of hydrocodone, clean x 50 + days, admits to having 1 relapse, all VSS for EMS. Coronavirus screen: Vaccine status: Patient reports being unvaccinated. Ebola Screen: No symptoms or risks identified at this time. Initial Sepsis Screen: Does the patient meet any 2 criteria? No. Patient's initial sepsis screen is negative. Does the patient have a suspected source of infection? No. Patient's initial sepsis screen is negative. Risk Assessment: Do you want to hurt yourself or someone else? Patient reports no desire to harm self or others. Onset of symptoms was February 13, 2025. 15:34 Method Of Arrival: EMS: [facility] ph 15:34 Acuity: TIFFANY 3 ph Historical: - Allergies: 15:37 Codeine; ph 15:37 Ibuprofen; ph - PMHx: 15:37 Chronic obstructive lung disease; Chronic pain; Hypertension; ph - PSHx: 15:37 breast (wris); foot; wrist; ph - Immunization history:: Adult Immunizations unknown. - Infectious Disease History:: Denies. - Social history:: Smoking status: unknown. - Family history:: not pertinent. Screenin:38 [facility] ED Fall Risk Assessment (Adult) History of falling in the last 3 months, ph including since admission No falls in past 3 months (0 pts) Confusion or Disorientation No (0 pts) Intoxicated or Sedated No (0 pts) Impaired Gait No (0 pts) Mobility Assist Device Used No (0 pt) Altered Elimination No (0 pt) Score/Fall Risk Level 0 - 2 = Low Risk Oriented to surroundings, Maintained a safe environment, Hourly rounding (assess needs \\T\\ fall precautionary measures) done. Abuse screen: Denies threats or abuse. Denies injuries from another. Nutritional screening: No deficits noted. Tuberculosis screening: No symptoms or risk factors identified. Assessment: 16:21 General: Appears in no apparent distress. slender, well groomed, Behavior is calm, ph cooperative, appropriate for age. Pain: Complains of pain in body aches. Neuro: Level of Consciousness is awake, alert, obeys commands, Oriented to person, place, time, situation. Cardiovascular: Capillary refill < 3 seconds in bilateral fingers Patient's skin is warm and dry. Respiratory: Reports cough that is Airway is patent Respiratory effort is even, unlabored, Respiratory pattern is regular, symmetrical. Derm: Skin is healthy with good turgor, Skin is pink, warm \\T\\ dry. 16:43 Reassessment: Patient appears in no apparent distress at this time. Patient and/or ph family updated on plan of care and expected duration. Pain level reassessed. Patient is alert, oriented x 3, equal unlabored respirations, skin warm/dry/pink. Pt states that she does not want to stay for CXR, states, "I have an appointment w/ my PCP tomorrow and I'll have them send me for one. I am already feeling better from the steroid shot you gave me.". Vital Signs: 15:34 BP 105 / 59; Pulse 82; Resp 18; Temp 97.8; Pulse Ox 95% on R/A; ph 16:44 BP 108 / 57; Pulse 81; Resp 18; Temp 97.9; Pulse Ox 95% on R/A; ph ED Course: 15:34 Patient arrived in ED. ph 15:37 Triage completed. ph 15:38 Arm band placed on Patient placed in an exam room, on a stretcher, on pulse oximetry. ph 15:39 Aleksey Simms MD is Attending Physician. rt 15:39 Patient has correct armband on for positive identification. Bed in low position. Call ph light in reach. Side rails up X 1. Pulse ox on. NIBP on. Door closed. Noise minimized. Warm blanket given. 16:03 Margot Jeffrey, CHUCKY is Primary Nurse. ph 16:44 No provider procedures requiring assistance completed. Patient did not have IV access ph during this emergency room visit. Administered Medications: 16:21 Drug: Ketorolac IM 30 mg IM once Route: IM; Site: left gluteus; ph 16:44 Follow up: Response: No adverse reaction ph 16:21 Drug: Dexamethasone IM 4 mg IM once Route: IM; Site: left gluteus; ph 16:44 Follow up: Response: No adverse reaction ph Medication: 15:39 VIS not applicable for this client. ph Outcome: 16:40 Discharge ordered by . rt 16:45 Discharged to home ambulatory, with significant other, ph 16:45 Condition: good 16:45 Discharge instructions given to patient, Instructed on discharge instructions, follow up and referral plans. Demonstrated understanding of instructions, follow-up care, 16:45 Patient left the ED. ph Signatures: Margot Jeffrey RN RN ph Aleksey Simms MD MD rt
--- NOTE | 2025-02-13 16:41 | EDPHYS ---
Physician Documentation [facility] Name: Josseline Gallegos Age: 64 yrs Sex: Female : 1960 Arrival Date: 02/13/2025 Time: 15:26 Bed 8 Private MD: ED Physician Aleksey Simms HPI: 02/13 17:48 This 64 yrs old Female presents to ER via EMS with complaints of Flu Symptoms. rt 17:48 Patient presents to the ED with generalized bodyaches, reported insomnia. The patient rt has history opioid use disorder, is reportedly been off of narcotics for the past 50 days. States that she has been drinking alcohol to try to sleep. Denies other acute complaints at this time, symptoms are moderate in severity, no other aggravating alleviating factors.. Historical: - Allergies: 15:37 Codeine; ph 15:37 Ibuprofen; ph - PMHx: 15:37 Chronic obstructive lung disease; Chronic pain; Hypertension; ph - PSHx: 15:37 breast (wris); foot; wrist; ph - Immunization history:: Adult Immunizations unknown. - Infectious Disease History:: Denies. - Social history:: Smoking status: unknown. - Family history:: not pertinent. ROS: 17:48 Cardiovascular: Negative for chest pain, palpitations, and edema, Respiratory: Negative rt for shortness of breath, cough, wheezing, and pleuritic chest pain, Abdomen/GI: Negative for abdominal pain, nausea, vomiting, diarrhea, and constipation, Skin: Negative for injury, rash, and discoloration, Neuro: Negative for headache, weakness, numbness, tingling, and seizure, 17:48 Constitutional: Positive for body aches, malaise, Exam: 17:48 Constitutional: This is a well developed, well nourished patient who is awake, alert, rt and in no acute distress. Head/Face: Normocephalic, atraumatic. Chest/axilla: Normal chest wall appearance and motion. Nontender with no deformity. No lesions are appreciated. Cardiovascular: Regular rate and rhythm with a normal S1 and S2. No gallops, murmurs, or rubs. Normal PMI, no JVD. No pulse deficits. Respiratory: Lungs have equal breath sounds bilaterally, clear to auscultation and percussion. No rales, rhonchi or wheezes noted. No increased work of breathing, no retractions or nasal flaring. Abdomen/GI: Soft, non-tender, with normal bowel sounds. No distension or tympany. No guarding or rebound. No evidence of tenderness throughout. Skin: Warm, dry with normal turgor. Normal color with no rashes, no lesions, and no evidence of cellulitis. MS/ Extremity: Pulses equal, no cyanosis. Neurovascular intact. Full, normal range of motion. Neuro: Awake and alert, GCS 15, oriented to person, place, time, and situation. Cranial nerves II-XII grossly intact. Motor strength 5/5 in all extremities. Sensory grossly intact. Cerebellar exam normal. Normal gait. Vital Signs: 15:34 BP 105 / 59; Pulse 82; Resp 18; Temp 97.8; Pulse Ox 95% on R/A; ph 16:44 BP 108 / 57; Pulse 81; Resp 18; Temp 97.9; Pulse Ox 95% on R/A; ph MDM: 15:43 Medical Screening Exam initiated rt 17:48 Differential Diagnosis Opiate withdrawal, opioid use disorder. Data reviewed: vital rt signs, nurses notes. Care significantly affected by the following chronic conditions: Chronic Obstructive Pulmonary Disease. Counseling: I had a detailed discussion with the patient and/or guardian regarding the historical points, exam findings, and any diagnostic results supporting the discharge/admit diagnosis, the need for outpatient follow up. Response to treatment: the patient's symptoms have markedly improved after treatment. Administered Medications: 16:21 Drug: Ketorolac IM 30 mg IM once Route: IM; Site: left gluteus; ph 16:44 Follow up: Response: No adverse reaction ph 16:21 Drug: Dexamethasone IM 4 mg IM once Route: IM; Site: left gluteus; ph 16:44 Follow up: Response: No adverse reaction ph Disposition Summary: 02/13/25 16:40 Discharge Ordered Notes: Location: Home rt Problem: new rt Symptoms: have improved rt Condition: Stable rt Diagnosis - Chronic pain syndrome rt Followup: rt - With: Private Physician - When: 2 - 3 days - Reason: Discharge Instructions: - Discharge Summary Sheet rt - Chronic Pain, Adult rt Forms: - Medication Reconciliation Form rt - Antibiotic Education rt - Prescription Opioid Use rt - Patient Portal Instructions rt - Leadership Thank You Letter rt Signatures: Dispatcher [employer] Margot Turcios, CHUCKY RN ph Aleksey Simms MD MD rt
[2025-02-13 16:52] VITALS: O2SAT 95
[2025-02-13 16:54] VITALS: BP 108/57; TEMP 97.9
== END 2025-02-13 16:45 | disposition home or self-care (01) ==
LOC: ER 15:26
DX: G89.4 Chronic pain syndrome (principal)
CPT/HCPCS: 96372; 99284; J1100

== ENCOUNTER 2025-02-15 19:21 | Emergency (ER) | payer OTHER ==
[2025-02-15] MEDS ORDERED: ONDANSETRON 4 MG (ODT) TAB ONE (20:55)
[2025-02-15] MEDS ORDERED: DICYCLOMINE HCL 20 MG/2 ML AMP IM ONE (20:55)
[2025-02-15 21:21] LABS: Specific Gravity 1.008 (1.005-1.030); Urine Bilirubin NEGATIVE (Negative); Urine Blood Negative (Negative); Urine Clarity Clear (Clear); Urine Color Colorless (Yellow); Urine Glucose NEGATIVE (Negative); Urine Ketones NEGATIVE (Negative); Urine Microscopic Reflex YN NO UMIC; Urine Nitrite NEGATIVE (Negative); Urine Protein NEGATIVE (Negative); Urine Urobilinogen Normal (Normal)
--- NOTE | 2025-02-15 21:36 | ER ---
Nurse's Notes [facility] Name: Josseline Gallegos Age: 64 yrs Sex: Female : 1960 Arrival Date: 02/15/2025 Time: 19:21 Bed 11 Private MD: Diagnosis: Pain in left shoulder;Cough;Abdominal pain, unspecified;Nausea Presentation: 02/15 19:24 Chief complaint: EMS states: CALLED TO PATIENT'S HOME FOR ABDOMINAL PAIN. PT ALSO cm10 RECENTLY QUIT TAKING HER FENTANYL AND HYDROCODONE. Coronavirus screen: Client denies travel out of the [place] in the last 14 days. 19:24 Method Of Arrival: EMS: [facility] 10 19:34 Ebola Screen: Patient denies travel to an Ebola-affected area in the 21 days before cm10 illness onset. Initial Sepsis Screen: Does the patient meet any 2 criteria? No. Patient's initial sepsis screen is negative. Does the patient have a suspected source of infection? No. Patient's initial sepsis screen is negative. Risk Assessment: Do you want to hurt yourself or someone else? Patient reports no desire to harm self or others. Onset of symptoms was February 15, 2025. 19:34 Acuity: TIFFANY 3 cm10 Triage Assessment: 19:35 General: Appears uncomfortable, Behavior is calm, cooperative. Neuro: No deficits cm10 noted. Level of Consciousness is awake, alert, obeys commands, Oriented to person, place, time, situation, Appropriate for age. Respiratory: No deficits noted. Airway is patent Respiratory effort is even, unlabored, Respiratory pattern is regular, symmetrical. Historical: - Allergies: 19:35 Codeine; cm10 19:35 Ibuprofen; cm10 19:35 Tylenol; cm10 - PMHx: 19:35 Chronic obstructive lung disease; Chronic pain; Hypertension; cm10 - PSHx: 19:35 breast (wris); foot; wrist; cm10 - Immunization history:: Adult Immunizations up to date. - Infectious Disease History:: Denies. - Social history:: Smoking status: Patient reports the use of cigarette tobacco products, smokes one-half pack cigarettes per day. Screenin:38 [facility] ED Fall Risk Assessment (Adult) History of falling in the last 3 months, le1 including since admission No falls in past 3 months (0 pts) Confusion or Disorientation No (0 pts) Intoxicated or Sedated No (0 pts) Impaired Gait No (0 pts) Mobility Assist Device Used No (0 pt) Altered Elimination No (0 pt) Score/Fall Risk Level 0 - 2 = Low Risk Oriented to surroundings, Maintained a safe environment, Educated pt \T\ family on fall prevention, incl call for assistance when getting out of bed, Assessed \T\ reinforced patient's understanding of fall precautions, Hourly rounding (assess needs \T\ fall precautionary measures) done, Used ambulatory aids as needed (educated on \T\ assisted with). Abuse screen: Denies threats or abuse. Denies injuries from another. Nutritional screening: No deficits noted. Tuberculosis screening: No symptoms or risk factors identified. Assessment: 20:36 General: Appears in no apparent distress. uncomfortable. Pain: Complains of pain in L le1 shoulder, abd Pain currently is 8 out of 10 on a pain scale. Neuro: No deficits noted. Cardiovascular: No deficits noted. Respiratory: No deficits noted. GI: No deficits noted. : No deficits noted. EENT: No deficits noted. Derm: No deficits noted. Musculoskeletal: No deficits noted. Vital Signs: 19:34 BP 141 / 80; Pulse 61; Resp 15; Temp 97.3; Pulse Ox 94% on R/A; Weight 48.99 kg; Height cm10 5 ft. 5 in. ; Pain 7/10; 21:14 BP 150 / 90; Pulse 84; Resp 16; Pulse Ox 98% on R/A; Pain 8/10; le1 21:52 Temp 97.3(O); le1 19:34 Body Mass Index 17.97 (48.99 kg, 165.1 cm) cm10 19:34 Pain Scale: Adult cm10 21:14 Pain Scale: Adult le1 ED Course: 19:22 Patient arrived in ED. mr 19:24 Chris Naidu PA is PHCP. cp 19:24 Chris Gallegos MD is Attending Physician. cp 19:35 Triage completed. cm10 19:35 Arm band placed on right wrist. Patient placed in waiting room. cm10 20:20 Chay Vilchis, RN is Primary Nurse. le1 20:38 Patient has correct armband on for positive identification. Bed in low position. Call le1 light in reach. Side rails up X2. Provided Education on: informed patient to use call light if needed. 21:31 Notified Nurse Practitioner and/or Physician [employer] of Patient requested to speak to le1 provider about leaving. 21:52 No provider procedures requiring assistance completed. Patient did not have IV access le1 during this emergency room visit. Administered Medications: 21:15 Drug: Ondansetron PO 4 mg PO once Route: PO; le1 21:34 Follow up: Response: No adverse reaction; Nausea is decreased le1 21:15 Drug: Dicyclomine IM 20 mg IM once Route: IM; Site: right ventrogluteal; le1 21:34 Follow up: Response: No adverse reaction; Pain is decreased le1 21:40 Drug: MethylPREDNISolone Sodium Succinate IM 80 mg IM once Route: IM; Site: right le1 deltoid; 21:52 Follow up: Response: No adverse reaction; Medication Administered at Departure le1 21:43 Drug: Tessalon Perle PO 100 mg PO once Route: PO; le1 21:53 Follow up: Response: No adverse reaction; Medication Administered at Departure le1 Medication: 21:52 VIS not applicable for this client. le1 Outcome: 21:35 Discharge ordered by MD. cárdenas 21:52 Discharged to home ambulatory, le1 21:52 Condition: good 21:52 Discharge instructions given to patient, Instructed on discharge instructions, follow up and referral plans. medication usage, Demonstrated understanding of instructions, follow-up care, medications, Prescriptions given X 3, 21:53 Patient left the ED. le1 Signatures: Lo Krause, Reg Reg mr Chris Naidu PA PA cp Martinez, Clarissa, RN RN cm10 Chay Vilchis RN RN le1
--- NOTE | 2025-02-15 21:36 | EDPHYS ---
Physician Documentation [facility] Name: Josseline Gallegos Age: 64 yrs Sex: Female : 1960 Arrival Date: 02/15/2025 Time: 19:21 Bed 11 Private MD: ED Physician Chris Gallegos Historical: - Allergies: 02/15 19:35 Codeine; cm10 19:35 Ibuprofen; cm10 19:35 Tylenol; cm10 - PMHx: 19:35 Chronic obstructive lung disease; Chronic pain; Hypertension; cm10 - PSHx: 19:35 breast (wris); foot; wrist; cm10 - Immunization history:: Adult Immunizations up to date. - Infectious Disease History:: Denies. - Social history:: Smoking status: Patient reports the use of cigarette tobacco products, smokes one-half pack cigarettes per day. Vital Signs: 19:34 BP 141 / 80; Pulse 61; Resp 15; Temp 97.3; Pulse Ox 94% on R/A; Weight 48.99 kg; Height cm10 5 ft. 5 in. ; Pain 7/10; 21:14 BP 150 / 90; Pulse 84; Resp 16; Pulse Ox 98% on R/A; Pain 8/10; le1 21:52 Temp 97.3(O); le1 19:34 Body Mass Index 17.97 (48.99 kg, 165.1 cm) cm10 19:34 Pain Scale: Adult cm10 21:14 Pain Scale: Adult le1 MDM: 19:27 Medical Screening Exam initiated cp 02/15 20:13 Order name: Urinalysis w/ reflexes; Complete Time: 21:31 cp Administered Medications: 21:15 Drug: Ondansetron PO 4 mg PO once Route: PO; le1 21:34 Follow up: Response: No adverse reaction; Nausea is decreased le1 21:15 Drug: Dicyclomine IM 20 mg IM once Route: IM; Site: right ventrogluteal; le1 21:34 Follow up: Response: No adverse reaction; Pain is decreased le1 21:40 Drug: MethylPREDNISolone Sodium Succinate IM 80 mg IM once Route: IM; Site: right le1 deltoid; 21:52 Follow up: Response: No adverse reaction; Medication Administered at Departure le1 21:43 Drug: Tessalon Perle PO 100 mg PO once Route: PO; le1 21:53 Follow up: Response: No adverse reaction; Medication Administered at Departure le1 Disposition Summary: 02/15/25 21:35 Discharge Ordered Notes: Location: Home cp Problem: an ongoing problem cp Symptoms: have improved cp Condition: Stable cp Diagnosis - Pain in left shoulder cp - Cough cp - Abdominal pain, unspecified cp - Nausea cp Followup: cp - With: Private Physician - When: 2 - 3 days - Reason: Recheck today's complaints Discharge Instructions: - Discharge Summary Sheet cp - Abdominal Pain, Adult cp - Nausea, Adult cp - Shoulder Pain cp - Shoulder Range of Motion Exercises cp - Cough, Adult cp Forms: - Medication Reconciliation Form cp - Antibiotic Education cp - Prescription Opioid Use cp - Patient Portal Instructions cp - Leadership Thank You Letter cp Prescriptions: - Zofran 4 mg Oral Tablet - take 1 tablet ORAL route every 12 hours As needed; 20 tablet; Refills: 0, cp Product Selection Permitted - Tessalon Perles 100 mg Oral Capsule - take 1 capsule ORAL route every 8 hours As needed; 15 capsule; Refills: 0, cp Product Selection Permitted - Medrol (Felix) 4 mg Oral Tablets, Dose Pack - take 1 tablet ORAL route as directed - follow package instructions; 1 packet; cp Refills: 0, Product Selection Permitted Signatures: Dispatcher [employer] EDMS Chris Naidu PA PA cp Martinez, Clarissa RN RN cm10 Chay Vilchis RN RN le1 Corrections: (The following items were deleted from the chart) 20:13 20:13 CBC+H.LAB.BRZ ordered. EDMS EDMS 20:13 20:13 COMPREHENSIVE METABOLIC PANEL+C.LAB.BRZ ordered. EDMS EDMS 20:13 20:13 LIPASE+C.LAB.BRZ ordered. EDMS EDMS 20:13 20:13 Urinalysis+U.LAB.BRZ ordered. EDMS EDMS 20:36 20:13 IV Saline Lock ordered. cp le1 20:36 20:13 Labs collected and sent ordered. cp le1 21:30 20:40 Shoulder Left 2 View+RAD.RAD.BRZ ordered. EDMS EDMS
[2025-02-15] MEDS ORDERED: METHYLPREDNISOLONE 125 MG INJ ONE (21:40)
[2025-02-15] MEDS ORDERED: BENZONATATE 100 MG CAP PO ONE (21:43)
[2025-02-15 21:59] VITALS: TEMP 97.3
[2025-02-15 22:01] VITALS: BP 150/90; O2SAT 98
== END 2025-02-15 21:53 | disposition home or self-care (01) ==
LOC: ER 19:21
DX: M25.512 Pain in left shoulder (principal); R05.9 Cough, unspecified; R10.9 Unspecified abdominal pain; R11.0 Nausea; I10 Essential (primary) hypertension; J44.9 Chronic obstructive pulmonary disease, unspecified; F17.210 Nicotine dependence, cigarettes, uncomplicated
CPT/HCPCS: 81003; Q0162; J0500; J2919; 96372; 99284

== ENCOUNTER 2025-03-12 16:29 | Emergency (ER) | payer OTHER ==
[2025-03-12 17:17] LABS: Absolute Basophils 0.1 K/uL (0-0.5); Absolute Eosinophils 0.1 K/uL (0-0.5); Absolute Lymphocytes (CBC) 2.8 K/uL (0.7-4.9); Absolute Monocytes 0.8 K/uL (0.1-1.3); Absolute Neutrophil 4.7 K/uL (1.8-8.0); Basophils % 0.7 % (0-1.3); Hematocrit 36.2 % (36.0-45.0); Hemoglobin 12.5 g/dL (12.0-15.0); Lymphocytes % 33.2 % (15.3-44.8); MCH 33.8 pg (27.0-35.0); MCHC 34.4 g/dL (32.0-36.0); MCV 98.3 fL (80-100); MPV 7.6 fL (7.6-11.3); Monocytes % 9.7 % (3.3-12.3); Neutrophils % 55.4 % (41.7-73.7); Nucleated Red Blood Cells % 0.1 % (0-0); Platelets 321 thou/uL (152-406); RBC Red Blood Cell Count 3.68 M/uL (3.86-4.86); Red Cell Distribution Width 13.6 % (12.1-15.2)
[2025-03-12] MEDS ORDERED: KETOROLAC 30 MG/ML INJ ONE (17:20)
--- NOTE | 2025-03-12 17:21 | RAD REPORT ---
EXAM: Chest Single View HISTORY: 64 years Female CHEST PAIN COMPARISON: 12/08/2022 FINDINGS: LUNGS/PLEURA: The lungs are clear. No pleural effusions or pneumothorax. No pulmonary edema. CARDIAC/MEDIASTINUM: The cardiac silhouette is within normal limits. UPPER ABDOMEN: No significant abnormality. BONES: No acute abnormality. LINES/TUBES/OTHER: N/A IMPRESSION: No evidence of acute cardiopulmonary disease. No significant change from prior.
[2025-03-12 17:22] LABS: Protime INR 0.96
[2025-03-12 17:36] LABS: ALT/SGPT 25 U/L (13-56); AST/SGOT 20 U/L (15-37); Albumin 2.9 g/dL (3.4-5.0); Albumin/Globulin Ratio 0.8 (1.1-1.8); Alkaline Phosphatase 91 U/L (45-117); Anion Gap 9.6 mEq/L (5.0-15.0); BUN Blood Urea Nitrogen 20 mg/dL (7-18); Bicarbonate 26 mEq/L (21-32); Bilirubin Total 0.4 mg/dL (0.2-1.0); Globulin 3.5 g/dL (2.3-3.5); Glomerular Filtration Rate 59 ml/min (=/>90); Glucose Level 96 mg/dL (74-106); NT PRO-BNP 113 pg/mL (<125); Potassium 3.6 mEq/L (3.5-5.1); Protein, Total 6.4 g/dL (6.4-8.2); Sodium Level 138 mEq/L (136-145); Troponin High Sensitivity 26.7 pg/mL (<58.9)
[2025-03-12 17:37] LABS: Bilirubin Direct < 0.2 mg/dL (0-0.2); Bilirubin Indirect, Calculated 0.2 mg/dL (0.2-0.8)
[2025-03-12] MEDS ORDERED: METOPROLOL TARTRATE 5 MG/5 ML INJ IV ONE (17:51)
[2025-03-12] MEDS ORDERED: NA CHLORIDE 0.9% 500 ML ONE (17:52)
--- NOTE | 2025-03-12 18:28 | EDPHYS ---
Physician Documentation [facility] Name: Josseline Gallegos Age: 64 yrs Sex: Female : 1960 Arrival Date: 03/12/2025 Time: 16:29 Bed 2 Private MD: ED Physician Yusra Fenton HPI: 03/12 17:11 This 64 yrs old Female presents to ER via EMS with complaints of chest pain. 3 17:11 64-year-old female with history of COPD, chronic pain, hypertension now presents to the 3 ED with chief complaint chest pain now resolved. She states that her heart rate was elevated. EMS gave adenosine 12 mg for heart rate of 190. No rhythm strip or EKG was provided to us that captured the heart rate and/or rhythm prior to the administration. Patient is no longer having chest pain. She denies any ongoing chest pain, shortness of breath, headache, neck pain, Marcellus pain, nausea, vomiting, diarrhea, syncope, drug use, other substance use, or any other signs or symptoms on ROS at this time. She denies any long periods of immobilization, travel or prior DVT or PE.. Historical: - Allergies: 16:40 Codeine; ha1 16:40 Ibuprofen; ha1 16:40 Tylenol; ha1 - Home Meds: 16:40 hydrocodone-acetaminophen 10-325 mg Oral tablet [Active]; ha1 - PMHx: 16:40 Chronic obstructive lung disease; Chronic pain; Hypertension; ha1 - PSHx: 16:40 breast (wris); foot; wrist; ha1 - Immunization history:: Adult Immunizations not up to date. - Infectious Disease History:: Denies. - Social history:: Smoking status: Patient reports the use of cigarette tobacco products, denies chronic smoking, but will smoke occasionally. ROS: 17:13 Constitutional: Negative for fever, chills, and weight loss, Eyes: Negative for injury, sp3 pain, redness, and discharge, Neck: Negative for injury, pain, and swelling, Respiratory: Negative for shortness of breath, cough, wheezing, and pleuritic chest pain, Abdomen/GI: Negative for abdominal pain, nausea, vomiting, diarrhea, and constipation, Back: Negative for injury and pain, MS/Extremity: Negative for injury and deformity, Skin: Negative for injury, rash, and discoloration, Neuro: Negative for headache, weakness, numbness, tingling, and seizure, Psych: Negative for depression, anxiety, suicide ideation, homicidal ideation, and hallucinations, Allergy/Immunology: Negative for hives, rash, and allergies, Endocrine: Negative for neck swelling, polydipsia, polyuria, polyphagia, and marked weight changes, Hematologic/Lymphatic: Negative for swollen nodes, abnormal bleeding, and unusual bruising, 17:13 All other systems are negative, Exam: 17:13 Constitutional: This is a well developed, well nourished patient who is awake, alert, sp3 and in no acute distress. Head/Face: Normocephalic, atraumatic. Eyes: Pupils equal round and reactive to light, extra-ocular motions intact. Lids and lashes normal. Conjunctiva and sclera are non-icteric and not injected. Cornea within normal limits. Periorbital areas with no swelling, redness, or edema. Neck: Trachea midline, no thyromegaly or masses palpated, and no cervical lymphadenopathy. Supple, full range of motion without nuchal rigidity, or vertebral point tenderness. No Meningismus. Chest/axilla: Normal chest wall appearance and motion. Nontender with no deformity. No lesions are appreciated. Respiratory: Lungs have equal breath sounds bilaterally, clear to auscultation and percussion. No rales, rhonchi or wheezes noted. No increased work of breathing, no retractions or nasal flaring. Abdomen/GI: Soft, non-tender, with normal bowel sounds. No distension or tympany. No guarding or rebound. No evidence of tenderness throughout. 17:13 Cardiovascular: Rate: tachycardic, 17:37 ECG was reviewed by the Attending Physician. EKG demonstrates sinus tachycardia at 116 sp3 bpm with normal intervals, normal QRS, normal axis, normal ST/T segments without evidence of acute ischemia. Vital Signs: 16:41 BP 126 / 93; Pulse 117; Resp 18 S; Temp 98.1(O); Pulse Ox 99% on 2 lpm NC; Weight 48.99 ha1 kg; Height 5 ft. 5 in. ; 17:42 BP 129 / 97; Pulse 116; Resp 17 S; Pulse Ox 97% on R/A; ha1 18:22 BP 125 / 100; Pulse 110; Resp 18; Pulse Ox 97% on R/A; ph 18:40 BP 127 / 97; Pulse 78; Resp 17 S; Pulse Ox 97% on R/A; ha1 16:41 Body Mass Index 17.97 (48.99 kg, 165.1 cm) ha1 MDM: 16:45 Medical Screening Exam initiated sp3 17:13 Data reviewed: vital signs, nurses notes, EMS record, old medical records, lab test sp3 result(s), EKG, radiologic studies. ED course: 64-year-old female with PMH above now with resolved chest pain and possible SVT. Heart rate is still 120. Blood pressure at 126/93. Patient is resting comfortably in no acute distress. I am not highly suspicious of reentrant rhythm or any other supraventricular tachycardia other than her current sinus tachycardia. Patient was probably dehydrated as well as she received 800 mL of normal saline and route by EMS as well which could have contributed to her heart rate lowering. Differential diagnosis includes dehydration, palpitations, electrolyte abnormality, other SVT, among others. I am not highly suspicious of cute coronary syndrome, PE, TAD, drug use, or any other critical process at this time. Will obtain general labs, EKG, chest x-ray and general supportive care with ongoing IV fluids. Heart rate is slowly coming down. Patient asking for ketorolac IV for her chronic pain which we will administer.. 18:27 ED course: Patient's heart rate 95-105 range. She is having no chest pain or ongoing sp3 symptoms whatsoever. We will safely discharge her home with follow-up to cardiology.. 03/12 16:45 Order name: Basic Metabolic Panel; Complete Time: 17:42 sp3 03/12 16:45 Order name: CBC with Diff; Complete Time: 17:37 sp3 03/12 16:45 Order name: LFT's; Complete Time: 17:42 sp3 03/12 16:45 Order name: Magnesium; Complete Time: 17:42 sp3 03/12 16:45 Order name: NT PRO-BNP; Complete Time: 17:42 sp3 03/12 16:45 Order name: PT-INR; Complete Time: 17:37 sp3 03/12 16:45 Order name: Troponin HS; Complete Time: 17:42 sp3 03/12 16:45 Order name: XRAY Chest (1 view); Complete Time: 17:37 sp3 03/12 16:45 Order name: Cardiac monitoring; Complete Time: 16:57 sp3 03/12 16:45 Order name: EKG - Nurse/Tech; Complete Time: 16:57 sp3 03/12 16:45 Order name: IV Saline Lock; Complete Time: 16:57 sp3 03/12 16:45 Order name: Labs collected and sent; Complete Time: 16:57 sp3 03/12 16:45 Order name: O2 Per Protocol; Complete Time: 16:57 sp3 03/12 16:45 Order name: O2 Sat Monitoring; Complete Time: 16:57 sp3 Administered Medications: 17:25 Drug: Ketorolac IVP 15 mg IVP once Route: IVP; Site: left antecubital; [facility] 18:00 Follow up: Response: No adverse reaction; Pain is decreased [facility] 18:22 Drug: Metoprolol IVP 5 mg IVP once; Hold for SBP <100 or HR <60. Route: IVP; Site: left ph forearm; 18:35 Follow up: Response: No adverse reaction; Cardiac rhythm changed [facility] 18:22 Drug: NS 0.9% IV 500 ml 500 ml IV at 1 bolus once; to be given as a bolus over 30 ph minutes Volume: 500 ml; Route: IV; Rate: 1 bolus; Site: left forearm; 18:54 Follow up: Response: No adverse reaction; IV Status: Completed infusion 1 Disposition Summary: 03/12/25 18:27 Discharge Ordered Notes: Location: Home sp3 Condition: Stable sp3 Diagnosis - Supraventricular tachycardia, palpitations sp3 Followup: sp3 - With: Private Physician - When: Upon discharge from the Emergency Department - Reason: Continuance of care Followup: sp3 - With: Rubin Zuniga MD - When: Upon discharge from the Emergency Department - Reason: Recheck today's complaints Discharge Instructions: - Discharge Summary Sheet sp3 - Palpitations sp3 - Supraventricular Tachycardia, Adult sp3 Forms: - Medication Reconciliation Form sp3 - Antibiotic Education sp3 - Prescription Opioid Use sp3 - Patient Portal Instructions sp3 - Leadership Thank You Letter sp3 Signatures: Dispatcher MedHoMargot Zuniga RN RN Yusra Fenton MD MD [facility] Calista Maxwell RN RN 1 Corrections: (The following items were deleted from the chart) 16:46 16:46 BASIC METABOLIC PANEL+C.LAB.BRZ ordered. EDMS EDMS 16:46 16:46 CBC+H.LAB.BRZ ordered. EDMS EDMS 16:46 16:46 HEPATIC FUNCTION+C.LAB.BRZ ordered. EDMS EDMS 16:46 16:46 MAGNESIUM+C.LAB.BRZ ordered. EDMS EDMS 16:46 16:46 PROBNP+C.LAB.BRZ ordered. EDMS EDMS 16:46 16:46 PROTIME (+INR)+COAG.LAB.BRZ ordered. EDMS EDMS 16:46 16:46 Troponin High Sensitivity+C.LAB.BRZ ordered. EDMS EDMS 16:46 16:46 Chest Single View+RAD.RAD.BRZ ordered. EDMS EDMS
--- NOTE | 2025-03-12 18:28 | ER ---
Nurse's Notes [facility] Name: Josseline Gallegos Age: 64 yrs Sex: Female : 1960 Arrival Date: 03/12/2025 Time: 16:29 Bed 2 Private MD: Diagnosis: Supraventricular tachycardia, palpitations Presentation: 03/12 16:41 Chief complaint: EMS states: ELEVATED HEAR RATE AND CHEST PAIN. ON OUR ARRIVAL HEART ha1 RATE WITHIN THE 190, LOW BP SYSTOLIC AT 80. medications given 12 mg of Adenosine, 324 mg aspirin, and 800 ML of NS. DENIES ANY CHEST PAIN NOW. Coronavirus screen: Client denies travel out of the [place] in the last 14 days. Ebola Screen: No symptoms or risks identified at this time. Initial Sepsis Screen: Does the patient meet any 2 criteria? No. Patient's initial sepsis screen is negative. Does the patient have a suspected source of infection? No. Patient's initial sepsis screen is negative. Risk Assessment: Do you want to hurt yourself or someone else? Patient reports no desire to harm self or others. Onset of symptoms was March 12, 2025. 16:41 Method Of Arrival: EMS: [facility] ha1 16:41 Acuity: TIFFANY 2 ha1 Triage Assessment: 16:40 General: Appears uncomfortable, Behavior is calm, cooperative. Pain: Denies pain. ha1 Neuro: Level of Consciousness is awake, alert, obeys commands, Oriented to person, place, time, situation. Cardiovascular: Heart tones S1 S2 present Capillary refill < 3 seconds Patient's skin is warm and dry. Cardiovascular: Reports palpitations. Respiratory: Airway is patent Respiratory effort is even, unlabored, Respiratory pattern is regular, symmetrical. GI: No signs and/or symptoms were reported involving the gastrointestinal system. Abdomen is round non-distended. : No signs and/or symptoms were reported regarding the genitourinary system. Derm: Skin is normal. Musculoskeletal: Circulation, motion, and sensation intact. Range of motion: intact in all extremities. Historical: - Allergies: 16:40 Codeine; ha1 16:40 Ibuprofen; ha1 16:40 Tylenol; ha1 - Home Meds: 16:40 hydrocodone-acetaminophen 10-325 mg Oral tablet [Active]; ha1 - PMHx: 16:40 Chronic obstructive lung disease; Chronic pain; Hypertension; ha1 - PSHx: 16:40 breast (wris); foot; wrist; ha1 - Immunization history:: Adult Immunizations not up to date. - Infectious Disease History:: Denies. - Social history:: Smoking status: Patient reports the use of cigarette tobacco products, denies chronic smoking, but will smoke occasionally. Screenin:54 [facility] ED Fall Risk Assessment (Adult) History of falling in the last 3 months, ha1 including since admission Yes- single mechanical fall (1 pt) Confusion or Disorientation No (0 pts) Intoxicated or Sedated No (0 pts) Impaired Gait Yes (1 pt) Mobility Assist Device Used No (0 pt) Altered Elimination No (0 pt) Score/Fall Risk Level 3 or more points = High Risk Oriented to surroundings, Maintained a safe environment, Educated pt \T\ family on fall prevention, incl call for assistance when getting out of bed, Hourly rounding (assess needs \T\ fall precautionary measures) done. Abuse screen: Denies threats or abuse. Denies injuries from another. Nutritional screening: No deficits noted. Tuberculosis screening: No symptoms or risk factors identified. Assessment: 16:40 Reassessment: SEE TRIAGE ASSESSMENT. ha1 17:42 Reassessment: Patient and/or family updated on plan of care and expected duration. Pain ha1 level reassessed. Patient is alert, oriented x 3, equal unlabored respirations, skin warm/dry/pink. Patient states feeling better. Patient states symptoms have improved. 18:43 Reassessment: Patient and/or family updated on plan of care and expected duration. Pain ha1 level reassessed. Patient is alert, oriented x 3, equal unlabored respirations, skin warm/dry/pink. Patient denies pain at this time. Patient states feeling better. Patient states symptoms have improved. Vital Signs: 16:41 BP 126 / 93; Pulse 117; Resp 18 S; Temp 98.1(O); Pulse Ox 99% on 2 lpm NC; Weight 48.99 ha1 kg; Height 5 ft. 5 in. ; 17:42 BP 129 / 97; Pulse 116; Resp 17 S; Pulse Ox 97% on R/A; ha1 18:22 BP 125 / 100; Pulse 110; Resp 18; Pulse Ox 97% on R/A; ph 18:40 BP 127 / 97; Pulse 78; Resp 17 S; Pulse Ox 97% on R/A; ha1 16:41 Body Mass Index 17.97 (48.99 kg, 165.1 cm) ha1 Vitals: 18:22 Cardiac Rhythm Assessment Sinus tach. ph ED Course: 16:40 Patient arrived in ED. ha1 16:40 Patient has correct armband on for positive identification. Placed in gown. Bed in low ha1 position. Call light in reach. Side rails up X 1. Provided Education on: PLAN OF CARE . Client placed on continuous cardiac and pulse oximetry monitoring. NIBP monitoring applied. personnel monitor on. 16:40 Arm band placed on right wrist. ha1 16:40 EKG completed in triage. Results shown to MD. Antipyretics given from triage as ordered ha1 by an ER provider. Antipyretics given from triage as ordered by an ER provider. 16:44 Yusra Fenton MD is Attending Physician. sp3 16:50 Triage completed. ha1 16:54 Maintain EMS IV. Dressing intact. Good blood return noted. Site clean \T\ dry. Gauge \T\ jones 1 site: 20 GAUGE LAC. 16:56 Calista Maxwell, RN is Primary Nurse. ha1 16:57 Basic Metabolic Panel Sent. ha1 16:57 CBC with Diff Sent. ha1 16:57 LFT's Sent. ha1 16:57 Magnesium Sent. ha1 16:57 NT PRO-BNP Sent. ha1 16:57 PT-INR Sent. ha1 16:57 Troponin HS Sent. ha1 17:03 XRAY Chest (1 view) In Process Unspecified. EDMS 18:28 Rubin Zuniga MD is Referral Physician. sp3 18:55 No provider procedures requiring assistance completed. IV discontinued, intact, ha1 bleeding controlled, No redness/swelling at site. Pressure dressing applied. Administered Medications: 17:25 Drug: Ketorolac IVP 15 mg IVP once Route: IVP; Site: left antecubital; ha1 18:00 Follow up: Response: No adverse reaction; Pain is decreased ha1 18:22 Drug: Metoprolol IVP 5 mg IVP once; Hold for SBP <100 or HR <60. Route: IVP; Site: left ph forearm; 18:35 Follow up: Response: No adverse reaction; Cardiac rhythm changed ha1 18:22 Drug: NS 0.9% IV 500 ml 500 ml IV at 1 bolus once; to be given as a bolus over 30 ph minutes Volume: 500 ml; Route: IV; Rate: 1 bolus; Site: left forearm; 18:54 Follow up: Response: No adverse reaction; IV Status: Completed infusion ha1 Medication: 17:52 VIS not applicable for this client. ha1 Outcome: 18:27 Discharge ordered by . karlos 18:55 Discharged to home ambulatory, with family, ha1 18:55 Condition: stable 18:55 Discharge instructions given to patient, Instructed on discharge instructions, follow up and referral plans. Demonstrated understanding of instructions, follow-up care, 18:56 Patient left the ED. ha1 Signatures: Dispatcher [employer] Margot Turcios RN RN Yusra Mariano MD MD sp3 Calista Maxwell RN RN ha1 Corrections: (The following items were deleted from the chart) 18:55 18:43 Reassessment: Patient and/or family updated on plan of care and expected ha1 duration. Pain level reassessed. Patient is alert, oriented x 3, equal unlabored respirations, skin warm/dry/pink. ha1
[2025-03-12 20:04] VITALS: TEMP 98.1
[2025-03-12 20:05] VITALS: O2SAT 97
[2025-03-12 20:07] VITALS: BP 127/97
--- NOTE | 2025-03-13 12:11 | EKG ---
Test Date: 2025-03-12 Test Time: 16:35:29 Manager Pest: ANKITA MEASUREMENT RESULTS: Intervals: Rate: 116 HI: 150 QRSD: 78 QT: 320 QTc: 444 [place]: P: 70 HI: 150 QRS: 76 T: 68 INTERPRETIVE STATEMENTS: Sinus tachycardia Otherwise normal ECG Compared to ECG 02/18/2024 19:14:05 Sinus rhythm no longer present Short HI interval no longer present Electronically Signed On 03-13-25 12:08:52 CDT by Thierno Segovia
== END 2025-03-12 18:56 | disposition home or self-care (01) ==
LOC: ER 16:29
DX: I47.10 Supraventricular tachycardia, unspecified (principal); I10 Essential (primary) hypertension; J44.9 Chronic obstructive pulmonary disease, unspecified; F17.210 Nicotine dependence, cigarettes, uncomplicated
CPT/HCPCS: 93005; 85025; 80048; 36415; 83735; 85610; 80076; 84484; 83880; 71045; 99285; J7040

== ENCOUNTER 2025-03-16 15:44 | Emergency (ER) | payer OTHER ==
--- NOTE | 2025-03-16 16:42 | EDPHYS ---
Physician Documentation [facility] Name: Josseline Gallegos Age: 64 yrs Sex: Female : 1960 Arrival Date: 03/16/2025 Time: 15:44 Bed IW2 Private MD: ED Physician Chris Gallegos HPI: 03/16 15:58 This 64 yrs old Female presents to ER via EMS with complaints of Abdominal Pain. kb 15:58 Patient is a 64-year-old female who presents for diffuse abdominal pain and burning kb with urination that started 4 days ago. Denies nausea, vomiting, diarrhea, fever.. Historical: - Allergies: 15:47 Codeine; ss 15:47 Ibuprofen; ss 15:47 Tylenol; ss - PMHx: 15:47 Chronic obstructive lung disease; Chronic pain; Hypertension; ss - PSHx: 15:47 foot; wrist; breast (wrist); ss ROS: 15:57 Constitutional: As per HPI kb Exam: 15:57 Constitutional: This is a well developed, well nourished patient who is awake, alert, kb and in no acute distress. Head/Face: Normocephalic, atraumatic. ENT: Moist Mucous membranes Cardiovascular: Regular rate Respiratory: Respirations even and unlabored. No increased work of breathing. Talking in full sentences Skin: Warm, dry with normal turgor. Normal color. MS/ Extremity: Pulses equal, no cyanosis. Neurovascular intact. Full, normal range of motion. Neuro: Awake and alert, GCS 15, oriented to person, place, time, and situation. 15:57 Abdomen/GI: Inspection: abdomen appears normal, Bowel sounds: normal, Palpation: soft, in all quadrants, mild abdominal tenderness, in the right upper quadrant and left upper quadrant, Vital Signs: 15:58 BP 158 / 98; Pulse 106; Resp 19; Temp 98.4; Pulse Ox 98% ; me1 MDM: 15:47 Medical Screening Exam initiated kb 16:40 Differential diagnosis: gastritis, non-specific abd pain, pancreatitis, urinary tract kb infection. Data reviewed: vital signs, nurses notes. Historians other than the Patient: EMS: [facility]. ED course: Pt states she does not want to wait for an available bed. Prefers to go home at this time, prior to any diagnostic testing. Pt educated that we could started testing while she was in the lobby, but pt still prefers to go home. States she will return for worsening symptoms. . 03/16 15:47 Order name: IV Saline Lock kb 03/16 15:47 Order name: Labs collected and sent kb Administered Medications: No medications were administered Disposition Summary: 03/16/25 16:41 Discharge Ordered Notes: Location: Home kb Condition: Stable kb Diagnosis - Abdominal pain, Generalized kb Followup: kb - With: Emergency Department - When: As needed - Reason: Worsening of condition Followup: kb - With: Private Physician - When: 2 - 3 days - Reason: Recheck today's complaints, Continuance of care, Re-evaluation by your physician Discharge Instructions: - Discharge Summary Sheet kb - Abdominal Pain, Adult, [id number] kb Forms: - Medication Reconciliation Form kb - Antibiotic Education kb - Prescription Opioid Use kb - Patient Portal Instructions kb - Leadership Thank You Letter kb Signatures: Dispatcher [employer] EDJeane Robertson, CHARITO-C PAPER BALING MACHINE OPERATOR-Tristonb Shakira Fernandez, RN RN ss Corrections: (The following items were deleted from the chart) 15:47 15:47 PSHx: breast (wris); ss ss 16:44 15:48 Abdomen Pelvis W Con+CT.RAD.BRZ ordered. TIMLA KIRK
--- NOTE | 2025-03-16 16:42 | ER ---
Nurse's Notes [facility] Name: Josseline Gallegos Age: 64 yrs Sex: Female : 1960 Arrival Date: 03/16/2025 Time: 15:44 Bed IW2 Private MD: Diagnosis: Abdominal pain, Generalized Presentation: 03/16 15:46 Chief complaint: Patient states: abd pain and burning with urination that began 4 days ss ago. Coronavirus screen: Client denies travel out of the [place] in the last 14 days. Onset of symptoms was March 12, 2025. 15:46 Method Of Arrival: EMS: [facility] ss 15:46 Acuity: TIFFANY 3 ss 15:58 Ebola Screen: No symptoms or risks identified at this time. me1 Historical: - Allergies: 15:47 Codeine; ss 15:47 Ibuprofen; ss 15:47 Tylenol; ss - PMHx: 15:47 Chronic obstructive lung disease; Chronic pain; Hypertension; ss - PSHx: 15:47 foot; wrist; breast (wrist); ss Assessment: 15:50 Reassessment: Pt states she does not want to wait for room in ER [facility]. Neuro: Level of ss Consciousness is awake, alert, obeys commands. 17:30 Reassessment: Called for patient in lobby. No answer. me1 Vital Signs: 15:58 BP 158 / 98; Pulse 106; Resp 19; Temp 98.4; Pulse Ox 98% ; me1 ED Course: 15:46 Patient arrived in ED. ss 15:47 [facility]ur [facility]C [facility]. kb 15:47 Chris Gallegos MD is Attending Physician. kb 15:50 No provider procedures requiring assistance completed. Patient did not have IV access ss during this emergency room visit. 18:55 Triage completed. ss Administered Medications: No medications were administered Outcome: 16:41 Discharge ordered by . kb 18:56 Discharged to Pt discharged by YAW Ching. Pt chose to leave prior to receiving any ss kind of discharge instructions 18:58 Patient left the ED. ss Signatures: Jeane Nur FNP-C FNP-Ckb Blanchard, Shelby, RN RN Tuyet Lerner RN RN me1 Corrections: (The following items were deleted from the chart) 15:47 15:47 PSHx: breast (wris); ss ss
[2025-03-18 07:52] VITALS: BP 158/98; TEMP 98.4; O2SAT 98
== END 2025-03-16 18:58 | disposition home or self-care (01) ==
LOC: ER 15:44
DX: R10.84 Generalized abdominal pain (principal); R30.0 Dysuria; G89.29 Other chronic pain
CPT/HCPCS: 99282

== ENCOUNTER 2025-03-26 15:23 | Inpatient (IN) | payer OTHER ==
[2025-03-26] MEDS ORDERED: METOPROLOL TAR 25 MG TAB ONE (15:41)
[2025-03-26] MEDS ORDERED: MAGNESIUM SULFATE 1 gm IVPB 1 GM/100 ML BAG IV ONE (15:41)
[2025-03-26] MEDS ORDERED: NA CHLORIDE 0.9% 500 ML ONE (15:41)
--- NOTE | 2025-03-26 16:26 | RAD REPORT ---
EXAMINATION: Head C Spine Mpr Wo Con CLINICAL INDICATION: Female, 64 years old. TRAUMA TECHNIQUE: Axial CT images from the skull base to the vertex without intravenous contrast. Axial CT i mages through the cervical spine were obtained without intravenous contrast. Sagittal and coronal reformatted images were created from the data set. Coronal and sagittal reformatted images were creat ed from the data set. One or more of the following dose reduction techniques were used: Automated exposure control, adjustment of the mA and/or kV according to patient size, and/or iterative reconstr uction. Unless otherwise specified, incidental findings do not require dedicated imaging follow-up. [id number]. COMPARISON: No prior exam. FINDINGS: Head: INTRACRANIAL: No acute intracranial hemorrhage. No hydrocephalus. No mass effect or midline shift. Mi ld chronic small vessel ischemic changes.Mild cerebral atrophy. VASCULATURE: No visualized abnormalities in the arteries or dural venous sinuses. SCALP/SKULL: No calvarial fracture identified. No acute soft tissue abnormality. SINUSES: Left sphenoid sinus mucosal thickening. No significant mastoid fluid. Cervical spine: ALIGNMENT: Trace anterolisthesis of C2 on C3. 2 mm anterolisthesis of C5 on C6. BONE: Vertebral body heights are maintained. No aggressive osseous lesions. Benign appearing lucency at the dens. DEGENERATIVE: Multilevel cervical spondylosis with evidence of bilateral neural foraminal narrowing. No high grade central spinal stenosis. Varying degrees of neural foraminal narrowing which are most pronounced at the C3-4, C4-5, and C5-6 levels. SOFT TISSUE: No significant abnormalities in the soft tissue of the neck. The visualized lung apices are clear. IMPRESSION: No acute intracranial abnormality. No acute fracture or traumatic malalignment of the cervical spine.
--- NOTE | 2025-03-26 16:31 | RAD REPORT ---
EXAM: Chest Abd Pelvis Wo Con CLINICAL INDICATION: Female, 64 years old TRAUMA TECHNIQUE: CT chest, abdomen and pelvis was performed, without IV contrast, as per department protoco l. Axial, sagittal and coronal reconstructions were obtained. One or more of the following dose reduction techniques were used: Automated exposure control, adjustment of the mA and/or kV according to the patient size, and/or iterative reconstruction. Unless otherwise specified, incidental findings do not require dedicated imaging follow-up. [id number]. COMPARISON: No prior exam. FINDINGS: The lack of intravenous contrast limits the sensitivity of this exam for evaluation of solid visceral organs, vascular structures, and retroperitoneum. ---THORAX--- LOWER NECK AND CHEST WALL: Visualized thyroid gland and soft tissues are normal. Breast prostheses. LUNGS AND AIRWAYS: Mild centrilobular and paraseptal emphysema.No dominant or clearly suspicious nodu le identified. PLEURA: No pleural effusion. No pneumothorax. MEDIASTINUM AND LYMPH NODES: No mediastinal mass or fluid collection. Normal size mediastinal, hilar, and axillary lymph nodes. THORACIC AORTA: No thoracic aortic aneurysm. Atherosclerotic changes are present. PULMONARY ARTERIES: Enlarged main pulmonary arteries could indicate pulmonary artery hypertension. Un able to evaluate for pulmonary emboli due to either protocol or lack of contrast. HEART: Normal heart size. Moderate coronary artery calcifications.No significant pericardial effusion . Aortic valve and mitral annular calcifications. ---ABDOMEN/PELVIS--- UPPER GI: No significant abnormality. LIVER: Nodular liver contour. No focal mass. GALLBLADDER/BILE DUCTS: No biliary ductal dilatation.? PANCREAS: No mass, ductal dilation, or stefania-pancreatic fluid. SPLEEN: Unremarkable. ADRENALS: No adrenal masses. KIDNEYS AND URETERS: No hydronephrosis.No suspicious renal mass.No renal calculi.No ureteral calculi. ABDOMINAL AORTA AND OTHER VESSELS: Severe atherosclerotic changes. No aortic aneurysm. PERITONEUM: No abnormal free fluid. No free air. LYMPH NODES: No pathologic lymphadenopathy. ABDOMINAL WALL: Small fat containing umbilical hernia. SMALL BOWEL/COLON: Small bowel has normal course and caliber. No colonic wall thickening or pericolon ic inflammatory changes.Normal appendix. URINARY BLADDER: Underdistended but grossly unremarkable. REPRODUCTIVE ORGANS: No pathologic process. ---COMBINED--- MUSCULOSKELETAL: Multilevel degenerative changes in the spine. No acute fracture. Degenerative change s are most pronounced at L2-3 and L5-S1. ADDITIONAL FINDINGS: None. IMPRESSION: No evidence of significant trauma to the chest, abdomen, or pelvis. Incidental findings as noted above,
--- NOTE | 2025-03-26 16:32 | RAD REPORT ---
EXAM: Chest Single View HISTORY: 64 years Female PALPITATIONS COMPARISON: None. FINDINGS: LUNGS/PLEURA: The lungs are clear. No pleural effusions or pneumothorax. No pulmonary edema. CARDIAC/MEDIASTINUM: The cardiac silhouette is within normal limits. UPPER ABDOMEN: No significant abnormality. BONES: No acute abnormality. LINES/TUBES/OTHER: N/A IMPRESSION: No evidence of acute cardiopulmonary disease.
[2025-03-26 16:55] LABS: Absolute Basophils 0.1 K/uL (0-0.5); Absolute Lymphocytes (CBC) 2.7 K/uL (0.7-4.9); Absolute Monocytes 0.8 K/uL (0.1-1.3); Absolute Neutrophil 7.4 K/uL (1.8-8.0); Basophils % 0.9 % (0-1.3); Eosinophils % 0.4 % (0-4.4); Hematocrit 39.4 % (36.0-45.0); Hemoglobin 13.5 g/dL (12.0-15.0); Lymphocytes % 24.8 % (15.3-44.8); MCHC 34.2 g/dL (32.0-36.0); MCV 96.5 fL (80-100); MPV 7.3 fL (7.6-11.3); Monocytes % 7.1 % (3.3-12.3); Neutrophils % 66.8 % (41.7-73.7); Nucleated Red Blood Cells % 0.3 % (0-0); Platelets 350 thou/uL (152-406); RBC Red Blood Cell Count 4.08 M/uL (3.86-4.86); Red Cell Distribution Width 13.2 % (12.1-15.2)
[2025-03-26 16:57] LABS: Sqamous Epithelial <5 /HPF (None Seen); Urine Bacteria None Seen /HPF (<20); Urine Bilirubin NEGATIVE (Negative); Urine Blood Negative (Negative); Urine Clarity Turbid (Clear); Urine Color Light-Yellow (Yellow); Urine Crystals Unidentified Few /HPF (None Seen); Urine Culture Reflex Order NOT NEEDED; Urine Glucose NEGATIVE (Negative); Urine Ketones NEGATIVE (Negative); Urine Microscopic Reflex YN ORDER UMIC; Urine Mucus Slight /HPF (None Seen); Urine Nitrite NEGATIVE (Negative); Urine Protein TRACE (Negative); Urine RBC <5 /HPF (None Seen); Urine Urobilinogen Normal (Normal); Urine WBC <5 /HPF (<5)
[2025-03-26 17:00] LABS: Protime INR 0.96
[2025-03-26 17:05] LABS: Barbiturates NEGATIVE (NEGATIVE); Benzodiazepines NEGATIVE (NEGATIVE); Cocaine NEGATIVE (NEGATIVE); METHAMPHETAM NEGATIVE (NEGATIVE); Methadone NEGATIVE (NEGATIVE); Opiates NEGATIVE (NEGATIVE); Phencyclidine NEGATIVE (NEGATIVE); THC Cannibis POSITIVE (NEGATIVE)
[2025-03-26 17:22] LABS: ALT/SGPT 23 U/L (13-56); AST/SGOT 28 U/L (15-37); Albumin 3.4 g/dL (3.4-5.0); Albumin/Globulin Ratio 0.9 (1.1-1.8); Alkaline Phosphatase 102 U/L (45-117); Anion Gap 10.8 mEq/L (5.0-15.0); BUN Blood Urea Nitrogen 18 mg/dL (7-18); Bicarbonate 24 mEq/L (21-32); Bilirubin Direct < 0.2 mg/dL (0-0.2); Bilirubin Indirect, Calculated 0.1 mg/dL (0.2-0.8); Bilirubin Total 0.3 mg/dL (0.2-1.0); Globulin 3.7 g/dL (2.3-3.5); Glomerular Filtration Rate 57 ml/min (=/>90); Glucose Level 80 mg/dL (74-106); Magnesium 1.9 mg/dL (1.6-2.4); NT PRO-BNP 736 pg/mL (<125); Potassium 3.8 mEq/L (3.5-5.1); Protein, Total 7.1 g/dL (6.4-8.2); Sodium Level 137 mEq/L (136-145)
[2025-03-26 17:23] LABS: Troponin High Sensitivity 66.4 pg/mL (<58.9)
--- NOTE | 2025-03-26 17:29 | ER ---
Nurse's Notes [facility] Name: Josseline Gallegos Age: 64 yrs Sex: Female : 1960 Arrival Date: 03/26/2025 Time: 15:23 Bed 5 Private MD: Diagnosis: Supraventricular tachycardia;UTI/ Urinary tract infection, site not specified;Abnormal levels of other serum enzymes-Troponin Presentation: 03/26 15:35 Chief complaint: EMS states: Toned out for dizziness and multiple falls x 2 days, HR hb 200s, improved to 110 after adenosine to 20g LAC. Coronavirus screen: At this time, the client does not indicate any symptoms associated with coronavirus-19. Ebola Screen: No symptoms or risks identified at this time. Initial Sepsis Screen: Does the patient meet any 2 criteria? No. Patient's initial sepsis screen is negative. Does the patient have a suspected source of infection? No. Patient's initial sepsis screen is negative. Risk Assessment: Do you want to hurt yourself or someone else? Patient reports no desire to harm self or others. Onset of symptoms was March 24, 2025. 15:35 Method Of Arrival: EMS: [facility] hb 15:35 Acuity: TIFFANY 2 hb Historical: - Allergies: 15:37 Codeine; hb 15:37 Ibuprofen; hb 15:37 Tylenol; hb - Home Meds: 15:37 lisinopril Oral [Active]; hb - PMHx: 15:37 Chronic obstructive lung disease; Chronic pain; Hypertension; hb - PSHx: 15:37 breast (wris); foot; wrist; hb - Immunization history:: Adult Immunizations up to date. - Infectious Disease History:: Denies. - Social history:: Smoking status: Patient reports the use of cigarette tobacco products. Screenin:49 [facility] ED Fall Risk Assessment (Adult) History of falling in the last 3 months, ph including since admission Yes- physiologic fall (2 pts) Confusion or Disorientation No (0 pts) Intoxicated or Sedated No (0 pts) Impaired Gait No (0 pts) Mobility Assist Device Used No (0 pt) Altered Elimination No (0 pt) Score/Fall Risk Level 3 or more points = High Risk Oriented to surroundings, Maintained a safe environment, Hourly rounding (assess needs \\T\\ fall precautionary measures) done. Abuse screen: Denies threats or abuse. Denies injuries from another. Nutritional screening: No deficits noted. Tuberculosis screening: No symptoms or risk factors identified. Assessment: 16:00 General: Appears in no apparent distress. Behavior is cooperative, anxious. Pain: ph Complains of pain in "all over". Neuro: Level of Consciousness is awake, alert, obeys commands, Oriented to person, place, time, situation. Cardiovascular: Capillary refill < 3 seconds in bilateral fingers Patient's skin is warm and dry. Rhythm is sinus rhythm. Respiratory: Airway is patent Respiratory effort is even, unlabored, Respiratory pattern is regular, symmetrical. Derm: Skin is pink, warm \\T\\ dry. Vital Signs: 15:35 BP 122 / 97; Pulse 104; Resp 18; Temp 98.3; Pulse Ox 99% on R/A; Weight 49.9 kg; Height hb 5 ft. 5 in. ; Pain 7/10; 17:00 BP 128 / 92; Pulse 97; Resp 18; Pulse Ox 99% on R/A; ph 17:48 BP 120 / 98; Pulse 99; Resp 18; Pulse Ox 99% on R/A; ph 18:30 BP 118 / 82; Pulse 72; Resp 18; Pulse Ox 98% on R/A; ph 15:35 Body Mass Index 18.30 (49.90 kg, 165.1 cm) hb 15:35 Pain Scale: Adult hb ED Course: 15:25 Patient arrived in ED. hb 15:26 Chris Gallegos MD is Attending Physician. anne 15:37 Triage completed. hb 15:38 Margot Jeffrey, RN is Primary Nurse. ph 15:38 Arm band placed on. hb 15:51 XRAY Chest (1 view) In Process Unspecified. EDMS 16:12 Chest Abd Pelvis Wo Con In Process Unspecified. EDMS 16:12 Head C Spine Mpr Wo Con In Process Unspecified. EDMS 16:45 Initial lab(s) drawn, by me, sent to lab. Urine collected: clean catch specimen, clear, ph EKG done, by ED staff, reviewed by Chris Gallegos MD. Maintain EMS IV. Dressing intact. Good blood return noted. Site clean \\T\\ dry. Gauge \\T\\ site: 20 LAC. Flushed with 10 mL NS. 17:27 Yuri Gonzalez MD is Hospitalizing Provider. anne 17:50 Patient has correct armband on for positive identification. Bed in low position. Call ph light in reach. Side rails up X 1. Client placed on continuous cardiac and pulse oximetry monitoring. NIBP monitoring applied. material checker on. 17:58 No provider procedures requiring assistance completed. Patient admitted, IV remains in ph place. Administered Medications: 16:44 Drug: ToPROL XL PO 25 mg PO once Route: PO; ph 19:21 Follow up: Response: No adverse reaction ph 16:44 Drug: NS 0.9% IV 500 ml 500 ml IV at 100 ml/hr once; to be given as a bolus over 30 ph minutes Volume: 500 ml; Route: IV; Rate: 100 ml/hr; Site: left antecubital; 17:15 Follow up: Response: No adverse reaction; IV Status: Completed infusion; IV Intake: ph 500ml 16:45 Drug: Magnesium Sulfate IVPB 1 grams IVPB once over 1 hrs Route: IVPB; Infused Over: 1 ph hrs; Site: left antecubital; 17:45 Follow up: Response: No adverse reaction; IV Status: Completed infusion ph 17:48 Drug: morphine IVP or IV 4 mg IVP once over 4 mins Route: IVP; Infused Over: 4 mins; ph Site: left antecubital; 19:19 Follow up: Response: No adverse reaction; Pain is decreased ph 17:48 Drug: Ondansetron IVP 4 mg IVP once; over 2 minutes Route: IVP; Site: left antecubital; ph 19:19 Follow up: Response: No adverse reaction ph 18:59 Drug: Aspirin PO Chewable Tablet 81 mg PO once Route: PO; ph 19:20 Follow up: Response: No adverse reaction ph 18:59 Drug: Enoxaparin Sub-Q 1 mg/kg Sub-Q once Route: Sub-Q; Site: left lower abdomen; ph 19:20 Follow up: Response: No adverse reaction ph 18:59 Drug: Famotidine IVP 20 mg IVP once; dilute with 10 mL 0.9% NaCl; give over 2 minutes ph Route: IVP; Site: left antecubital; 19:20 Follow up: Response: No adverse reaction ph 20:51 Drug: NS 0.9% IV 500 ml 500 ml IV at 1 bolus once; to be given as a bolus over 30 kd3 minutes Volume: 500 ml; Route: IV; Rate: 1 bolus; Site: left antecubital; Medication: 17:49 VIS not applicable for this client. ph Intake: 17:15 IV: 500ml; Total: 500ml. ph Outcome: 17:29 Decision to Hospitalize by Provider. anne 21:59 Patient left the ED. kd3 Signatures: Dispatcher [employer] EDChris Guardado MD MD cha Hall, Patricia, RN RN ph Baxter, Heather, RN RN Elizabeth Canales RN RN kd3
--- NOTE | 2025-03-26 17:29 | EDPHYS ---
Physician Documentation [facility] Name: Josseline Gallegos Age: 64 yrs Sex: Female : 1960 Arrival Date: 03/26/2025 Time: 15:23 Bed 5 Private MD: ED Physician Chris Gallegos HPI: 03/26 16:37 This 64 yrs old Female presents to ER via EMS with complaints of SVT. anne 16:37 The patient presents with a history of heart racing. Context: The symptoms occur at [facility] rest. Onset: The symptoms/episode began/occurred just prior to arrival. Duration: The patient or guardian reports a single episode, that is now resolved. Modifying factors: The symptoms are aggravated by nothing. The symptoms are alleviated by nothing. Associated signs and symptoms: The patient has no apparent associated signs or symptoms. Severity of symptoms: At their worst the symptoms were mild moderate in the emergency department the symptoms have improved moderately. The patient has experienced similar episodes in the past, several times. Historical: - Allergies: 15:37 Codeine; hb 15:37 Ibuprofen; hb 15:37 Tylenol; hb - Home Meds: 15:37 lisinopril Oral [Active]; hb - PMHx: 15:37 Chronic obstructive lung disease; Chronic pain; Hypertension; hb - PSHx: 15:37 breast (wris); foot; wrist; hb - Immunization history:: Adult Immunizations up to date. - Infectious Disease History:: Denies. - Social history:: Smoking status: Patient reports the use of cigarette tobacco products. ROS: 16:40 Constitutional: Negative for fever, chills, and weight loss, Eyes: Negative for injury, anne pain, redness, and discharge, ENT: Negative for injury, pain, and discharge, Neck: Negative for injury, pain, and swelling, Cardiovascular: Negative for chest pain, palpitations, and edema, Respiratory: Negative for shortness of breath, cough, wheezing, and pleuritic chest pain, Abdomen/GI: Negative for abdominal pain, nausea, vomiting, diarrhea, and constipation, Back: Negative for injury and pain, : Negative for injury, bleeding, discharge, and swelling, MS/Extremity: Negative for injury and deformity, Skin: Negative for injury, rash, and discoloration, Neuro: Negative for headache, weakness, numbness, tingling, and seizure, Psych: Negative for depression, anxiety, suicide ideation, homicidal ideation, and hallucinations, Allergy/Immunology: Negative for hives, rash, and allergies, Endocrine: Negative for neck swelling, polydipsia, polyuria, polyphagia, and marked weight changes, Hematologic/Lymphatic: Negative for swollen nodes, abnormal bleeding, and unusual bruising, Exam: 16:40 Constitutional: This is a well developed, well nourished patient who is awake, alert, anne and in no acute distress. Head/Face: Normocephalic, atraumatic. Eyes: Pupils equal round and reactive to light, extra-ocular motions intact. Lids and lashes normal. Conjunctiva and sclera are non-icteric and not injected. Cornea within normal limits. Periorbital areas with no swelling, redness, or edema. ENT: Nares patent. No nasal discharge, no septal abnormalities noted. Tympanic membranes are normal and external auditory canals are clear. Oropharynx with no redness, swelling, or masses, exudates, or evidence of obstruction, uvula midline. Mucous membranes moist. Neck: Trachea midline, no thyromegaly or masses palpated, and no cervical lymphadenopathy. Supple, full range of motion without nuchal rigidity, or vertebral point tenderness. No Meningismus. Chest/axilla: Normal chest wall appearance and motion. Nontender with no deformity. No lesions are appreciated. Cardiovascular: Regular rate and rhythm with a normal S1 and S2. No gallops, murmurs, or rubs. Normal PMI, no JVD. No pulse deficits. Respiratory: Lungs have equal breath sounds bilaterally, clear to auscultation and percussion. No rales, rhonchi or wheezes noted. No increased work of breathing, no retractions or nasal flaring. Abdomen/GI: Soft, non-tender, with normal bowel sounds. No distension or tympany. No guarding or rebound. No evidence of tenderness throughout. Back: No spinal tenderness. No costovertebral tenderness. Full range of motion. Skin: Warm, dry with normal turgor. Normal color with no rashes, no lesions, and no evidence of cellulitis. MS/ Extremity: Pulses equal, no cyanosis. Neurovascular intact. Full, normal range of motion., bilateral aka Neuro: Awake and alert, GCS 15, oriented to person, place, time, and situation. Cranial nerves II-XII grossly intact. Motor strength 5/5 in all extremities. Sensory grossly intact. Cerebellar exam normal. Normal gait. Psych: Awake, alert, with orientation to person, place and time. Behavior, mood, and affect are within normal limits. 16:40 ECG was reviewed by the Attending Physician. Vital Signs: 15:35 BP 122 / 97; Pulse 104; Resp 18; Temp 98.3; Pulse Ox 99% on R/A; Weight 49.9 kg; Height hb 5 ft. 5 in. ; Pain 7/10; 17:00 BP 128 / 92; Pulse 97; Resp 18; Pulse Ox 99% on R/A; ph 17:48 BP 120 / 98; Pulse 99; Resp 18; Pulse Ox 99% on R/A; ph 18:30 BP 118 / 82; Pulse 72; Resp 18; Pulse Ox 98% on R/A; ph 15:35 Body Mass Index 18.30 (49.90 kg, 165.1 cm) hb 15:35 Pain Scale: Adult hb MDM: 15:26 Medical Screening Exam initiated anne 16:44 Differential diagnosis: arrythmia, dehydration, stress disorder. Data reviewed: vital anne signs, nurses notes. Consideration of Admission/Observation Escalation of care including admission/observation considered. I considered the following discharge prescriptions or medication management in the emergency department Medications were administered in the Emergency Department. See MAR. Independent interpretation of the following test(s) in the Emergency Department EKG: See my EKG interpretation above. 03/26 15:29 Order name: Basic Metabolic Panel; Complete Time: 17:26 [facility] 03/26 15:29 Order name: CBC with Diff; Complete Time: 17: [facility] 03/26 15:29 Order name: LFT's; Complete Time: 17: [facility] 03/26 15:29 Order name: Magnesium; Complete Time: 17:26 [facility] 03/26 15:29 Order name: NT PRO-BNP; Complete Time: 17: [facility] 03/26 15:29 Order name: PT-INR; Complete Time: 17: [facility] 03/26 15:29 Order name: Troponin HS; Complete Time: 17:26 [facility] 03/26 15:29 Order name: UA Rfx Manish Cult if indicated; Complete Time: 17:26 [facility] 03/26 15:29 Order name: UDS; Complete Time: 17:26 [facility] 03/26 20:52 Order name: CBC with Automated Diff EDMS 03/26 20:52 Order name: CBC with Automated Diff EDMS 03/26 20:52 Order name: Comprehensive Metabolic Panel EDMS 03/26 20:52 Order name: Comprehensive Metabolic Panel EDMS 03/26 20:52 Order name: NT PRO-BNP EDMS 03/26 20:52 Order name: NT PRO-BNP EDMS 03/26 20:52 Order name: NT PRO-BNP EDMS 03/26 20:52 Order name: Troponin High Sensitivity EDMS 03/26 20:52 Order name: Troponin High Sensitivity EDMS 03/26 20:52 Order name: Troponin High Sensitivity EDMS 03/26 20:52 Order name: Troponin High Sensitivity EDMS 03/26 15:29 Order name: XRAY Chest (1 view); Complete Time: 16:36 anne 03/26 15:35 Order name: Chest Abd Pelvis Wo Con; Complete Time: 16:36 EDMS 03/26 15:36 Order name: Head C Spine Mpr Wo Con; Complete Time: 16:36 EDDE 03/26 20:52 Order name: EKG Electrocardiogram EDDE 03/26 20:52 Order name: EKG Electrocardiogram EDDE 03/26 15:29 Order name: Cardiac monitoring; Complete Time: 16:45 [facility] 03/26 15:29 Order name: EKG - Nurse/Tech; Complete Time: 16:45 [facility] 03/26 15:29 Order name: IV Saline Lock; Complete Time: 16:45 [facility] 03/26 15:29 Order name: Labs collected and sent; Complete Time: 16:45 [facility] 03/26 15:29 Order name: O2 Per Protocol; Complete Time: 16:45 [facility] 03/26 15:29 Order name: O2 Sat Monitoring; Complete Time: 16:45 [facility] EC:40 Rate is 87 beats/min. Rhythm is regular. QRS Jeremiah is Normal. AK interval is normal. QRS anne interval is normal. QT interval is normal. No Q waves. T waves are Normal. No ST changes noted. Clinical impression: NSR w/ Non-specific ST/T Changes and No evidence of ischemia. Interpreted by me. Reviewed by me. Administered Medications: 16:44 Drug: ToPROL XL PO 25 mg PO once Route: PO; ph 19:21 Follow up: Response: No adverse reaction ph 16:44 Drug: NS 0.9% IV 500 ml 500 ml IV at 100 ml/hr once; to be given as a bolus over 30 ph minutes Volume: 500 ml; Route: IV; Rate: 100 ml/hr; Site: left antecubital; 17:15 Follow up: Response: No adverse reaction; IV Status: Completed infusion; IV Intake: ph 500ml 16:45 Drug: Magnesium Sulfate IVPB 1 grams IVPB once over 1 hrs Route: IVPB; Infused Over: 1 ph hrs; Site: left antecubital; 17:45 Follow up: Response: No adverse reaction; IV Status: Completed infusion ph 17:48 Drug: morphine IVP or IV 4 mg IVP once over 4 mins Route: IVP; Infused Over: 4 mins; ph Site: left antecubital; 19:19 Follow up: Response: No adverse reaction; Pain is decreased ph 17:48 Drug: Ondansetron IVP 4 mg IVP once; over 2 minutes Route: IVP; Site: left antecubital; ph 19:19 Follow up: Response: No adverse reaction ph 18:59 Drug: Aspirin PO Chewable Tablet 81 mg PO once Route: PO; ph 19:20 Follow up: Response: No adverse reaction ph 18:59 Drug: Enoxaparin Sub-Q 1 mg/kg Sub-Q once Route: Sub-Q; Site: left lower abdomen; ph 19:20 Follow up: Response: No adverse reaction ph 18:59 Drug: Famotidine IVP 20 mg IVP once; dilute with 10 mL 0.9% NaCl; give over 2 minutes ph Route: IVP; Site: left antecubital; 19:20 Follow up: Response: No adverse reaction ph 20:51 Drug: NS 0.9% IV 500 ml 500 ml IV at 1 bolus once; to be given as a bolus over 30 kd3 minutes Volume: 500 ml; Route: IV; Rate: 1 bolus; Site: left antecubital; Disposition Summary: 03/26/25 17:29 Hospitalization Ordered Notes: Hospitalization Status: Observation anne Provider: Yuri Gonzalez cha Location: Telemetry/MedSurg (Inpatient) anne Condition: Stable anne Problem: new anne Symptoms: have improved anne Bed/Room Type: Standard anne Room Assignment: [id number](03/26/25 21:13) kl Diagnosis - Supraventricular tachycardia anne - UTI/ Urinary tract infection, site not specified anne - Abnormal levels of other serum enzymes - Troponin anne Discharge Instructions: - Discharge Summary Sheet anne - Chronic Obstructive Pulmonary Disease anne - Supraventricular Tachycardia, Adult anne - Supraventricular Tachycardia, Adult, [id number] anne - Aspirin and Your Heart anne Forms: - Medication Reconciliation Form anne - SBAR form anne - Leadership Thank You Letter [facility] Prescriptions: - Toprol XL 25 mg Oral Tablet - take 1 tablet ORAL route once daily; 20 tablet; Refills: 0, Product Selection anne Permitted Signatures: Dispatcher [employer] EDEster Franco, RN Chris Hollis MD MD cha Hall, Patricia RN CHUCKY Ciera Blas, RN RN Elizabeth France RN RN kd3 Corrections: (The following items were deleted from the chart) 15:29 15:29 BASIC METABOLIC PANEL+C.LAB.BRZ ordered. EDMS EDMS 15:29 15:29 CBC+H.LAB.BRZ ordered. EDMS EDMS 15:29 15:29 HEPATIC FUNCTION+C.LAB.BRZ ordered. EDMS EDMS 15:29 15:29 MAGNESIUM+C.LAB.BRZ ordered. EDMS EDMS 15:29 15:29 PROBNP+C.LAB.BRZ ordered. EDMS EDMS 15:29 15:29 PROTIME (+INR)+COAG.LAB.BRZ ordered. EDMS EDMS 15:29 15:29 Troponin High Sensitivity+C.LAB.BRZ ordered. EDMS EDMS 15:29 15:29 Chest Single View+RAD.RAD.BRZ ordered. EDMS EDMS 15:29 15:29 Head C Spine Cap Wo Con+CT.RAD.BRZ ordered. EDMS EDMS 15:29 15:29 UA Rfx Manish Cult if indicated+U.LAB.BRZ ordered. EDMS EDMS 15:29 15:29 URINE DRUG SCREEN+UC.LAB.BRZ ordered. EDMS EDMS 21:13 17:29 anne wiley
[2025-03-26] MEDS ORDERED: MORPHINE 4 MG/ML SYR ONE (17:38)
[2025-03-26] MEDS ORDERED: ONDANSETRON 4 MG/2 ML VIAL ONE (17:38)
[2025-03-26] MEDS ORDERED: ASPIRIN 81 MG CHEWABLE TABLET ONE (18:07)
[2025-03-26] MEDS ORDERED: FAMOTIDINE 20 MG/2 ML VIAL IV ONE (18:07)
[2025-03-26] MEDS ORDERED: ENOXAPARIN 40 MG/0.4 ML SQ ONE (18:07)
[2025-03-26] MEDS ORDERED: ACETAMINOPHEN 325 MG TABLET PO PRN (20:45)
--- NOTE | 2025-03-26 23:23 | P.HP ---
Certification for Inpatient Patient admitted to: Inpatient Patient will require the following post-hospital care: None Practitioner: I am a practitioner with admitting privileges, knowledge of patient current condition, hospital course, and medical plan of care. Services: Services provided to patient in accordance with Admission requirements found in Title 42 Section 412.3 of the Code of Federal Regulations Patient History Date of Service: 03/27/25 Reason for admission: SVT, palpitations. Allergies acetaminophen [From Tylenol] Adverse Reaction (Severe, Verified 03/26/25 22:37) Unknown codeine [Codeine] Adverse Reaction (Verified 07/17/15 11:31) makes me feel bad Home Medications: Albuterol Sulfate [Proair Hfa] 2 puff IH QID 05/05/15 lisinopriL [Prinivil*] 2.5 mg PO DAILY 05/05/15 Calcium Citrate 400 mg PO DAILY 03/26/25 Cholecalciferol (Vitamin D3) [Vitamin D3] 50 mcg PO DAILY 03/26/25 Ergocalciferol (Vitamin D2) [Vitamin D2] 50 mcg PO UD 03/26/25 Levothyroxine [Synthroid] 50 mcg PO [id number] 03/26/25 Metoprolol Tartrate [Lopressor] 25 mg PO BID 03/26/25 Pantoprazole Sodium [Protonix] 40 mg PO DAILY 03/26/25 Trazodone [Desyrel] 50 mg PO BEDTIME PRN PRN 03/26/25 methocarbamoL [Robaxin] 500 mg PO QIDP PRN 03/26/25 - Past Medical/Surgical History Has patient received pneumonia vaccine in the past: No Diabetic: No -: Chronic Hep C -: Mixed cryoglobulinemia -: COPD -: Chronic Alcholism -: Allergic rhinitis -: Bipolar Disorder -: Nicotine Dependence -: GERD -: Anxiety -: HTN -: Hypercholesterolemia -: Basal Cell Carcinoma to the nose -: Basal Cell Carcinoma removal - Family History Family History: Reviewed- Non-Contributory - Social History Smoking Status: Current every day smoker Smoking therapy provided: Yes (But declined.) Patient receptive to therapy: No Alcohol use: Yes CD- Drugs: Yes Caffeine use: Yes Review of Systems 10-point ROS is otherwise unremarkable Musculoskeletal: Shoulder Pain, Arm Pain, Back Pain, Other (All chronic pain.) Physical Examination - Vital Signs Temperature: 98.1 F Blood Pressure: 154/98 Pulse: 65 Respirations: 16 Pulse Ox (%): 97 - Physical Exam General: Alert, In no apparent distress, Oriented x3, Cooperative HEENT: Atraumatic, Normocephalic, PERRLA, Mucous membr. moist/pink, Sclerae nonicteric Neck: Supple, 2+ carotid pulse no bruit, Without JVD or thyroid abnormality Respiratory: Clear to auscultation bilaterally, Normal air movement Cardiovascular: Normal pulses, Regular rate/rhythm, Normal S1 S2, No gallops, No rubs, No murmurs Capillary refill: <2 Seconds Gastrointestinal: Normal bowel sounds, Soft and benign, Non-distended, No ascites, No tenderness, No masses, No rebound, No guarding Musculoskeletal: No clubbing, No swelling, No erythema, No tenderness, No warmth Integumentary: No rashes, No erythema, No warmth, No cyanosis Neurological: Normal gait, Normal speech, Normal strength at 5/5 x4 extr, Normal tone, Sensation intact, Cranial nerves 3-12 intact, Normal affect External genitalia: No edema Rectal: Normal - Studies Laboratory Data (last 24 hrs) 03/26/25 03/26/25 03/26/25 16:35 16:35 16:35 WBC 11.00 H Hgb 13.5 Hct 39.4 Plt Count 350 PT 11.0 INR 0.96 Sodium 137 Potassium 3.8 BUN 18 Creatinine 1.08 H Glucose 80 Magnesium 1.9 Total Bilirubin 0.3 AST 28 ALT 23 Alkaline Phosphatase 102 Female Exam - Female Pelvic Cervix: No discharge Assessment and Plan - Plan Patient is a 64-year-old female with multiple past medical history including cystic breast, basal carcinoma of the nose, nicotine dependent, alcohol use disorder, hypertension, bipolar disorder, gastroesophageal reflux disease, chronic pain back and lower extremities, pulmonary artery hypertension, umbilical hernia. Patient brought into the ER today by EMS due to SVT, and palpitations. Patient states while resting at home, she suddenly started feeling her heart beating fast and symptomatic, causing her to feel dizzy. When EMS arrived, patient was in SVT, and en route to the ER patient received adenosine 12 mg IV x 1 and she immediately converted. Patient states she has had falling episodes at home which she describes as syncope. Patient states 3 days ago she had a syncope episode where she fell on the floor and hit her head, and shoulder. Denies of any headaches, blurred vision, dizziness, nausea or vomiting. Consulted [facility] box loader, needs to be notified this morning. (1) SVT/palpitations. On admission, patient was back in sinus rhythm, and asymptomatic at this time. -Jet Wiper consulted- -telemetry. -Continue to monitor patient while admitted. (2) chronic hypertension. -Continue home medication lisinopril 20 mg p.o. daily. (3) chronic lower extremities and back pain. Patient states she has been taking oxycodone for a while, she recently stopped taking it, states when she fell couple of days ago she again hurt her shoulders. Patient states morphine helped with her pain relief. -Order morphine as needed IV. (4) explained entire treatment plan to the patient, solicit questions answered voiced understanding. Discharge Plan: Home - Advance Directives Does patient have a Living Will: No Does patient have a Durable POA for Healthcare: No - Code Status/Comfort Care Code Status Assessed: Yes Code Status: Full Code
[2025-03-27 00:04] VITALS: BMI 18.3
[2025-03-27] MEDS: MORPHINE 4 MG/ML SYR IV PRN (03:05)
[2025-03-27] MEDS: ENOXAPARIN 40 MG/0.4 ML SQ SCH (09:11)
[2025-03-27] MEDS: lisinopriL 20 MG TAB PO SCH (09:11)
[2025-03-27] MEDS ORDERED: LIDOCAINE 1% 20 ML MDV ONE (09:33)
[2025-03-27] MEDS ORDERED: HEPA 1000U/500MLS 2,000 UNIT/1,000 ML BAG IV ONE (09:33)
[2025-03-27] MEDS ORDERED: HEPARIN 10,000 UNIT/10 ML VIAL IV ONE (09:33)
[2025-03-27] MEDS ORDERED: MIDAZOLAM HCL 2 MG/2 ML INJ ONE (09:33)
[2025-03-27] MEDS ORDERED: ASPIRIN 81 MG CHEWABLE TABLET ONE (09:34)
[2025-03-27] MEDS ORDERED: FENTANYL CITR 100 MCG/2 ML ONE (09:34)
[2025-03-27] MEDS ORDERED: TICAGRELOR 90 MG TABLET PO ONE (09:34)
[2025-03-27] MEDS ORDERED: CLOPIDOGREL 75 MG TABLET ONE (09:34)
[2025-03-27] MEDS ORDERED: HEPARIN 5000 UNIT/ML 1 ML VIAL ONE (09:34)
[2025-03-27] MEDS ORDERED: ATROPINE SULF 1 MG/10 ML SYR IV ONE (09:34)
[2025-03-27] MEDS ORDERED: NA CHLORIDE 0.9% 500 ML ONE (10:15)
--- NOTE | 2025-03-27 10:33 | P.CNS ---
Date of Consult: 03/27/25 Chief Complaint: SVT, palpitations. History of Present Illness: Patient with PMH of HTN, chronic pain on medications, substance abuse, presented with chest pain, palpitations and syncope, found to be in SVT, report occasional chest pressure sensation, no SOB, no LARA. Allergies acetaminophen [From Tylenol] Adverse Reaction (Severe, Verified 03/26/25 22:37) Unknown codeine [Codeine] Adverse Reaction (Verified 07/17/15 11:31) makes me feel bad Home medications list reviewed: Yes Home Medications: Albuterol Sulfate [Proair Hfa] 2 puff IH QID 05/05/15 lisinopriL [Prinivil*] 2.5 mg PO DAILY 05/05/15 Calcium Citrate 400 mg PO DAILY 03/26/25 Cholecalciferol (Vitamin D3) [Vitamin D3] 50 mcg PO DAILY 03/26/25 Ergocalciferol (Vitamin D2) [Vitamin D2] 50 mcg PO UD 03/26/25 Levothyroxine [Synthroid] 50 mcg PO [id number] 03/26/25 Metoprolol Tartrate [Lopressor] 25 mg PO BID 03/26/25 Pantoprazole Sodium [Protonix] 40 mg PO DAILY 03/26/25 Trazodone [Desyrel] 50 mg PO BEDTIME PRN PRN 03/26/25 methocarbamoL [Robaxin] 500 mg PO QIDP PRN 03/26/25 - Past Medical/Surgical History Diabetic: No -: Chronic Hep C -: Mixed cryoglobulinemia -: COPD -: Chronic Alcholism -: Allergic rhinitis -: Bipolar Disorder -: Nicotine Dependence -: GERD -: Anxiety -: HTN -: Hypercholesterolemia -: Basal Cell Carcinoma to the nose -: Basal Cell Carcinoma removal -: left ankle sx x3 - Social History Smoking Status: Current some day smoker Alcohol use: Yes CD- Drugs: Yes Caffeine use: Yes Place of Residence: Home Review of Systems 10-point ROS is otherwise unremarkable Physical Examination Temp Pulse Resp BP Pulse Ox 97.7 F 84 16 157/109 H 96 03/27/25 08:00 03/27/25 09:11 03/27/25 09:11 03/27/25 09:11 03/27/25 09:11 General: Alert, In no apparent distress HEENT: Atraumatic, PERRLA, Mucous membr. moist/pink, EOMI, Sclerae nonicteric Neck: Supple, 2+ carotid pulse no bruit, No LAD, Without JVD or thyroid abnormality Respiratory: Clear to auscultation bilaterally, Normal air movement Cardiovascular: Regular rate/rhythm, Normal S1 S2 Gastrointestinal: Normal bowel sounds, No tenderness Musculoskeletal: No tenderness Integumentary: No rashes Neurological: Normal gait, Normal speech, Normal tone, Normal affect Lymphatics: No axilla or inguinal lymphadenopathy Laboratory Data (last 24 hrs) 03/26/25 03/26/25 03/26/25 16:35 16:35 16:35 WBC 11.00 H Hgb 13.5 Hct 39.4 Plt Count 350 PT 11.0 INR 0.96 Sodium 137 Potassium 3.8 BUN 18 Creatinine 1.08 H Glucose 80 Magnesium 1.9 Total Bilirubin 0.3 AST 28 ALT 23 Alkaline Phosphatase 102 - Problems (1) NSTEMI (non-ST elevated myocardial infarction) Current Visit: Yes Status: Acute Plan: NPO for coronary angiogram ASA 81 mg daily Lipitor 40 mg daily get echo (2) SVT (supraventricular tachycardia) Current Visit: Yes Status: Acute Plan: concerted with IV adenosine continue lopressor 25 mg po bid continue to monitor on tele (3) HTN (hypertension) Onset Date: 05/06/15 Current Visit: No Status: Acute Plan: as above.
[2025-03-27 11:11] VITALS: TEMP 97.8
--- NOTE | 2025-03-27 11:41 | EKG ---
Test Date: 2025-03-26 Test Time: 16:29:07 Vial Gauger: PH MEASUREMENT RESULTS: Intervals: Rate: 87 OK: 134 QRSD: 78 QT: 362 QTc: 435 [place]: P: 82 OK: 134 QRS: 85 T: 83 INTERPRETIVE STATEMENTS: Sinus rhythm with occasional premature ventricular complexes Otherwise normal ECG Compared to ECG 03/12/2025 16:35:29 Ventricular premature complex(es) now present Sinus tachycardia no longer present Electronically Signed On 03-27-25 11:39:07 CDT by Thierno Segovia
--- NOTE | 2025-03-27 12:54 | OP ---
Date of Procedure: 03/27/2025 Surgeon: Thierno Segovia Procedure Performed: Selective coronary angiogram. Indication For Procedure: [id number] myocardial infarction. Complications: None. Estimated Blood Loss: Less than 50 cc. Access: Right radial, closed by TR band. Sedation Time: 20 minutes with 1 of Versed and 50 of fentanyl. Description Of Procedure: After risks, benefits, and alternatives were explained to patient, patient agreed to proceed with procedure and signed informed consent. The patient was brought back to the c ath lab, prepped and draped in sterile fashion. Time-out was performed. Sedation was administered. Next, right radial access was obtained using ultrasound-guided micropuncture technique. [place] 4 cat heter was advanced to the aortic root. Selective angiogram was done using the same catheter. At the end of procedure, catheter was removed over a J-wire. Sheath was removed. TR band was applied. He mostasis achieved and patient was moved to recovery in stable condition. Findings: 1. Left main: Short, normal. 2. LAD: Mild luminal irregularities. 3. Left circ: Large, dominant. Mild luminal irregularities. Gives left PDA with mild luminal irreg ularities. 4. RCA: Small nondominant, normal. Assessment/plan: Normal coronaries. Plan is to continue medical management. GERALD/KAYLI Voice ID: [id number] Report ID: [id number]
[2025-03-27] MEDS: MORPHINE 2 MG/ML SYR IV ONE (15:28)
--- NOTE | 2025-03-27 16:19 | P.PN ---
Date of Service: 03/27/25 Subjective: Going for angiogram today. Review of Systems 10-point ROS is otherwise unremarkable Musculoskeletal: Shoulder Pain, Arm Pain, Back Pain, Other (All chronic pain.) Physical Examination - Vital Signs Temperature: 98.1 F Blood Pressure: 154/98 Pulse: 65 Respirations: 16 Pulse Ox (%): 97 - Physical Exam General: Alert, In no apparent distress, Oriented x3, Cooperative HEENT: Atraumatic, Normocephalic, PERRLA, Mucous membr. moist/pink, Sclerae nonicteric Neck: Supple, 2+ carotid pulse no bruit, Without JVD or thyroid abnormality Respiratory: Clear to auscultation bilaterally, Normal air movement Cardiovascular: Normal pulses, Regular rate/rhythm, Normal S1 S2, No gallops, No rubs, No murmurs Capillary refill: <2 Seconds Gastrointestinal: Normal bowel sounds, Soft and benign, Non-distended, No ascites, No tenderness, No masses, No rebound, No guarding Musculoskeletal: No clubbing, No swelling, No erythema, No tenderness, No warmth Integumentary: No rashes, No erythema, No warmth, No cyanosis Neurological: Normal gait, Normal speech, Normal strength at 5/5 x4 extr, Normal tone, Sensation intact, Cranial nerves 3-12 intact, Normal affect External genitalia: No edema Rectal: Normal - Studies Laboratory Data (last 24 hrs) 03/26/25 03/26/25 03/26/25 16:35 16:35 16:35 WBC 11.00 H Hgb 13.5 Hct 39.4 Plt Count 350 PT 11.0 INR 0.96 Sodium 137 Potassium 3.8 BUN 18 Creatinine 1.08 H Glucose 80 Magnesium 1.9 Total Bilirubin 0.3 AST 28 ALT 23 Alkaline Phosphatase 102 Female Exam - Female Pelvic Cervix: No discharge Assessment and Plan - Plan Patient is a 64-year-old female with multiple past medical history including cystic breast, basal carcinoma of the nose, nicotine dependent, alcohol use disorder, hypertension, bipolar disorder, gastroesophageal reflux disease, chronic pain back and lower extremities, pulmonary artery hypertension, umbilical hernia. Patient brought into the ER today by EMS due to SVT, and palpitations. Patient states while resting at home, she suddenly started feeling her heart beating fast and symptomatic, causing her to feel dizzy. When EMS arrived, patient was in SVT, and en route to the ER patient received adenosine 12 mg IV x 1 and she immediately converted. Patient states she has had falling episodes at home which she describes as syncope. Patient states 3 days ago she had a syncope episode where she fell on the floor and hit her head, and shoulder. Denies of any headaches, blurred vision, dizziness, nausea or vomiting. Consulted [facility] locomotive crane operator helper, needs to be notified this morning. (1) SVT/palpitations. On admission, patient was back in sinus rhythm, and asymptomatic at this time. -Coronary angiogram today did not reveal feel any coronary abnormality -Continue medical management with aspirin and statin -telemetry. -Appreciate cardiology recommendations - Echo pending (2) chronic hypertension. -Continue home medication lisinopril 20 mg p.o. daily. (3) chronic lower extremities and back pain. Patient states she has been taking oxycodone for a while, she recently stopped taking it, states when she fell couple of days ago she again hurt her shoulders. Patient states morphine helped with her pain relief. -Order morphine as needed IV. (4) explained entire treatment plan to the patient, solicit questions answered voiced understanding. Discharge Plan: Home - Advance Directives Does patient have a Living Will: No Does patient have a Durable POA for Healthcare: No - Code Status/Comfort Care Code Status Assessed: Yes Code Status: Full Code
[2025-03-27 16:29] VITALS: BP 163/93; O2SAT 98
--- NOTE | 2025-03-27 17:34 | P.DS ---
Admission Date: 03/26/25 Discharge Date: 03/27/25 Disposition: ROUTINE DISCHARGE Discharge Condition: FAIR Reason for Admission: SVT, palpitations. Hospital Course: 64-year-old female with a past medical history of hypertension, chronic pain, substance abuse presenting with chest pain and palpitations was found to be in SVT subsequently converted to normal sinus rhythm after adenosine. She was admitted to the hospital and cardiology was consulted. She was taken to the [facility]. [facility] revealed normal: Coronary angiogram. She will continue Lopressor upon discharge remainder of her medical problems are chronic and stable. She is medically optimized for discharge Vital Signs/Physical Exam: Temp Pulse Resp BP Pulse Ox 97.8 F 75 16 163/93 H 96 03/27/25 16:28 03/27/25 16:28 03/27/25 16:28 03/27/25 16:28 03/27/25 16:00 General: In no apparent distress HEENT: Atraumatic, Normocephalic Neck: Supple Respiratory: Clear to auscultation bilaterally Cardiovascular: No edema, Normal pulses Capillary refill: <2 Seconds Musculoskeletal: No clubbing Integumentary: No rashes, No breakdown Neurological: Normal speech, Normal strength at 5/5 x4 extr External genitalia: No edema Laboratory Data at Discharge: WBC 11.00 thou/uL (4.3-10.9) H 03/26/25 16:35 Hgb 13.5 g/dL (12.0-15.0) 03/26/25 16:35 Hct 39.4 % (36.0-45.0) 03/26/25 16:35 Plt Count 350 thou/uL (152-406) 03/26/25 16:35 PT 11.0 SECONDS (10-13.0) 03/26/25 16:35 INR 0.96 03/26/25 16:35 Sodium 137 mEq/L (136-145) 03/26/25 16:35 Potassium 3.8 mEq/L (3.5-5.1) 03/26/25 16:35 BUN 18 mg/dL (7-18) 03/26/25 16:35 Creatinine 1.08 mg/dL (0.55-1.02) H 03/26/25 16:35 Glucose 80 mg/dL (74-106) 03/26/25 16:35 Magnesium 1.9 mg/dL (1.6-2.4) 03/26/25 16:35 Total Bilirubin 0.3 mg/dL (0.2-1.0) 03/26/25 16:35 AST 28 U/L (15-37) 03/26/25 16:35 ALT 23 U/L (13-56) 03/26/25 16:35 Alkaline Phosphatase 102 U/L (45-117) 03/26/25 16:35 Home Medications: Albuterol Sulfate [Proair Hfa] 2 puff IH QID 05/05/15 lisinopriL [Prinivil*] 2.5 mg PO DAILY 05/05/15 Calcium Citrate 400 mg PO DAILY 03/26/25 Cholecalciferol (Vitamin D3) [Vitamin D3] 50 mcg PO DAILY 03/26/25 Ergocalciferol (Vitamin D2) [Vitamin D2] 50 mcg PO UD 03/26/25 Levothyroxine [Synthroid*] 50 mcg PO [id number] 03/26/25 Metoprolol Tartrate [Lopressor*] 25 mg PO BID 03/26/25 Pantoprazole Sodium [Protonix] 40 mg PO DAILY 03/26/25 Trazodone [Desyrel*] 50 mg PO BEDTIME PRN PRN 03/26/25 methocarbamoL [Robaxin*] 500 mg PO QIDP PRN 03/26/25 Followup: Thierno Segovia MD [ACTIVE - CAN ADMIT] - 1-2 Weeks NONE,NONE [Primary Care Provider] - 1 Week
== END 2025-03-27 17:51 | disposition home or self-care (01) | DRG 281 ==
LOC: ER 15:23 → ERHOLD 21:06 → 4TH 21:46
PROVIDERS: ADMIT Family Medicine; ATTEND Family Medicine
PROC: 4A023N7 Measurement of Cardiac Sampling and Pressure, Left Heart, Percutaneous Approach (ICD-10-PCS; principal; 2025-03-27)
PROC: B2111ZZ Fluoroscopy of Multiple Coronary Arteries using Low Osmolar Contrast (ICD-10-PCS; 2025-03-27)
DX: I47.10 Supraventricular tachycardia, unspecified (principal); N39.0 Urinary tract infection, site not specified; I21.4 Non-ST elevation (NSTEMI) myocardial infarction; I10 Essential (primary) hypertension; E78.00 Pure hypercholesterolemia, unspecified; G89.29 Other chronic pain; M54.9 Dorsalgia, unspecified; K21.9 Gastro-esophageal reflux disease without esophagitis; J44.9 Chronic obstructive pulmonary disease, unspecified; F17.210 Nicotine dependence, cigarettes, uncomplicated; Z88.5 Allergy status to narcotic agent; Z88.8 Allergy status to other drugs, medicaments and biological substances; Z79.890 Hormone replacement therapy; Z79.899 Other long term (current) drug therapy
CPT/HCPCS: 36415; 70450; 71045; 71250; 72125; 74176; 76937; 80048; 80076; 80307; 81001; 83735; 83880; 84484; 85025; 85610; 93005; 93454; 96365; 96372; 96375; 99152; 99153; 99285; C1893; J0461; J1644; J1650; J2003; J2250; J2270; J2405; J3010; J3475; J7040; Q9966

== ENCOUNTER 2025-08-15 17:45 | Emergency (ER) | payer OTHER ==
[2025-08-15 18:57] LABS: Sqamous Epithelial <5 /HPF (None Seen); Urine Culture Reflex Order NOT NEEDED; Urine Microscopic Reflex YN ORDER UMIC; Urine WBC Clump Rare /HPF (None Seen)
[2025-08-15] MEDS ORDERED: ALBUTEROL 2.5 MG/3 ML NEB SOL ONE (19:29)
[2025-08-15] MEDS ORDERED: IPRATROPIUM BROM 0.5MG/2.5ML ONE (19:29)
[2025-08-15] MEDS ORDERED: FENTANYL CITR 100 MCG/2 ML ONE ×2 (19:30→22:36)
[2025-08-15] MEDS ORDERED: METHYLPREDNISOLONE 40 MG INJ ONE (19:30)
[2025-08-15 19:34] LABS: Absolute Lymphocytes (CBC) 0.4 K/uL (0.7-4.9); Hematocrit 38.1 % (36.0-45.0); Hemoglobin 12.9 g/dL (12.0-15.0); MCH 33.5 pg (27.0-35.0); MCHC 33.8 g/dL (32.0-36.0); MCV 99.2 fL (80-100); MPV 7.8 fL (7.6-11.3); Nucleated RBC Absolute Count 0.0 (0-0); Nucleated Red Blood Cells % 0.0 % (0-0); RBC Red Blood Cell Count 3.84 M/uL (3.86-4.86); White Blood Count 9.40 thou/uL (4.3-10.9)
[2025-08-15 19:53] LABS: ALT/SGPT 55.0 U/L (13-56); AST/SGOT 51.0 U/L (15-37); Albumin 3.8 g/dL (3.4-5.0); Albumin/Globulin Ratio 1.0 (1.1-1.8); Alkaline Phosphatase 87.0 U/L (45-117); Anion Gap 12.2 mEq/L (5.0-15.0); BUN Blood Urea Nitrogen 17.0 mg/dL (7-18); Globulin 3.8 g/dL (2.3-3.5); Glucose Level 90.0 mg/dL (74-106); Lipase 47.0 U/L (13-75); Potassium 4.2 mEq/L (3.5-5.1)
--- NOTE | 2025-08-15 20:02 | RAD REPORT ---
Procedure: Chest Single View HISTORY: Cough COMPARISON: July 24, 2025 FINDINGS: The lungs appear clear of acute infiltrate. No significant pleural effusion noted. The heart is normal size.
[2025-08-15 20:07] LABS: PT Prothrombin Time 11.2 SECONDS (10-13.0); Protime INR 0.99
[2025-08-15 20:11] LABS: Influenza A Ag Negative; Influenza B Ag Negative; SARS-CoV-2 Antigen Rapid Res Negative (Negative)
[2025-08-15 20:16] LABS: Magnesium 1.8 mg/dL (1.6-2.4); NT PRO-BNP 429.0 pg/mL (<125); Troponin High Sensitivity 7.0 pg/mL (<58.9)
[2025-08-15 20:57] LABS: Blood Morphology Comment NOT SEEN (NOT SEEN); White Blood Cell Scan OK (OK)
--- NOTE | 2025-08-15 21:30 | RAD REPORT ---
EXAM: CT brain without contrast HISTORY: Headache COMPARISON: 2016 TECHNIQUE: Multiple contiguous axial images were obtained and a CT of the brain without contrast.. Sagittal and coronal reconstruction performed. Automated exposure control, adjustment of the mA and/or kV according to patient size, and/or iterative reconstruction. Unless otherwise specified, incidental f indings do not require dedicated imaging follow-up FINDINGS: An intracranial bleed is not seen Ventricles are normal caliber No extra-axial fluid collection noted No significant hypodensity within the brain Sphenoid sinus is mostly opacified. IMPRESSION: No acute intracranial abnormality noted. Sphenoid sinusitis If the patient continues to have symptoms to suggest an acute intracranial abnormality then MRI of th e brain would be recommended.
--- NOTE | 2025-08-15 21:34 | RAD REPORT ---
EXAMINATION: CTA CHEST PE CLINICAL INDICATION: Shortness of breath TECHNIQUE: 100 cc 370 Isovue administered intravenously. This examination was performed according to an angiographic protocol with 3D post-processing. This involves 3D reconstructions, MIPs, volume rendered images and/or shaded surface rendering. One or more of the following dose reduction techniqu es were used: Automated exposure control, adjustment of the mA and/or kV according to patient size, and/or iterative reconstruction. Unless otherwise specified, incidental findings do not require dedic ated imaging follow-up. [id number]. COMPARISON: March 2025 FINDINGS: A pulmonary embolus is not seen. An aortic aneurysm not noted. No pleural effusion. No pericardial effusion. Lungs are clear. Mild paraseptal emphysema IMPRESSION: No evidence of a pulmonary embolism
--- NOTE | 2025-08-15 22:02 | RAD REPORT ---
EXAMINATION: CT ABDOMEN AND PELVIS WITH CONTRAST CLINICAL INDICATION: Abdominal pain TECHNIQUE: CT abdomen and pelvis was performed, after the administration of 100 cc Isovue-300.. Sagit lia and coronal reconstructions were obtained. One or more of the following dose reduction techniques were used: Automated exposure control, adjustment of the mA and kV according to patient si ze, and iterative reconstruction. Unless otherwise specified, incidental findings do not require dedicated imaging follow-up. [id number]. Oral contrast was not given which limits evaluation of bowel and appendix. COMPARISON: .July 24, 2025 FINDINGS: Cholecystectomy.. Surgical clips are present within the gallbladder fossa as well as the second porti on of the duodenum. Liver, spleen, pancreas, adrenals and kidneys appear unremarkable No evidence of diverticulitis. Atherosclerosis. Moderate amount stool throughout the colon. No adnexal mass. Spondylosis L2-3 and L5-S1 : IMPRESSION: Moderate amount of stool throughout the colon
[2025-08-15] MEDS ORDERED: NA CHLORIDE 0.9% 1,000 ML ONE (22:36)
--- NOTE | 2025-08-15 23:06 | ER ---
Nurse's Notes [facility] Name: Josseline Gallegos Age: 64 yrs Sex: Female : 1960 Arrival Date: 08/15/2025 Time: 17:45 Bed 20 Private MD: Diagnosis: COPD/ Chronic obstructive pulmonary disease with (acute) exacerbation;Abdominal pain, unspecified;Headache Presentation: 08/15 17:49 Ebola Screen: Patient negative for fever greater than or equal to 101.5 degrees db Fahrenheit, and additional compatible Ebola Virus Disease symptoms Patient denies exposure to infectious person. Patient denies travel to an Ebola-affected area in the 21 days before illness onset. No symptoms or risks identified at this time. Initial Sepsis Screen: Does the patient meet any 2 criteria? No. Patient's initial sepsis screen is negative. Does the patient have a suspected source of infection? No. Patient's initial sepsis screen is negative. Risk Assessment: Do you want to hurt yourself or someone else? Patient reports no desire to harm self or others. Onset of symptoms was August 15, 2025. 17:49 Acuity: TIFFANY 3 db 17:50 Care prior to arrival: Glucose check: 92. db 18:00 Chief complaint: EMS states: REPORTS PATIENT CALLED EMS FOR PAIN MANAGEMENT. PT db REPORTED HAVING RECENT GALL BLADDER AND HERNIA SURGERY. PT REPORTS CALLED DUE TO INCISION SITE STARTED TO OPEN AND NOW HAS A KNOT. PT REPORTS HAS "SEVERE PAIN". Coronavirus screen: Client denies travel out of the [place] in the last 14 days. At this time, the client does not indicate any symptoms associated with coronavirus-19. 18:00 Method Of Arrival: EMS: [facility] db Triage Assessment: 17:50 General: Appears in no apparent distress. uncomfortable, Behavior is calm, cooperative. db Pain: Complains of pain in abdomen. Neuro: Level of Consciousness is awake, alert, obeys commands, Oriented to person, place, time, situation. Respiratory: Airway is patent Respiratory effort is even, unlabored, Respiratory pattern is regular, symmetrical. GI: Abdomen is distended, bruised on umbilical area and suprapubic area. Historical: - Allergies: 18:03 Codeine; db 18:03 Ibuprofen; db 18:03 Tylenol; db - PMHx: 18:03 Chronic obstructive lung disease; Chronic pain; Hypertension; db - PSHx: 18:03 breast (wris); wrist; foot; db - Immunization history:: Adult Immunizations unknown. - Infectious Disease History:: Denies. - Social history:: Smoking status: Patient reports the use of cigarette tobacco products, smokes one-half pack cigarettes per day. Screenin:41 [facility] ED Fall Risk Assessment (Adult) History of falling in the last 3 months, zm including since admission No falls in past 3 months (0 pts) Confusion or Disorientation No (0 pts) Intoxicated or Sedated No (0 pts) Impaired Gait No (0 pts) Mobility Assist Device Used No (0 pt) Altered Elimination No (0 pt) Score/Fall Risk Level 0 - 2 = Low Risk Oriented to surroundings, Maintained a safe environment, Educated pt \\T\\ family on fall prevention, incl call for assistance when getting out of bed, Assessed \\T\\ reinforced patient's understanding of fall precautions, Hourly rounding (assess needs \\T\\ fall precautionary measures) done, Used ambulatory aids as needed (educated on \\T\\ assisted with), Used gait belt as appropriate. Abuse screen: Denies threats or abuse. Nutritional screening: No deficits noted. Tuberculosis screening: No symptoms or risk factors identified. Assessment: 19:41 General: Appears distressed, uncomfortable, Behavior is calm, cooperative, appropriate zm for age. Pain: Complains of pain in chest and abdomen Pain currently is 10 out of 10 on a pain scale. Neuro: No deficits noted. Level of Consciousness is awake, alert, obeys commands, Oriented to person, place, time, situation, Appropriate for age. Cardiovascular: Reports chest pain, shortness of breath, Heart tones S1 S2 present Capillary refill < 3 seconds in bilateral fingers Patient's skin is warm and dry. Respiratory: Airway is patent Respiratory effort is even, unlabored, Respiratory pattern is regular, symmetrical, Breath sounds are coarse bilaterally. GI: Abdomen is round Bowel sounds present X 4 quads. Abdomen is tender to palpation in umbilical area, right upper quadrant and left upper quadrant Reports upper abdominal pain, Pain is 10 out of 10 on a pain scale. : No signs and/or symptoms were reported regarding the genitourinary system. EENT: No signs and/or symptoms were reported regarding the EENT system. Derm: No signs and/or symptoms reported regarding the dermatologic system. Musculoskeletal: No signs and/or symptoms reported regarding the musculoskeletal system. 22:04 Reassessment: Patient appears in no apparent distress at this time. Patient and/or bm8 family updated on plan of care and expected duration. Pain level reassessed. Patient is alert, oriented x 3, equal unlabored respirations, skin warm/dry/pink. pt is lying in bed with feet propped up watching tv on phone. NAD at this time, resp even unlabored on room air with symmetrical rise and fall of chest Patient states feeling better. Patient states symptoms have improved. Respiratory: Airway is patent Respiratory effort is even, unlabored, Respiratory pattern is regular, symmetrical, Breath sounds are clear bilaterally. 22:55 Reassessment: Patient appears in no apparent distress at this time. Patient and/or bm8 family updated on plan of care and expected duration. Pain level reassessed. Patient is alert, oriented x 3, equal unlabored respirations, skin warm/dry/pink. Patient denies pain at this time. Patient states feeling better. Patient states symptoms have improved. Respiratory: No deficits noted. Airway is patent Respiratory effort is even, unlabored, Respiratory pattern is regular, symmetrical, Breath sounds are clear bilaterally. Vital Signs: 17:49 BP 141 / 87; Pulse 88; Resp 18; Temp 98.4(O); Pulse Ox 92% ; Weight 49.9 kg; Height 5 db ft. 5 in. ; Pain 10/10; 19:41 BP 161 / 96; Pulse 92; Resp 13; Temp 98.4; Pulse Ox 100% on Nebulizer Mask; Pain 10/10; zm 22:04 BP 120 / 86; Pulse 87; Resp 20; Temp 98.4; Pulse Ox 89% on R/A; Pain 5/10; bm8 23:02 BP 125 / 84; Pulse 91; Resp 19; Temp 98.4; Pulse Ox 97% on R/A; Pain 3/10; bm8 17:49 Body Mass Index 18.30 (49.90 kg, 165.1 cm) db 17:49 Pain Scale: Adult db 19:41 Pain Scale: Adult zm 22:04 Pain Scale: Adult bm8 23:02 Pain Scale: Adult bm8 22:04 pt placed on 2l nc and jumped to 95% bm8 [place] Coma Score: 19:41 Eye Response: spontaneous(4). Motor Response: obeys commands(6). Verbal Response: zm oriented(5). Total: 15. 22:04 Eye Response: spontaneous(4). Motor Response: obeys commands(6). Verbal Response: bm8 oriented(5). Total: 15. ED Course: 17:46 Patient arrived in ED. al6 17:49 [facility]. cp 17:49 Chris Gallegos MD is Attending Physician. cp 17:50 Arm band placed on right wrist. Patient placed in waiting room. db 18:03 Triage completed. db 18:35 Urine collected: clean catch specimen. db 19:25 No provider procedures requiring assistance completed. Inserted saline lock: 20 gauge zm in left upper arm, using aseptic technique. ,using aseptic technique. ULTRASOUND GUIDED Blood collected. Flushed with 10 mL NS. 19:40 Kamila Leal, RN is Primary Nurse. zm 19:40 Initial lab(s) drawn, by me, sent to lab. First set of blood cultures drawn by me, david Second set of blood cultures drawn by me, EKG done, by ED staff, reviewed by Chris Naidu PA-C COVID swab sent to lab. Flu and/or RSV swab sent to lab. Initial Neb Treatment Given as ordered Patient was instructed and evaluated on procedure Patient tolerated procedure well without adverse effect. Oxygen administered via a nebulizer mask. Response to oxygen therapy: symptoms improved. 19:41 Patient has correct armband on for positive identification. Bed in low position. Call zm light in reach. Side rails up X 1. Client placed on continuous cardiac and pulse oximetry monitoring. NIBP monitoring applied. Pulse ox on. NIBP on. Door closed. Warm blanket given. Pillow given. Verbal reassurance given. Head of bed elevated. 19:42 XRAY Chest (1 view) In Process Unspecified. EDMS 21:19 CT Head Brain wo Cont In Process Unspecified. EDMS 21:19 CT Chest For PE Angio In Process Unspecified. EDMS 21:19 CT Abd/Pelvis - IV Contrast Only In Process Unspecified. EDMS 23:23 Provided Education on: post ER care. zm 23:23 IV discontinued, intact, bleeding controlled, No redness/swelling at site. Pressure zm dressing applied. Administered Medications: 19:40 Drug: MethylPrednisoLONE IVP 80 mg IVP once Route: IVP; Site: left upper arm; zm 22:06 Follow up: Response: No adverse reaction bm8 19:41 Drug: DuoNeb Nebulize (2.5 mg - 0.5 mg) 3 ml Nebulizer once Route: Nebulizer; zm 22:07 Follow up: Response: No adverse reaction bm8 19:50 Drug: fentaNYL (PF) IVP 25 mcg IVP once Route: IVP; Site: left upper arm; zm 22:06 Follow up: Response: No adverse reaction bm8 22:39 Drug: NS 0.9% IV 500 ml IV at bolus once; to be given as a bolus over 60 minutes Route: bm8 IV; Rate: bolus; Site: left upper arm; 23:25 Follow up: Response: No adverse reaction; IV Status: Completed infusion; IV Intake: zm 500ml 22:40 Drug: fentaNYL (PF) IVP 25 mcg IVP once Route: IVP; Site: left upper arm; bm8 23:24 Follow up: Response: No adverse reaction zm Medication: 19:41 VIS not applicable for this client. zm Intake: 23:25 IV: 500ml; Total: 500ml. Outcome: 23:05 Discharge ordered by MD. cp 23:22 Discharged to home ambulatory, 23:22 Condition: stable 23:22 Discharge instructions given to patient, Instructed on discharge instructions, follow up and referral plans. no drinking with medication, medication usage, safety practices, Demonstrated understanding of instructions, follow-up care, medications, Prescriptions given X 4, 23:24 Patient left the ED. Signatures: Dispatcher [employer] EDMS Chris Naidu PA-C PA-C cp Martinez, Zaina, RN RN Gail Dow RN RN db McDonald, Brad, RN RN bm8 Jenny [email or web address] Corrections: (The following items were deleted from the chart) 20:16 19:41 BP ??? / 92; Pulse 92bpm; Resp 13bpm; Pulse Ox 100% Nebulizer Mask; Temp 98.4F; zm Pain 10/10, Adult; zm 22:08 22:04 Reassessment: Patient appears in no apparent distress at this time. Patient bm8 and/or family updated on plan of care and expected duration. Pain level reassessed. Patient is alert, oriented x 3, equal unlabored respirations, skin warm/dry/pink. Patient states feeling better. Patient states symptoms have improved. bm8 22:19 22:04 BP 120 / 86; Pulse 87bpm; Resp 20bpm; Pulse Ox 95%; Temp 98.4F; Pain 5/10, Adult; 8 bm8
--- NOTE | 2025-08-15 23:06 | EDPHYS ---
Physician Documentation [facility] Name: Josseline Gallegos Age: 64 yrs Sex: Female : 1960 Arrival Date: 08/15/2025 Time: 17:45 Bed 20 Private MD: ED Physician Chris Gallegos HPI: 08/15 19:05 This 64 yrs old Female presents to ER via EMS with complaints of Abdominal Pain. cp 19:05 The patient presents with abdominal pain mid abdomen. cp 19:05 Onset: The symptoms/episode began/occurred gradually, and became worse today, recent cp cholecystectomy and hernia repair surgery earlier this month that was done at [facility]. 19:05 Associated signs and symptoms: Pertinent positives: chest pain, nausea, shortness of cp breath. Historical: - Allergies: 18:03 Codeine; db 18:03 Ibuprofen; db 18:03 Tylenol; db - PMHx: 18:03 Chronic obstructive lung disease; Chronic pain; Hypertension; db - PSHx: 18:03 breast (wris); wrist; foot; db - Immunization history:: Adult Immunizations unknown. - Infectious Disease History:: Denies. - Social history:: Smoking status: Patient reports the use of cigarette tobacco products, smokes one-half pack cigarettes per day. ROS: 19:10 Constitutional: Negative for body aches, chills, fever, poor PO intake, cp 19:10 Eyes: Negative for injury, pain, redness, and discharge, cp 19:10 ENT: Negative for drainage from ear(s), ear pain, sore throat, difficulty swallowing, difficulty handling secretions, 19:10 Cardiovascular: Positive for chest pain, Negative for edema, palpitations, 19:10 Respiratory: Positive for shortness of breath, at rest. Negative for wheezing, 19:10 Abdomen/GI: Positive for abdominal pain, nausea, Negative for vomiting, diarrhea, constipation, 19:10 Neuro: Positive for headache, Negative for altered mental status, dizziness, weakness, 19:10 All other systems are negative, Exam: 19:15 Constitutional: The patient appears in no acute distress, alert, awake, cp non-diaphoretic, non-toxic, well developed, well nourished, uncomfortable, 19:15 Head/Face: Normocephalic, atraumatic. cp 19:15 Eyes: Periorbital structures: appear normal, Pupils: equal, round, and reactive to light and accomodation, Extraocular movements: intact throughout, Conjunctiva: normal, no exudate, no injection, Sclera: no appreciated abnormality, Lids and lashes: appear normal, bilaterally, 19:15 ENT: External ear(s): are unremarkable, Nose: is normal, Mouth: Lips: moist, Oral mucosa: moist, Posterior pharynx: Airway: no evidence of obstruction, patent, 19:15 Neck: ROM/movement: is normal, is supple, without pain, no range of motions limitations, 19:15 Chest/axilla: Inspection: normal, 19:15 Cardiovascular: Rate: normal, Rhythm: regular, Edema: is not appreciated, JVD: is not appreciated, 19:15 Respiratory: the patient does not display signs of respiratory distress, Respirations: labored breathing, that is mild, Breath sounds: decreased breath sounds, that are mild, throughout, stridor, is not appreciated, wheezing: that is mild, is heard diffusely, 19:15 Abdomen/GI: Inspection: distension, is not seen, scar(s), Bowel sounds: active, all quadrants, Palpation: soft, in all quadrants, moderate abdominal tenderness, in all quadrants, rebound tenderness, is not appreciated, 19:15 Back: pain, is absent, ROM is normal, 19:15 Skin: cellulitis, is not appreciated, 19:15 Neuro: Orientation: to person, place \T\ time. Mentation: is normal, Motor: moves all fours, strength is normal, Sensation: is normal, 19:35 ECG was reviewed by the Attending Physician. cp Vital Signs: 17:49 BP 141 / 87; Pulse 88; Resp 18; Temp 98.4(O); Pulse Ox 92% ; Weight 49.9 kg; Height 5 db ft. 5 in. ; Pain 10/10; 19:41 BP 161 / 96; Pulse 92; Resp 13; Temp 98.4; Pulse Ox 100% on Nebulizer Mask; Pain 10/10; zm 22:04 BP 120 / 86; Pulse 87; Resp 20; Temp 98.4; Pulse Ox 89% on R/A; Pain 5/10; bm8 23:02 BP 125 / 84; Pulse 91; Resp 19; Temp 98.4; Pulse Ox 97% on R/A; Pain 3/10; bm8 17:49 Body Mass Index 18.30 (49.90 kg, 165.1 cm) db 17:49 Pain Scale: Adult db 19:41 Pain Scale: Adult zm 22:04 Pain Scale: Adult bm8 23:02 Pain Scale: Adult bm8 22:04 pt placed on 2l nc and jumped to 95% bm8 [place] Coma Score: 19:41 Eye Response: spontaneous(4). Motor Response: obeys commands(6). Verbal Response: zm oriented(5). Total: 15. 22:04 Eye Response: spontaneous(4). Motor Response: obeys commands(6). Verbal Response: bm8 oriented(5). Total: 15. MDM: 18:05 Medical Screening Exam initiated cp 23:05 Data reviewed: vital signs, nurses notes, lab test result(s), EKG, radiologic studies, cp CT scan, plain films. 23:05 Differential diagnosis: bowel obstruction, non-specific abd pain, pancreatitis, Peptic cp Ulcer Disease, Perf. Duodenal Ulcer, Perf. Gastric Ulcer, Pyelonephritis, Ureterolithiasis, urinary tract infection, sepsis. Consideration of Admission/Observation Escalation of care including admission/observation considered. I considered the following discharge prescriptions or medication management in the emergency department Medications were administered in the Emergency Department. See MAR. Independent interpretation of the following test(s) in the Emergency Department EKG: See my EKG interpretation above. Test considered but Not performed: MRI: brain. Care significantly affected by the following chronic conditions: Chronic Obstructive Pulmonary Disease. Counseling: I had a detailed discussion with the patient and/or guardian regarding the historical points, exam findings, and any diagnostic results supporting the discharge/admit diagnosis, lab results, radiology results, to return to the emergency department if symptoms worsen or persist or if there are any questions or concerns that arise at home. Response to treatment: the patient's symptoms have markedly improved after treatment. Refusal of service: The patient/guardian displays adequate decision making capability and despite a detailed discussion of alternatives, benefits, risks, and consequences refuses: Admission to the hospital for further work-up and treatment. 08/15 18:38 Order name: UA Rfx Manish Cult if indicated; Complete Time: 19:45 db 08/15 19:45 Interpretation: Normal except: [facility] Turbid; UUROB 1+; UESTR 250. cp 08/15 19:03 Order name: CBC with Diff; Complete Time: 21:59 cp 08/15 19:45 Interpretation: Normal except: RBC 3.84; HENRY% 92.1; LYM% 3.9; MN% 2.8; NEUT A 8.6; LYMA cp 0.4. 08/15 19:03 Order name: CMP; Complete Time: 20:32 cp 08/15 19:03 Order name: Lipase; Complete Time: 20:32 cp 08/15 19:28 Order name: Magnesium; Complete Time: 20:32 cp 08/15 19:28 Order name: NT PRO-BNP; Complete Time: 20:32 cp 08/15 19:28 Order name: PT-INR; Complete Time: 20:32 cp 08/15 19:28 Order name: Troponin HS; Complete Time: 20:32 cp 08/15 19:28 Order name: COVID-19 Ag + Flu A+B Ag; Complete Time: 20:32 cp 08/15 19:47 Order name: CBC Smear Scan; Complete Time: 21:59 EDMS 08/15 22:00 Interpretation: Reviewed. 08/15 19:28 Order name: XRAY Chest (1 view); Complete Time: 20:32 cp 08/15 20:33 Order name: CT Head Brain wo Cont; Complete Time: 21:59 cp 08/15 22:00 Interpretation: Report reviewed. 08/15 20:33 Order name: CT Chest For PE Angio; Complete Time: 21:59 cp 08/15 20:33 Order name: CT Abd/Pelvis - IV Contrast Only; Complete Time: 22:11 cp 08/15 19:03 Order name: IV Saline Lock; Complete Time: 19:41 cp 08/15 19:03 Order name: Labs collected and sent; Complete Time: 19:41 cp 08/15 19:28 Order name: Cardiac monitoring; Complete Time: 19:41 cp 08/15 19:28 Order name: EKG - Nurse/Tech; Complete Time: 19:41 cp 08/15 19:28 Order name: O2 Per Protocol; Complete Time: 19:41 cp 08/15 19:28 Order name: O2 Sat Monitoring; Complete Time: 19:41 cp 08/15 23:08 Order name: Misc. Order: prescription; Complete Time: 23:21 cp EC:35 Rate is 90 beats/min. Rhythm is regular. MI interval is normal. QRS interval is normal. cp QT interval is normal. T waves are Inverted in leads aVL, aVR. Interpreted by me. Reviewed by me. Administered Medications: 19:40 Drug: MethylPrednisoLONE IVP 80 mg IVP once Route: IVP; Site: left upper arm; zm 22:06 Follow up: Response: No adverse reaction bm8 19:41 Drug: DuoNeb Nebulize (2.5 mg - 0.5 mg) 3 ml Nebulizer once Route: Nebulizer; zm 22:07 Follow up: Response: No adverse reaction bm8 19:50 Drug: fentaNYL (PF) IVP 25 mcg IVP once Route: IVP; Site: left upper arm; zm 22:06 Follow up: Response: No adverse reaction bm8 22:39 Drug: NS 0.9% IV 500 ml IV at bolus once; to be given as a bolus over 60 minutes Route: bm8 IV; Rate: bolus; Site: left upper arm; 23:25 Follow up: Response: No adverse reaction; IV Status: Completed infusion; IV Intake: zm 500ml 22:40 Drug: fentaNYL (PF) IVP 25 mcg IVP once Route: IVP; Site: left upper arm; bm8 23:24 Follow up: Response: No adverse reaction zm Disposition Summary: 08/15/25 23:05 Discharge Ordered Notes: Location: Home cp Problem: an acute exacerbation cp Symptoms: have improved cp Condition: Stable cp Diagnosis - COPD/ Chronic obstructive pulmonary disease with (acute) exacerbation cp - Abdominal pain, unspecified cp - Headache cp Followup: cp - With: Private Physician - When: 2 - 3 days - Reason: Recheck today's complaints Discharge Instructions: - Discharge Summary Sheet cp - Abdominal Pain, Adult cp - Migraine Headache cp - Chronic Obstructive Pulmonary Disease Exacerbation cp Forms: - Medication Reconciliation Form cp - Antibiotic Education cp - Prescription Opioid Use cp - Patient Portal Instructions cp - Leadership Thank You Letter cp Prescriptions: - ipratropium-albuterol 0.5 mg-3 mg(2.5 mg base)/3 mL Inhalation Solution for Nebulization - nebulize 3 milliliter INHALATION route every 6 to 8 hours as needed for cp wheezing; 1 unit; Refills: 0, Product Selection Permitted - Zofran 4 mg Oral Tablet - take 1 tablet ORAL route every 12 hours As needed; 20 tablet; Refills: 0, cp Product Selection Permitted - Prednisone 20 mg Oral Tablet - take 2 tablets ORAL route once daily for 5 days; 10 tablet; Refills: 0, Product cp Selection Permitted Signatures: Dispatcher [employer] EDDE Chris Naidu PA-C PA-C cp Martinez, Zaina, RN RN zm Gail Dow RN RN db Jevon Yeager RN RN bm8 Corrections: (The following items were deleted from the chart) 18:39 18:39 UA Rfx Manish Cult if indicated+U.LAB.BRZ ordered. EDDE EDDE 08/16 03:08/15 19:05 The patient presents with abdominal pain mid abdomen cp cp 08/16 03:08/15 19:05 Onset: The symptoms/episode began/occurred gradually, and became worse cp today, cp
[2025-08-16 00:23] VITALS: TEMP 98.4
[2025-08-16 00:27] VITALS: BP 125/84; O2SAT 97
== END 2025-08-15 23:24 | disposition home or self-care (01) ==
LOC: ER 17:45
DX: J44.1 Chronic obstructive pulmonary disease with (acute) exacerbation (principal); R10.84 Generalized abdominal pain; R51.9 Headache, unspecified; I10 Essential (primary) hypertension; F17.210 Nicotine dependence, cigarettes, uncomplicated; Z11.52 Encounter for screening for COVID-19
CPT/HCPCS: 96361; 85025; 81001; 36415; 83735; 85610; 84484; 83690; 80053; 83880; 70450; 71275; 74177; 71045; 94640; 96375; 96374; 99285; 87428; Q9967; J7613; J7644; J3010 ×2; J7030; J2919

== ENCOUNTER 2025-09-02 21:47 | Emergency (ER) | payer OTHER ==
[2025-09-02] MEDS ORDERED: HYDROMORPHONE HCL 0.5 MG/0.5 ML INJ ONE (22:14)
[2025-09-02] MEDS ORDERED: ONDANSETRON 4 MG/2 ML VIAL ONE (22:14)
[2025-09-02 22:29] LABS: Absolute Lymphocytes (CBC) 2.9 K/uL (0.7-4.9); Hematocrit 37.2 % (36.0-45.0); Hemoglobin 12.7 g/dL (12.0-15.0); MCH 34.3 pg (27.0-35.0); MCHC 34.2 g/dL (32.0-36.0); MCV 100.3 fL (80-100); MPV 8.0 fL (7.6-11.3); Nucleated RBC Absolute Count 0.0 (0-0); Nucleated Red Blood Cells % 0.1 % (0-0); RBC Red Blood Cell Count 3.71 M/uL (3.86-4.86); White Blood Count 7.60 thou/uL (4.3-10.9)
[2025-09-02 22:50] LABS: ALT/SGPT 55.0 U/L (13-56); AST/SGOT 54.0 U/L (15-37); Albumin 4.0 g/dL (3.4-5.0); Albumin/Globulin Ratio 1.1 (1.1-1.8); Alkaline Phosphatase 81.0 U/L (45-117); Anion Gap 8.5 mEq/L (5.0-15.0); BUN Blood Urea Nitrogen 20.0 mg/dL (7-18); Globulin 3.5 g/dL (2.3-3.5); Glucose Level 87.0 mg/dL (74-106); Lipase 60.0 U/L (13-75); Potassium 4.5 mEq/L (3.5-5.1)
[2025-09-03] MEDS ORDERED: HYDROMORPHONE HCL 0.5 MG/0.5 ML INJ ONE (00:45)
--- NOTE | 2025-09-03 01:41 | ER ---
Nurse's Notes [facility] Name: Josseline Gallegos Age: 64 yrs Sex: Female : 1960 Arrival Date: 09/02/2025 Time: 21:47 Bed 5 Private MD: Diagnosis: Periumbilical pain Presentation: 09/02 22:05 Chief complaint: Patient states: A month ago I had abdominal surgery in [place] and kd3 have had abdominal pain and nausea and vomiting with a headache since then. I had a CT scan yesterday and I am not sure what it said, yall are going to have to look at it. Coronavirus screen: Vaccine status: Patient reports receiving the 2nd dose of the covid vaccine. Ebola Screen: No symptoms or risks identified at this time. Initial Sepsis Screen: Does the patient meet any 2 criteria? No. Patient's initial sepsis screen is negative. Does the patient have a suspected source of infection? No. Patient's initial sepsis screen is negative. Risk Assessment: Do you want to hurt yourself or someone else? Patient reports no desire to harm self or others. Onset of symptoms was September 02, 2025. 22:05 Method Of Arrival: Ambulatory kd3 22:05 Acuity: TIFFANY 3 kd3 Triage Assessment: 22:09 General: Appears in no apparent distress. Behavior is calm, cooperative. Pain: kd3 Complains of pain in abdomen. GI: Reports nausea, vomiting. Historical: - Allergies: 22:09 Codeine; kd3 22:09 Ibuprofen; kd3 22:09 Tylenol; kd3 - PMHx: 22:09 Chronic obstructive lung disease; Chronic pain; Hypertension; kd3 - PSHx: 22:09 breast (wris); foot; wrist; kd3 - Immunization history:: Adult Immunizations up to date. - Infectious Disease History:: Denies. - Social history:: Smoking status: Patient reports the use of cigarette tobacco products, smokes one-half pack cigarettes per day. Screenin:[facility] ED Fall Risk Assessment (Adult) History of falling in the last 3 months, nh2 including since admission No falls in past 3 months (0 pts) Confusion or Disorientation No (0 pts) Intoxicated or Sedated No (0 pts) Impaired Gait No (0 pts) Mobility Assist Device Used No (0 pt) Altered Elimination No (0 pt) Score/Fall Risk Level 0 - 2 = Low Risk Oriented to surroundings, Maintained a safe environment, Educated pt \T\ family on fall prevention, incl call for assistance when getting out of bed, Assessed \T\ reinforced patient's understanding of fall precautions. Abuse screen: Denies threats or abuse. Denies injuries from another. Nutritional screening: No deficits noted. Tuberculosis screening: No symptoms or risk factors identified. Assessment: 22:15 General: Appears uncomfortable, Behavior is cooperative, appropriate for age, restless. nh2 Pain: Complains of pain in abdomen Pain currently is 10 out of 10 on a pain scale. Quality of pain is described as aching, Pain began gradually, Is continuous. Neuro: Level of Consciousness is awake, alert, obeys commands, Oriented to person, place, time, situation. Cardiovascular: Denies chest pain, Heart tones S1 S2 present. Respiratory: Airway is patent Respiratory effort is even, unlabored, Respiratory pattern is regular, symmetrical, Breath sounds are clear bilaterally. GI: Bowel sounds present X 4 quads. Abd is soft Abdomen is tender to palpation Reports nausea. : No signs and/or symptoms were reported regarding the genitourinary system. EENT: No signs and/or symptoms were reported regarding the EENT system. Derm: Skin is pink, warm \T\ dry. Musculoskeletal: Circulation, motion, and sensation intact. Range of motion: intact in all extremities. 22:44 Reassessment: Patient and/or family updated on plan of care and expected duration. Pain nh2 level reassessed. General: Appears in no apparent distress. comfortable, Behavior is calm, cooperative, reports having relief from nausea. Pain is now currently at a 3/10 in abdomen. Neuro: Level of Consciousness is awake, alert. Respiratory: Respiratory effort is even, unlabored. 23:12 Reassessment: Patient and/or family updated on plan of care and expected duration. Pain nh2 level reassessed. Patient is alert, oriented x 3, equal unlabored respirations, skin warm/dry/pink. Patient states feeling better. 23:40 Reassessment: pt transported to CT via stretcher. nh2 23:56 Reassessment: pt back in bed from CT. Reconnected to monitor and call light within nh2 reach. 09/03 00:40 Reassessment: Patient and/or family updated on plan of care and expected duration. Pain nh2 level reassessed. Reassessment: c/o 10/10 pain in abdomen and left shoulder that started 10 mins ago. notfied. 01:28 Reassessment: Patient appears in no apparent distress at this time. Patient and/or bm8 family updated on plan of care and expected duration. Pain level reassessed. Patient is alert, oriented x 3, equal unlabored respirations, skin warm/dry/pink. Patient states feeling better. Pain: Complains of pain in abdomen Pain currently is 6 out of 10 on a pain scale. Vital Signs: 09/02 22:05 BP 193 / 113; Pulse 78; Resp 19; Pulse Ox 99% on R/A; Weight 49.9 kg; Height 5 ft. 5 kd3 in. ; 22:42 BP 160 / 80; Pulse 68; Resp 17; Pulse Ox 97% ; nh2 23:12 BP 153 / 109; Pulse 68; Resp 18; Pulse Ox 98% on R/A; nh2 09/03 00:01 BP 165 / 100; Pulse 75; Resp 19; Pulse Ox 98% on R/A; nh2 00:51 BP 173 / 99; Pulse 79; Resp 19; Temp 97.6(TE); Pulse Ox 98% on R/A; nh2 01:28 BP 172 / 111; Pulse 73; Resp 18; Temp 97.6; Pulse Ox 96% ; Pain 6/10; bm8 09/02 22:05 Body Mass Index 18.30 (49.90 kg, 165.1 cm) kd3 01:28 Pain Scale: Adult bm8 Brea Coma Score: 01:28 Eye Response: spontaneous(4). Motor Response: obeys commands(6). Verbal Response: bm8 oriented(5). Total: 15. ED Course: 09/02 21:49 Patient arrived in ED. mr 21:51 Sohail Bowden DO is Attending Physician. tt7 21:52 Michelle Camara, CHUCKY is Primary Nurse. km10 22:08 No provider procedures requiring assistance completed. Inserted saline lock: 20 gauge bm8 in left antecubital area, using aseptic technique. Blood collected. Flushed with 10 mL NS. 22:09 Triage completed. kd3 22:09 Arm band placed on right wrist. kd3 22:15 Patient maintains SpO2 saturation greater than 95% on room air. nh2 22:15 Patient has correct armband on for positive identification. Bed in low position. Call nh2 light in reach. Side rails up X 1. Provided Education on: using call light for assistance. 22:15 Client placed on continuous cardiac and pulse oximetry monitoring. NIBP monitoring nh2 applied. Pulse ox on. Door closed. Lights dimmed. Warm blanket given. 23:50 CT Abd/Pelvis - IV Contrast Only In Process Unspecified. EDHI 09/03 01:42 IV discontinued, intact, bleeding controlled, No redness/swelling at site. Pressure bm8 dressing applied. Administered Medications: 09/02 22:25 Drug: Ondansetron IVP 4 mg IVP once; over 2 minutes Route: IVP; Site: left antecubital; nh2 22:47 Follow up: Response: No adverse reaction; Nausea is decreased nh2 22:25 Drug: HYDROmorphone IVP 0.5 mg IVP once Route: IVP; Site: left antecubital; nh2 22:47 Follow up: Response: No adverse reaction; Pain is decreased; RASS: Alert and Calm (0) nh2 09/03 00:50 Drug: HYDROmorphone IVP 0.5 mg IVP once Route: IVP; Site: left antecubital; nh2 01:25 Follow up: Response: No adverse reaction bm8 Medication: 09/02 22:15 VIS not applicable for this client. nh2 Outcome: 09/03 01:40 Discharge ordered by . tt7 01:45 Discharged to home ambulatory, with family, bm8 01:45 Condition: stable 01:45 Discharge instructions given to patient, Instructed on discharge instructions, follow up and referral plans. Demonstrated understanding of instructions, follow-up care, 01:46 Patient left the ED. bm8 Signatures: Dispatcher [employer] EDHI Lo Krause, Reg Reg mr KirbyParkerElizabeth, RN RN kd3 Jevon Yeager RN RN bm8 Kendall Martinez Jr RN RN nh2 Michelle Camara, CHUCKY RN km10 Sohail Bowden DO DO tt7 Corrections: (The following items were deleted from the chart) 09/02 22:47 22:44 General: Appears in no apparent distress. comfortable, Behavior is calm, nh2 cooperative, nh2 :47 22:44 Pain: Complains of pain in abdomen Pain currently is 3 out of 10 on a pain scale. nh2 nh2 23:57 23:51 Reassessment: pt transported to CT via stretcher. nh2 nh2
--- NOTE | 2025-09-03 01:41 | EDPHYS ---
Physician Documentation [facility] Name: Josseline Gallegos Age: 64 yrs Sex: Female : 1960 Arrival Date: 09/02/2025 Time: 21:47 Bed 5 Private MD: ED Physician Sohail Bowden HPI: 09/02 22:47 This 64 yrs old Female presents to ER via Ambulatory with complaints of abdominal pain, tt7 nausea, vomiting. 22:47 Patient reports periumbilical abdominal pain that has been progressively worsening over tt7 the past several days, she recently had an abdominal hernia repair and cholecystectomy performed, the past several days has been having nausea after eating with some nonbloody nonbilious vomiting. She is concerned of postoperative complication. Historical: - Allergies: 22:09 Codeine; kd3 22:09 Ibuprofen; kd3 22:09 Tylenol; kd3 - PMHx: 22:09 Chronic obstructive lung disease; Chronic pain; Hypertension; kd3 - PSHx: 22:09 breast (wris); foot; wrist; kd3 - Immunization history:: Adult Immunizations up to date. - Infectious Disease History:: Denies. - Social history:: Smoking status: Patient reports the use of cigarette tobacco products, smokes one-half pack cigarettes per day. ROS: 22:48 Constitutional: negative for fever. Cardiovascular: negative for chest pain. tt7 Respiratory: negative for shortness of breath. MS/Extremity: negative for injury and deformity. Skin: negative for rash. Neuro: negative for focal weakness. 22:48 Abdomen/GI: Positive for abdominal pain, nausea and vomiting, Exam: 22:48 Constitutional: vital signs reviewed, well appearing. Head/Face: normocephalic, tt7 atraumatic. Eyes: no conjunctival injection, anicteric sclerae. ENT: mucus membranes moist. Neck: trachea midline, no JVD, no meningismus. Chest/axilla: normal chest wall appearance and motion, nontender, no crepitus. Cardiovascular: regular rate and rhythm, no murmurs, no rubs, no lower extremity edema. Respiratory: normal respiratory effort, no accessory muscle use, lungs CTAB. Back: normal ROM. Skin: warm, dry, intact, normal turgor, normal color, no rash. MS/ Extremity: normal ROM of extremities, no gross deformities. Neuro: alert and oriented with appropriate mental status, normal speech, follows commands, no focal neurologic deficits. Psych: appropriate mood and affect. 22:48 Abdomen/GI: soft, nondistended, moderate periumbilical tenderness to palpation, no guarding or rebound, negative Arroyo's sign, no McBurney point tenderness, surgical wounds are well-appearing and well-healing without erythema, warmth, bleeding, or drainage. Vital Signs: 22:05 BP 193 / 113; Pulse 78; Resp 19; Pulse Ox 99% on R/A; Weight 49.9 kg; Height 5 ft. 5 kd3 in. ; 22:42 BP 160 / 80; Pulse 68; Resp 17; Pulse Ox 97% ; nh2 23:12 BP 153 / 109; Pulse 68; Resp 18; Pulse Ox 98% on R/A; nh2 09/03 00:01 BP 165 / 100; Pulse 75; Resp 19; Pulse Ox 98% on R/A; nh2 00:51 BP 173 / 99; Pulse 79; Resp 19; Temp 97.6(TE); Pulse Ox 98% on R/A; nh2 01:28 BP 172 / 111; Pulse 73; Resp 18; Temp 97.6; Pulse Ox 96% ; Pain 6/10; bm8 09/02 22:05 Body Mass Index 18.30 (49.90 kg, 165.1 cm) kd3 01:28 Pain Scale: Adult bm8 Brea Coma Score: 01:28 Eye Response: spontaneous(4). Motor Response: obeys commands(6). Verbal Response: bm8 oriented(5). Total: 15. MDM: 09/02 21:52 Medical Screening Exam initiated tt7 22:49 Differential diagnosis: Postoperative abscess, strangulated hernia, incarcerated tt7 hernia, pancreatitis, diverticulitis. Data reviewed: vital signs, nurses notes, old medical records, lab test result(s), radiologic studies. 22:50 ED course: Vital signs are overall stable, patient is well-appearing, physical exam is tt7 relatively benign, has some moderate umbilical tenderness but no guarding or rebound, surgical incisions are very well-appearing and look well-healed, no signs/symptoms of infection externally, will order standard laboratory studies and CT imaging of the abdomen/pelvis, will administer parenteral opioid for analgesia. 09/03 02:04 ED course: I reassessed the patient after parenteral opioids, pain is significantly tt7 improved, laboratory studies overall are reassuring, no acute abnormalities, CT imaging of the abdomen/pelvis with IV contrast did not demonstrate any acute abnormalities, no evidence of strangulated/incarcerated hernia or postoperative infection, after completion of the patient's emergency department evaluation, I do not suspect a life-threatening or disabling process. Patient is medically stable and not in need of emergent medical intervention. I had a detailed discussion with the patient regarding the historical points, exam findings, emergency department evaluation, diagnostic results, and the discharge diagnosis. I instructed the patient on outpatient management of their condition. I discussed the need for outpatient follow-up with a primary care physician. I informed the patient on return precautions, including the need to return to the ED if symptoms do not improve, worsen, or if there are any questions or concerns that arise at home. The patient was discharged in stable condition. 09/02 22:11 Order name: CBC with Diff; Complete Time: 22:51 tt7 09/02 22:11 Order name: CMP; Complete Time: 22:51 tt7 09/02 22:11 Order name: Lipase; Complete Time: 22:51 tt7 09/02 23:10 Order name: CT Abd/Pelvis - IV Contrast Only tt7 09/02 22:11 Order name: IV Saline Lock; Complete Time: 22:25 tt7 09/02 22:11 Order name: Labs collected and sent; Complete Time: 22:25 tt7 Administered Medications: 09/02 22:25 Drug: Ondansetron IVP 4 mg IVP once; over 2 minutes Route: IVP; Site: left antecubital; nh2 22:47 Follow up: Response: No adverse reaction; Nausea is decreased nh2 22:25 Drug: HYDROmorphone IVP 0.5 mg IVP once Route: IVP; Site: left antecubital; nh2 22:47 Follow up: Response: No adverse reaction; Pain is decreased; RASS: Alert and Calm (0) nh2 09/03 00:50 Drug: HYDROmorphone IVP 0.5 mg IVP once Route: IVP; Site: left antecubital; nh2 01:25 Follow up: Response: No adverse reaction bm8 Disposition: 02:05 Co-signature as Attending Physician, Sohail Bowden DO. tt7 Disposition Summary: 09/03/25 01:40 Discharge Ordered Notes: Location: Home tt7 Problem: chronic tt7 Symptoms: are resolved tt7 Condition: Stable tt7 Diagnosis - Periumbilical pain tt7 Followup: tt7 - With: Emergency Department - When: As needed - Reason: Followup: tt7 - With: Private Physician - When: 1 - 2 days - Reason: Recheck today's complaints, Re-evaluation by your physician Discharge Instructions: - Discharge Summary Sheet tt7 - Abdominal Pain, Adult, [id number] tt7 - Hernia, Adult, [id number] tt7 Forms: - Medication Reconciliation Form tt7 - Antibiotic Education tt7 - Prescription Opioid Use tt7 - Patient Portal Instructions tt7 - Leadership Thank You Letter tt7 Signatures: Dispatcher [employer] Elizabeth Riddle RN RN kd3 Kendall Martinez Jr, RN RN nh2 Sohail Bowden DO DO tt7 Jevon Yeager RN bm8
--- NOTE | 2025-09-03 02:30 | RAD REPORT ---
EXAM: CT Abdomen and Pelvis With Intravenous Contrast CLINICAL HISTORY: The patient is 64 years old and is Female; ABD PAIN TECHNIQUE: Axial computed tomography images of the abdomen and pelvis with intravenous contrast. Sagittal an d coronal reformatted images were created and reviewed. This CT exam was performed using one or more of the following dose reduction techniques: automated exposure control, adjustment of the mA a nd/or kV according to patient size, and/or use of iterative reconstruction technique. COMPARISON: September 01, 2025 FINDINGS: LUNG BASES: Unremarkable. No mass. No consolidation. ABDOMEN: LIVER: The liver is cirrhotic with a subtle nodular contour. GALLBLADDER AND BILE DUCTS: Surgical clips are present in the right upper quadrant, consistent wi th previous cholecystectomy. Surgical clips are present in the right upper quadrant, consistent with previous cholecystectomy. PANCREAS: No ductal dilation. No mass. SPLEEN: Unremarkable. ADRENALS: Unremarkable. No mass. KIDNEYS AND URETERS: Unremarkable. The kidneys enhance symmetrically. No obstructing renal or ure teral calculus is seen. No hydronephrosis or hydroureter. No perinephric fluid or stranding. STOMACH AND BOWEL: The stomach is significantly distended with food contents. The small bowel is normal in caliber. Stool is noted throughout the colon. There is no mucosal thickening or evidence of obstruction. PELVIS: APPENDIX: The appendix is normal in caliber without surrounding inflammation. BLADDER: Bladder is moderately distended. REPRODUCTIVE: Unremarkable as visualized. ABDOMEN and PELVIS: INTRAPERITONEAL SPACE: Unremarkable. No free air. No significant fluid collection. BONES/JOINTS: Multilevel degenerative changes spine is present. Intervertebral disc space narrowi ng with vacuum phenomenon osteophyte formation from L2 through S1 is noted. There is no acute fracture. SOFT TISSUES: Small fat and fluid containing ventral wall hernias are redemonstrated. VASCULATURE: Calcified phleboliths are present within the pelvis. Atherosclerosis of the vascul ature is present. The vessels are normal in caliber. No abdominal aortic aneurysm. LYMPH NODES: Unremarkable. No enlarged lymph nodes. IMPRESSION: 1. No acute findings on this contrasted CT of the abdomen and pelvis to explain the patient's sympt oms. 2. Chronic findings as detailed above. Electronically signed by: Nannette Portillo MD 09/03/2025 01:18 AM CDT RP Due to temporary technical issues with the [employer] reporting system, reports are being shayna d by the in-house radiologist without review as a courtesy to ensure prompt reporting the interpreting radiologist is fully responsible for the content of the report. Transcribed Date/Time: 09/03/2025 2:30 AM
[2025-09-03 07:02] VITALS: TEMP 97.6
[2025-09-03 07:04] VITALS: BP 172/111; O2SAT 96
== END 2025-09-03 01:46 | disposition home or self-care (01) ==
LOC: ER 21:47
DX: R10.33 Periumbilical pain (principal); R11.2 Nausea with vomiting, unspecified; Z90.49 Acquired absence of other specified parts of digestive tract
CPT/HCPCS: 85025; 36415; 83690; 80053; 74177; 96375; 96374; 99284; Q9967; J1171 ×2; J2405